=== PATIENT | female | born 1975 | race Two or more races ===

== ENCOUNTER 2017-03-10 21:49 | Emergency (ER) | payer OTHER ==
[2017-03-10 21:58] VITALS: BP 143/97; PULSE 110; TEMP 99.6; BMI 27.4
[2017-03-10] MEDS ORDERED: RANITIDINE HCL 150 MG TABLET (FP) PO ONE (22:48)
[2017-03-10 22:50] LABS: BASOPHIL 0.3 % (0-2.0); EOSINOPHIL 0.7 % (0-4.5); MCH 24.1 pg (25.7-33.7); MCHC 31.2 g/dl (32.0-36.0); MEAN CELL VOLUME 77.1 fl (80-96); MEAN PLT VOLUME 7.7 fl (7.5-11.1); NEUTROPHILS 77.6 % (42.8-82.8); PLATELET COUNT 372 K/MM3 (134-434); RDW 22.5 % (11.6-15.6); WHITE BLOOD COUNT 14.5 K/mm3 (4.0-10.0)
[2017-03-10] MEDS ORDERED: RANITIDINE HCL 150 MG TABLET (FP) ONE (22:55)
--- NOTE | 2017-03-10 22:58 | PDOC ---
*Physical Exam - Vital Signs Last Vital Signs Temp Pulse Resp BP Pulse Ox 99.6 F 110 H 20 143/97 96 03/10/17 21:57 03/10/17 21:57 03/10/17 21:57 03/10/17 21:57 03/10/17 21:57 - Physical Exam Comments: 03/10/17 22:58 The patient was examined by [DENISA Thurman] under my direct supervision. I personally evaluated the patient. I concur with the above findings and the plan of care. Patient is a 41-year-old female who presented with pleuritic chest and back discomfort associated with a dry nonproductive cough. EKG showed sinus tachycardia without evidence of acute ischemia or right sided heart strain. Patient's d-dimer was noted to be elevated and she underwent a CT of chest with IV contrast as per PE protocol. As per imaging donor technician radiologist, there is no evidence of PE within the main pulmonary arteries, however, there is an ill- defined peripherally based opacity to the left upper lobe consistent with a pulmonary infarct. I suspect that a subsegmental PE which is not appreciated on the CTA of chest is likely responsible. We will administer Lovenox subcutaneous at 1 mg/kg dose, as well as Zithromax-500 mg IV for possible infectious etiology. 03/11/17 02:16 Prior to admission, patient expressed desire to leave the hospital due to familial applications. Patient has been advised of the seriousness of her condition and the risk associated with leaving against medical advise which may include but are not limited to repeat pulmonary emboli, heart attack and even . Patient expressed understanding and has promised to return promptly to the ER further evaluation and treatment. ED Treatment Course - LABORATORY CBC & Chemistry Diagram: 03/10/17 22:30 03/10/17 22:30 - ADDITIONAL ORDERS Additional order review: 03/10/17 22:30 RBC 4.01 MCV 77.1 L MCHC 31.2 L RDW 22.5 H MPV 7.7 Neutrophils % 77.6 Lymphocytes % 15.6 Monocytes % 5.8 Eosinophils % 0.7 Basophils % 0.3 *DC/Admit/Observation/Transfer Diagnosis at time of Disposition: Pulmonary infarction - Discharge Dispostion Disposition: AGAINST MEDICAL ADVICE Condition at time of disposition: Guarded - Referrals Referrals: Virgilio Hector [Primary Care Provider] -
[2017-03-10 23:09] LABS: ALBUMIN 3.1 g/dl (3.4-5.0); ANION GAP 9 (8-16); BILIRUBIN,TOTAL 0.2 mg/dL (0.2-1.0); CO2 27 mmol/L (21-32); CREATININE 0.8 mg/dL (0.55-1.02); SGOT/AST 8 U/L (15-37); SGPT/ALT 15 U/L (12-78); TOT PROT 7.7 g/dl (6.4-8.2)
[2017-03-10 23:10] LABS: ALK PHOS 158 U/L (45-117)
[2017-03-10 23:14] LABS: GLUCOSE,RANDOM 346 mg/dL (74-106)
[2017-03-10 23:30] LABS: PLATELET COMMENT2 NO CLOTTING DETECTED; PLATELET COMMENT3 FEW LARGE PLTS; PLATELET ESTIMATE ADEQUATE (NORMAL)
[2017-03-10 23:33] LABS: ANISOCYTOSIS 2+; HYPOCHROMIA 1+; MICROCYTOSIS 1+; POIKILOCYTOSIS 1+; POLYCHROMASIA 1+
--- NOTE | 2017-03-11 00:17 | PDOC ---
History of Present Illness - General Chief Complaint: Pain Stated Complaint: CHEST PAIN Time Seen by Provider: 03/10/17 21:54 - History of Present Illness Initial Comments: 03/10/17 23:48 CHIEF COMPLAINT: SOB HISTORY OF PRESENT ILLNESS: 41 yo F with hx of IDDM presents to ED with chest pain and cough. Patient states she started feeling chest pain 3 days ago and began coughing 2 days ago. She reports the chest pain as being "on the left side, kind of toward the side and back" and that it hurts when she moves or breathes. She reports lifting a "heavy shopping cart" with her daughter up the stairs 3 days ago prior to the onset of her back/chest pain. She does report smoking history, approximately 8 cigarettes a day. No recent travel or sick contacts. PAST MEDICAL HISTORY: Denies past medical history FAMILY HISTORY: Denies SOCIAL HISTORY: Denies tobacco, alcohol, illicit drug use. SURGICAL HISTORY: Denies ALLERGIES: PCN REVIEW OF SYSTEMS General/Constitutional: Denies fever or chills. Denies weakness. HEENT: Denies change in vision. Denies ear pain or discharge. Denies sore throat. Cardiovascular: L sided chest pain, SOB. Respiratory: Cough x 2 days. Denies wheezing, or hemoptysis. Gastrointestinal: Denies nausea, vomiting, diarrhea or constipation. Denies rectal bleeding. Genitourinary: Denies dysuria, frequency, or change in urination. Musculoskeletal: Denies joint or muscle swelling or pain. Denies neck or back pain. Skin and breasts: Denies rash or easy bruising. PHYSICAL EXAM General Appearance: Well-appearing, appropriately dressed. No apparent distress. HEENT: EOMI, PERRLA, normal ENT inspection, normal voice, TMs normal, pharynx normal. No conjunctival pallor. No photophobia, scleral icterus. Neck: Supple. Trachea midline. No tenderness, rigidity, carotid bruit, stridor , lymphadenopathy, or thyromegaly. Respiratory/Chest: Pleurtic chest discomfort, shortness of breath. Lungs CTAB. No respiratory distress, accessory muscle use. No crackles, rales, rhonchi, stridor, wheezing, dullness. Cardiovascular: RRR. S1, S2. No JVD, murmur, bradycardia, tachycardia. Vascular Pulses: Dorsalis-Pedis (R): 2+, Dorsalis-Pedis (L): 2+ Gastrointestinal/Abdominal: Normal bowel sounds. Abdomen soft, non-distended. No tenderness or rebound tenderness. No organomegaly, pulsatile mass, guarding , hernia, hepatomegaly, splenomegaly. Musculoskeletal/Extremities: Marked tenderness to left lateral chest and back. Normal inspection. FROM of all extremities, normal capillary refill. Pelvis Stable. No CVA tenderness. No tenderness to extremities, pedal edema, swelling , erythema or deformity. Integumentary: Appropriate color, dry, warm. No cyanosis, erythema, jaundice or rash Neurologic: environmental services tech II-XII intact. Fully oriented, alert. Appropriate mood/affect. Motor strength 5/5. No appreciable EOM palsy, facial droop or sensory deficit. 03/11/17 01:10 03/11/17 01:31 Past History - Past Medical History Allergies/Adverse Reactions: Allergies Allergy/AdvReac Type Severity Reaction Status Date / Time Penicillins Allergy Verified 03/10/17 21:56 Home Medications: Ambulatory Orders Canagliflozin [Invokana] 100 mg PO ASDIR 03/10/17 Linagliptin [Tradjenta] 5 mg PO ASDIR 03/10/17 Sitagliptin Phosphate [Januvia] 50 mg PO DAILY@0700 03/10/17 Diabetes: Yes (type 2) - Psycho/Social/Smoking Cessation Hx Suicidal Ideation: No Smoking History: Current every day smoker Information on smoking cessation initiated: No *Physical Exam - Vital Signs Last Vital Signs Temp Pulse Resp BP Pulse Ox 99.6 F 110 H 20 143/97 96 03/10/17 21:57 03/10/17 21:57 03/10/17 21:57 03/10/17 21:57 03/10/17 21:57 ED Treatment Course - LABORATORY CBC & Chemistry Diagram: 03/10/17 22:30 03/10/17 22:30 - ADDITIONAL ORDERS Additional order review: Laboratory Results 03/10/17 03/10/17 03/10/17 22:43 22:30 22:30 D-Dimer 693 H Sodium Potassium Chloride Carbon Dioxide Anion Gap BUN Creatinine Creat Clearance w eGFR Random Glucose Lactic Acid 0.917 Calcium Total Bilirubin AST ALT Alkaline Phosphatase Total Protein Albumin Serum , Qual Negative 03/10/17 22:30 D-Dimer Sodium 133 L Potassium 3.7 Chloride 97 L Carbon Dioxide 27 Anion Gap 9 BUN 10 Creatinine 0.8 Creat Clearance w eGFR > 60 Random Glucose 346 H* Lactic Acid Calcium 9.0 Total Bilirubin 0.2 AST 8 L ALT 15 Alkaline Phosphatase 158 H Total Protein 7.7 Albumin 3.1 L Serum , Qual 03/10/17 22:30 RBC 4.01 MCV 77.1 L MCHC 31.2 L RDW 22.5 H MPV 7.7 Neutrophils % 77.6 Lymphocytes % 15.6 Monocytes % 5.8 Eosinophils % 0.7 Basophils % 0.3 - RADIOLOGY Radiology Studies Ordered: Category Date Time Status CHEST CTA [CT] Stat CT Scan 03/10/17 23:13 Ordered CHEST PA & LAT [RAD] Stat Radiology 03/10/17 22:06 Ordered - Medications Given in the ED: ED Medications Discontinued Medications Generic Name Dose Route Start Last Admin Trade Name Freq PRN Reason Stop Dose Admin Ranitidine HCl 150 mg 03/10/17 22:48 03/10/17 23:03 Zantac - PO 03/10/17 22:49 150 mg ONCE ONE Administration Medical Decision Making - Medical Decision Making 03/11/17 01:26 41 yo F with hx of IDDM presents to ED with chest pain and cough. VS remarkable for oral temp 99.6F and HR 110. Patient has marked tenderness to left chest and back. Concern for PE vs pneumonia. -CBC, CMP, D-dimer -CXR D-dimer 693 -CTA chest No filling defects are seen in the main, central or proximal segmental pulmonary arteries. There is however a wedge-shaped pleural-based area of heterogeneous incomplete consolidation noted in the left upper lobe anterolaterally (image 33) which is typical of a pulmonary infarct. There is no axillary, mediastinal or hilar adenopathy. The heart is within monitor size. There is no pericardial or pleural effusion. The trachea and central bronchi are patent. The thoracic aorta and proximal great vessels have a normal appearance. The visualized upper abdominal viscera appear unremarkable Impression: No pulmonary embolism identified. There is however a pleural-based area of incomplete consolidation seen in the left upper lobe, as described above that is typical of a pulmonary infarct. Read by: Juan Manuel Emmanuel MD. -Lovenox 70mg -Azithromycin 500 mg Will admit to hospitalist. Discussed case with attending hospitalist MD Oglesby who accepts patient to inpatient services. 03/11/17 02:06 Patient requests to sign out AMA. Discussed with patient risks of signing out AMA, including stroke and possible . Patient insists that she has to go home to arrange for childcare. Advised patient to stay and that social work can help arrange childcare in the morning. Patient refuses and continues to insist that she will sign her self out. *DC/Admit/Observation/Transfer Diagnosis at time of Disposition: Pulmonary infarction - Discharge Dispostion Disposition: AGAINST MEDICAL ADVICE Condition at time of disposition: Guarded Admit: No - Referrals Referrals: Virgilio Hector [Primary Care Provider] -
[2017-03-11] MEDS ORDERED: ENOXAPARIN NA (PORCINE) 60 MG/0.6 ML DISP.SYRIN SQ SCH (01:30)
[2017-03-11] MEDS ORDERED: AZITHROMYCIN 250 MG TABLET (FP) PO ONE (01:30)
[2017-03-11] MEDS ORDERED: ENOXAPARIN NA (PORCINE) 80 MG/0.8 ML DISP.SYRIN SQ ONE (01:46)
[2017-03-11] MEDS ORDERED: AZITHROMYCIN 250 MG TABLET (FP) ONE (01:46)
--- NOTE | 2017-03-12 10:41 | EKG ---
Test Reason : Blood Pressure : / mmHG Vent. Rate : 105 BPM Atrial Rate : 105 BPM P-R Int : 152 ms QRS Dur : 082 ms QT Int : 350 ms P-R-T Axes : 048 040 025 degrees QTc Int : 462 ms SINUS TACHYCARDIA OTHERWISE NORMAL ECG NO PREVIOUS ECGS AVAILABLE Confirmed by ISAAK SANDHU MD ([id number]) on 03/12/2017 10:41:30 AM Referred By: Confirmed By:ISAAK SANDHU MD
== END 2017-03-11 02:18 | disposition left against medical advice (07) ==
LOC: JER 21:49
PROC: 3E013GC Introduction of Other Therapeutic Substance into Subcutaneous Tissue, Percutaneous Approach (ICD-10-PCS; principal; 2017-03-10)
DX: I26.99 Other pulmonary embolism without acute cor pulmonale (principal); E11.9 Type 2 diabetes mellitus without complications; Z79.4 Long term (current) use of insulin; Z79.84 Long term (current) use of oral hypoglycemic drugs; F17.210 Nicotine dependence, cigarettes, uncomplicated
CPT/HCPCS: 36415; 71020-TC; 71275-TC; 80053; 83605; 84703; 85025; 85379; 87040; 93005; 93010; 96372; 99284-25

== ENCOUNTER 2017-03-13 14:41 | Emergency (ER) | payer OTHER ==
[2017-03-13] MEDS ORDERED: ALBUTEROL SO4 2.5/IPRATROPIUM 0.5 INH SOL 3 ML VIAL.NEB. NEB ONE (15:08)
[2017-03-13] MEDS ORDERED: DEXAMETHASONE SOD PHOSPHATE 10 MG/1 ML VIAL ONE (15:08)
--- NOTE | 2017-03-13 16:43 | PDOC ---
History of Present Illness - General Chief Complaint: Chest Pain Stated Complaint: Asthma Time Seen by Provider: 03/13/17 15:00 History Source: Patient Exam Limitations: No Limitations - History of Present Illness Initial Comments: 03/13/17 16:09 41 y/o female with c/o chest pain which she describes the tightness accompanied with shortness of breath with minimal exertion. Patient states was here a few days ago was diagnosed with a PE and was placed on Lovenox which she states has taken yesterday and today. Patient apparently left AMA but states is currently compliant with medications. Patient denies history of PE recent surgery, recent travel, or use of oral contraceptive pills. Patient does state smokes cigarettes daily Severity: reports: moderate Possible Cause: Yes: occasional episodes Associated Symptoms: reports: chest pain/soreness, cough, shortness of breath, wheezing Past History - Past Medical History Allergies/Adverse Reactions: Allergies Allergy/AdvReac Type Severity Reaction Status Date / Time Penicillins Allergy Verified 03/10/17 21:56 Home Medications: Ambulatory Orders Canagliflozin [Invokana] 100 mg PO TID 03/10/17 Sitagliptin Phosphate [Januvia] 100 mg PO DAILY@0700 03/10/17 Acetaminophen [Mapap] 500 mg PO Q6H PRN 03/13/17 Azithromycin [Zithromax -] 250 mg PO DAILY 03/13/17 Enoxaparin [Lovenox -] 80 mg SQ BID 03/13/17 Gabapentin 300 mg PO TID 03/13/17 Insulin Glargine,Hum.rec.anlog [Toujeo Solostar] 35 unit SQ DAILY 03/13/17 Pregabalin [Lyrica] 100 mg PO TID 03/13/17 Diabetes: Yes (type 2) Other medical history: pe - Psycho/Social/Smoking Cessation Hx Anxiety: No Suicidal Ideation: No Smoking History: Current every day smoker Have you smoked in the past 12 months: Yes Number of Cigarettes Smoked Daily: 10 Information on smoking cessation initiated: No Hx Alcohol Use: No Drug/Substance Use Hx: No Substance Use Type: None Patient Lives Alone: No Review of Systems - Review of Systems Able to Perform ROS?: Yes Constitutional: No: Symptoms Reported HEENTM: No: Symptoms Reported Respiratory: Yes: SOB with Exertion Cardiac (ROS): Yes: Chest Pain ABD/GI: No: Symptoms Reported : No: Symptoms Reported Musculoskeletal: No: Symptoms Reported Integumentary: No: Symptoms Reported Neurological: No: Symptoms reported Endocrine: No: Symptoms Reported Hematologic/Lymphatic: No: Symptoms Reported *Physical Exam - Vital Signs Last Vital Signs Temp Pulse Resp BP Pulse Ox 97.8 F 102 H 17 113/76 100 03/13/17 14:52 03/13/17 16:37 03/13/17 16:37 03/13/17 16:37 03/13/17 16:37 - Physical Exam General Appearance: Yes: Nourished, Appropriately Dressed. No: Apparent Distress HEENT: positive: EOMI, BRITTNI. negative: Pale Conjunctivae Neck: positive: Supple Respiratory/Chest: positive: Lungs Clear, Normal Breath Sounds. negative: Respiratory Distress, Accessory Muscle Use Cardiovascular: positive: Regular Rhythm, Tachycardia. negative: Murmur Gastrointestinal/Abdominal: positive: Soft. negative: Tenderness Musculoskeletal: negative: CVA Tenderness Extremity: positive: Normal Capillary Refill. negative: Pedal Edema Integumentary: positive: Normal Color, Warm, Moist Neurologic: positive: Normal Mood/Affect, Motor Strength 5 (ambulatory) ED Treatment Course - LABORATORY CBC & Chemistry Diagram: 03/13/17 16:00 03/13/17 18:54 - RADIOLOGY Radiology Studies Ordered: Category Date Time Status CHEST PA & LAT [RAD] Stat Radiology 03/13/17 15:20 Completed Medical Decision Making - Medical Decision Making 03/13/17 17:01 Patient with opacity in the left lobe noted on the interpreted as up subsegmental PE by the attending in the ED but read as negative from the radiologist. Patient currently on Lovenox which she started yesterday. Patient continues with complaints of shortness of breath on exertion along with generalized chest tightness. Patient ordered for echo to rule out strain, labs, chest x-ray, and cardiac rehabilitation specialist. 03/13/17 17:04 Chest x-ray shows focal area peripheral opacification with a left upper lobe with no significant change since 03/10 this most likely represents chronic process such as atelectasis, scarring, or infarct. Laboratory Tests 03/13/17 16:00 WBC 12.5 H Hgb 9.8 L Hct 31.7 L Plt Count 406 Neutrophils % 84.6 H 03/13/17 18:59 DVT study negative. Echo shows no right sided heart strain. Noted mild mitral valve regurgitation. Patient will be revitalized and if normal sinus rhythm with a good O2 sat. Patient be discharged home to continue with Lovenox and follow-up with her PCP. 03/13/17 19:04 pulse 96. O2 sat 100%. Patient will be discharged home to continue with her medication and follow-up with her PCP. *DC/Admit/Observation/Transfer Diagnosis at time of Disposition: Chest pain Qualifiers: Chest pain type: unspecified Qualified Code(s): R07.9 - Chest pain, unspecified - Discharge Dispostion Disposition: HOME Condition at time of disposition: Improved - Referrals Referrals: Virgilio Hector [Primary Care Provider] - - Patient Instructions Printed Discharge Instructions: DI for Atypical Chest Pain Additional Instructions: Please continue taking medication as prescribed and follow-up with your PCP to continue management.
[2017-03-13 16:48] LABS: BASOPHIL 0.5 % (0-2.0); EOSINOPHIL 0.6 % (0-4.5); MCH 23.9 pg (25.7-33.7); MCHC 30.8 g/dl (32.0-36.0); MEAN CELL VOLUME 77.7 fl (80-96); MEAN PLT VOLUME 8.3 fl (7.5-11.1); NEUTROPHILS 84.6 % (42.8-82.8); PLATELET COUNT 406 K/MM3 (134-434); RDW 22.5 % (11.6-15.6); WHITE BLOOD COUNT 12.5 K/mm3 (4.0-10.0)
--- NOTE | 2017-03-13 17:00 | EKG ---
Test Reason : Blood Pressure : / mmHG Vent. Rate : 104 BPM Atrial Rate : 104 BPM P-R Int : 152 ms QRS Dur : 082 ms QT Int : 382 ms P-R-T Axes : 049 030 016 degrees QTc Int : 502 ms SINUS TACHYCARDIA OTHERWISE NORMAL ECG WHEN COMPARED WITH ECG OF 10-MAR-2017 22:30, NO SIGNIFICANT CHANGE WAS FOUND Confirmed by ISAAK SANDHU MD ([id number]) on 03/13/2017 5:00:15 PM Referred By: Confirmed By:ISAAK SANDHU MD
[2017-03-13 17:57] LABS: ANISOCYTOSIS 3+
[2017-03-13 17:58] LABS: MICROCYTOSIS 1+
[2017-03-13 19:11] VITALS: BP 114/65; PULSE 90; TEMP 98.1
[2017-03-13 19:25] LABS: ALBUMIN 3.2 g/dl (3.4-5.0); ANION GAP 12 (8-16); BILIRUBIN,TOTAL 0.3 mg/dL (0.2-1.0); CALCIUM 9.2 mg/dL (8.5-10.1); CO2 26 mmol/L (21-32); CREATININE 0.8 mg/dL (0.55-1.02); SGOT/AST 12 U/L (15-37); SGPT/ALT 17 U/L (12-78)
[2017-03-13 19:26] LABS: ALK PHOS 154 U/L (45-117); TOT PROT 8.4 g/dl (6.4-8.2)
[2017-03-13 19:32] LABS: GLUCOSE,RANDOM 375 mg/dL (74-106)
== END 2017-03-13 19:12 | disposition home or self-care (01) ==
LOC: JER 14:41
DX: R07.89 Other chest pain (principal); E11.9 Type 2 diabetes mellitus without complications; Z79.4 Long term (current) use of insulin; Z79.84 Long term (current) use of oral hypoglycemic drugs; Z86.711 Personal history of pulmonary embolism; Z79.01 Long term (current) use of anticoagulants
CPT/HCPCS: 36415; 71020-TC; 80053; 85025; 93005; 93010; 93306-TC; 93970-TC; 99285-25

== ENCOUNTER 2018-03-16 10:08 | Inpatient (IN) | payer OTHER ==
[2018-03-16] MEDS ORDERED: SODIUM CHLORIDE 1,000 ML IV ONE ×4 (10:20→14:02)
[2018-03-16] MEDS ORDERED: ONDANSETRON 4 MG/2 ML VIAL IVPB ONE (10:27)
--- NOTE | 2018-03-16 10:30 | PDOC ---
History of Present Illness - History of Present Illness Initial Comments: Patient is a 42 F, with PMHx of IDDM, GERD who was BIBA and presents with dizziness, lightheadedness, nausea, and vomiting for 4 days. Patient states that 4 days ago she began feeling lightheaded and describes it as feeling off- balance. Three days ago she felt lightheaded and fell down stairs injuring the right side of her body, in particular her shoulder, ribs, and lower back. She was seen at [facility] and x-rays were negative for fracture as per patient. Patient also reports fever of last night at 102.4, cough (non-productive, non- bloody), and sore throat. She states she is unable to tolerate PO liquid/solid without feeling nauseous/vomiting. She states that her blood sugar is not well- controlled and is normally in the 300s. The last time she took her sugar was 367. Denies abdominal pain, runny nose, diarrhea, dysuria Social Hx: Current every day smoker 03/16/18 14:23 <Annmarie Trinidad - Last Filed: 03/16/18 18:24> - History of Present Illness Initial Comments: Addendum to above history - pt does endorse some R sided abdominal pain for the past few days that she attributes to the fall <Jacinto Slater - Last Filed: 03/18/18 07:26> - General Chief Complaint: Blood Sugar Problem Stated Complaint: BLOOD SUGAR PROBLEM Time Seen by Provider: 03/16/18 10:25 Past History <Annmarie Trinidad - Last Filed: 03/16/18 18:24> - Past Medical History COPD: No Diabetes: Yes (type 2) GI Disorders: Yes (gerd) Hypercholesterolemia: Yes Other medical history: sciatica,fibromyalgia - Suicide/Smoking/Psychosocial Hx Smoking History: Current every day smoker Have you smoked in the past 12 months: Yes Number of Cigarettes Smoked Daily: 10 Information on smoking cessation initiated: Yes 'Breaking Loose' booklet given: 03/16/18 Hx Alcohol Use: No Drug/Substance Use Hx: No Substance Use Type: None <Jacinto Slater - Last Filed: 03/18/18 07:26> - Past Medical History Allergies/Adverse Reactions: Allergies Allergy/AdvReac Type Severity Reaction Status Date / Time Penicillins Allergy Verified 03/16/18 10:20 Home Medications: Ambulatory Orders Atorvastatin Ca [Lipitor] 40 mg PO HS 03/16/18 Ferrous Sulfate [Iron] 325 mg PO DAILY 03/16/18 Gabapentin 300 mg PO HS 03/16/18 Hydroxyzine HCl 50 mg PO DAILY 03/16/18 Ibuprofen [Motrin -] 800 mg PO Q8H PRN 03/16/18 Insulin Glargine,Hum.rec.anlog [Basaglar Kwikpen U-100] 20 unit SQ BID 03/16/18 Omeprazole 20 mg PO DAILY 03/16/18 Review of Systems - Review of Systems Comments:: 03/16/18 14:21 CONSTITUTIONAL: Reported: fever No reported: , Chills, Diaphoresis, Generalized Weakness, Malaise, Loss of Appetite HEENT: reportedL sore throat No reported: Rhinorrhea, Nasal Congestion, Throat Swelling, Difficulty Swallowing, Mouth Swelling, Ear Pain, Eye Pain, Visual Changes CARDIOVASCULAR: No reported: Chest Pain, Syncope, Palpitations, Irregular Heart Rate, Lightheadedness, Peripheral Edema RESPIRATORY: reported: cough (non-productive) No reported: Shortness of Breath, SOB with Exertion, Orthopnea, Wheezing, Stridor, Hemoptysis GASTROINTESTINAL: Reported: right sided abdominal pain, nausea, vomiting. No reported: Abdominal Distension, Diarrhea, Constipation, Melena, Hematochezia GENITOURINARY: No reported: Dysuria, Frequency, Urgency, Hesitancy, Flank Pain, Genital Pain MUSCULOSKELETAL: reported: right shoulder, right anterior rib, back pain No reported: Neck Pain SKIN: No reported: Rash, Itching, Pallor HEMEATOLOGIC/IMMUNOLOGIC: No reported: Easy Bleeding, Easy Bruising, Lymphadenopathy, Frequent infections ENDOCRINE: No reported: Unexplained Weight Gain, Unexplained Weight Loss, Heat Intolerance , Cold Intolerance NEUROLOGIC: Reported: lightheadness No reported: Headache, Focal Weakness, Paresthesias, , Unsteady Gait, Seizure, Mental Status Changes, Incontinence PSYCHIATRIC: No reported: Anxiety, Depression <Annmarie Trinidad - Last Filed: 03/16/18 18:24> *Physical Exam - Vital Signs Last Vital Signs Temp Pulse Resp BP Pulse Ox 98.3 F 115 H 18 109/63 98 03/16/18 10:21 03/16/18 10:21 03/16/18 10:21 03/16/18 10:21 03/16/18 10:21 - Physical Exam Comments: 03/16/18 14:22 GENERAL: The patient is awake, alert, and fully oriented, Nontoxic - in no acute distress. HEAD: Normocephalic, atraumatic. EYES: extraocular movements intact, sclera anicteric, conjunctiva clear. ENT: Normal voice, Dry mucous membranes. NECK: Normal range of motion, supple LUNGS: Breath sounds equal, clear to auscultation bilaterally. No wheezes, no rhonchi, no rales. HEART: Tachycardic. Regular rate and rhythm, without murmur, rub or gallop. ABDOMEN: Soft, mild tenderness to palpation of RUQ and right chest, EXTREMITIES: Normal range of motion, no edema. No cyanosis. No erythema, or tenderness. NEUROLOGICAL: No facial assymetry, Normal speech, PSYCH: Normal mood, normal affect. SKIN: Warm, Dry, normal turgor 03/16/18 14:59 <Annmarie Trinidad - Last Filed: 03/16/18 18:24> - Vital Signs Last Vital Signs Temp Pulse Resp BP Pulse Ox 98.3 F 115 H 18 109/63 98 03/16/18 10:21 03/16/18 10:21 03/16/18 10:21 03/16/18 10:21 03/16/18 10:21 <Jacinto Slater - Last Filed: 03/18/18 07:26> Procedures - Consent Consent obtained: Written - Central Line Central Line Lumen: triple Central Line Position: internal jugular (R) Anesthesia: 1% Lidocaine Amount of anesthesia (ccs): 5 Complications: none Post Central Line Insertion: sutured, good blood return Progress: 03/16/18 15:31 placed by resident Regino Eric under my direct supervision. I was present during the entire procedure <Jacinto Slater - Last Filed: 03/18/18 07:26> Heart Score/ECG Review - ECG Intrepretation Comment:: 03/16/18 15:01 Taken at 11:41:17 Sinus tachycardia Nonspecific T wave abnormality Abnormal ECG Vent rate 113 bpm <Annmarie Trinidad - Last Filed: 03/16/18 18:24> ED Treatment Course - LABORATORY CBC & Chemistry Diagram: 03/16/18 16:30 03/16/18 15:20 - ADDITIONAL ORDERS Additional order review: Laboratory Results 03/16/18 03/16/18 03/16/18 11:20 11:20 11:20 VBG pH 7.24 L* POC VBG pCO2 38.3 POC VBG pO2 22.9 L Mixed VBG HCO3 15.8 L Sodium 133 L Potassium 3.4 L Chloride 104 Carbon Dioxide 16 L Anion Gap 13 BUN 23 H Creatinine 2.5 H Creat Clearance w eGFR 21.12 Random Glucose 330 H* Calcium 7.2 L Phosphorus 3.4 Magnesium 1.5 L Total Bilirubin 1.8 H D AST 98 H ALT 61 Alkaline Phosphatase 188 H Total Protein 7.0 Albumin 2.4 L Serum , Qual Negative 03/16/18 11:20 RBC 3.53 L MCV 78.0 L MCHC 31.3 L RDW 21.7 H MPV 7.7 Neutrophils % 96.2 H Lymphocytes % 1.8 L D Monocytes % 1.7 L Eosinophils % 0.1 D Basophils % 0.2 - RADIOLOGY Radiograph Interpretation: 03/16/18 12:45 Chest X-ray Impression: No acute pathology. Clearing of left midlung density. Reported by: Virgilio Seth 03/16/18 1213 03/16/18 14:07 - Gallbladder US Impression: Enlarged liver. 5.4 cm irregular hypoechoic lesion posterior aspect of the liver. Etiology should include both benign and malignant lesions. In the right clinical setting an abscess should be considered. 4.3 cm irregular hypoechoic lesion upper pole right kidney. Could represent a mildly complex cyst but other etiologies must be considered. Gallbladder polyp. Mural thickening of the gallbladder. This can be seen in cholecystitis Reported by: Alejandro Li MD 03/16/18 8586 - Medications Given in the ED: ED Medications Discontinued Medications Generic Name Dose Route Start Last Admin Trade Name Freq PRN Reason Stop Dose Admin Sodium Chloride 1,000 mls @ 1,000 mls/hr 03/16/18 10:27 03/16/18 10:49 Normal Saline - IV 03/16/18 11:26 1,000 mls/hr .Q1H ONE Administration Ondansetron HCl 4 mg 03/16/18 10:27 03/16/18 11:19 Zofran Injection IVPB 03/16/18 10:28 4 mg ONCE ONE Administration - Additional Consults Time Called: 18:10 (Called Dr. Almaguer (ID) for consult) Time Called: 18:24 (Called Dr. Mcmullen (Renal), awaiting call back) <Annmarie Trinidad - Last Filed: 03/16/18 18:24> - LABORATORY CBC & Chemistry Diagram: 03/18/18 05:15 03/18/18 05:15 <Jacinto Slater - Last Filed: 03/18/18 07:26> Medical Decision Making - Medical Decision Making Case discussed with surgery - Dr. Diaz, agrees with plan for head CT scan and antibiotics, she will be down to see the patient. 03/16/18 14:19 <Annmarie Trinidad - Last Filed: 03/16/18 18:24> - Medical Decision Making 03/16/18 11:04 42-year-old female history of insulin-dependent diabetes, gerd, hl, fibromyalgia presents with complaint of feeling lightheaded, nbnb nausea/ vomiting for the past 4 days with associated cough. pt denies any diarrhea, new abd pain, dysuria, cp, back pain. pt niotes her bgm has been i the 400s but has poorly controled sugar at baseline. on exam pt appears well, in no distress, mild tenderness in the R ribs/ruq without ecchymosis or other signs of trauma (was eval at [facility] - no fx sp fall 2 daysago) mildly dry mmm ddx: enteritis, DKA will ck labs, vbg, ketones will will reassess A portion of this note was documented by scribe services under my direction. I have reviewed the details of the note, within reason, and agree with the documentation with the following case summary and management plan written by me 03/16/18 13:02 Patient's labs were reviewed Noted for a white count, the patient also has an elevated T bilirubin as well as acute renal failure with elevated creatinine compared to baseline. She got 2 L of fluids, will give another liter. Will obtain blood cultures and lactic acid The patient had originally complained of a fall on her right side several days ago, she was attributing some tenderness on her right abdomen and chest to that however I will rule out a cholecystitis in light of her elevated bilirubins. Patient's blood pressure is also low will continue to fluid resuscitate if no response will consider central line and pressors 03/16/18 15:28 US noted for hepatic/renal collection -->traumatic vs. infectious? case dw dr. Diaz who was bedside evaluationg the patient, awaiting CT pts bp continues to be soft, after 4L of fluids tripple lumen placed in RIJ by Dr. Eric under my direct supervision without complications 03/16/18 15:43 line placemnt confirmed by cxr 03/16/18 15:54 will admit for further management 03/16/18 16:58 urine noted for possible UTI -->?pyelo/collection? 03/16/18 17:38 case louise Smith agree with admission accepted to ICU by dr. amaral pt reepeat blood anemic, likely dilutional, but in light of possible trauma and soft BP, surgery rec 2u of PRBC Ca, Mag low - repleted continue fluids pts bp holding up w/o pressors Case discussed in detail with admitting physician including history, physical exam and ancillary studies. Admitting physician has assumed care for the patient, will follow all pending diagnostics and will complete the evaluation and treatment. 03/16/18 18:48 case louise Smith and dr. caballero/jose antonio - agreed that the patient needs a CTA to r/o bleeding due to recent fall pt will go to CT before she goes to ICU 03/16/18 19:35 CRITICAL CARE DOCUMENTATION: I spent ~145 minutes of Critical Care time, excluding separately billable procedures, involving high complexity decision making to assess, manipulate and support vital system function(s) to treat single or multiple vital organ system failure and/or to prevent further life threatening deterioration of the patient' s condition. <Jacinto Slater - Last Filed: 03/18/18 07:26> *DC/Admit/Observation/Transfer - Attestations Scribe Attestion: 03/16/18 14:23 Documentation prepared by Annmarie Trinidad, acting as medical staff credentialing coordinator for Jacinto Slater MD. <Annmarie Trinidad - Last Filed: 03/16/18 18:24> - Discharge Dispostion Decision to Admit order: Yes <Jacinto Slater - Last Filed: 03/18/18 07:26> Diagnosis at time of Disposition: Liver abscess, Metabolic acidosis, Hyperglycemia, SOFIYA (acute kidney injury) UTI (urinary tract infection) Qualifiers: Urinary tract infection type: site unspecified Hematuria presence: with hematuria Qualified Code(s): N39.0 - Urinary tract infection, site not specified - Discharge Dispostion Condition at time of disposition: Critical
[2018-03-16] MEDS ORDERED: ONDANSETRON 4 MG/2 ML VIAL ONE (10:51)
[2018-03-16 11:32] LABS: BASO % 0.2 % (0-2.0); EOS % 0.1 % (0-4.5); HEMATOCRIT 27.5 % (32.4-45.2); HEMOGLOBIN 8.6 GM/dL (10.7-15.3); LYMPH % 1.8 % (8-40); MCH 24.4 pg (25.7-33.7); MCHC 31.3 g/dl (32.0-36.0); MEAN PLT VOLUME 7.7 fl (7.5-11.1); MONO % 1.7 % (3.8-10.2); NEUT % 96.2 % (42.8-82.8); PLATELET COUNT 282 K/MM3 (134-434); RBC 3.53 M/mm3 (3.60-5.2); RDW 21.7 % (11.6-15.6); WHITE BLOOD COUNT 13.6 K/mm3 (4.0-10.0)
[2018-03-16 11:47] LABS: VENOUS PC02 38.3 mmHg (38-52); VENOUS PO2 22.9 mmHg (28-48)
[2018-03-16 11:48] LABS: VENOUS PH 7.24 (7.32-7.42)
[2018-03-16 12:04] LABS: ALBUMIN 2.4 g/dl (3.4-5.0); ANION GAP 13 (8-16); BLOOD UREA NITROGEN 23 mg/dL (7-18); CALCIUM 7.2 mg/dL (8.5-10.1); CHLORIDE 104 mmol/L (98-107); CO2 16 mmol/L (21-32); CREATININE 2.5 mg/dL (0.55-1.02); PHOSPHOROUS 3.4 mg/dL (2.5-4.9); SGPT/ALT 61 U/L (12-78); SODIUM 133 mmol/L (136-145)
[2018-03-16 12:07] LABS: ALK PHOS 188 U/L (45-117); BILIRUBIN,TOTAL 1.8 mg/dL (0.2-1.0)
[2018-03-16 12:10] LABS: POTASSIUM 3.4 mmol/L (3.5-5.1)
[2018-03-16 12:11] LABS: MAGNESIUM 1.5 mg/dL (1.8-2.4); SGOT/AST 98 U/L (15-37)
[2018-03-16 12:12] LABS: GLUCOSE,RANDOM 330 mg/dL (74-106)
[2018-03-16 13:05] LABS: URINE APPEARANCE CLOUDY; URINE BILIRUBIN NEGATIVE (<2.0 mg/dL); URINE COLOR AMBER; URINE GLUCOSE (UA) 1+ (NEGATIVE); URINE KETONE NEGATIVE (NEGATIVE); URINE NITRITE NEGATIVE (NEGATIVE); URINE UROBILINOGEN 4.0 E.U/dl mg/dL (0.2-1.0)
[2018-03-16 13:06] LABS: HCG,QUALITATIVE URINE NEGATIVE; URINE LEUK ESTERASE 3+ (NEGATIVE); URINE PROTEIN 2+ (NEGATIVE)
[2018-03-16 13:11] LABS: EPI CELLS MANY /HPF (FEW); URINE BACTERIA MANY /hpf (NONE SEEN); URINE HYALINE CAST 10 /lpf; URINE MUCUS RARE
[2018-03-16 14:56] LABS: INR 1.37 (0.82-1.09); PROTHROMBIN TIME (PATIENT) 15.5 SEC (9.7-13.0)
--- NOTE | 2018-03-16 15:09 | CONSULT ---
Consult Consult Specialty:: General Surgery Referred by:: ED Reason for Consultation:: Right sided abdominal pain, hypotension, acidosis, possible cholesystitits, possible liver abscess, h/o recent fall down stairs possible blunt trauma - History of Present Illness Chief Complaint: Severe right sided abdominal pain especially RUQ, nausea, h/o vomititng, difficulty breathing due to pain, h/o right sided pain after fall down a flight of stairs approx. 2 days ago History of Present Illness: I was called to the ED to evaluate a patient who presented to ED c/o severe right sided abdominal pain which has worsened since a fall down a flight of stairs about 2 days ago due to "dizziness". Patient presented to another ED and states that they took xrays which were negative and she was sent home. Patient also c/o nausea and 1 episode vomiting, no other GI symptoms. Patient states difficulty breathing due to severe right sided pain. On arrival patietn is afebrile, tachycardic to 115 somewhat hypotensive. Labs significant for WBC 13 Hgb - History Source History Provided By: Patient Limitations to Obtaining History: Poor Historian - Past Medical History Cardio/Vascular: Yes: Hyperlipdemia Pulmonary: Yes: Asthma Gastrointestinal: Yes: GERD Musculoskeletal: Yes: Chronic low back pain Rheumatology: Yes: Fibromyalgia Endocrine: Yes: Diabetes Mellitus - Past Surgical History Additional Surgical History: None reported - Alcohol/Substance Use Hx Alcohol Use: No - Smoking History Smoking history: Current every day smoker Have you smoked in the past 12 months: Yes Aproximately how many cigarettes per day: 10 Home Medications - Allergies Allergies/Adverse Reactions: Allergies Allergy/AdvReac Type Severity Reaction Status Date / Time Penicillins Allergy Verified 03/16/18 10:20 - Home Medications Home Medications: Ambulatory Orders Atorvastatin Ca [Lipitor] 40 mg PO HS 03/16/18 Ferrous Sulfate [Iron] 325 mg PO DAILY 03/16/18 Gabapentin 300 mg PO HS 03/16/18 Hydroxyzine HCl 50 mg PO DAILY 03/16/18 Ibuprofen [Motrin -] 800 mg PO Q8H PRN 03/16/18 Insulin Glargine,Hum.rec.anlog [Basaglar Kwikpen U-100] 20 unit SQ BID 03/16/18 Omeprazole 20 mg PO DAILY 03/16/18 Family Disease History - Family Disease History Family History: Unable to Obtain (patient unable to offer info) Review of Systems - Review of Systems Constitutional: reports: Chills, Fever, Loss of Appetite Eyes: denies: Blurred Vision, Photophobia HENT: denies: Nasal Congestion, Throat Pain Neck: denies: Decreased ROM, Pain on Movement Cardiovascular: reports: Shortness of Breath. denies: Chest Pain Respiratory: reports: Cough, SOB on Exertion. denies: Wheezing Gastrointestinal: reports: Abdominal Pain (Severe located to Right upper qudrant ), Nausea, Vomiting Genitourinary: denies: Burning, Discharge, Flank Pain Musculoskeletal: reports: Back Pain. denies: Joint Swelling Integumentary: denies: Bruising, Erythema Neurological: reports: Dizziness, Syncope Physical Exam Vital Signs: Vital Signs Temperature 99.4 F 03/16/18 13:24 Pulse Rate 116 H 03/16/18 14:31 Respiratory Rate 24 03/16/18 14:31 Blood Pressure 84/51 03/16/18 14:31 O2 Sat by Pulse Oximetry (%) 95 03/16/18 14:31 Constitutional: Yes: Moderate Distress, Obese Eyes: Yes: Conjunctiva Clear, EOM Intact HENT: Yes: Atraumatic, Normocephalic Neck: Yes: Supple, Trachea Midline Cardiovascular: Yes: Tachycardia. No: Pulse Irregular Respiratory: Yes: Regular, CTA Bilaterally Gastrointestinal: Yes: Soft, Abdomen, Obese, Hypoactive Bowel Sounds, Tenderness (Severe right upper quadrant tenderness with guarding not able to assess for rebound due to tenderness) ...Rectal Exam: Yes: Deferred Renal/: No: CVA Tenderness - Right, Hematuria Musculoskeletal: No: Joint Swelling, Muscle Weakness Extremities: No: Cool, Cyanosis Edema: No Integumentary: No: Jaundice, Rash Neurological: Yes: Alert, Oriented Psychiatric: Yes: Alert, Oriented Labs: CBC, BMP 03/16/18 11:20 03/16/18 14:00 INR, PTT INR 1.37 (0.82-1.09) H 03/16/18 14:00 CMP Sodium 133 mmol/L (136-145) L 03/16/18 11:20 Potassium 3.4 mmol/L (3.5-5.1) L 03/16/18 11:20 Chloride 104 mmol/L (98-107) 03/16/18 11:20 Carbon Dioxide 16 mmol/L (21-32) L 03/16/18 11:20 Anion Gap 13 (8-16) 03/16/18 11:20 BUN 23 mg/dL (7-18) H 03/16/18 11:20 Creatinine 2.5 mg/dL (0.55-1.02) H 03/16/18 11:20 Creat Clearance w eGFR 21.12 (>60) 03/16/18 11:20 Random Glucose 330 mg/dL (74-106) H* 03/16/18 11:20 Lactic Acid 2.4 mmol/L (0.0-2.0) H* 03/16/18 14:00 Calcium 7.2 mg/dL (8.5-10.1) L 03/16/18 11:20 Phosphorus 3.4 mg/dL (2.5-4.9) 03/16/18 11:20 Magnesium 1.5 mg/dL (1.8-2.4) L 03/16/18 11:20 Total Bilirubin 1.8 mg/dL (0.2-1.0) H D 03/16/18 11:20 AST 98 U/L (15-37) H 03/16/18 11:20 ALT 61 U/L (12-78) 03/16/18 11:20 Alkaline Phosphatase 188 U/L (45-117) H 03/16/18 11:20 Total Protein 7.0 g/dl (6.4-8.2) 03/16/18 11:20 Albumin 2.4 g/dl (3.4-5.0) L 03/16/18 11:20 Serum , Qual Negative 03/16/18 11:20 Urine Test Results Urine Color Bety 03/16/18 12:50 Urine Appearance Cloudy 03/16/18 12:50 Urine pH 5.0 (5.0-8.0) 03/16/18 12:50 Ur Specific Blanket 1.016 (1.001-1.035) 03/16/18 12:50 Urine Protein 2+ (NEGATIVE) H 03/16/18 12:50 Urine Glucose (UA) 1+ (NEGATIVE) H 03/16/18 12:50 Urine Ketones Negative (NEGATIVE) 03/16/18 12:50 Urine Blood 1+ (NEGATIVE) H 03/16/18 12:50 Urine Nitrite Negative (NEGATIVE) 03/16/18 12:50 Urine Bilirubin Negative (<2.0 mg/dL) 03/16/18 12:50 Ur Leukocyte Esterase 3+ (NEGATIVE) H 03/16/18 12:50 Ur Epithelial Cells Many /HPF (FEW) 03/16/18 12:50 Urine Bacteria Many /hpf (NONE SEEN) 03/16/18 12:50 Urine Mucus Rare 03/16/18 12:50 Imaging - Results Chest X-ray: Report Reviewed (No rib fractures, no effusions, no evidence CHF) Cat Scan: Pending Ultrasound: Report Reviewed, Image Reviewed (Discussed with radiologist, two hypoechoic lesions found, one lesion in the liver concerning for possible abscess vs. malignancy, slightly thickened gallbladder wall with a 0.5 cm polpy , no gallstones seen, no pericholecystic fluid, no ductal dilatation) Problem List - Problems (1) Abdominal pain Assessment/Plan: Right sided abdominal pain with history of blunt trauma, presented tachycardia and hypotensive with elvated WBC, low HGb, elevated CR, elevated liver enzymes. STAT US revealed Righ liver and kidey lesions, hematoma vs. abscess. Patient slowly responsive to aggressive hydration, repeat labs improved except for Hgb down to 6.8 Non-IV contrast CT scan abd/pelvis reveals same posterior liver and kidney lesions more suspicious for a hematoma caused by blunt trauma than an abscess. Discussed with Radiologist. Will order a CTA and three phase liver scan to r/o active bleeding given persistent hypotension and another drop on Hgb. 2 units PRBC's ordered. Continue aggressive resuscitation. ICU consult. Code(s): R10.9 - UNSPECIFIED ABDOMINAL PAIN Qualifiers: Abdominal location: right upper quadrant Qualified Code(s): R10.11 - Right upper quadrant pain (2) Sepsis Assessment/Plan: Sepsis vs. liver trauma with hematoma due to blunt trauma. CTA with 3 phase liver scan pending. Aggressive resucitation. ICU consult. Code(s): A41.9 - SEPSIS, UNSPECIFIED ORGANISM Qualifiers: Sepsis type: sepsis due to unspecified organism Qualified Code(s): A41.9 - Sepsis, unspecified organism (3) Liver lesion Assessment/Plan: Hematoma due to trauma vs liver abscess from unknown source possible acute cholecystitis. Broad spectrum ABX, aggressive resuscitation, ICU consult. CTA and 3 phase liver scan pending. Code(s): K76.9 - LIVER DISEASE, UNSPECIFIED (4) Elevated liver function tests Code(s): R79.89 - OTHER SPECIFIED ABNORMAL FINDINGS OF BLOOD CHEMISTRY (5) Hypotension Assessment/Plan: Aggressive fluids and colloids to achieve normotension. Code(s): I95.9 - HYPOTENSION, UNSPECIFIED Qualifiers: Hypotension type: unspecified hypotension type Qualified Code(s): I95.9 - Hypotension, unspecified (6) Leukocytosis Assessment/Plan: Broad spectrum IV Abx for presummed sepsis due to liver abscess vs. liver hematoma. . Code(s): D72.829 - ELEVATED WHITE BLOOD CELL COUNT, UNSPECIFIED Qualifiers: Leukocytosis type: unspecified Qualified Code(s): D72.829 - Elevated white blood cell count, unspecified Assessment/Plan Patient with evidence SIRS/early sepsis and US evidence of a approx. 5 cm liver lesion suspicious for an abscess, possible due to the gallbladder vs. infected hematoma due to blunt trauma to the liver during recent fall down flight of cement stairs. Continue aggressive resuscitation, broad spectrum IV Abx, monitor vitals, labs. Discussed with Radiologist who agrees that an urgent CT scan may be helpful in elucidating the etiology of the liver lesion. Surgery will follow. Repeat CTA with three phase liver scan confirms evidence of a liver abscess rather than infected hematoma. IR drained abscess last night and cultures are pending.
[2018-03-16] MEDS ORDERED: MEROPENEM 1 GM in DEXTROSE 5%-WATER 100 ML IVPB ONE (15:45)
[2018-03-16 15:46] LABS: ALBUMIN 1.8 g/dl (3.4-5.0); ANION GAP 11 (8-16); BILIRUBIN,TOTAL 1.3 mg/dL (0.2-1.0); BLOOD UREA NITROGEN 22 mg/dL (7-18); CHLORIDE 112 mmol/L (98-107); CO2 15 mmol/L (21-32); CREATININE 1.8 mg/dL (0.55-1.02); POTASSIUM 3.7 mmol/L (3.5-5.1); SGOT/AST 84 U/L (15-37); SGPT/ALT 52 U/L (12-78); SODIUM 138 mmol/L (136-145); TOT PROT 5.2 g/dl (6.4-8.2)
[2018-03-16 15:49] LABS: ALK PHOS 133 U/L (45-117)
[2018-03-16 15:53] LABS: GLUCOSE,RANDOM 332 mg/dL (74-106)
[2018-03-16 15:54] LABS: CALCIUM 5.7 mg/dL (8.5-10.1)
[2018-03-16] MEDS ORDERED: CALCIUM GLUCONATE 10% - 1,000 MG/10 ML VIAL IVPUSH ONE (15:54)
[2018-03-16] MEDS ORDERED: LACTATED RINGERS SOLUTION 1,000 ML/1,000 ML INFUS.BAG IV SCH (16:00)
[2018-03-16 16:38] LABS: BASO % 0.2 % (0-2.0); EOS % 0.3 % (0-4.5); HEMATOCRIT 21.9 % (32.4-45.2); MCH 24.2 pg (25.7-33.7); MCHC 31.3 g/dl (32.0-36.0); MEAN CELL VOLUME 77.4 fl (80-96); MEAN PLT VOLUME 6.5 fl (7.5-11.1); MONO % 2.1 % (3.8-10.2); NEUT % 92.4 % (42.8-82.8); PLATELET COUNT 207 K/MM3 (134-434); RBC 2.83 M/mm3 (3.60-5.2); RDW 21.5 % (11.6-15.6); WHITE BLOOD COUNT 11.3 K/mm3 (4.0-10.0)
[2018-03-16 16:42] LABS: HEMOGLOBIN 6.8 GM/dL (10.7-15.3)
[2018-03-16] MEDS ORDERED: MAGNESIUM SULF 50% (8.12 MEQ/2 ML-1 GM VIAL) ONE (16:48)
[2018-03-16] MEDS ORDERED: INSULIN REGULAR HUMAN 100 UNITS/ML *VIAL IVPUSH ONE (16:59)
[2018-03-16] MEDS ORDERED: INSULIN REGULAR HUMAN 100 UNITS/ML *VIAL ONE (17:10)
[2018-03-16] MEDS ORDERED: SODIUM CHLORIDE 1,000 ML IV STA (17:28)
[2018-03-16] MEDS: INSULIN SLIDING SCALE (NOVOLOG) 1 VIAL SQ SCH ×2 (17:51→21:55)
[2018-03-16 18:10] LABS: ARTERIAL BLD GAS O2 SATURATION 99.1 % (90-98.9); ARTERIAL BLOOD GAS BASE EXCESS -11.4 meq/l (-2-2); ARTERIAL BLOOD GAS PCO2 25.1 mmHg (35-45); ARTERIAL BLOOD GAS pH 7.34 (7.35-7.45)
[2018-03-16 18:12] LABS: ALLENS TEST POSITIVE
--- NOTE | 2018-03-16 18:16 | HP ---
Admitting History and Physical - Admission History of Present Illness: This is a 42 year old female with fibromyalgia, HTN, IDDM (uncontrolled), who presented to the ED with fever, weakness, nausea, vomiting, lightheadedness and abdominal pain for 4 days. Pt was seen at [facility] after a sustained fall down the stairs 4 days ago. She was sent home after negative xrays. Today, she presented with vomiting, weakness and lightheadness, and fever of 102.4. She is unable to hold food down, took her insulin today. Of note, pt states she has been falling a lot for the past several months and has not been worked up, just takes NSAIDS for the pain. Per her , she has declined in her health since she was diagnosed with DM and fibromyalgia 2 years ago. She does experience dysuria and yeast infections with her DM. Currently, she has mild sob, dizzy, abdominal pain. History Source: Patient, Family Member Limitations to Obtaining History: No Limitations - Past Medical History Cardiovascular: Yes: HTN, Hyperlipdemia Pulmonary: Yes: Asthma Gastrointestinal: Yes: GERD Musculoskeletal: Yes: Chronic low back pain Rheumatology: Yes: Fibromyalgia Endocrine: Yes: Diabetes Mellitus - Smoking History Smoking history: Current every day smoker Have you smoked in the past 12 months: Yes Aproximately how many cigarettes per day: 10 - Alcohol/Substance Use Hx Alcohol Use: No - Social History Usual Living Arrangement: Yes: With Spouse ADL: Independent History of Recent Travel: No Home Medications - Allergies Allergies/Adverse Reactions: Allergies Allergy/AdvReac Type Severity Reaction Status Date / Time Penicillins Allergy Verified 03/16/18 10:20 - Home Medications Home Medications: Ambulatory Orders Atorvastatin Ca [Lipitor] 40 mg PO HS 03/16/18 Ferrous Sulfate [Iron] 325 mg PO DAILY 03/16/18 Gabapentin 300 mg PO HS 03/16/18 Hydroxyzine HCl 50 mg PO DAILY 03/16/18 Ibuprofen [Motrin -] 800 mg PO Q8H PRN 03/16/18 Insulin Glargine,Hum.rec.anlog [Basaglar Kwikpen U-100] 20 unit SQ BID 03/16/18 Omeprazole 20 mg PO DAILY 03/16/18 Review of Systems - Review of Systems Constitutional: reports: Lethargy, Loss of Appetite, Weakness Eyes: reports: No Symptoms HENT: reports: No Symptoms Neck: reports: No Symptoms Cardiovascular: reports: Shortness of Breath Respiratory: reports: SOB on Exertion Gastrointestinal: reports: Abdominal Pain, Nausea, Vomiting Genitourinary: reports: Burning Physical Examination Vital Signs: Vital Signs Temperature 98.0 F 03/16/18 17:32 Pulse Rate 109 H 03/16/18 18:03 Respiratory Rate 24 03/16/18 18:03 Blood Pressure 99/73 03/16/18 18:03 O2 Sat by Pulse Oximetry (%) 100 03/16/18 18:03 Eyes: Yes: WNL HENT: Yes: Thrush (tongue and hard palate), Other (RIJ cdi) Neck: Yes: WNL Cardiovascular: Yes: Tachycardia, S1, S2 Respiratory: Yes: Diminished, On Nasal O2, Tachypnea, Other (diffuse bilateral basilar crackles) Gastrointestinal: Yes: Hypoactive Bowel Sounds, Tenderness (diffuses abdominal tenderness to palpation), Tenderness, Epigastrium Renal/: Yes: Tapia Present, Vaginal Discharge (white discharge on external labia) Extremities: Yes: WNL Edema: No Peripheral Pulses WNL: Yes Neurological: Yes: Alert, Oriented, Cran Nerves II-XII Intact Psychiatric: Yes: Alert, Oriented Labs: CBC, BMP 03/16/18 16:30 03/16/18 15:20 Imaging - Results Chest X-ray: Report Reviewed Cat Scan: Report Reviewed, Image Reviewed Ultrasound: Report Reviewed EKG: Report Reviewed Problem List - Problems (1) Abdominal pain Code(s): R10.9 - UNSPECIFIED ABDOMINAL PAIN Qualifiers: Abdominal location: right upper quadrant Qualified Code(s): R10.11 - Right upper quadrant pain (2) Elevated liver function tests Code(s): R79.89 - OTHER SPECIFIED ABNORMAL FINDINGS OF BLOOD CHEMISTRY (3) Hypotension Code(s): I95.9 - HYPOTENSION, UNSPECIFIED Qualifiers: Hypotension type: unspecified hypotension type Qualified Code(s): I95.9 - Hypotension, unspecified (4) Leukocytosis Code(s): D72.829 - ELEVATED WHITE BLOOD CELL COUNT, UNSPECIFIED Qualifiers: Leukocytosis type: unspecified Qualified Code(s): D72.829 - Elevated white blood cell count, unspecified (5) Liver lesion Code(s): K76.9 - LIVER DISEASE, UNSPECIFIED (6) Sepsis Code(s): A41.9 - SEPSIS, UNSPECIFIED ORGANISM Qualifiers: Sepsis type: sepsis due to unspecified organism Qualified Code(s): A41.9 - Sepsis, unspecified organism Assessment/Plan Assessment: 42 year old female with IDDM admitted with fever, dizziness, n/v, x4 days Plan: 1. Severe sepsis d/t possible liver and kidney abscess, r/o bacteriemia/ endocarditis. + UTI - s/p 5L in ED - Continue IVF 125cc/hr - Check Lactic acid now - Levaquin/flagyl given in ED - Blood, urine cx pending - Start meropenem 1gm q12, can deescalate once discern liver lesions ?abscess v hematoma - Give x1 dose vanco for possible septic emboli - ECHO r/o vegetations - CTAP w contrast ordered r/o bleed vs abscess per surgery - Give 1200mg mucomyst x1 now, then 600mg q12 x2 doses starting tomorrow for renal protection - Surgery consult reviewed - ICU admission, Dr. Penaloza accepting 2. SOFIYA, hematuria, proteinuria - Likely pre renal due to volume depletion. Sepsis contributing cannot r/o ATN - Will send urine studies for Fena - If contrast is needed calculated BERTRAM is 26.1% - Kidney/bladder US - Nephrology consulted 3. Acute blood loss anemia - Unclear source of bleeding, ?hematoma in liver/kidney post trauma. Cannot r/o DIC d/t sepsis or hemolysis - 2units pbrc ordered, recheck cbc 1 hr post final transfusion - Send fibrinogin, fdp, retic count, ldh, pt/ptt/inr, haptaglobin 4. Metabolic acidosis with respiratory compensation - Due to renal failure and lactic acidosis. no evidence of DKA, AG 11, neg urine ketones 5. IDDM - BGM q2hr - ISS q4hr - Resume home insulin regimen when stable 6. Oral thrush - When able to take PO give nystatin s/s 7. Possible vaginal yeast infection - Give x1 dose diflucan 150mg when able to take PO 8. Metabolic dissary - Corrected ca 7.46, 1gm calcium gluconate give - check ionized ca - Hypomagnesemia, 2mg x1 given Dispo - Hank [phone] Visit type - Emergency Visit Emergency Visit: Yes ED Registration Date: 03/16/18 Care time: The patient presented to the Emergency Department on the above date and was hospitalized for further evaluation of their emergent condition. - New Patient This patient is new to me today: Yes Date on this admission: 03/17/18 - Critical Care Critical Care patient: Yes Total Critical Care Time (in minutes): 37 Critical Care Statement: The care of this patient involved high complexity decision making to prevent further life threatening deterioration of the patient 's condition and/or to evaluate & treat vital organ system(s) failure or risk of failure. Hospitalist Screening - Colonoscopy Questionnaire Colonoscopy Questionnaire: Colonoscopy Questionnaire - Patient: 50 - 75 years old and never had a screening colonoscopy: Unknown History of colon or rectal polyps, or CA: Unknown History of IBD, Crohn's disease or UC: Unknown History of abdominal radiation therapy as a child: Unknown - Relative: 1 with colon or rectal CA, or polyps at age 60 or younger: Unknown Colon or rectal CA diagnosed at age 45 or younger: Unknown Multiple relatives with colon or rectal CA: Unknown - Outcome: Screening Result: Negative Screen
[2018-03-16] MEDS ORDERED: SODIUM CHLORIDE 1,000 ML IV SCH (18:30)
[2018-03-16] MEDS ORDERED: VANCOMYCIN 1,000 MG in DEXTROSE 5%-WATER - 250 ML IVPB ONE (18:32)
[2018-03-16 18:45] LABS: BASO % 0.3 % (0-2.0); EOS % 0.6 % (0-4.5); HEMATOCRIT 24.6 % (32.4-45.2); HEMOGLOBIN 7.8 GM/dL (10.7-15.3); LYMPH % 5.7 % (8-40); MCH 25.3 pg (25.7-33.7); MCHC 31.7 g/dl (32.0-36.0); MEAN CELL VOLUME 79.7 fl (80-96); MONO % 1.6 % (3.8-10.2); NEUT % 91.8 % (42.8-82.8); PLATELET COUNT 193 K/MM3 (134-434); RBC 3.08 M/mm3 (3.60-5.2); RDW 20.8 % (11.6-15.6); WHITE BLOOD COUNT 10.5 K/mm3 (4.0-10.0)
[2018-03-16] MEDS ORDERED: ACETYLCYSTEINE 20% 200MG/ML 30 ML VIAL *FOR ORAL / INH USE ONLY PO ONE (18:53)
[2018-03-16 19:11] LABS: FIBRINOGEN > 500.0 mg/dL (238-498); INR 1.51 (0.82-1.09)
[2018-03-16 19:13] LABS: ACTIVATED PTT 31.3 SECONDS (26.9-34.4)
[2018-03-16 19:27] LABS: D-DIMER 20277 ng/ml (0-500)
[2018-03-16 20:24] VITALS: BMI 26.9
--- NOTE | 2018-03-16 20:40 | CONSULT ---
Consult Consult Specialty:: Pulmonary Critical Care Referred by:: dr. archer Reason for Consultation:: Abdominal Abscess - History of Present Illness Chief Complaint: Fever, dizziness, abd pain History of Present Illness: This is a 42 yo female with fibromyalgia, HTN, IDDM (uncontrolled), who presented to the [facility] ED c/o vomiting, weakness, lightheadness, and fever of 102.4. As per pt, she has had fever, weakness, nausea, vomiting, lightheadedness and abdominal pain x 4 days. She has be unable to hold food down , but had taken her insulin today. Of note, pt was seen at [facility] s/ p mechanical fall down the stairs 4 days ago, and sent home after neg xrays. Pt stated that she had been falling a lot for the past several months w/o work up. She has been taking NSAIDS for pain. As per her , her health has declined in since diagnosed w/ DM and fibromyalgia 2 yrs ago. In the ED, pt was noted to have weakness, dizziness, mild SOB and abdominal pain. VS: T 99.4, HR 116, RR 24, BP 84/51. Labs remarkable for WBC=13.6, lact= 2.4, creat=2.5, Bg=744, K=3.4, Mg=1.5, gluc 330, Tbili=1.8, alk tuam=940; Hgb 8.6; UA done shows many bacteria, wbc 53, 2+ protein, 1+ gluc, neg ketones. AG 13-->11. Pt received a total of 5L NS bolus for hypotension, started on flagyl, levaquin, meropenem, vancomycin; given insulin x1. Tapia placed. Rt IJ CVL placed. An abd and renal US done showed two hypoechoic lesions found, one lesion in the liver concerning for possible abscess vs. malignancy, slightly thickened gallbladder wall with a 0.5 cm polyp, no gallstones seen, no pericholecystic fluid, no ductal dilatation. Ultimately, NC abd/pelvis CT and CTA done which revealed same posterior liver and kidney lesions more suspicious for a hematoma caused by blunt trauma vs an abscess +/- cholecystitis. Hgb drop from 8.6--> 6.8. Started on the first of two units of PRBCs ordered and patient was transferred to ICU for further management. Upon admission to ICU, pt is normotensive, afebrile, HR 100s, started on 2nd unit of PRBC, repeat Hgb 7.8, reflective of first unit. Creat down to 1.8, lact down to 1.7. Total urine output documented as 1L clear yellow. Pt was sent to IR for liver drain placement. Returned from IR w/o complications w/ perc drain small amt of bloody and purulent drainage. As per IR nurse, moderate amount of purulent fluid drained; sent for cytology and culture. D/c'ed flagyl and levaquin, Meropenem changed from q12h to q8h. Started on plasmolyte @ 125cc/hr, repeat labs ordered. Kept NPO. - History Source History Provided By: Patient, Medical Record Limitations to Obtaining History: No Limitations - Past Medical History [employer]OLMA[employer] GRADE THREE: No: Alzheimer's, CVA, Dementia, Migraine, Multiple Sclerosis, Peripheral Neuropathy, Parkinson's, Seizure, Syncope, TIA, Vertigo, Other Cardio/Vascular: Yes: HTN, Hyperlipdemia Pulmonary: Yes: Asthma Gastrointestinal: Yes: GERD ...LMP: 03/22/18 ...: No Musculoskeletal: Yes: Chronic low back pain Rheumatology: Yes: Fibromyalgia Endocrine: Yes: Diabetes Mellitus - Past Surgical History Past Surgical History: Yes: Additional Surgical History: None reported - Alcohol/Substance Use Hx Alcohol Use: No - Smoking History Smoking history: Current every day smoker Have you smoked in the past 12 months: Yes Aproximately how many cigarettes per day: 10 - Social History ADL: Independent History of Recent Travel: No Home Medications - Allergies Allergies/Adverse Reactions: Allergies Allergy/AdvReac Type Severity Reaction Status Date / Time Penicillins Allergy Verified 03/16/18 10:20 - Home Medications Home Medications: Ambulatory Orders Atorvastatin Ca [Lipitor] 40 mg PO HS 03/16/18 Ferrous Sulfate [Iron] 325 mg PO DAILY 03/16/18 Gabapentin 300 mg PO HS 03/16/18 Hydroxyzine HCl 50 mg PO DAILY 03/16/18 Ibuprofen [Motrin -] 800 mg PO Q8H PRN 03/16/18 Insulin Glargine,Hum.rec.anlog [Basaglar Kwikpen U-100] 20 unit SQ BID 03/16/18 Omeprazole 20 mg PO DAILY 03/16/18 Family Disease History - Family Disease History Family History: Unable to Obtain Review of Systems - Review of Systems Constitutional: reports: Fever, Lethargy, Weakness Eyes: reports: No Symptoms HENT: reports: Nasal Congestion Neck: reports: No Symptoms Cardiovascular: reports: No Symptoms Respiratory: reports: Cough Gastrointestinal: reports: Abdominal Pain, Nausea, Vomiting. denies: Melena, Rectal Bleeding, Vomiting Blood Genitourinary: reports: Dysuria Breasts: reports: No Symptoms Reported Musculoskeletal: reports: Muscle Pain (chronic) Integumentary: reports: No Symptoms Neurological: reports: Dizziness, Weakness Physical Exam Vital Signs: Vital Signs Temperature 99.7 F H 03/16/18 19:30 Pulse Rate 110 H 03/16/18 19:30 Respiratory Rate 25 H 03/16/18 19:30 Blood Pressure 109/73 03/16/18 19:30 O2 Sat by Pulse Oximetry (%) 100 03/16/18 19:30 Constitutional: Yes: Well Nourished, No Distress, Calm Eyes: Yes: WNL, Conjunctiva Clear, EOM Intact HENT: Yes: WNL, Atraumatic, Normocephalic Neck: Yes: WNL, Supple, Trachea Midline Cardiovascular: Yes: WNL, Tachycardia. No: Murmur Respiratory: Yes: WNL, Regular, CTA Bilaterally. No: Rales, Rhonchi, SOB, SOB on Exertion Gastrointestinal: Yes: WNL, Normal Bowel Sounds, Soft, Tenderness ...Rectal Exam: Yes: Deferred Renal/: Yes: WNL, Tapia Present Breast(s): Yes: WNL Musculoskeletal: Yes: WNL, Muscle Pain Extremities: Yes: WNL Edema: No Peripheral Pulses WNL: Yes Integumentary: Yes: WNL Labs: CBC, BMP 03/16/18 18:30 03/16/18 15:20 Imaging - Results Chest X-ray: Image Reviewed (clear) Cat Scan: Pending (NC abd/pelvis CT and CTA done which revealed same posterior liver and kidney lesions more suspicious for a hematoma caused by blunt trauma vs an abscess +/- cholecystitis.) Ultrasound: Report Reviewed (abd and renal US done showed two hypoechoic lesions found, one lesion in the liver concerning for possible abscess vs. malignancy, slightly thickened gallbladder wall with a 0.5 cm polyp, no gallstones seen, no pericholecystic fluid, no ductal dilatation. possible cholecystitis), Image Reviewed Problem List - Problems (1) SOFIYA (acute kidney injury) Code(s): N17.9 - ACUTE KIDNEY FAILURE, UNSPECIFIED (2) Abdominal pain Code(s): R10.9 - UNSPECIFIED ABDOMINAL PAIN Qualifiers: Abdominal location: right upper quadrant Qualified Code(s): R10.11 - Right upper quadrant pain (3) Elevated liver function tests Code(s): R79.89 - OTHER SPECIFIED ABNORMAL FINDINGS OF BLOOD CHEMISTRY (4) Hyperglycemia Code(s): R73.9 - HYPERGLYCEMIA, UNSPECIFIED (5) Hypotension Code(s): I95.9 - HYPOTENSION, UNSPECIFIED Qualifiers: Hypotension type: unspecified hypotension type Qualified Code(s): I95.9 - Hypotension, unspecified (6) Leukocytosis Code(s): D72.829 - ELEVATED WHITE BLOOD CELL COUNT, UNSPECIFIED Qualifiers: Leukocytosis type: unspecified Qualified Code(s): D72.829 - Elevated white blood cell count, unspecified (7) Liver abscess Code(s): K75.0 - ABSCESS OF LIVER (8) Liver lesion Code(s): K76.9 - LIVER DISEASE, UNSPECIFIED (9) Metabolic acidosis Code(s): E87.2 - ACIDOSIS (10) Sepsis Code(s): A41.9 - SEPSIS, UNSPECIFIED ORGANISM Qualifiers: Sepsis type: sepsis due to unspecified organism Qualified Code(s): A41.9 - Sepsis, unspecified organism (11) UTI (urinary tract infection) Code(s): N39.0 - URINARY TRACT INFECTION, SITE NOT SPECIFIED Qualifiers: Urinary tract infection type: site unspecified Hematuria presence: with hematuria Qualified Code(s): N39.0 - Urinary tract infection, site not specified; R31.9 - Hematuria, unspecified; R31.9 - Hematuria, unspecified Assessment/Plan Assessment: This is a 42 yo female w/ pmhx of fibromyalgia, HTN, IDDM initally presented to ED with hypotension, fever, and dizziness, now admitted to ICU w/ severe sepsis in the setting of likely liver abscess/ infected hematoma req IR perc drain. Plan: # Severe sepsis 2/2 ?infected liver hematoma s/p trauma +/- cholecystitis +/- kidney abscess and UTI w/ c/f bacteremia - plasmolyte @ 125cc/hr - Check Lactic acid now - d/c Levaquin/flagyl (x1 given in ED) - Cont meropenem 1gm q8h - Cont vanco - f/u Blood, urine cx - s/p perc drain - f/u cytology and culture from IR fluid drainage - f/u CT - Surgery consult following; appreciate recs # SOFIYA most likely pre-renal 2/2 Hypovolemia in the setting poor PO intake vs. ATN in the setting of sepsis and hypotension - trend creat - strict I & O - f/u urine lytes - f/u Kidney/bladder US - consider Nephrology consult if unimproved #Metabolic disarray in the setting of n/v and severe sepsis, metabolic acidosis , hypokalemia, hypocalcemia, hypomagnesia most likely d/t SOFIYA and sepsis. Least likely DKA given AG 11, neg ketones in urine - f/u iCa and Lytes; s/p 1gm calcium gluconate and 2g Mag - f/u lactate # Likely acute blood loss anemia in the setting of traumatic hematoma in liver/ kidney s/p fall +/- hemo dilutional s/p 5 L IVF vs. least likely DIC or hemolysis given labs and presentation; fibrinogen >500, LDH 260, retic<0.3, inr 1.5 - s/p 2 units pbrc - f/u cbc post transfusion - f/u hemolysis labs: fdp, haptoglobin # Hypergylcemia w/ pmhx IDDM (poorly controlled) - f/u glucose q4h - ISS q4hr - Resume home insulin regimen when stable Dispo - Hank [phone] Apple Farr, KEN-MADELAINE Pulm CC CC time 35mins
[2018-03-16 20:47] LABS: URINE APPEARANCE CLOUDY; URINE BILIRUBIN NEGATIVE (<2.0 mg/dL); URINE COLOR YELLOW; URINE GLUCOSE (UA) 1+ (NEGATIVE); URINE KETONE NEGATIVE (NEGATIVE); URINE LEUK ESTERASE 3+ (NEGATIVE); URINE NITRITE NEGATIVE (NEGATIVE); URINE PROTEIN 1+ (NEGATIVE)
[2018-03-16 20:52] LABS: EPI CELLS RARE /HPF (FEW); URINE BACTERIA RARE /hpf (NONE SEEN); URINE MUCUS RARE
[2018-03-16 20:59] LABS: URINE CREATININE 212.4 mg/dL (20-320)
[2018-03-16] MEDS: MUPIROCIN 2% TOPICAL OINTMENT FOR DECOLONIZATION NS SCH (21:54)
[2018-03-16] MEDS: CHLORHEXIDINE GLUCONATE 4% CLEANSER FOR DECOLONIZATION TP SCH (21:55)
[2018-03-16] MEDS: ELECTROLYTE-148 SOLN 1,000 ML IV SCH (22:34)
[2018-03-16] MEDS ORDERED: HYDROmorphone HCL CARPU-JECT 1 MG/1 ML DISP.SYRIN IVPUSH ONE (22:36)
[2018-03-16] MEDS ORDERED: morphine SULFATE 4 MG/ML VIAL IVPUSH ONE (22:44)
[2018-03-16 23:32] LABS: HEMATOCRIT 27.9 % (32.4-45.2); MCH 25.7 pg (25.7-33.7); MCHC 32.4 g/dl (32.0-36.0); MEAN CELL VOLUME 79.3 fl (80-96); PLATELET COUNT 181 K/MM3 (134-434); RBC 3.51 M/mm3 (3.60-5.2); RDW 19.9 % (11.6-15.6); WHITE BLOOD COUNT 11.3 K/mm3 (4.0-10.0)
[2018-03-16 23:35] LABS: VENOUS PC02 32.7 mmHg (38-52); VENOUS PH 7.32 (7.32-7.42); VENOUS PO2 42.5 mmHg (28-48)
[2018-03-17] MEDS ORDERED: MEROPENEM 1 GM in DEXTROSE 5%-WATER 100 ML IVPB SCH
[2018-03-17 00:03] LABS: ALBUMIN 1.9 g/dl (3.4-5.0); ANION GAP 10 (8-16); BILIRUBIN,TOTAL 2.6 mg/dL (0.2-1.0); CHLORIDE 111 mmol/L (98-107); CO2 18 mmol/L (21-32); CREATININE 1.3 mg/dL (0.55-1.02); GLUCOSE,RANDOM 280 mg/dL (74-106); MAGNESIUM 2.2 mg/dL (1.8-2.4); PHOSPHOROUS 3.1 mg/dL (2.5-4.9); POTASSIUM 3.6 mmol/L (3.5-5.1); SGPT/ALT 54 U/L (12-78); SODIUM 139 mmol/L (136-145); TOT PROT 5.6 g/dl (6.4-8.2)
[2018-03-17 00:07] LABS: ALK PHOS 144 U/L (45-117); BLOOD UREA NITROGEN 20 mg/dL (7-18); SGOT/AST 69 U/L (15-37)
[2018-03-17 00:10] LABS: CALCIUM 6.7 mg/dL (8.5-10.1)
[2018-03-17] MEDS: NYSTATIN 500,000 UNITS/5 ML SUSPENSION PO SCH ×4 (00:29→17:10)
[2018-03-17] MEDS ORDERED: PT OWN MED DRAWER 7, Y5N ONE ×2 (00:36→17:08)
[2018-03-17] MEDS: INSULIN SLIDING SCALE (NOVOLOG) 1 VIAL SQ SCH ×6 (01:17→21:47)
[2018-03-17] MEDS ORDERED: MEROPENEM 1 GM in DEXTROSE 5%-WATER 100 ML IVPB ONE (04:00)
[2018-03-17] MEDS ORDERED: morphine CARPU-JECT 2 MG/1 ML DISP.SYRIN IVPUSH ONE (05:31)
[2018-03-17] MEDS ORDERED: ACETYLCYSTEINE 20% 200MG/ML 30 ML VIAL *FOR ORAL / INH USE ONLY PO SCH (06:00)
[2018-03-17 06:15] LABS: HEMOGLOBIN 9.3 GM/dL (10.7-15.3); MCH 26.1 pg (25.7-33.7); MCHC 33.2 g/dl (32.0-36.0); MEAN CELL VOLUME 78.8 fl (80-96); MEAN PLT VOLUME 7.2 fl (7.5-11.1); PLATELET COUNT 185 K/MM3 (134-434); RBC 3.55 M/mm3 (3.60-5.2); RDW 19.8 % (11.6-15.6)
[2018-03-17 06:41] LABS: CHLORIDE 111 mmol/L (98-107); POTASSIUM 3.5 mmol/L (3.5-5.1); SODIUM 140 mmol/L (136-145)
[2018-03-17 06:58] LABS: ALBUMIN 1.9 g/dl (3.4-5.0); ALK PHOS 150 U/L (45-117); ANION GAP 10 (8-16); BILIRUBIN,TOTAL 3.2 mg/dL (0.2-1.0); BLOOD UREA NITROGEN 19 mg/dL (7-18); CO2 19 mmol/L (21-32); CREATININE 1.1 mg/dL (0.55-1.02); GLUCOSE,RANDOM 248 mg/dL (74-106); MAGNESIUM 2.4 mg/dL (1.8-2.4); PHOSPHOROUS 2.7 mg/dL (2.5-4.9); SGOT/AST 53 U/L (15-37); SGPT/ALT 51 U/L (12-78); TOT PROT 5.7 g/dl (6.4-8.2)
[2018-03-17 07:04] LABS: CALCIUM 6.9 mg/dL (8.5-10.1)
--- NOTE | 2018-03-17 07:36 | PN ---
Progress Note, Physician Chief Complaint: ID Chart reviewed and patient seen examined appears to be stable at this time NAD Meropenem and metronidazole given initially Liver abscess noted on drainage NO travel history Says HIV negative ( 5 kids) - Current Medication List Current Medications: Active Medications Chlorhexidine Gluconate (Hibiclens For Decolonization -) 1 applic TP HS [facility] Last Admin: 03/16/18 21:55 Dose: 1 applic Meropenem 1 gm/ Dextrose 100 mls @ 200 mls/hr IVPB Q8H-IV KERWIN Stop: 03/17/18 08:29 Last Admin: 03/17/18 00:29 Dose: 200 mls/hr Parenteral Electrolytes (Plasma-Lyte 148 -) 1,000 mls @ 125 mls/hr IV ASDIR [facility] Last Admin: 03/16/18 22:34 Dose: 125 mls/hr Insulin Aspart (Novolog Vial Sliding Scale -) 1 vial SQ Q4H [facility] PRN Reason: Protocol Last Admin: 03/17/18 05:14 Dose: 6 units Mupirocin (Bactroban Ointment (For Decolonization) -) 1 applic NS BID [facility] Stop: 03/21/18 21:59 Last Admin: 03/16/18 21:54 Dose: 1 applic Nystatin (Nystatin Oral Suspension -) 500,000 units PO Q6HPO [facility] Last Admin: 03/17/18 05:14 Dose: 500,000 units - Objective Vital Signs: Vital Signs Temperature 98.6 F 03/17/18 06:00 Pulse Rate 104 H 03/17/18 06:00 Respiratory Rate 25 H 03/17/18 06:00 Blood Pressure 107/70 03/17/18 06:00 O2 Sat by Pulse Oximetry (%) 100 03/16/18 21:03 HENT: Yes: Other (Facial swelling) Cardiovascular: Yes: S1, S2 Respiratory: Yes: WNL, Regular, CTA Bilaterally Gastrointestinal: Yes: Soft, Other (Drain). No: Tenderness Edema: Yes Labs: CBC, BMP 03/17/18 05:55 03/17/18 05:55 INR, PTT INR 1.51 (0.82-1.09) H 03/16/18 18:30 Fibrinogen > 500.0 mg/dL (238-498) H 03/16/18 18:30 Problem List - Problems (1) Diabetes Code(s): E11.9 - TYPE 2 DIABETES MELLITUS WITHOUT COMPLICATIONS (2) Liver abscess Code(s): K75.0 - ABSCESS OF LIVER (3) Sepsis Code(s): A41.9 - SEPSIS, UNSPECIFIED ORGANISM Qualifiers: Sepsis type: sepsis due to unspecified organism Qualified Code(s): A41.9 - Sepsis, unspecified organism (4) UTI (urinary tract infection) Code(s): N39.0 - URINARY TRACT INFECTION, SITE NOT SPECIFIED Qualifiers: Urinary tract infection type: site unspecified Hematuria presence: with hematuria Qualified Code(s): N39.0 - Urinary tract infection, site not specified; R31.9 - Hematuria, unspecified; R31.9 - Hematuria, unspecified Assessment/Plan Microbiology Laboratory Tests 03/16/18 03/16/18 03/16/18 11:20 12:50 14:00 WBC Hgb Hct Plt Count Lymphocytes % INR ABG pCO2 at Pt Temp Oxygen Flow Rate Creat Clearance w eGFR Lactic Acid 2.4 H* Total Bilirubin Alkaline Phosphatase Albumin Ur Leukocyte Esterase 3+ H Acetone, Qual Negative L 03/16/18 03/16/18 03/16/18 16:30 18:00 18:30 WBC 11.3 H Hgb 6.8 L* D Hct 21.9 L D Plt Count 207 D Lymphocytes % 5.0 L D INR 1.51 H ABG pCO2 at Pt Temp 25.1 L Oxygen Flow Rate 4 Creat Clearance w eGFR Lactic Acid Total Bilirubin Alkaline Phosphatase Albumin Ur Leukocyte Esterase Acetone, Qual 03/16/18 03/17/18 23:20 05:55 WBC Hgb Hct Plt Count Lymphocytes % INR ABG pCO2 at Pt Temp Oxygen Flow Rate Creat Clearance w eGFR 44.92 Lactic Acid Total Bilirubin 3.2 H D Alkaline Phosphatase 150 H Albumin 1.9 L Ur Leukocyte Esterase Acetone, Qual Assessment Sepsis syndrome liver abscess Liver abscess post IR drainage now ? gallbladder source IDDM Anemia Urinary trct infection PCN rash by history Plan Blood urine liver abscess cultures With current facial swelling (?) going to avoid beta lactams Clindamycin and Aztreonam CRP HIV test Rosina STEINER
--- NOTE | 2018-03-17 08:53 | CONS ---
DATE OF CONSULTATION: DATE OF DICTATION: 03/17/2018 This is a 42-year-old insulin-dependent diabetic who I am asked to see in intensive care unit for evaluation of sepsis and liver abscess. She initially presented to the emergency room with chief complaints of fever to 102.4 with vomiting, generalized weakness, and lightheadedness. Her symptoms had been ongoing for several days and she was unable to keep food down. She had apparently been seen in the [facility], where she noted that she had fell down a flight of stairs several days ago. She was sent home after x-rays revealed any evidence of trauma. She has been taking nonsteroidals for generalized pain. According to her , she has been in declining health for some time. She is a mother of 5 children and states she has been HIV tested negative. In the emergency room, she was noted to be hypotensive, tachycardic, and tachypneic. The white count was elevated, as was her lactic acid to 2.4. Her creatinine was 2.5. Alkaline phosphatase was 188 and the urinalysis showed many WBCs. She was given normal saline for hypotension and given a combination of antibiotics that included vancomycin, meropenem, Levaquin, and metronidazole. When I was called last night, I elected to keep her on meropenem temporarily. Overnight, Interventional Radiology had been called after an ultrasound showed 2 hypoechoic lesions found in the liver, consistent with possible abscess. A thickened gallbladder wall without gallstones or pericholecystic fluid or ductal dilatation was noted. The CT scan showed the same posterior liver and questioned kidney lesion, suspicious for possible hematoma versus abscess. Her hemoglobin has declined to 6.8 and she has a history of anemia. She has been transfused packed cells. Currently, she feels much better; alert, oriented, and in no acute distress. She has no history of recent travel and states that she has been HIV tested negative in the past. OTHER PAST MEDICAL HISTORY: Hypertension, hyperlipidemia, fibromyalgia. MEDICATIONS: Atorvastatin; iron; gabapentin; insulin; omeprazole. ALLERGIES: PENICILLIN with a rash. FAMILY HISTORY: Noncontributory. REVIEW OF SYSTEMS: All systems reviewed and noncontributory. PHYSICAL EXAMINATION: General: She was an alert female in no acute distress. Vital Signs: The temperature was 98.6, pulse 104, blood pressure 107/70, respirations 25. HEENT: Facial swelling with lip swelling. Neck: Supple without adenopathy. Lungs: Clear to P and A. Heart: S1, S2, regular rhythm without audible murmur or gallop. Abdomen: Soft with no localized tenderness and a drainage catheter noted in the right upper quadrant. Extremities: No clubbing, cyanosis, or edema. The white count 12,000, hemoglobin 9.3, platelets 185. INR 1.51. ABG 7.34, 25, 149 on 4 L nasal cannula. BUN 19, creatinine 1.1. Bilirubin 3.2, AST 5.3, alkaline phosphatase 150, albumin 1.9. test negative. Urinalysis with 139 WBCs, 3 RBCs, 3+ leukocyte esterase. Blood and urine cultures pending. ASSESSMENT: 1. Sepsis syndrome in this 42-year-old insulin-dependent diabetic; source liver abscess. 2. Insulin-dependent diabetes mellitus. 3. Liver abscess, most likely gallbladder etiology. 4. Urinary tract infection. 5. Vaginal candidiasis. 6. Facial swelling, (?) allergic reaction. She is currently on meropenem. PLAN: Cultures of blood and urine pending. Hopefully a culture of the liver aspirate was sent for routine culture, including aerobes and anaerobes. Given her facial swelling, I am inclined to avoid beta lactams at this time. I will empirically treat her with clindamycin and aztreonam. Obtain a CRP and HIV test. ADDENDUM: Report of a gram-negative ilan in the blood; source could be urinary tract and/or related to liver abscess. Await further identification. BELA MCKEON M.D. [facility]/[id number]
[2018-03-17] MEDS: CLINDAMYCIN 600MG PREMIX IVPB 600 MG/50 ML BAG IVPB SCH ×3 (09:05→21:47)
[2018-03-17] MEDS: ELECTROLYTE-148 SOLN 1,000 ML IV SCH ×2 (09:08→21:49)
--- NOTE | 2018-03-17 09:35 | CON.NEP ---
Consult Consult Specialty:: Nephrology Reason for Consultation:: yossi - History of Present Illness Chief Complaint: abdominal pain History of Present Illness: This is a 42 year old female with fibromyalgia, HTN, DM(uncontrolled), who presented to the ED with fever, weakness, nausea, vomiting, lightheadedness and abdominal pain for 4 days. She was found to have a liver abscess which has been drained and she feels better now. Denies any history of kidney disease. No problems urinating and no dysuria. Has had several falls. I was called because her creatinine was elevated and I discussed her case with the hospitalist last night. - History Source History Provided By: Patient, Medical Record Limitations to Obtaining History: No Limitations - Past Medical History EVENTS ASSISTANT: No: Alzheimer's, CVA, Dementia, Migraine, Multiple Sclerosis, Peripheral Neuropathy, Parkinson's, Seizure, Syncope, TIA, Vertigo, Other Cardio/Vascular: Yes: HTN, Hyperlipdemia Pulmonary: Yes: Asthma Gastrointestinal: Yes: GERD ...LMP: 03/22/18 ...: No Musculoskeletal: Yes: Chronic low back pain Rheumatology: Yes: Fibromyalgia Endocrine: Yes: Diabetes Mellitus - Past Surgical History Past Surgical History: Yes: Additional Surgical History: None reported - Alcohol/Substance Use Hx Alcohol Use: No - Smoking History Smoking history: Current every day smoker Have you smoked in the past 12 months: Yes Aproximately how many cigarettes per day: 10 - Social History ADL: Independent History of Recent Travel: No Home Medications - Allergies Allergies/Adverse Reactions: Allergies Allergy/AdvReac Type Severity Reaction Status Date / Time Penicillins Allergy Verified 03/16/18 10:20 - Home Medications Home Medications: Ambulatory Orders Atorvastatin Ca [Lipitor] 40 mg PO HS 03/16/18 Ferrous Sulfate [Iron] 325 mg PO DAILY 03/16/18 Gabapentin 300 mg PO HS 03/16/18 Hydroxyzine HCl 50 mg PO DAILY 03/16/18 Ibuprofen [Motrin -] 800 mg PO Q8H PRN 03/16/18 Insulin Glargine,Hum.rec.anlog [Basaglar Kwikpen U-100] 20 unit SQ BID 03/16/18 Omeprazole 20 mg PO DAILY 03/16/18 Review of Systems - Review of Systems Constitutional: reports: Fever, Weakness Eyes: reports: No Symptoms HENT: reports: No Symptoms Neck: reports: No Symptoms Cardiovascular: reports: No Symptoms Respiratory: reports: No Symptoms Gastrointestinal: reports: Abdominal Pain, Nausea Genitourinary: reports: No Symptoms Breasts: reports: No Symptoms Reported Musculoskeletal: reports: No Symptoms Integumentary: reports: No Symptoms Neurological: reports: No Symptoms Endocrine: reports: No Symptoms Hematology/Lymphatic: reports: No Symptoms Psychiatric: reports: No Symptoms Nephrology Consult - Height Height: 5 ft 4 in - Weight Weight: 157 lb 3.2 oz - BMI Body Mass Index (BMI): 26.9 - Lab Results CBC,BMP: CBC, BMP 03/17/18 05:55 03/17/18 05:55 Anion Gap: Anion Gap Anion Gap 10 (8-16) 03/17/18 05:55 - Imaging Chest X-ray: Report Reviewed Cat Scan: Image Reviewed Ultrasound: Report Reviewed - Physical Examination Vital Signs: Vital Signs Temperature 98.6 F 03/17/18 06:00 Pulse Rate 103 H 03/17/18 08:00 Respiratory Rate 24 03/17/18 08:00 Blood Pressure 99/59 03/17/18 08:00 O2 Sat by Pulse Oximetry (%) 100 03/16/18 21:03 Constitutional: Yes: Well Nourished, No Distress Eyes: Yes: Conjunctiva Clear HENT: Yes: Atraumatic, Normocephalic Neck: Yes: Supple, Trachea Midline Cardiovascular: Yes: Regular Rate and Rhythm Respiratory: Yes: Regular, CTA Bilaterally Gastrointestinal: Yes: Normal Bowel Sounds, Other (drainage tube in place) Renal/: Yes: WNL Musculoskeletal: Yes: WNL Extremities: Yes: WNL Edema: No Integumentary: Yes: WNL Neurological: Yes: Alert, Oriented Psychiatric: Yes: Alert, Oriented Assessment/Plan IMPRESSION acute kidney injury improved with IVF liver abscess s/p drainage h/o uncontrolled DM hypocalcemia worsened by ivf PLAN agree with antibiotics per ID recommendation will need to monitor renal function since she was given contrast and may not be evident immediately reevaluate renal function and protein excretion after acute event MV
--- NOTE | 2018-03-17 10:06 | PN ---
Progress Note, Physician History of Present Illness: 42 year old female with fibromyalgia, HTN, IDDM (uncontrolled), who presented to the ED with fever, weakness, nausea, vomiting, lightheadedness and abdominal pain for 4 days. Pt was seen at [facility] after a sustained fall down the stairs 4 days ago. She was sent home after negative xrays. Today, she presented with vomiting, weakness and lightheadness, and fever of 102.4. She is unable to hold food down, took her insulin today. Of note, pt states she has been falling a lot for the past several months and has not been worked up, just takes NSAIDS for the pain. Per her , she has declined in her health since she was diagnosed with DM and fibromyalgia 2 years ago. She does experience dysuria and yeast infections with her DM. - Current Medication List Current Medications: Active Medications Chlorhexidine Gluconate (Hibiclens For Decolonization -) 1 applic TP HS [facility] Last Admin: 03/16/18 21:55 Dose: 1 applic Parenteral Electrolytes (Plasma-Lyte 148 -) 1,000 mls @ 125 mls/hr IV ASDIR [facility] Last Admin: 03/17/18 09:08 Dose: 125 mls/hr Clindamycin Phosphate (Cleocin 600 Mg Premix Ivpb -) 600 mg in 50 mls @ 100 mls /hr IVPB Q6H-IV [facility] PRN Reason: Protocol Last Admin: 03/17/18 09:05 Dose: 100 mls/hr Aztreonam 2 gm/ Dextrose 100 mls @ 100 mls/hr IVPB Q8H-IV [facility] PRN Reason: Protocol Insulin Aspart (Novolog Vial Sliding Scale -) 1 vial SQ Q4H [facility] PRN Reason: Protocol Last Admin: 03/17/18 05:14 Dose: 6 units Mupirocin (Bactroban Ointment (For Decolonization) -) 1 applic NS BID [facility] Stop: 03/21/18 21:59 Last Admin: 03/16/18 21:54 Dose: 1 applic Nystatin (Nystatin Oral Suspension -) 500,000 units PO Q6HPO [facility] Last Admin: 03/17/18 05:14 Dose: 500,000 units - Objective Vital Signs: Vital Signs Temperature 98.6 F 03/17/18 06:00 Pulse Rate 103 H 03/17/18 08:00 Respiratory Rate 24 03/17/18 08:00 Blood Pressure 99/59 03/17/18 08:00 O2 Sat by Pulse Oximetry (%) 100 03/16/18 21:03 Labs: CBC, BMP 03/17/18 05:55 03/17/18 05:55 INR, PTT INR 1.51 (0.82-1.09) H 03/16/18 18:30 Fibrinogen > 500.0 mg/dL (238-498) H 03/16/18 18:30 Problem List - Problems (1) Sepsis Assessment/Plan: - s/p 5L in ED - Continue IVF 125cc/hr - Check Lactic acid now - Levaquin/flagyl given in ED--Abx per ID - Blood, urine cx pending - liver lesions ?abscess v hematoma - ECHO r/o vegetations - CTAP w contrast ordered r/o bleed vs abscess per surgery - Give 1200mg mucomyst x1 now, then 600mg q12 x2 doses starting tomorrow for renal protection - Surgery consult reviewed - ICU admission, Dr. Penaloza accepting Code(s): A41.9 - SEPSIS, UNSPECIFIED ORGANISM Qualifiers: Sepsis type: sepsis due to unspecified organism Qualified Code(s): A41.9 - Sepsis, unspecified organism (2) Liver abscess Assessment/Plan: as above -drain in place Code(s): K75.0 - ABSCESS OF LIVER (3) SOFIYA (acute kidney injury) Assessment/Plan: - Likely pre renal due to volume depletion. Sepsis contributing cannot r/o ATN - Will send urine studies for Fena - If contrast is needed calculated BERTRAM is 26.1% - Kidney/bladder US - Nephrology consulted Code(s): N17.9 - ACUTE KIDNEY FAILURE, UNSPECIFIED (4) Abdominal pain Code(s): R10.9 - UNSPECIFIED ABDOMINAL PAIN Qualifiers: Abdominal location: right upper quadrant Qualified Code(s): R10.11 - Right upper quadrant pain (5) Anemia Assessment/Plan: - Unclear source of bleeding, ?hematoma in liver/kidney post trauma. Cannot r/o DIC d/t sepsis or hemolysis - 2units pbrc ordered, recheck cbc 1 hr post final transfusion - Send fibrinogin, fdp, retic count, ldh, pt/ptt/inr, haptaglobin -gi consult Code(s): D64.9 - ANEMIA, UNSPECIFIED (6) Electrolyte abnormality Assessment/Plan: - Corrected ca 7.46, 1gm calcium gluconate given - check ionized ca - Hypomagnesemia, 2mg x1 given Code(s): E87.8 - OTH DISORDERS OF ELECTROLYTE AND FLUID BALANCE, NEC (7) Diabetes Assessment/Plan: - BGM q2hr - ISS q4hr - Resume home insulin regimen when stable Code(s): E11.9 - TYPE 2 DIABETES MELLITUS WITHOUT COMPLICATIONS
[2018-03-17] MEDS: MUPIROCIN 2% TOPICAL OINTMENT FOR DECOLONIZATION NS SCH ×2 (10:13→21:48)
[2018-03-17] MEDS: AZTREONAM 2 GM in DEXTROSE 5%-WATER 100 ML IVPB SCH ×2 (10:19→17:10)
--- NOTE | 2018-03-17 10:37 | PN ---
Progress Note (short form) - Note Progress Note: PULMONARY/CCM Pt seen and examined in the ICU. s/p percutaneous drainage of liver abscess. States she feels better today. No fevers or chills. No nausea or vomiting. Asking for water. Last Vital Signs Temp Pulse Resp BP Pulse Ox 98.6 F 103 H 24 99/59 100 03/17/18 06:00 03/17/18 08:00 03/17/18 08:00 03/17/18 08:00 03/16/18 21:03 Intake & Output 03/14/18 03/15/18 03/16/18 03/17/18 23:59 23:59 23:59 23:59 Intake Total 5900 1875 Output Total 1600 1380 Balance 4300 495 Weight 71.305 kg 71.305 kg Gen: NAD at rest Heart: tachycardic, regular Lung: decreased breath sounds at the bases Abd: soft, tender to palpation, +drain with purulent bloody drainage Ext: no edema CBC, BMP 03/17/18 05:55 03/17/18 05:55 Hepatic Panel Total Bilirubin 3.2 mg/dL (0.2-1.0) H D 03/17/18 05:55 AST 53 U/L (15-37) H 03/17/18 05:55 ALT 51 U/L (12-78) 03/17/18 05:55 Alkaline Phosphatase 150 U/L (45-117) H 03/17/18 05:55 Albumin 1.9 g/dl (3.4-5.0) L 03/17/18 05:55 Active Medications Chlorhexidine Gluconate (Hibiclens For Decolonization -) 1 applic TP HS [facility] Last Admin: 03/16/18 21:55 Dose: 1 applic Parenteral Electrolytes (Plasma-Lyte 148 -) 1,000 mls @ 125 mls/hr IV ASDIR [facility] Last Admin: 03/17/18 09:08 Dose: 125 mls/hr Clindamycin Phosphate (Cleocin 600 Mg Premix Ivpb -) 600 mg in 50 mls @ 100 mls /hr IVPB Q6H-IV [facility] PRN Reason: Protocol Last Admin: 03/17/18 09:05 Dose: 100 mls/hr Aztreonam 2 gm/ Dextrose 100 mls @ 100 mls/hr IVPB Q8H-IV [facility] PRN Reason: Protocol Last Admin: 03/17/18 10:19 Dose: 100 mls/hr Insulin Aspart (Novolog Vial Sliding Scale -) 1 vial SQ Q4H [facility] PRN Reason: Protocol Last Admin: 03/17/18 10:33 Dose: 4 units Mupirocin (Bactroban Ointment (For Decolonization) -) 1 applic NS BID [facility] Stop: 03/21/18 21:59 Last Admin: 03/17/18 10:13 Dose: 1 applic Nystatin (Nystatin Oral Suspension -) 500,000 units PO Q6HPO [facility] Last Admin: 03/17/18 05:14 Dose: 500,000 units A/P Liver Abscess s/p percutaneous drainage Severe Sepsis Acute Kidney Injury Lactic Acidosis Elevated LFTs HTN DM - continue antibiotics per ID - f/u cultures - IVF - monitor urine output, creatinine - monitor lytes - monitor H/H - trend LFTs - can likely start PO when LFTs trending down - pain control - incentive spirometry - DVT prophylaxis - continue ICU monitoring critical care time spent in reviewing chart, evaluating patient and formulating plan 35 min _
[2018-03-17] MEDS: ACETAMINOPHEN 1000 MG/100 ML VIAL (NON FORMULARY) IVPB PRN ×2 (11:00→18:26)
--- NOTE | 2018-03-17 13:12 | PN ---
Progress Note, Physician Chief Complaint: Presented c/o evere right sided abdominal pain, fever, diziness, recently fall from height. History of Present Illness: I was called to the ED to evaluate a patient who presented to ED c/o severe right sided abdominal pain which has worsened since a fall down a flight of stairs about 2 days ago due to "dizziness". Patient presented to another ED and states that they took xrays which were negative and she was sent home. On arrival patient to [facility] ED was afebrile but tachycardic with persistent hypotension that responded ultimately to fluid resuscitation. Labs significant for WBC 13 Hgb and drop in Hct. Adb US suggested hypoechoic lesions in the liver and kidney but given the history of recent fall from height and drop in Hct, after discussion with the radiologist a CTA with 3 phase liver scan was obtained which confirmed suspicion of an abscess of liver vs kidney origin. The abscess was drained by IR last night with out complication. - Current Medication List Current Medications: Active Medications Acetaminophen (Ofirmev Injection -) 1,000 mg IVPB Q6H PRN PRN Reason: PAIN Last Admin: 03/17/18 11:00 Dose: 1,000 mg Chlorhexidine Gluconate (Hibiclens For Decolonization -) 1 applic TP HS [facility] Last Admin: 03/16/18 21:55 Dose: 1 applic Parenteral Electrolytes (Plasma-Lyte 148 -) 1,000 mls @ 125 mls/hr IV ASDIR [facility] Last Admin: 03/17/18 09:08 Dose: 125 mls/hr Clindamycin Phosphate (Cleocin 600 Mg Premix Ivpb -) 600 mg in 50 mls @ 100 mls /hr IVPB Q6H-IV [facility] PRN Reason: Protocol Last Admin: 03/17/18 09:05 Dose: 100 mls/hr Aztreonam 2 gm/ Dextrose 100 mls @ 100 mls/hr IVPB Q8H-IV [facility] PRN Reason: Protocol Last Admin: 03/17/18 10:19 Dose: 100 mls/hr Insulin Aspart (Novolog Vial Sliding Scale -) 1 vial SQ Q4H [facility] PRN Reason: Protocol Last Admin: 03/17/18 10:33 Dose: 4 units Mupirocin (Bactroban Ointment (For Decolonization) -) 1 applic NS BID [facility] Stop: 03/21/18 21:59 Last Admin: 03/17/18 10:13 Dose: 1 applic Nystatin (Nystatin Oral Suspension -) 500,000 units PO Q6HPO COUNTS INCLUDE 234 BEDS AT THE [facility] Last Admin: 03/17/18 12:00 Dose: 500,000 units - Objective Vital Signs: Vital Signs Temperature 98.4 F 03/17/18 10:00 Pulse Rate 96 H 03/17/18 12:00 Respiratory Rate 20 03/17/18 12:00 Blood Pressure 101/71 03/17/18 12:00 O2 Sat by Pulse Oximetry (%) 98 03/17/18 10:00 Constitutional: Yes: Well Nourished, No Distress, Obese Eyes: Yes: Conjunctiva Clear, EOM Intact HENT: Yes: Normocephalic, Other (slight facial swelling). No: Hoarseness Neck: Yes: Supple, Trachea Midline Cardiovascular: Yes: Regular Rate and Rhythm. No: Tachycardia Respiratory: Yes: Regular, CTA Bilaterally. No: Wheezes Gastrointestinal: Yes: Abdomen, Obese, Hypoactive Bowel Sounds. No: Palpable Mass, Tenderness ...Rectal Exam: Yes: Deferred Genitourinary: Yes: Tapia Present. No: Hematuria Musculoskeletal: Yes: Back Pain. No: Joint Swelling, Muscle Weakness Extremities: No: Cyanosis, Erythema Edema: Yes (mild) Integumentary: No: Bruising, Jaundice Wound/Incision: Yes: Other (Abdominal pigtail drain in place draining pus.) Psychiatric: Yes: Alert, Oriented Labs: CBC, BMP 03/17/18 05:55 03/17/18 05:55 INR, PTT INR 1.51 (0.82-1.09) H 03/16/18 18:30 Fibrinogen > 500.0 mg/dL (238-498) H 03/16/18 18:30 Problem List - Problems (1) Abdominal pain Code(s): R10.9 - UNSPECIFIED ABDOMINAL PAIN Qualifiers: Abdominal location: right upper quadrant Qualified Code(s): R10.11 - Right upper quadrant pain (2) Sepsis Code(s): A41.9 - SEPSIS, UNSPECIFIED ORGANISM Qualifiers: Sepsis type: sepsis due to unspecified organism Qualified Code(s): A41.9 - Sepsis, unspecified organism (3) Liver lesion Code(s): K76.9 - LIVER DISEASE, UNSPECIFIED (4) Elevated liver function tests Code(s): R79.89 - OTHER SPECIFIED ABNORMAL FINDINGS OF BLOOD CHEMISTRY (5) Hypotension Code(s): I95.9 - HYPOTENSION, UNSPECIFIED Qualifiers: Hypotension type: unspecified hypotension type Qualified Code(s): I95.9 - Hypotension, unspecified (6) Leukocytosis Code(s): D72.829 - ELEVATED WHITE BLOOD CELL COUNT, UNSPECIFIED Qualifiers: Leukocytosis type: unspecified Qualified Code(s): D72.829 - Elevated white blood cell count, unspecified Assessment/Plan Patient presented with evidence of sepsis and lesr and kidney lesions found to have a documented liver vs. kidney collections suspicious for an abscess on CTA with 3 phase liver scan. Abscess was drained by IR last night and found to contain purulent fluid c/w pus. Patient has stabilized with good urine output and all labs improving including Cr. Abdominal exam no completely benign. Abdominal pigtail drain in place draining purulent fluid. The fluid was sent panel of cultures were sent including cytology which are pending. Gram stain reveal GNR's. Appreciate ID consult and involvement in managing antibiotic coverage as patient was initially placed on several different categories. Ok to advance diet to clears and out of bed to chair. COntinue incentive spirometer.
--- NOTE | 2018-03-17 13:57 | CON.GI ---
Consult Consult Specialty:: GI Reason for Consultation:: anemia - History of Present Illness History of Present Illness: Chart reviewed, events noted. A 42F admitted for symptomatic hepatic abscess. S/ p aspiration and drainage by IR. No evidence of hematoma, or bleeding reported. On Abx. Appears to be improving. Noted to have microcytic, hypocheromic anemia, Hgb 8.6 g/dl on admission and ~ 6.8 g/dl after 5L IVF. Transfused 2 unit of PRBC with appropriate correction to ~ 9 g/dl. No stigmata of recent, or ongoing GI blood loss per patient and the records. Hgb 9 g/dl 1 year ago as well. No weight loss, diarrhea, melena, hematochezia, dysphagia, odynophagia, jaundice, hematemesis, coffee-ground emesis. Reports no GI work up of microcytic, hypochromic anemia. Last BM > 12 hrs ago. 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: No: Alzheimer's, CVA, Dementia, Migraine, Multiple Sclerosis, Peripheral Neuropathy, Parkinson's, Seizure, Syncope, TIA, Vertigo, Other Cardio/Vascular: Yes: Hyperlipdemia Pulmonary: Yes: Asthma Gastrointestinal: Yes: GERD ...LMP: 03/22/18 ...: No Musculoskeletal: Yes: Chronic low back pain Rheumatology: Yes: Fibromyalgia Endocrine: Yes: Diabetes Mellitus - Past Surgical History Past Surgical History: Yes: Additional Surgical History: None reported - Alcohol/Substance Use Hx Alcohol Use: No - Smoking History Smoking history: Current every day smoker Have you smoked in the past 12 months: Yes Aproximately how many cigarettes per day: 10 - Social History ADL: Independent History of Recent Travel: No Home Medications - Allergies Allergies/Adverse Reactions: Allergies Allergy/AdvReac Type Severity Reaction Status Date / Time Penicillins Allergy Verified 03/16/18 10:20 - Home Medications Home Medications: Ambulatory Orders Atorvastatin Ca [Lipitor] 40 mg PO HS 03/16/18 Ferrous Sulfate [Iron] 325 mg PO DAILY 03/16/18 Gabapentin 300 mg PO HS 03/16/18 Hydroxyzine HCl 50 mg PO DAILY 03/16/18 Ibuprofen [Motrin -] 800 mg PO Q8H PRN 03/16/18 Insulin Glargine,Hum.rec.anlog [Basaglar Kwikpen U-100] 20 unit SQ BID 03/16/18 Omeprazole 20 mg PO DAILY 03/16/18 Family Disease History - Family Disease History Family History: Unremarkable Review of Systems Findings/Remarks: as per HPI, H&P Physical Exam-GI Vital Signs: Vital Signs Temperature 98.4 F 03/17/18 10:00 Pulse Rate 96 H 03/17/18 12:00 Respiratory Rate 20 03/17/18 12:00 Blood Pressure 101/71 03/17/18 12:00 O2 Sat by Pulse Oximetry (%) 98 03/17/18 10:00 Constitutional: Yes: No Distress, Calm Eyes: Yes: Conjunctiva Clear HENT: Yes: Atraumatic Neck: Yes: Supple Cardiovascular: Yes: Tachycardia Respiratory: Yes: Regular Gastrointestinal Inspection: No: Ascites, Distention ...Auscultate: Yes: Normoactive Bowel Sounds ...Palpate: Yes: Soft, Other (pig-tail catheter with purulent appearing material ). No: Firm/Rigid, Guarding, Mass, Tenderness ...Rectal Exam: Yes: Other (stool sent for analysis) Neurological: Yes: Alert, Oriented Labs: CBC, BMP 03/17/18 05:55 03/17/18 05:55 INR, PTT INR 1.51 (0.82-1.09) H 03/16/18 18:30 Fibrinogen > 500.0 mg/dL (238-498) H 03/16/18 18:30 Laboratory Last Values WBC 12.0 K/mm3 (4.0-10.0) H 03/17/18 05:55 RBC 3.55 M/mm3 (3.60-5.2) L 03/17/18 05:55 Hgb 9.3 GM/dL (10.7-15.3) L 03/17/18 05:55 Hct 28.0 % (32.4-45.2) L 03/17/18 05:55 MCV 78.8 fl (80-96) L 03/17/18 05:55 MCH 26.1 pg (25.7-33.7) 03/17/18 05:55 MCHC 33.2 g/dl (32.0-36.0) 03/17/18 05:55 RDW 19.8 % (11.6-15.6) H 03/17/18 05:55 Plt Count 185 K/MM3 (134-434) 03/17/18 05:55 MPV 7.2 fl (7.5-11.1) L 03/17/18 05:55 Neutrophils % 91.8 % (42.8-82.8) H 03/16/18 18:30 Lymphocytes % 5.7 % (8-40) L 03/16/18 18:30 Monocytes % 1.6 % (3.8-10.2) L 03/16/18 18:30 Eosinophils % 0.6 % (0-4.5) D 03/16/18 18:30 Basophils % 0.3 % (0-2.0) 03/16/18 18:30 Retic Count 0.39 % (0.5-1.5) L 03/16/18 17:20 PT with INR 17.10 SEC (9.7-13.0) H 03/16/18 18:30 INR 1.51 (0.82-1.09) H 03/16/18 18:30 PTT (Actin FS) 31.3 SECONDS (26.9-34.4) 03/16/18 18:30 Fibrinogen > 500.0 mg/dL (238-498) H 03/16/18 18:30 D-Dimer 77268 ng/ml (0-500) H 03/16/18 18:30 Anticoagulation Therapy No Result Required. 03/16/18 18:00 Puncture Site Left radial 03/16/18 18:00 ABG pH 7.34 (7.35-7.45) L 03/16/18 18:00 ABG pCO2 at Pt Temp 25.1 mmHg (35-45) L 03/16/18 18:00 ABG pO2 at Pt Temp 149.0 mmHg (80-100) H 03/16/18 18:00 ABG HCO3 13.0 meq/L (22-26) L* 03/16/18 18:00 ABG O2 Sat (Measured) 99.1 % (90-98.9) H 03/16/18 18:00 ABG O2 Content 10.4 % vol (15-22) L 03/16/18 18:00 ABG Base Excess -11.4 meq/l (-2-2) L* 03/16/18 18:00 Sree Test Positive 03/16/18 18:00 VBG pH 7.32 (7.32-7.42) 03/16/18 23:20 POC VBG pCO2 32.7 mmHg (38-52) L 03/16/18 23:20 POC VBG pO2 42.5 mmHg (28-48) D 03/16/18 23:20 Mixed VBG HCO3 16.5 meq/L (19-25) L 03/16/18 23:20 Carboxyhemoglobin 2.0 gm% (0.5-2.0) 03/16/18 18:00 Methemoglobin 1.7 % (0.4-1.5) H 03/16/18 18:00 O2 Delivery Device Nasal 03/16/18 18:00 Oxygen Flow Rate 4 03/16/18 18:00 Vent Mode No Result Required. 03/16/18 18:00 Vent Rate No Result Required. 03/16/18 18:00 Mechanical Rate No Result Required. 03/16/18 18:00 Pressure Support Vent No Result Required. 03/16/18 18:00 Sodium 140 mmol/L (136-145) 03/17/18 05:55 Potassium 3.5 mmol/L (3.5-5.1) 03/17/18 05:55 Chloride 111 mmol/L (98-107) H 03/17/18 05:55 Carbon Dioxide 19 mmol/L (21-32) L 03/17/18 05:55 Anion Gap 10 (8-16) 03/17/18 05:55 BUN 19 mg/dL (7-18) H 03/17/18 05:55 Creatinine 1.1 mg/dL (0.55-1.02) H 03/17/18 05:55 Creat Clearance w eGFR 54.47 (>60) 03/17/18 05:55 Random Glucose 248 mg/dL (74-106) H 03/17/18 05:55 Hemoglobin A1c % 11.0 % (4.8-6.0) H 03/17/18 05:55 Lactic Acid 0.6 mmol/L (0.0-2.0) 03/17/18 05:39 Calcium 6.9 mg/dL (8.5-10.1) L* 03/17/18 05:55 Phosphorus 2.7 mg/dL (2.5-4.9) 03/17/18 05:55 Magnesium 2.4 mg/dL (1.8-2.4) 03/17/18 05:55 Total Bilirubin 3.2 mg/dL (0.2-1.0) H D 03/17/18 05:55 AST 53 U/L (15-37) H 03/17/18 05:55 ALT 51 U/L (12-78) 03/17/18 05:55 Alkaline Phosphatase 150 U/L (45-117) H 03/17/18 05:55 LD Total 207 U/L (84-246) 03/16/18 17:20 Creatine Kinase 23 IU/L (26-192) L 03/16/18 15:20 Troponin I < 0.02 ng/ml (0.00-0.05) 03/16/18 15:20 C-Reactive Protein Cancelled 03/17/18 06:00 Total Protein 5.7 g/dl (6.4-8.2) L 03/17/18 05:55 Albumin 1.9 g/dl (3.4-5.0) L 03/17/18 05:55 Serum , Qual Negative 03/16/18 11:20 Urine Color Yellow 03/16/18 19:30 Urine Appearance Cloudy 03/16/18 19:30 Urine pH 6.0 (5.0-8.0) 03/16/18 19:30 Ur Specific Grethel 1.020 (1.001-1.035) 03/16/18 19:30 Urine Protein 1+ (NEGATIVE) H 03/16/18 19:30 Urine Glucose (UA) 1+ (NEGATIVE) H 03/16/18 19:30 Urine Ketones Negative (NEGATIVE) 03/16/18 19:30 Urine Blood 1+ (NEGATIVE) H 03/16/18 19:30 Urine Nitrite Negative (NEGATIVE) 03/16/18 19:30 Urine Bilirubin Negative (<2.0 mg/dL) 03/16/18 19: Urine Urobilinogen 2.0 mg/dL (0.2-1.0) H 03/16/18 19:30 Ur Leukocyte Esterase 3+ (NEGATIVE) H 03/16/18 19:30 Urine WBC (Auto) 139 /hpf (3-5) 03/16/18 19:30 Urine RBC (Auto) 3 /hpf (0-3) 03/16/18 19:30 Ur Epithelial Cells Rare /HPF (FEW) 03/16/18 19:30 Urine Bacteria Rare /hpf (NONE SEEN) 03/16/18 19:30 Hyaline Casts 10 /lpf 03/16/18 12:50 Urine Mucus Rare 03/16/18 19:30 Ur Random Sodium 59 MMOL/L 03/16/18 19:30 Urine Creatinine 212.4 mg/dL (20-320) 03/16/18 19:30 Urine HCG, Qual Negative 03/16/18 12:50 Fluid Creatinine 1.69 mg/dL 03/17/18 11:54 Acetone, Qual Negative (NEGATIVE) L 03/16/18 11:20 HIV 1&2 Antibody Screen Negative 03/17/18 08:20 HIV P24 Antigen Negative 03/17/18 08:20 Blood Type B POSITIVE 03/16/18 15:20 Antibody Screen Negative 03/16/18 15:20 Crossmatch See Detail 03/16/18 15:20 Imaging - Results Cat Scan: Report Reviewed Other: Report Reviewed (IR report) Problem List - Problems (1) Cholestasis Code(s): K83.1 - OBSTRUCTION OF BILE DUCT (2) Hepatic abscess Code(s): K75.0 - ABSCESS OF LIVER (3) Microcytic hypochromic anemia Code(s): D50.9 - IRON DEFICIENCY ANEMIA, UNSPECIFIED (4) Elevated liver function tests Code(s): R79.89 - OTHER SPECIFIED ABNORMAL FINDINGS OF BLOOD CHEMISTRY Assessment/Plan Chronic, multufactorial microcytic, hypochromic anemia. No stigmata of recent, or ongoing, significant GI bleeding. Cholestasis with hepatitis liver enzymes pattern is very likely abcess-related and will improve overtime. No evidence of hepatic hematoma. Will need GI anemia work up once acute issues have resolved. Avoid NSAIDs. Agree with PPI for now. Will obtain iron profile, hemocult, daily liver enzymes. Diabetic diet, or as per Sx/ICU teams. Discussed with the patient. Will follow.
[2018-03-17] MEDS ORDERED: FLUCONAZOLE 50 MG TABLET PO ONE (15:47)
[2018-03-17] MEDS: CHLORHEXIDINE GLUCONATE 4% CLEANSER FOR DECOLONIZATION TP SCH (21:49)
[2018-03-18] MEDS: NYSTATIN 500,000 UNITS/5 ML SUSPENSION PO SCH ×5 (00:15→17:25)
[2018-03-18] MEDS ORDERED: PT OWN MED DRAWER 7, Y5N ONE ×2 (00:23→17:20)
[2018-03-18] MEDS: INSULIN SLIDING SCALE (NOVOLOG) 1 VIAL SQ SCH ×6 (00:44→21:42)
[2018-03-18] MEDS: AZTREONAM 2 GM in DEXTROSE 5%-WATER 100 ML IVPB SCH ×3 (01:16→17:24)
[2018-03-18] MEDS: CLINDAMYCIN 600MG PREMIX IVPB 600 MG/50 ML BAG IVPB SCH ×4 (02:09→21:01)
[2018-03-18] MEDS: ACETAMINOPHEN 1000 MG/100 ML VIAL (NON FORMULARY) IVPB PRN ×2 (05:40→15:21)
[2018-03-18 06:43] LABS: ALBUMIN 1.9 g/dl (3.4-5.0); ANION GAP 8 (8-16); BLOOD UREA NITROGEN 24 mg/dL (7-18); CALCIUM 7.4 mg/dL (8.5-10.1); CHLORIDE 108 mmol/L (98-107); CO2 22 mmol/L (21-32); GLUCOSE,RANDOM 271 mg/dL (74-106); MAGNESIUM 2.4 mg/dL (1.8-2.4); PHOSPHOROUS 4.2 mg/dL (2.5-4.9); POTASSIUM 3.3 mmol/L (3.5-5.1); SGOT/AST 26 U/L (15-37); SGPT/ALT 37 U/L (12-78); SODIUM 138 mmol/L (136-145)
[2018-03-18 06:44] LABS: BASO % 0.3 % (0-2.0); HEMATOCRIT 28.2 % (32.4-45.2); HEMOGLOBIN 9.4 GM/dL (10.7-15.3); LYMPH % 17.2 % (8-40); MCH 26.2 pg (25.7-33.7); MCHC 33.3 g/dl (32.0-36.0); MEAN CELL VOLUME 78.5 fl (80-96); MEAN PLT VOLUME 7.7 fl (7.5-11.1); MONO % 3.3 % (3.8-10.2); NEUT % 78.2 % (42.8-82.8); PLATELET COUNT 186 K/MM3 (134-434); RBC 3.59 M/mm3 (3.60-5.2); WHITE BLOOD COUNT 10.2 K/mm3 (4.0-10.0)
[2018-03-18 06:45] LABS: ALK PHOS 179 U/L (45-117); BILIRUBIN,DIRECT 2.4 mg/dL (0.0-0.2); BILIRUBIN,TOTAL 2.8 mg/dL (0.2-1.0); TOT PROT 5.8 g/dl (6.4-8.2)
--- NOTE | 2018-03-18 06:45 | PN ---
Progress Note (short form) - Note Progress Note: S: -- Mild headache this AM. Face still swollen. -- SOB w/ exertion, worsening congestion. Decreased fluid rate -- Tbili decreasing O: Vital Signs Period Temp Pulse Resp BP Sys/Biggs Pulse Ox Last 24 Hr 98.4 F-98.9 F 90-105 17-25 99-130/50-85 95-98 Tele - No events on monitor GEN: Awake, alert, oriented, not in distress HEENT: PERRLA, EOMi, puffy face CV: S1, S2, RRR LUNG: CTABL ABD: Mild distension, +bowel sounds, R abd draining serosanguinous MSK: Nonpitting edema in UE. No LE edema, no erythema NEURO: CN 2-12 grossly intact A/P: 42yo F with PMHx of Uncontrolled IDDM presented w/ abd pain, fever, vomiting. Found to have large hepatic abscess. # Severe Sepsis w/ LA -- LFGNR UTI likely seeded into blood. Bacteremia possibly seeded into liver? Sepsis is improving. On Aztreonam, Clindamycin. # Hepatic/Renal Abscess -- Large liver abscess extends beyond capsule and invading R kidney. S/p IR perc drainage on 03/16. Growing G+ bacilli, which is unusual. ?Hematogenous spread of bacteria from abd source. Less likely amoebic or fungal. F/u cytology and culture. # Direct Hyperbili -- Likely cholestatic from abscess. After drainage, it is coming down. Also thickened GB wall on imaging but no signs of clinical cholecystitis. # Pre-renal SOFIYA -- Was likely from sepsis. Improved w/ IVF # Microcytic Anemia -- Possible from VIMAL vs ACD. Received 2u prbc. No GIB. Fe panel # Uncontrolled IDDM -- A1C of 11.0. Leading to proteinuria which could be leading to facial/UE swelling. Need better control at home. ISS and BGM q4h # FEN/PPx -- Plasmolyte 75cc/hr. Diabetic/low Na. Corrected K+. SCDs. # Dispo -- Transfer to m/s Mirna Dickens MD PGY1 ICU Resident
[2018-03-18] MEDS ORDERED: ELECTROLYTE-148 SOLN 1,000 ML IV SCH ×2 (06:50→17:57)
[2018-03-18] MEDS ORDERED: POTASSIUM CHLORIDE ORAL LIQUID 20 MEQ/15 ML PO ONE ×2 (06:51→08:15)
--- NOTE | 2018-03-18 08:15 | PN ---
Physical Exam: SUBJECTIVE: Patient seen and examined in the ICU. Pt feeling better, asking when she can go home. Pt reports eating at a [employer] diner resulting in illness with nausea. Later at home, pt felt weak and fell down the stairs. Pt presented to hospital for RUQ pain. Rib fractures ruled out s/p fall; however, large liver abscess discovered. 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 Pt endorses uncontrolled diabetes; pt checks her blood glucose regularly and uses her insulin, but her blood glucose is "always high." Only abdominal surgery was c-sections several yrs ago. Pt reports and daughter with flu-like symptoms last week. Pt denies travel, camping. No pets. Pt denies drug and etoh use. Pt endorses 6 cigarette/day smoking habit. OBJECTIVE: Vital Signs Period Temp Pulse Resp BP Sys/Biggs Pulse Ox Last 24 Hr 98.4 F-98.9 F 90-105 17-25 101-130/50-85 95-98 GENERAL: The patient is awake, alert, and fully oriented, in no acute distress. LUNGS: Breath sounds equal, clear to auscultation bilaterally, no wheezes, no crackles, no accessory muscle use. HEART: Regular rate and rhythm, S1, S2 without murmur, rub or gallop. ABDOMEN: Soft, nontender, nondistended, no guarding, no rebound. BARBARA drain with 10ml serosanguinous fluid. EXTREMITIES: Warm, well-perfused, no edema. PSYCH: Normal mood, normal affect. Laboratory Results - last 24 hr 03/17/18 03/17/18 03/17/18 05:55 05:55 06:00 WBC RBC Hgb Hct MCV MCH MCHC RDW Plt Count MPV Neutrophils % Lymphocytes % Monocytes % Eosinophils % Basophils % Sodium 140 Potassium 3.5 Chloride 111 H Carbon Dioxide 19 L Anion Gap 10 BUN 19 H Creatinine 1.1 H Creat Clearance w eGFR 54.47 Random Glucose 248 H Hemoglobin A1c % 11.0 H Calcium 6.9 L* Phosphorus 2.7 Magnesium 2.4 Total Bilirubin 3.2 H D Direct Bilirubin AST 53 H ALT 51 Alkaline Phosphatase 150 H C-Reactive Protein 33.9 H Cancelled Total Protein 5.7 L Albumin 1.9 L Fluid Creatinine HIV 1&2 Antibody Screen HIV P24 Antigen 0503/17/18 03/18/18 08:20 11:54 05:15 WBC 10.2 H RBC 3.59 L Hgb 9.4 L Hct 28.2 L MCV 78.5 L MCH 26.2 MCHC 33.3 RDW 20.0 H Plt Count 186 MPV 7.7 Neutrophils % 78.2 Lymphocytes % 17.2 D Monocytes % 3.3 L D Eosinophils % 1.0 Basophils % 0.3 Sodium Potassium Chloride Carbon Dioxide Anion Gap BUN Creatinine Creat Clearance w eGFR Random Glucose Hemoglobin A1c % Calcium Phosphorus Magnesium Total Bilirubin Direct Bilirubin AST ALT Alkaline Phosphatase C-Reactive Protein Total Protein Albumin Fluid Creatinine 1.69 HIV 1&2 Antibody Screen Negative HIV P24 Antigen Negative 03/18/18 05:15 WBC RBC Hgb Hct MCV MCH MCHC RDW Plt Count MPV Neutrophils % Lymphocytes % Monocytes % Eosinophils % Basophils % Sodium 138 Potassium 3.3 L Chloride 108 H Carbon Dioxide 22 Anion Gap 8 BUN 24 H Creatinine 1.0 Creat Clearance w eGFR Random Glucose 271 H Hemoglobin A1c % Calcium 7.4 L Phosphorus 4.2 Magnesium 2.4 Total Bilirubin 2.8 H Direct Bilirubin 2.4 H AST 26 ALT 37 Alkaline Phosphatase 179 H C-Reactive Protein Total Protein 5.8 L Albumin 1.9 L Fluid Creatinine HIV 1&2 Antibody Screen HIV P24 Antigen Active Medications Generic Name Dose Route Start Last Admin Trade Name Freq PRN Reason Stop Dose Admin Acetaminophen 1,000 mg 03/17/18 10:44 03/18/18 05:40 Ofirmev Injection - IVPB 1,000 mg Q6H PRN Administration PAIN Chlorhexidine Gluconate 1 applic 03/16/18 22:00 03/17/18 21:49 Hibiclens For Decolonization - TP 1 applic HS KERWIN Administration Clindamycin Phosphate 600 mg in 50 mls @ 100 mls/hr 03/17/18 09:00 03/18/18 02:09 Cleocin 600 Mg Premix Ivpb - IVPB 100 mls/hr Q6H-IV KERWIN Administration Protocol Aztreonam 2 gm/ Dextrose 100 mls @ 100 mls/hr 03/17/18 10:00 03/18/18 01:16 IVPB 100 mls/hr Q8H-IV KERWIN Administration Protocol Parenteral Electrolytes 1,000 mls @ 75 mls/hr 03/18/18 06:50 Plasma-Lyte 148 - IV ASDIR KERWIN Insulin Aspart 1 vial 03/18/18 07:00 03/18/18 07:48 Novolog Vial Sliding Scale - SQ Not Given ACHS [facility] Protocol Mupirocin 1 applic 03/16/18 22:00 03/17/18 21:48 Bactroban Ointment (For Decolonization) - NS 03/21/18 21:59 1 applic BID KERWIN Administration Nystatin 500,000 units 03/17/18 00:00 03/18/18 05:07 Nystatin Oral Suspension - PO Not Given Q6HPO [facility] Potassium Chloride 40 meq 03/18/18 06:51 Potassium Chloride Oral Liquid PO 03/18/18 06:52 ONCE ONE ASSESSMENT/PLAN: 42F with PMH of IDDM presented with abdominal pain/fever/vomiting, found to have large liver abscess. # sepsis 2/2 bacteremia/UTI/bacterial liver abscess - abscess possibly originating in kidney extending to liver 2/2 primary source UTI - CT Ab reviewed with Dr. Dominguez -> renal abscess contiguous with the liver - s/p IR drainage of liver abscess - BARBARA drain with minimal serosanguinous fluid - remains afebrile - f/u final reads for abscess/urine/blood cultures -> preliminary findings are blood and urine (+) for LFGNB and abscess (+) for Gram+ - Day 1 IV Aztreonam and Clindamycin - continue # DM - hgba1c 11.0 - BGMs - Novolog SSI Visit type - Emergency Visit Emergency Visit: Yes ED Registration Date: 03/16/18 Care time: The patient presented to the Emergency Department on the above date and was hospitalized for further evaluation of their emergent condition. - New Patient This patient is new to me today: Yes Date on this admission: 03/18/18 - Critical Care Critical Care patient: Yes Total Critical Care Time (in minutes): 40 Critical Care Statement: The care of this patient involved high complexity decision making to prevent further life threatening deterioration of the patient 's condition and/or to evaluate & treat vital organ system(s) failure or risk of failure.
--- NOTE | 2018-03-18 08:46 | PN ---
Teaching Attending Note Name of Resident: Rossi Bonds ATTENDING PHYSICIAN STATEMENT I saw and evaluated the patient. I reviewed the resident's note and discussed the case with the resident. I agree with the resident's findings and plan as documented. SUBJECTIVE: Clindamycin and Aztreonam day 1 Afebrile stable OBJECTIVE: ASSESSMENT AND PLAN: Selected Entries 03/18/18 06:00 Temperature 98.7 F Pulse Rate 92 H Respiratory 19 Rate Blood Pressure 130/82 Microbiology 03/16/18 20:15 Abdomen Gram Stain - Final 03/16/18 20:15 Abdomen Anaerobic Culture - Final 03/16/18 13:05 Urine - Urine Clean Catch Urine Culture - Preliminary Lactose Fermenting Neg Bacilli 03/16/18 13:01 Blood - Peripheral Venous Blood Culture - Preliminary Pending Organism 03/16/18 13:01 Blood - Peripheral Venous Blood Culture - Preliminary Pending Organism Laboratory Tests 03/17/18 03/18/18 03/18/18 08:20 05:15 05:15 WBC 10.2 H Hgb 9.4 L Hct 28.2 L Plt Count 186 Direct Bilirubin 2.4 H Alkaline Phosphatase 179 H HIV 1&2 Antibody Screen Negative HIV P24 Antigen Negative Assessment Bacterial liver abscess source not yet clear to me but I considered secondary spread to liver from primary source urirary tract infection. That said the gram stain of th liver abscess gram positive bacilli ?? ? Clostridium Plan As she is doing well at this time I will keep her on same meds pending final cultures Rosina STEINER Problem List - Problems (1) Diabetes Code(s): E11.9 - TYPE 2 DIABETES MELLITUS WITHOUT COMPLICATIONS (2) Liver abscess Code(s): K75.0 - ABSCESS OF LIVER (3) Sepsis Code(s): A41.9 - SEPSIS, UNSPECIFIED ORGANISM Qualifiers: Sepsis type: sepsis due to unspecified organism Qualified Code(s): A41.9 - Sepsis, unspecified organism (4) UTI (urinary tract infection) Code(s): N39.0 - URINARY TRACT INFECTION, SITE NOT SPECIFIED Qualifiers: Urinary tract infection type: site unspecified Hematuria presence: with hematuria Qualified Code(s): N39.0 - Urinary tract infection, site not specified; R31.9 - Hematuria, unspecified; R31.9 - Hematuria, unspecified
[2018-03-18] MEDS: MUPIROCIN 2% TOPICAL OINTMENT FOR DECOLONIZATION NS SCH (09:50)
--- NOTE | 2018-03-18 11:18 | PN ---
Progress Note, Physician Chief Complaint: RUQ pain History of Present Illness: 42yo female PMH fibromyalgia, HTN, IDDM (uncontrolled), who presented to the [facility] ED c/o vomiting, weakness, lightheadness, and fever 102.4. As per patient she has had fever, weakness, nausea, vomiting, lightheadedness and abdominal pain x 4 days. s/p IR drainage of an abscess of liver. He has been recovering well in ICU, reports improved abdominal pain. Has been tolerating her clears. No specific complaints overnight. - Current Medication List Current Medications: Active Medications Acetaminophen (Ofirmev Injection -) 1,000 mg IVPB Q6H PRN PRN Reason: PAIN Last Admin: 03/18/18 05:40 Dose: 1,000 mg Chlorhexidine Gluconate (Hibiclens For Decolonization -) 1 applic TP HS KERWIN Last Admin: 03/17/18 21:49 Dose: 1 applic Clindamycin Phosphate (Cleocin 600 Mg Premix Ivpb -) 600 mg in 50 mls @ 100 mls /hr IVPB Q6H-IV KERWIN PRN Reason: Protocol Last Admin: 03/18/18 08:37 Dose: 100 mls/hr Aztreonam 2 gm/ Dextrose 100 mls @ 100 mls/hr IVPB Q8H-IV KERWIN PRN Reason: Protocol Last Admin: 03/18/18 09:50 Dose: 100 mls/hr Parenteral Electrolytes (Plasma-Lyte 148 -) 1,000 mls @ 75 mls/hr IV ASDIR KERWIN Last Admin: 03/18/18 07:00 Dose: 75 mls/hr Insulin Aspart (Novolog Vial Sliding Scale -) 1 vial SQ ACHS KERWIN PRN Reason: Protocol Last Admin: 03/18/18 07:48 Dose: Not Given Mupirocin (Bactroban Ointment (For Decolonization) -) 1 applic NS BID KERWIN Stop: 03/21/18 21:59 Last Admin: 03/18/18 09:50 Dose: 1 applic Nystatin (Nystatin Oral Suspension -) 500,000 units PO Q6HPO [facility] Last Admin: 03/18/18 05:07 Dose: Not Given - Objective Vital Signs: Vital Signs Temperature 98.2 F 03/18/18 10:00 Pulse Rate 91 H 03/18/18 10:00 Respiratory Rate 21 03/18/18 10:00 Blood Pressure 117/79 03/18/18 10:00 O2 Sat by Pulse Oximetry (%) 98 03/18/18 09:00 Vital Signs Period Temp Pulse Resp BP Sys/Biggs Pulse Ox Last 24 Hr 98.2 F-98.9 F 85-103 17-25 101-133/71-85 98-98 Intake & Output 03/17/18 03/18/18 03/18/18 23:59 07:59 15:59 Intake Total 1690 2280 150 Output Total 30 1310 Balance 1660 970 150 Weight 160 lb 8 oz Intake: IV 1250 1500 Plasma-Lyte 148 - 1,000 1250 1500 ml @ 125 mls/hr IV ASDIR KERWIN Rx#:[id number] IVPB 200 300 150 Oral 240 480 Output: Drainage 30 10 Right Abdomen 30 10 Urine 1300 Tapia 1300 Other: Voiding Method Indwelling Catheter Indwelling Catheter Indwelling Catheter Bowel Movement No Weight Measurement Method Built in [facility] Constitutional: Yes: No Distress, Calm, Obese Eyes: Yes: Conjunctiva Clear, EOM Intact HENT: Yes: Atraumatic, Normocephalic Neck: Yes: Supple, Trachea Midline Cardiovascular: Yes: Regular Rate and Rhythm, S1, S2 Respiratory: Yes: Regular, CTA Bilaterally Gastrointestinal: Yes: Normal Bowel Sounds, Soft, Abdomen, Obese. No: Ascites, Distention, Tenderness ...Rectal Exam: Yes: Deferred Genitourinary: No: CVA Tenderness - Left, CVA Tenderness - Right Musculoskeletal: No: Muscle Pain, Muscle Weakness Extremities: No: Cool, Cyanosis Edema: No Peripheral Pulses WNL: Yes Peripheral Pulses: Left Doralis Pedis: 2+, Right Dorsalis Pedis: 2+ Integumentary: No: Jaundice Wound/Incision: Yes: Clean/Dry, Dressing Dry and Intact, Other (RUQ/ right flank IR catheter, purulent drainage) Neurological: Yes: Alert, Oriented Psychiatric: Yes: Alert, Oriented Labs: CBC, BMP 03/18/18 05:15 03/18/18 05:15 INR, PTT INR 1.51 (0.82-1.09) H 03/16/18 18:30 Fibrinogen > 500.0 mg/dL (238-498) H 03/16/18 18:30 Microbiology 03/16/18 20:15 Abscess Gram Stain - Final 03/16/18 20:15 Abscess Body Fluid Culture - Preliminary Lactose Fermenting Neg Bacilli 03/16/18 23:20 Urine - Urine Tapia Urine Culture - Final NO GROWTH OBTAINED 03/16/18 13:05 Urine - Urine Clean Catch Urine Culture - Final Escherichia Coli 03/16/18 13:01 Blood - Peripheral Venous Blood Culture - Preliminary Lactose Fermenting Neg Bacilli 03/16/18 13:01 Blood - Peripheral Venous Blood Culture - Preliminary Lactose Fermenting Neg Bacilli 03/16/18 20:15 Abscess AFB Smear Concentration - Preliminary 03/16/18 20:15 Abscess Mycobacterial Culture - Preliminary 03/16/18 20:25 Abscess NOEL Preparation - Preliminary 03/16/18 20:15 Abdomen Gram Stain - Final 03/16/18 20:15 Abdomen Body Fluid Culture - Final 03/16/18 20:15 Abdomen Anaerobic Culture - Final - ....Imaging Chest X-ray: Report Reviewed, Image Reviewed (normal CXR) Ultrasound: Report Reviewed, Image Reviewed (Right renal US - complex mass superior pole right kidney/ ext of hepatic abscess?) Problem List - Problems (1) SOFIYA (acute kidney injury) Assessment/Plan: 42 yo female MMP PPD#2 s/p IR drainage of hepatic abscess. Drainage is minimal, 110ml yesterday and 10ml today. lactic acidosis improving. Tolerating diet will advance. Renal ultrasound showed complex mass superior pole right kidney. Cultures returned E. coli in urine, lactose fermenting G-bacilli in abscess and blood and she is being followed by ID. Over all improving clinically follow drainage. She may be transferred to the floor Repeat labs for AM Out of bed and ambulate encourage incentive spirometer Antibiotics per ID - per culture GI and DVT prophylaxsis will follow This patient is in guarded condition but improving. Time spent reviewing chart, examining patient, talking with providers and/or family and documentation is 45 minutes Code(s): N17.9 - ACUTE KIDNEY FAILURE, UNSPECIFIED (2) Cholestasis Code(s): K83.1 - OBSTRUCTION OF BILE DUCT (3) Diabetes Code(s): E11.9 - TYPE 2 DIABETES MELLITUS WITHOUT COMPLICATIONS Qualifiers: Diabetes mellitus type: type 2 Diabetes mellitus residential insulin use: unspecified buttermaker continuous churn insulin use status Chronic kidney disease stage: unspecified stage (4) Electrolyte abnormality Code(s): E87.8 - OTH DISORDERS OF ELECTROLYTE AND FLUID BALANCE, NEC (5) Elevated liver function tests Code(s): R79.89 - OTHER SPECIFIED ABNORMAL FINDINGS OF BLOOD CHEMISTRY (6) Hepatic abscess Code(s): K75.0 - ABSCESS OF LIVER
--- NOTE | 2018-03-18 13:12 | PN ---
Progress Note, Physician Chief Complaint: patient seen and examined in ICU tired wants to sleep ate a bit of clear liquid diet no fever wbc trending down s/p percutaneous cath placement - Current Medication List Current Medications: Active Medications Acetaminophen (Ofirmev Injection -) 1,000 mg IVPB Q6H PRN PRN Reason: PAIN Last Admin: 03/18/18 05:40 Dose: 1,000 mg Chlorhexidine Gluconate (Hibiclens For Decolonization -) 1 applic TP HS [facility] Last Admin: 03/17/18 21:49 Dose: 1 applic Clindamycin Phosphate (Cleocin 600 Mg Premix Ivpb -) 600 mg in 50 mls @ 100 mls /hr IVPB Q6H-IV [facility] PRN Reason: Protocol Last Admin: 03/18/18 08:37 Dose: 100 mls/hr Aztreonam 2 gm/ Dextrose 100 mls @ 100 mls/hr IVPB Q8H-IV [facility] PRN Reason: Protocol Last Admin: 03/18/18 09:50 Dose: 100 mls/hr Parenteral Electrolytes (Plasma-Lyte 148 -) 1,000 mls @ 75 mls/hr IV ASDIR [facility] Last Admin: 03/18/18 07:00 Dose: 75 mls/hr Insulin Aspart (Novolog Vial Sliding Scale -) 1 vial SQ ACHS [facility] PRN Reason: Protocol Last Admin: 03/18/18 11:57 Dose: 10 units Mupirocin (Bactroban Ointment (For Decolonization) -) 1 applic NS BID [facility] Stop: 03/21/18 21:59 Last Admin: 03/18/18 09:50 Dose: 1 applic Nystatin (Nystatin Oral Suspension -) 500,000 units PO Q6HPO [facility] Last Admin: 03/18/18 11:57 Dose: 500,000 units - Objective Vital Signs: Vital Signs Temperature 98.9 F 03/18/18 12:00 Pulse Rate 97 H 03/18/18 12:00 Respiratory Rate 03/18/18 12:00 Blood Pressure 129/84 03/18/18 12:00 O2 Sat by Pulse Oximetry (%) 98 03/18/18 09:00 Constitutional: Yes: Calm Cardiovascular: Yes: Regular Rate and Rhythm, S1, S2 Respiratory: Yes: CTA Bilaterally Gastrointestinal: Yes: Normal Bowel Sounds, Soft, Other (liver drain) Genitourinary: Yes: Willie Present Labs: CBC, BMP 03/18/18 05:15 03/18/18 05:15 INR, PTT INR 1.51 (0.82-1.09) H 03/16/18 18:30 Fibrinogen > 500.0 mg/dL (238-498) H 03/16/18 18:30 Assessment/Plan liver abscess s/p percutaneous liver cath placement ID on board iv abx- clinda and aztreonam awaiting cultures Microbiology 03/16/18 20:15 Abscess Gram Stain - Final 03/16/18 20:15 Abscess Body Fluid Culture - Preliminary Lactose Fermenting Neg Bacilli 03/16/18 20:15 Abscess AFB Smear Concentration - Preliminary 03/16/18 20:15 Abscess Mycobacterial Culture - Preliminary SOFIYA improved with hydration hypokalemia repleted anemia: check iron panel dvt ppx- scd oob to chair trial of voiding transfer to floor when bed available advance diet
--- NOTE | 2018-03-18 14:55 | PN ---
Teaching Attending Note Name of Resident: Mirna Dickens ATTENDING PHYSICIAN STATEMENT I saw and evaluated the patient. I reviewed the resident's note and discussed the case with the resident. I agree with the resident's findings and plan as documented. SUBJECTIVE: Patient seen and examined in the ICU. Less abdominal discomfort. No CP or SOB. Intake & Output 03/15/18 03/16/18 03/17/18 03/18/18 23:59 23:59 23:59 23:59 Intake Total 5900 3815 2430 Output Total 1600 3010 1310 Balance 4300 805 1120 Weight 157 lb 3.2 oz 157 lb 3.2 oz 157 lb Last Vital Signs Temp Pulse Resp BP Pulse Ox 99 F 100 H 23 130/84 98 03/18/18 14:00 03/18/18 14:00 03/18/18 14:00 03/18/18 14:00 03/18/18 09:00 Active Medications Acetaminophen (Ofirmev Injection -) 1,000 mg IVPB Q6H PRN PRN Reason: PAIN Last Admin: 03/18/18 05:40 Dose: 1,000 mg Chlorhexidine Gluconate (Hibiclens For Decolonization -) 1 applic TP HS [facility] Last Admin: 03/17/18 21:49 Dose: 1 applic Clindamycin Phosphate (Cleocin 600 Mg Premix Ivpb -) 600 mg in 50 mls @ 100 mls /hr IVPB Q6H-IV [facility] PRN Reason: Protocol Last Admin: 03/18/18 08:37 Dose: 100 mls/hr Aztreonam 2 gm/ Dextrose 100 mls @ 100 mls/hr IVPB Q8H-IV [facility] PRN Reason: Protocol Last Admin: 03/18/18 09:50 Dose: 100 mls/hr Parenteral Electrolytes (Plasma-Lyte 148 -) 1,000 mls @ 75 mls/hr IV ASDIR [facility] Last Admin: 03/18/18 07:00 Dose: 75 mls/hr Insulin Aspart (Novolog Vial Sliding Scale -) 1 vial SQ ACHS [facility] PRN Reason: Protocol Last Admin: 03/18/18 11:57 Dose: 10 units Mupirocin (Bactroban Ointment (For Decolonization) -) 1 applic NS BID [facility] Stop: 03/21/18 21:59 Last Admin: 03/18/18 09:50 Dose: 1 applic Nystatin (Nystatin Oral Suspension -) 500,000 units PO Q6HPO [facility] Last Admin: 03/18/18 11:57 Dose: 500,000 units Gen: NAD at rest Heart: tachycardic, regular Lung: decreased breath sounds at the bases Abd: soft, tender to palpation, +drain with purulent drainage Ext: no edema Laboratory Results - last 24 hr 03/18/18 03/18/18 05:15 05:15 WBC 10.2 H RBC 3.59 L Hgb 9.4 L Hct 28.2 L MCV 78.5 L MCH 26.2 MCHC 33.3 RDW 20.0 H Plt Count 186 MPV 7.7 Neutrophils % 78.2 Lymphocytes % 17.2 D Monocytes % 3.3 L D Eosinophils % 1.0 Basophils % 0.3 Sodium 138 Potassium 3.3 L Chloride 108 H Carbon Dioxide 22 Anion Gap 8 BUN 24 H Creatinine 1.0 Random Glucose 271 H Calcium 7.4 L Phosphorus 4.2 Magnesium 2.4 Total Bilirubin 2.8 H Direct Bilirubin 2.4 H AST 26 ALT 37 Alkaline Phosphatase 179 H Total Protein 5.8 L Albumin 1.9 L A/P Liver Abscess s/p percutaneous drainage Severe Sepsis Acute Kidney Injury Lactic Acidosis Elevated LFTs HTN DM - ABX per ID - Decrease IVF - Monitor drain output - monitor urine output, creatinine - monitor H/H - trend LFTs - PO as tolerated - Pain control - Incentive spirometry - DVT prophylaxis - Floor Dr Tipton Critical care time spent in reviewing chart, evaluating patient and formulating plan 36 min
--- NOTE | 2018-03-18 16:45 | PN ---
Progress Note, Physician History of Present Illness: Pt seen and examined at bedside. She is awake and alert. She says that she feels much better. - Current Medication List Current Medications: Active Medications Chlorhexidine Gluconate (Hibiclens For Decolonization -) 1 applic TP HS [facility] Last Admin: 03/17/18 21:49 Dose: 1 applic Clindamycin Phosphate (Cleocin 600 Mg Premix Ivpb -) 600 mg in 50 mls @ 100 mls /hr IVPB Q6H-IV [facility] PRN Reason: Protocol Last Admin: 03/18/18 15:19 Dose: 100 mls/hr Aztreonam 2 gm/ Dextrose 100 mls @ 100 mls/hr IVPB Q8H-IV [facility] PRN Reason: Protocol Last Admin: 03/18/18 09:50 Dose: 100 mls/hr Parenteral Electrolytes (Plasma-Lyte 148 -) 1,000 mls @ 75 mls/hr IV ASDIR [facility] Last Admin: 03/18/18 07:00 Dose: 75 mls/hr Insulin Aspart (Novolog Vial Sliding Scale -) 1 vial SQ ACHS [facility] PRN Reason: Protocol Last Admin: 03/18/18 11:57 Dose: 10 units Mupirocin (Bactroban Ointment (For Decolonization) -) 1 applic NS BID [facility] Stop: 03/21/18 21:59 Last Admin: 03/18/18 09:50 Dose: 1 applic Nystatin (Nystatin Oral Suspension -) 500,000 units PO Q6HPO [facility] Last Admin: 03/18/18 11:57 Dose: 500,000 units - Objective Vital Signs: Vital Signs Temperature 99 F 03/18/18 14:00 Pulse Rate 100 H 03/18/18 14:00 Respiratory Rate 23 03/18/18 14:00 Blood Pressure 130/84 03/18/18 14:00 O2 Sat by Pulse Oximetry (%) 98 03/18/18 09:00 Constitutional: Yes: Calm Eyes: Yes: Conjunctiva Clear HENT: Yes: Atraumatic Neck: Yes: Supple Cardiovascular: Yes: S1, S2 Respiratory: Yes: CTA Bilaterally Gastrointestinal: Yes: Soft Musculoskeletal: Yes: WNL Edema: Yes Edema: RUE: Trace Neurological: Yes: Oriented Psychiatric: Yes: Oriented Labs: CBC, BMP 03/18/18 05:15 03/18/18 05:15 INR, PTT INR 1.51 (0.82-1.09) H 03/16/18 18:30 Fibrinogen > 500.0 mg/dL (238-498) H 03/16/18 18:30 Problem List - Problems (1) SOFIYA (acute kidney injury) Code(s): N17.9 - ACUTE KIDNEY FAILURE, UNSPECIFIED Assessment/Plan Current Medications Generic Name Dose Route Start Last Admin Trade Name Freq PRN Reason Stop Dose Admin Chlorhexidine Gluconate 1 applic 03/16/18 22:00 03/17/18 21:49 Hibiclens For Decolonization - TP 1 applic HS [facility] Administration Clindamycin Phosphate 600 mg in 50 mls @ 100 mls/hr 03/17/18 09:00 03/18/18 15:19 Cleocin 600 Mg Premix Ivpb - IVPB 100 mls/hr Q6H-IV [facility] Administration Protocol Aztreonam 2 gm/ Dextrose 100 mls @ 100 mls/hr 03/17/18 10:00 03/18/18 09:50 IVPB 100 mls/hr Q8H-IV [facility] Administration Protocol Parenteral Electrolytes 1,000 mls @ 75 mls/hr 03/18/18 06:50 03/18/18 07:00 Plasma-Lyte 148 - IV 75 mls/hr ASDIR [facility] Administration Insulin Aspart 1 vial 03/18/18 07:00 03/18/18 11:57 Novolog Vial Sliding Scale - SQ 10 units ACHS [facility] Administration Protocol Mupirocin 1 applic 03/16/18 22:00 03/18/18 09:50 Bactroban Ointment (For Decolonization) - NS 03/21/18 21:59 1 applic BID [facility] Administration Nystatin 500,000 units 03/17/18 00:00 03/18/18 11:57 Nystatin Oral Suspension - PO 500,000 units Q6HPO [facility] Administration Impression 1. SOFIYA 2. liver abscess 3. sepsis 4. transaminitis 5. DM 6. HTN 7. hypokalemia Plan - renal function is improving - replace potassium - abx per ID - discussed with ICU team - will follow Dr Shaw
[2018-03-18] MEDS ORDERED: ACETAMINOPHEN 500 MG TABLET (FP) PO ONE (22:50)
--- NOTE | 2018-03-19 00:32 | EKG ---
Test Reason : Blood Pressure : / mmHG Vent. Rate : 113 BPM Atrial Rate : 113 BPM P-R Int : 138 ms QRS Dur : 082 ms QT Int : 356 ms P-R-T Axes : 060 036 016 degrees QTc Int : 488 ms SINUS TACHYCARDIA NONSPECIFIC T WAVE ABNORMALITY ABNORMAL ECG WHEN COMPARED WITH ECG OF 13-MAR-2017 14:56, NO SIGNIFICANT CHANGE WAS FOUND Confirmed by ISAAK SANDHU MD ([id number]) on 03/19/2018 12:32:03 AM Referred By: Confirmed By:ISAAK SANDHU MD
[2018-03-19] MEDS: NYSTATIN 500,000 UNITS/5 ML SUSPENSION PO SCH ×6 (00:53→23:11)
[2018-03-19] MEDS: AZTREONAM 2 GM in DEXTROSE 5%-WATER 100 ML IVPB SCH ×3 (02:26→17:21)
[2018-03-19] MEDS: CLINDAMYCIN 600MG PREMIX IVPB 600 MG/50 ML BAG IVPB SCH ×4 (03:41→21:18)
[2018-03-19] MEDS ORDERED: ACETAMINOPHEN 500 MG TABLET (FP) PO ONE (05:59)
[2018-03-19] MEDS: INSULIN SLIDING SCALE (NOVOLOG) 1 VIAL SQ SCH ×4 (06:14→22:13)
[2018-03-19 07:52] LABS: HEMATOCRIT 31.3 % (32.4-45.2); HEMOGLOBIN 10.4 GM/dL (10.7-15.3); MCH 25.8 pg (25.7-33.7); MCHC 33.3 g/dl (32.0-36.0); MEAN CELL VOLUME 77.4 fl (80-96); MEAN PLT VOLUME 7.1 fl (7.5-11.1); PLATELET COUNT 204 K/MM3 (134-434); RBC 4.05 M/mm3 (3.60-5.2); RDW 20.6 % (11.6-15.6); WHITE BLOOD COUNT 10.9 K/mm3 (4.0-10.0)
[2018-03-19 08:01] LABS: ADD RBC MORPHOLOGY YES
[2018-03-19 08:15] LABS: CHLORIDE 102 mmol/L (98-107); SODIUM 135 mmol/L (136-145)
[2018-03-19 08:20] LABS: ALBUMIN 1.9 g/dl (3.4-5.0); ALK PHOS 236 U/L (45-117); ANION GAP 8 (8-16); BILIRUBIN,TOTAL 1.8 mg/dL (0.2-1.0); BLOOD UREA NITROGEN 21 mg/dL (7-18); CALCIUM 7.4 mg/dL (8.5-10.1); CO2 25 mmol/L (21-32); CREATININE 0.8 mg/dL (0.55-1.02); GLUCOSE,RANDOM 227 mg/dL (74-106); MAGNESIUM 1.6 mg/dL (1.8-2.4); SGOT/AST 33 U/L (15-37); SGPT/ALT 37 U/L (12-78); TOT PROT 6.1 g/dl (6.4-8.2)
[2018-03-19 08:23] LABS: POTASSIUM 2.9 mmol/L (3.5-5.1)
[2018-03-19] MEDS ORDERED: POTASSIUM CHLORIDE TABS 20 MEQ TABLET.ER (FP) PO ONE (09:15)
[2018-03-19] MEDS ORDERED: MAGNESIUM 1GM/D5W - 1 GM/100 ML IVPB IVPB ONE (10:00)
[2018-03-19] MEDS: POTASSIUM CHLORIDE 10 MEQ in SODIUM CHLORIDE 100 ML IVPB SCH ×2 (10:30→12:58)
--- NOTE | 2018-03-19 11:14 | PN ---
Progress Note (short form) - Note Progress Note: PULMONARY/CCM Denies abdominal pain, nausea or vomiting. No fevers or chills. No nausea or vomiting. Tolerating PO. Last Vital Signs Temp Pulse Resp BP Pulse Ox 98.1 F 83 20 144/72 98 03/19/18 06:00 03/19/18 06:00 03/19/18 06:00 03/19/18 06:00 03/18/18 21:00 Gen: NAD at rest Heart: tachycardic, regular Lung: decreased breath sounds at the bases Abd: soft, tender to palpation, +drain with purulent brown drainage Ext: no edema CBC, BMP 03/19/18 07:00 03/19/18 07:00 Active Medications Aztreonam 2 gm/ Dextrose 100 mls @ 100 mls/hr IVPB Q8H-IV [facility] PRN Reason: Protocol Last Admin: 03/19/18 02:26 Dose: 100 mls/hr Clindamycin Phosphate (Cleocin 600 Mg Premix Ivpb -) 600 mg in 50 mls @ 100 mls /hr IVPB Q6H-IV [facility] PRN Reason: Protocol Last Admin: 03/19/18 09:38 Dose: 100 mls/hr Parenteral Electrolytes (Plasma-Lyte 148 -) 1,000 mls @ 75 mls/hr IV ASDIR [facility] Last Admin: 03/18/18 21:41 Dose: 75 mls/hr Potassium Chloride 10 meq/ (Sodium Chloride) 105 mls @ 105 mls/hr IVPB Q1H [facility] Stop: 03/19/18 11:29 Last Admin: 03/19/18 10:30 Dose: 105 mls/hr Insulin Aspart (Novolog Vial Sliding Scale -) 1 vial SQ ACHS [facility] PRN Reason: Protocol Last Admin: 03/19/18 06:14 Dose: 6 units Nystatin (Nystatin Oral Suspension -) 500,000 units PO Q6HPO [facility] Last Admin: 03/19/18 06:26 Dose: Not Given A/P Liver Abscess s/p percutaneous drainage Severe Sepsis Acute Kidney Injury Lactic Acidosis Elevated LFTs HTN DM - continue antibiotics per ID - monitor urine output, creatinine - replete lytes - monitor H/H - PO as tolerated - pain control - incentive spirometry - DVT prophylaxis
[2018-03-19 11:49] LABS: ANISOCYTOSIS 1+; TARGET CELLS 1+
--- NOTE | 2018-03-19 12:35 | PN ---
Progress Note, Physician Chief Complaint: Presented c/o evere right sided abdominal pain, fever, diziness, recently fall from height. History of Present Illness: I was called to the ED to evaluate a patient who presented to ED c/o severe right sided abdominal pain which has worsened since a fall down a flight of stairs about 2 days ago due to "dizziness". Patient presented to another ED and states that they took xrays which were negative and she was sent home. On arrival patient to [facility] ED was afebrile but tachycardic with persistent hypotension that responded ultimately to fluid resuscitation. Labs significant for WBC 13 Hgb and drop in Hct. Adb US suggested hypoechoic lesions in the liver and kidney but given the history of recent fall from height and drop in Hct, after discussion with the radiologist a CTA with 3 phase liver scan was obtained which confirmed suspicion of an abscess of liver vs kidney origin. The abscess was drained by IR last night with out complication. - Current Medication List Current Medications: Active Medications Aztreonam 2 gm/ Dextrose 100 mls @ 100 mls/hr IVPB Q8H-IV [facility] PRN Reason: Protocol Last Admin: 03/19/18 12:09 Dose: 100 mls/hr Clindamycin Phosphate (Cleocin 600 Mg Premix Ivpb -) 600 mg in 50 mls @ 100 mls /hr IVPB Q6H-IV [facility] PRN Reason: Protocol Last Admin: 03/19/18 09:38 Dose: 100 mls/hr Parenteral Electrolytes (Plasma-Lyte 148 -) 1,000 mls @ 75 mls/hr IV ASDIR [facility] Last Admin: 03/18/18 21:41 Dose: 75 mls/hr Insulin Aspart (Novolog Vial Sliding Scale -) 1 vial SQ ACHS [facility] PRN Reason: Protocol Last Admin: 03/19/18 12:09 Dose: 6 units Nystatin (Nystatin Oral Suspension -) 500,000 units PO Q6HPO [facility] Last Admin: 03/19/18 06:26 Dose: Not Given - Objective Vital Signs: Vital Signs Temperature 98.1 F 03/19/18 06:00 Pulse Rate 83 03/19/18 06:00 Respiratory Rate 20 03/19/18 06:00 Blood Pressure 144/72 03/19/18 06:00 O2 Sat by Pulse Oximetry (%) 98 03/18/18 21:00 Constitutional: Yes: Well Nourished, No Distress, Obese Eyes: Yes: Conjunctiva Clear, EOM Intact HENT: Yes: Atraumatic, Normocephalic Neck: Yes: Supple, Trachea Midline Cardiovascular: Yes: Regular Rate and Rhythm. No: Tachycardia Respiratory: Yes: Regular, CTA Bilaterally Gastrointestinal: Yes: Normal Bowel Sounds, Soft, Abdomen, Obese, Other (IR drain in place). No: Tenderness Genitourinary: No: Bladder Distention, Hematuria Musculoskeletal: No: Joint Swelling, Muscle Weakness Extremities: No: Cyanosis, Erythema Edema: Yes (trace) Labs: CBC, BMP 03/19/18 07:00 03/19/18 07:00 INR, PTT INR 1.51 (0.82-1.09) H 03/16/18 18:30 Fibrinogen > 500.0 mg/dL (238-498) H 03/16/18 18:30 Problem List - Problems (1) Abdominal pain Assessment/Plan: Right sided abdominal pain with history of blunt trauma, presented tachycardia and hypotensive with elvated WBC, low HGb, elevated CR, elevated liver enzymes. STAT US revealed Righ liver and kidey lesions, hematoma vs. abscess. Patient slowly responsive to aggressive hydration, repeat labs improved except for Hgb down to 6.8 Non-IV contrast CT scan abd/pelvis reveals same posterior liver and kidney lesions more suspicious for a hematoma caused by blunt trauma than an abscess. CTA with 3 phase liver scan revealed an abscess originating in either the liver from possible gallbaldder origin vs the right pole of the kidney which could be a nephronia vs neoplasm. Patient transferred from ICU yesterday. Tolerating a regular diet with WBC decreasing on IV ABx as per ID. Abdominal exam remians benign, drain in place draining purulent fluid. Electrolyte abnormalities - low K and Mg, managed by medical team. Code(s): R10.9 - UNSPECIFIED ABDOMINAL PAIN Qualifiers: Abdominal location: right upper quadrant Qualified Code(s): R10.11 - Right upper quadrant pain (2) Sepsis Assessment/Plan: Resolved sepsis secondary to a liver vs. kidney abscess. Code(s): A41.9 - SEPSIS, UNSPECIFIED ORGANISM Qualifiers: Sepsis type: sepsis due to unspecified organism Qualified Code(s): A41.9 - Sepsis, unspecified organism (3) Liver lesion Assessment/Plan: Liver abscess from unknown source possible gallbladder source. May be kidney abscess (Nephronia) Continue IV Abx as per ID. Code(s): K76.9 - LIVER DISEASE, UNSPECIFIED (4) Elevated liver function tests Assessment/Plan: LFT's dcreasing. tBili still slightly elevated at 1.8, no evidence for acute cholecystitis. Code(s): R79.89 - OTHER SPECIFIED ABNORMAL FINDINGS OF BLOOD CHEMISTRY (5) Hypotension Assessment/Plan: Hypotension resolved. Code(s): I95.9 - HYPOTENSION, UNSPECIFIED Qualifiers: Hypotension type: unspecified hypotension type Qualified Code(s): I95.9 - Hypotension, unspecified (6) Leukocytosis Assessment/Plan: WBC decreasing, continue broad spectrum IV Abx as per ID. Code(s): D72.829 - ELEVATED WHITE BLOOD CELL COUNT, UNSPECIFIED Qualifiers: Leukocytosis type: unspecified Qualified Code(s): D72.829 - Elevated white blood cell count, unspecified
--- NOTE | 2018-03-19 13:06 | PN ---
Physical Exam: SUBJECTIVE: Patient seen and examined. Pt denies abdominal pain, nausea, vomiting, chest pain, sob, fever, chills. Pt tolerating po. OBJECTIVE: Vital Signs Period Temp Pulse Resp BP Sys/Biggs Pulse Ox Last 24 Hr 97.9 F-99 F 75-100 18-23 121-144/72-84 98 GENERAL: The patient is awake, alert, and fully oriented, in no acute distress. LUNGS: Breath sounds equal, clear to auscultation bilaterally, no wheezes, no crackles, no accessory muscle use. HEART: Regular rate and rhythm, S1, S2 without murmur, rub or gallop. ABDOMEN: Soft, nontender, nondistended, no guarding, no rebound. BARBARA drain with purulent brown fluid. EXTREMITIES: Warm, well-perfused, no edema. PSYCH: Normal mood, normal affect. Laboratory Results - last 24 hr 03/16/18 03/16/18 03/19/18 18:30 18:30 07:00 WBC 10.9 H RBC 4.05 Hgb 10.4 L D Hct 31.3 L MCV 77.4 L MCH 25.8 MCHC 33.3 RDW 20.6 H Plt Count 204 MPV 7.1 L Anisocytosis 1+ Microcytosis 1+ Target Cells 1+ Haptoglobin 361 H Sodium Potassium Chloride Carbon Dioxide Anion Gap BUN Creatinine Creat Clearance w eGFR Random Glucose Calcium Ionized Calcium 4.4 L Phosphorus Magnesium Ferritin Total Bilirubin AST ALT Alkaline Phosphatase Total Protein Albumin 03/19/18 03/19/18 07:00 07:00 WBC RBC Hgb Hct MCV MCH MCHC RDW Plt Count MPV Anisocytosis Microcytosis Target Cells Haptoglobin Sodium 135 L Potassium 2.9 L* Chloride 102 Carbon Dioxide 25 Anion Gap 8 BUN 21 H Creatinine 0.8 Creat Clearance w eGFR > 60 Random Glucose 227 H Calcium 7.4 L Ionized Calcium Phosphorus 4.0 Magnesium 1.6 L Ferritin 318.083 H Cancelled Total Bilirubin 1.8 H D AST 33 ALT 37 Alkaline Phosphatase 236 H Total Protein 6.1 L Albumin 1.9 L Active Medications Generic Name Dose Route Start Last Admin Trade Name Freq PRN Reason Stop Dose Admin Aztreonam 2 gm/ Dextrose 100 mls @ 100 mls/hr 03/19/18 02:00 03/19/18 12:09 IVPB 100 mls/hr Q8H-IV [facility] Administration Protocol Clindamycin Phosphate 600 mg in 50 mls @ 100 mls/hr 03/18/18 21:00 03/19/18 09:38 Cleocin 600 Mg Premix Ivpb - IVPB 100 mls/hr Q6H-IV [facility] Administration Protocol Parenteral Electrolytes 1,000 mls @ 75 mls/hr 03/18/18 17:57 03/18/18 21:41 Plasma-Lyte 148 - IV 75 mls/hr ASDIR [facility] Administration Insulin Aspart 1 vial 03/18/18 22:00 03/19/18 12:09 Novolog Vial Sliding Scale - SQ 6 units ACHS [facility] Administration Protocol Nystatin 500,000 units 03/19/18 00:00 03/19/18 06:26 Nystatin Oral Suspension - PO Not Given Q6HPO [facility] ASSESSMENT/PLAN: 42F with PMH of IDDM presented with abdominal pain/fever/vomiting, found to have large liver abscess. # sepsis 2/2 E. coli bacteremia/bacterial liver abscess and UTI - abscess possibly originating in kidney extending to liver 2/2 primary source nephronia? - s/p IR drainage of liver abscess - remains afebrile - mild leukocytosis persists - T. bili improving - abscess culture and blood culture (+) for E. coli - urine culture (-) - HIV (-) - IVFs - continue IV Aztreonam and Clindamycin (Day 2) # DM - BGMs, Novolog SSI, diabetic/low sodium diet, managed by primary team # electrolyte abnormalities - repleted by primary team Plan discussed with Dr. Lou. Visit type - Emergency Visit Emergency Visit: Yes ED Registration Date: 03/16/18 Care time: The patient presented to the Emergency Department on the above date and was hospitalized for further evaluation of their emergent condition. - New Patient This patient is new to me today: No - Critical Care Critical Care patient: No
--- NOTE | 2018-03-19 15:03 | PN ---
Progress Note, Physician History of Present Illness: Pt seen and examined at bedside. She is awake and alert. She is asking to go home. She says she is tolerating diet. She denies fevers or chills. - Current Medication List Current Medications: Active Medications Aztreonam 2 gm/ Dextrose 100 mls @ 100 mls/hr IVPB Q8H-IV [facility] PRN Reason: Protocol Last Admin: 03/19/18 12:09 Dose: 100 mls/hr Clindamycin Phosphate (Cleocin 600 Mg Premix Ivpb -) 600 mg in 50 mls @ 100 mls /hr IVPB Q6H-IV [facility] PRN Reason: Protocol Last Admin: 03/19/18 09:38 Dose: 100 mls/hr Parenteral Electrolytes (Plasma-Lyte 148 -) 1,000 mls @ 75 mls/hr IV ASDIR [facility] Last Admin: 03/18/18 21:41 Dose: 75 mls/hr Insulin Aspart (Novolog Vial Sliding Scale -) 1 vial SQ ACHS [facility] PRN Reason: Protocol Last Admin: 03/19/18 12:09 Dose: 6 units Nystatin (Nystatin Oral Suspension -) 500,000 units PO Q6HPO [facility] Last Admin: 03/19/18 12:58 Dose: Not Given - Objective Vital Signs: Vital Signs Temperature 98.1 F 03/19/18 10:00 Pulse Rate 80 03/19/18 10:00 Respiratory Rate 18 03/19/18 10:00 Blood Pressure 121/72 03/19/18 10:00 O2 Sat by Pulse Oximetry (%) 98 03/18/18 21:00 Constitutional: Yes: Calm Eyes: Yes: Conjunctiva Clear HENT: Yes: Atraumatic Cardiovascular: Yes: S1, S2 Respiratory: Yes: CTA Bilaterally Gastrointestinal: Yes: Soft, Other (drain in place) Genitourinary: Yes: WNL Musculoskeletal: Yes: WNL Edema: No Neurological: Yes: Oriented Psychiatric: Yes: Oriented Labs: CBC, BMP 03/19/18 07:00 03/19/18 07:00 INR, PTT INR 1.51 (0.82-1.09) H 03/16/18 18:30 Fibrinogen > 500.0 mg/dL (238-498) H 03/16/18 18:30 Problem List - Problems (1) SOFIYA (acute kidney injury) Code(s): N17.9 - ACUTE KIDNEY FAILURE, UNSPECIFIED Assessment/Plan Current Medications Generic Name Dose Route Start Last Admin Trade Name Katt PRN Reason Stop Dose Admin Aztreonam 2 gm/ Dextrose 100 mls @ 100 mls/hr 03/19/18 02:00 03/19/18 12:09 IVPB 100 mls/hr Q8H-IV [facility] Administration Protocol Clindamycin Phosphate 600 mg in 50 mls @ 100 mls/hr 03/18/18 21:00 03/19/18 09:38 Cleocin 600 Mg Premix Ivpb - IVPB 100 mls/hr Q6H-IV [facility] Administration Protocol Parenteral Electrolytes 1,000 mls @ 75 mls/hr 03/18/18 17:57 03/18/18 21:41 Plasma-Lyte 148 - IV 75 mls/hr ASDIR [facility] Administration Insulin Aspart 1 vial 03/18/18 22:00 03/19/18 12:09 Novolog Vial Sliding Scale - SQ 6 units ACHS [facility] Administration Protocol Nystatin 500,000 units 03/19/18 00:00 03/19/18 12:58 Nystatin Oral Suspension - PO Not Given Q6HPO [facility] Impression 1. SOFIYA 2. liver abscess 3. sepsis 4. transaminitis 5. DM 6. HTN 7. hypokalemia Plan - renal function stable - pt tolerating diet, can hold fluids for now - replace potassium and mag - monitor lytes - abx per ID - will follow Dr Shaw
--- NOTE | 2018-03-19 15:49 | PN ---
Progress Note, Physician Chief Complaint: AWAKE COMFORTABLE NOTES AND EVENTS REVIEWED - Current Medication List Current Medications: Active Medications Aztreonam 2 gm/ Dextrose 100 mls @ 100 mls/hr IVPB Q8H-IV [facility] PRN Reason: Protocol Last Admin: 03/19/18 12:09 Dose: 100 mls/hr Clindamycin Phosphate (Cleocin 600 Mg Premix Ivpb -) 600 mg in 50 mls @ 100 mls /hr IVPB Q6H-IV [facility] PRN Reason: Protocol Last Admin: 03/19/18 14:58 Dose: 100 mls/hr Insulin Aspart (Novolog Vial Sliding Scale -) 1 vial SQ ACHS [facility] PRN Reason: Protocol Last Admin: 03/19/18 12:09 Dose: 6 units Nystatin (Nystatin Oral Suspension -) 500,000 units PO Q6HPO [facility] Last Admin: 03/19/18 12:58 Dose: Not Given - Objective Vital Signs: Vital Signs Temperature 98.1 F 03/19/18 10:00 Pulse Rate 80 03/19/18 10:00 Respiratory Rate 18 03/19/18 10:00 Blood Pressure 121/72 03/19/18 10:00 O2 Sat by Pulse Oximetry (%) 98 03/18/18 21:00 Constitutional: Yes: No Distress Eyes: Yes: WNL HENT: Yes: WNL Neck: Yes: WNL Cardiovascular: Yes: WNL Respiratory: Yes: WNL Gastrointestinal: Yes: WNL Genitourinary: Yes: WNL Musculoskeletal: Yes: WNL Extremities: Yes: WNL Peripheral Pulses WNL: Yes Integumentary: Yes: WNL Wound/Incision: Yes: Clean/Dry Neurological: Yes: WNL ...Motor Strength: WNL Psychiatric: Yes: WNL Labs: CBC, BMP 03/19/18 07:00 03/19/18 07:00 INR, PTT INR 1.51 (0.82-1.09) H 03/16/18 18:30 Fibrinogen > 500.0 mg/dL (238-498) H 03/16/18 18:30 Problem List - Problems (1) Abdominal pain Code(s): R10.9 - UNSPECIFIED ABDOMINAL PAIN Qualifiers: Abdominal location: right upper quadrant Qualified Code(s): R10.11 - Right upper quadrant pain (2) Anemia Code(s): D64.9 - ANEMIA, UNSPECIFIED (3) Diabetes Code(s): E11.9 - TYPE 2 DIABETES MELLITUS WITHOUT COMPLICATIONS Qualifiers: Diabetes mellitus type: type 2 Diabetes mellitus 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
--- NOTE | 2018-03-19 17:07 | PATH ---
Cytology Non-Gynecological Report Patient Name: AMPARO GAMA [facility]. Rec. #: [id number] /Age/Gender: 1975 (Age: 42) / F Account: [id number] Location: [address] [place] [address] Taken: 03/16/2018 Received: 03/18/2018 Reported: 03/19/2018 Physicians: Ricky Oliver M.D. Specimen(s) Received LIVER FLUID Clinical History Hepatic abscess Final Diagnosis LIVER FLUID, FINE NEEDLE ASPIRATIONS: NUMEROUS NEUTROPHILS, CONSISTENT WITH ABSCESS. Electronically Signed Coco Diamond M.D. Gross Description Approximately 30cc of chalky fluid received fixed in 50% alcohol. Two cytofunnels and one cellblock prepared.
[2018-03-19] MEDS ORDERED: PT OWN MED DRAWER 7, Y5N ONE (17:16)
[2018-03-19] MEDS ORDERED: oxyCODONE HCL 5 MG TABLET PO ONE (18:26)
[2018-03-19 19:00] LABS: ANION GAP 7 (8-16); BLOOD UREA NITROGEN 19 mg/dL (7-18); CALCIUM 7.7 mg/dL (8.5-10.1); CHLORIDE 101 mmol/L (98-107); CO2 28 mmol/L (21-32); CREATININE 0.8 mg/dL (0.55-1.02); GLUCOSE,RANDOM 282 mg/dL (74-106); MAGNESIUM 1.8 mg/dL (1.8-2.4); POTASSIUM 3.9 mmol/L (3.5-5.1); SODIUM 136 mmol/L (136-145)
[2018-03-20] MEDS: AZTREONAM 2 GM in DEXTROSE 5%-WATER 100 ML IVPB SCH (02:23)
[2018-03-20] MEDS ORDERED: PT OWN MED DRAWER 7, Y5N ONE ×2 (02:23→09:25)
[2018-03-20] MEDS: CLINDAMYCIN 600MG PREMIX IVPB 600 MG/50 ML BAG IVPB SCH ×2 (03:53→10:30)
[2018-03-20] MEDS: NYSTATIN 500,000 UNITS/5 ML SUSPENSION PO SCH ×3 (06:45→17:01)
[2018-03-20] MEDS: INSULIN SLIDING SCALE (NOVOLOG) 1 VIAL SQ SCH ×4 (07:18→22:05)
[2018-03-20 07:52] LABS: HEMATOCRIT 36.5 % (32.4-45.2); HEMOGLOBIN 11.9 GM/dL (10.7-15.3); MCH 25.4 pg (25.7-33.7); MCHC 32.6 g/dl (32.0-36.0); MEAN PLT VOLUME 8.4 fl (7.5-11.1); PLATELET COUNT 285 K/MM3 (134-434); RBC 4.68 M/mm3 (3.60-5.2); RDW 20.9 % (11.6-15.6); WHITE BLOOD COUNT 13.8 K/mm3 (4.0-10.0)
[2018-03-20 08:10] LABS: CHLORIDE 96 mmol/L (98-107); POTASSIUM 3.7 mmol/L (3.5-5.1); SODIUM 135 mmol/L (136-145)
[2018-03-20 08:11] LABS: SERUM IRON SATURATION 37 % (15-55); TOTAL IRON BINDING CAPACITY 182 ug/dL (250-450); UIBC 115 ug/dL (131-425)
[2018-03-20 08:20] LABS: ALBUMIN 2.3 g/dl (3.4-5.0); ALK PHOS 268 U/L (45-117); ANION GAP 9 (8-16); BILIRUBIN,TOTAL 1.7 mg/dL (0.2-1.0); BLOOD UREA NITROGEN 16 mg/dL (7-18); CALCIUM 8.5 mg/dL (8.5-10.1); CO2 30 mmol/L (21-32); CREATININE 0.9 mg/dL (0.55-1.02); GLUCOSE,RANDOM 232 mg/dL (74-106); MAGNESIUM 1.5 mg/dL (1.8-2.4); SGOT/AST 24 U/L (15-37); SGPT/ALT 33 U/L (12-78); TOT PROT 7.6 g/dl (6.4-8.2)
--- NOTE | 2018-03-20 09:00 | PN ---
Progress Note, Physician Chief Complaint: ID Clindamycin Aztreonam Doing well in fact says she wants to go home ! - Current Medication List Current Medications: Active Medications Aztreonam 2 gm/ Dextrose 100 mls @ 100 mls/hr IVPB Q8H-IV [facility]; Protocol Last Admin: 03/20/18 02:23 Dose: 100 mls/hr Clindamycin Phosphate (Cleocin 600 Mg Premix Ivpb -) 600 mg in 50 mls @ 100 mls /hr IVPB Q6H-IV [facility]; Protocol Last Admin: 03/20/18 03:53 Dose: 100 mls/hr Insulin Aspart (Novolog Vial Sliding Scale -) 1 vial SQ ACHS [facility]; Protocol Last Admin: 03/20/18 07:18 Dose: 6 units Nystatin (Nystatin Oral Suspension -) 500,000 units PO Q6HPO [facility] Last Admin: 03/20/18 06:45 Dose: Not Given - Objective Vital Signs: Vital Signs Temperature 98 F 03/20/18 06:00 Pulse Rate 86 03/20/18 06:00 Respiratory Rate 20 03/20/18 06:00 Blood Pressure 106/67 03/20/18 06:00 O2 Sat by Pulse Oximetry (%) 98 03/19/18 09:00 Constitutional: Yes: No Distress HENT: Yes: WNL, Atraumatic Neck: Yes: WNL, Supple Cardiovascular: Yes: Regular Rate and Rhythm, S1, S2. No: Murmur Respiratory: Yes: WNL, Regular, CTA Bilaterally Gastrointestinal: Yes: WNL, Normal Bowel Sounds, Soft, Other (Drain). 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 Chronic kidney disease stage: unspecified stage (2) Liver abscess Code(s): K75.0 - ABSCESS OF LIVER (3) Sepsis Code(s): A41.9 - SEPSIS, UNSPECIFIED ORGANISM Qualifiers: Sepsis type: sepsis due to unspecified organism Qualified Code(s): A41.9 - Sepsis, unspecified organism (4) UTI (urinary tract infection) Code(s): N39.0 - URINARY TRACT INFECTION, SITE NOT SPECIFIED Qualifiers: Urinary tract infection type: site unspecified Hematuria presence: with hematuria Qualified Code(s): N39.0 - Urinary tract infection, site not specified; R31.9 - Hematuria, unspecified; R31.9 - Hematuria, unspecified Assessment/Plan Microbiology 03/16/18 20:15 Abscess Gram Stain - Final 03/16/18 20:15 Abscess Anaerobic Culture - Final Escherichia Coli NO ANAEROBES WERE ISOLATED 03/16/18 13:05 Urine - Urine Clean Catch Urine Culture - Final Escherichia Coli 03/16/18 13:01 Blood - Peripheral Venous Blood Culture - Final Lactose Fermenting Neg Bacilli 03/16/18 13:01 Blood - Peripheral Venous Blood Culture - Final Escherichia Coli Laboratory Tests 03/17/18 03/17/18 03/20/18 05:55 08:20 07:10 WBC Hgb Plt Count BUN 16 Creatinine 0.9 Total Bilirubin 1.7 H Alkaline Phosphatase 268 H C-Reactive Protein 33.9 H HIV 1&2 Antibody Screen Negative 03/20/18 07:10 WBC 13.8 H Hgb 11.9 D Plt Count 285 D BUN Creatinine Total Bilirubin Alkaline Phosphatase C-Reactive Protein HIV 1&2 Antibody Screen Assessment E Coli sepsis urinary tract source with continguous extension into liver Same E Coli everywhere resistant to quinolones Plan Start Ceftriaxone for now Stop Clindamycin
[2018-03-20] MEDS ORDERED: DEXTROSE 5%-WATER 100 ML IVPB ONE (09:25)
[2018-03-20] MEDS: CEFTRIAXONE 2 GM in DEXTROSE 5%-WATER 100 ML IVPB SCH (09:31)
[2018-03-20] MEDS ORDERED: MAGNESIUM 1GM/D5W 100ML - 100 ML IVPB IVPB ONE (09:51)
--- NOTE | 2018-03-20 09:56 | PN ---
Progress Note, Physician History of Present Illness: No acute events. Hemoglobin and vital signs are stable. No stigmata of significant gastrointestinal blood loss. Normal ALT, AST. Cholestasis. Asymptomatic. - Current Medication List Current Medications: Active Medications Ceftriaxone Sodium 2 gm/ (Dextrose) 100 mls @ 200 mls/hr IVPB DAILY [facility]; Protocol Last Admin: 03/20/18 09:31 Dose: 200 mls/hr Insulin Aspart (Novolog Vial Sliding Scale -) 1 vial SQ ACHS [facility]; Protocol Last Admin: 03/20/18 07:18 Dose: 6 units Magnesium Sulfate (Magnesium Sulfate) 1 gm IVPB ONCE ONE Stop: 03/20/18 09:52 Nystatin (Nystatin Oral Suspension -) 500,000 units PO Q6HPO [facility] Last Admin: 03/20/18 06:45 Dose: Not Given - Objective Vital Signs: Vital Signs Temperature 97.8 F 03/20/18 08:00 Pulse Rate 100 H 03/20/18 08:00 Respiratory Rate 20 03/20/18 08:00 Blood Pressure 101/67 03/20/18 08:00 O2 Sat by Pulse Oximetry (%) 98 03/19/18 21:00 Constitutional: Yes: No Distress, Calm Gastrointestinal: Yes: Soft. No: Melena, Tenderness, Tenderness, Rebound, Vomiting Neurological: Yes: Alert, Oriented Labs: CBC, BMP 03/20/18 07:10 03/20/18 07:10 INR, PTT INR 1.51 (0.82-1.09) H 03/16/18 18:30 Fibrinogen > 500.0 mg/dL (238-498) H 03/16/18 18:30 Laboratory Last Values WBC 13.8 K/mm3 (4.0-10.0) H 03/20/18 07:10 RBC 4.68 M/mm3 (3.60-5.2) 03/20/18 07:10 Hgb 11.9 GM/dL (10.7-15.3) D 03/20/18 07:10 Hct 36.5 % (32.4-45.2) D 03/20/18 07:10 MCV 78.0 fl (80-96) L 03/20/18 07:10 MCH 25.4 pg (25.7-33.7) L 03/20/18 07:10 MCHC 32.6 g/dl (32.0-36.0) 03/20/18 07:10 RDW 20.9 % (11.6-15.6) H 03/20/18 07:10 Plt Count 285 K/MM3 (134-434) D 03/20/18 07:10 MPV 8.4 fl (7.5-11.1) D 03/20/18 07:10 Neutrophils % 78.2 % (42.8-82.8) 03/18/18 05:15 Lymphocytes % 17.2 % (8-40) D 03/18/18 05:15 Monocytes % 3.3 % (3.8-10.2) L D 03/18/18 05:15 Eosinophils % 1.0 % (0-4.5) 03/18/18 05:15 Basophils % 0.3 % (0-2.0) 03/18/18 05:15 Anisocytosis 1+ 03/19/18 07:00 Microcytosis 1+ 03/19/18 07:00 Target Cells 1+ 03/19/18 07:00 Retic Count 0.39 % (0.5-1.5) L 03/16/18 17:20 Haptoglobin 361 mg/dL (34-200) H 03/16/18 18:30 PT with INR 17.10 SEC (9.7-13.0) H 03/16/18 18:30 INR 1.51 (0.82-1.09) H 03/16/18 18:30 PTT (Actin FS) 31.3 SECONDS (26.9-34.4) 03/16/18 18:30 Fibrinogen > 500.0 mg/dL (238-498) H 03/16/18 18:30 Fibrin Degrad Products 20 ug/mL (<5) H 03/16/18 18:30 D-Dimer 97126 ng/ml (0-500) H 03/16/18 18:30 Anticoagulation Therapy No Result Required. 03/16/18 18:00 Puncture Site Left radial 03/16/18 18:00 ABG pH 7.34 (7.35-7.45) L 03/16/18 18:00 ABG pCO2 at Pt Temp 25.1 mmHg (35-45) L 03/16/18 18:00 ABG pO2 at Pt Temp 149.0 mmHg (80-100) H 03/16/18 18:00 ABG HCO3 13.0 meq/L (22-26) L* 03/16/18 18:00 ABG O2 Sat (Measured) 99.1 % (90-98.9) H 03/16/18 18:00 ABG O2 Content 10.4 % vol (15-22) L 03/16/18 18:00 ABG Base Excess -11.4 meq/l (-2-2) L* 03/16/18 18:00 Sree Test Positive 03/16/18 18:00 VBG pH 7.32 (7.32-7.42) 03/16/18 23:20 POC VBG pCO2 32.7 mmHg (38-52) L 03/16/18 23:20 POC VBG pO2 42.5 mmHg (28-48) D 03/16/18 23:20 Mixed VBG HCO3 16.5 meq/L (19-25) L 03/16/18 23:20 Carboxyhemoglobin 2.0 gm% (0.5-2.0) 03/16/18 18:00 Methemoglobin 1.7 % (0.4-1.5) H 03/16/18 18:00 O2 Delivery Device Nasal 03/16/18 18:00 Oxygen Flow Rate 4 03/16/18 18:00 Vent Mode No Result Required. 03/16/18 18:00 Vent Rate No Result Required. 03/16/18 18:00 Mechanical Rate No Result Required. 03/16/18 18:00 Pressure Support Vent No Result Required. 03/16/18 18:00 Sodium 135 mmol/L (136-145) L 03/20/18 07:10 Potassium 3.7 mmol/L (3.5-5.1) 03/20/18 07:10 Chloride 96 mmol/L (98-107) L 03/20/18 07:10 Carbon Dioxide 30 mmol/L (21-32) 03/20/18 07:10 Anion Gap 9 (8-16) 03/20/18 07:10 BUN 16 mg/dL (7-18) 03/20/18 07:10 Creatinine 0.9 mg/dL (0.55-1.02) 03/20/18 07:10 Creat Clearance w eGFR > 60 (>60) 03/20/18 07:10 POC Glucometer 271 UNITS (80-120) 03/20/18 07:17 Random Glucose 232 mg/dL (74-106) H 03/20/18 07:10 Hemoglobin A1c % 11.0 % (4.8-6.0) H 03/17/18 05:55 Lactic Acid 0.6 mmol/L (0.0-2.0) 03/17/18 05:39 Calcium 8.5 mg/dL (8.5-10.1) 03/20/18 07:10 Ionized Calcium 4.4 mg/dL (4.5-5.6) L 03/16/18 18:30 Phosphorus 4.0 mg/dL (2.5-4.9) 03/19/18 07:00 Magnesium 1.5 mg/dL (1.8-2.4) L 03/20/18 07:10 Iron 67 ug/dL (27-159) 03/19/18 07:00 TIBC 182 ug/dL (250-450) L 03/19/18 07:00 Iron Saturation 37 % (15-55) 03/19/18 07:00 Ferritin 318.083 ng/ml (6.9-282.5) H 03/19/18 07:00 Total Bilirubin 1.7 mg/dL (0.2-1.0) H 03/20/18 07:10 Direct Bilirubin 2.4 mg/dL (0.0-0.2) H 03/18/18 05:15 AST 24 U/L (15-37) 03/20/18 07:10 ALT 33 U/L (12-78) 03/20/18 07:10 Alkaline Phosphatase 268 U/L (45-117) H 03/20/18 07:10 LD Total 207 U/L (84-246) 03/16/18 17:20 Creatine Kinase 23 IU/L (26-192) L 03/16/18 15:20 Troponin I < 0.02 ng/ml (0.00-0.05) 03/16/18 15:20 C-Reactive Protein Cancelled 03/17/18 06:00 B-Natriuretic Peptide 1707.49 pg/ml (5-125) H 03/19/18 17:40 Total Protein 7.6 g/dl (6.4-8.2) 03/20/18 07:10 Albumin 2.3 g/dl (3.4-5.0) L 03/20/18 07:10 Serum , Qual Negative 03/16/18 11:20 Urine Color Yellow 03/16/18 19:30 Urine Appearance Cloudy 03/16/18 19:30 Urine pH 6.0 (5.0-8.0) 03/16/18 19:30 Ur Specific [place] 1.020 (1.001-1.035) 03/16/18 19:30 Urine Protein 1+ (NEGATIVE) H 03/16/18 19:30 Urine Glucose (UA) 1+ (NEGATIVE) H 03/16/18 19:30 Urine Ketones Negative (NEGATIVE) 03/16/18 19: Urine Blood 1+ (NEGATIVE) H 03/16/18 19:30 Urine Nitrite Negative (NEGATIVE) 03/16/18 19:30 Urine Bilirubin Negative (<2.0 mg/dL) 03/16/18 19: Urine Urobilinogen 2.0 mg/dL (0.2-1.0) H 03/16/18 19:30 Ur Leukocyte Esterase 3+ (NEGATIVE) H 03/16/18 19:30 Urine WBC (Auto) 139 /hpf (3-5) 03/16/18 19:30 Urine RBC (Auto) 3 /hpf (0-3) 03/16/18 19:30 Ur Epithelial Cells Rare /HPF (FEW) 03/16/18 19:30 Urine Bacteria Rare /hpf (NONE SEEN) 03/16/18 19:30 Hyaline Casts 10 /lpf 03/16/18 12:50 Urine Mucus Rare 03/16/18 19:30 Ur Random Sodium 59 MMOL/L 03/16/18 19:30 Urine Creatinine 212.4 mg/dL (20-320) 03/16/18 19:30 Urine HCG, Qual Negative 03/16/18 12:50 Fluid Creatinine 1.69 mg/dL 03/17/18 11:54 Acetone, Qual Negative (NEGATIVE) L 03/16/18 11:20 HIV 1&2 Antibody Screen Negative 03/17/18 08:20 HIV P24 Antigen Negative 03/17/18 08:20 Blood Type B POSITIVE 03/16/18 15:20 Antibody Screen Negative 03/16/18 15:20 Crossmatch See Detail 03/16/18 15:20 Problem List - Problems (1) Cholestasis Code(s): K83.1 - OBSTRUCTION OF BILE DUCT (2) Hepatic abscess Code(s): K75.0 - ABSCESS OF LIVER (3) Microcytic hypochromic anemia Code(s): D50.9 - IRON DEFICIENCY ANEMIA, UNSPECIFIED (4) Elevated liver function tests Code(s): R79.89 - OTHER SPECIFIED ABNORMAL FINDINGS OF BLOOD CHEMISTRY Assessment/Plan Continue current management. Monitor liver chemistry, alk phos, total bili. Discussed with the patient.
--- NOTE | 2018-03-20 10:04 | PN ---
Progress Note, Physician Chief Complaint: AWAKE ALERT DENEIS PAIN ON 02 NC 2L NO FEVERS NO CHEST PAIN DEVELOPS SOB? - Current Medication List Current Medications: Active Medications Ceftriaxone Sodium 2 gm/ (Dextrose) 100 mls @ 200 mls/hr IVPB DAILY [facility]; Protocol Last Admin: 03/20/18 09:31 Dose: 200 mls/hr Insulin Aspart (Novolog Vial Sliding Scale -) 1 vial SQ ACHS [facility]; Protocol Last Admin: 03/20/18 07:18 Dose: 6 units Magnesium Sulfate (Magnesium Sulfate) 1 gm IVPB ONCE ONE Stop: 03/20/18 09:52 Nystatin (Nystatin Oral Suspension -) 500,000 units PO Q6HPO [facility] Last Admin: 03/20/18 06:45 Dose: Not Given - Objective Vital Signs: Vital Signs Temperature 97.8 F 03/20/18 08:00 Pulse Rate 100 H 03/20/18 08:00 Respiratory Rate 20 03/20/18 08:00 Blood Pressure 101/67 03/20/18 08:00 O2 Sat by Pulse Oximetry (%) 98 03/19/18 21:00 Constitutional: Yes: Mild Distress Eyes: Yes: WNL HENT: Yes: WNL Neck: Yes: WNL Cardiovascular: Yes: WNL Respiratory: Yes: WNL, On Nasal O2 Gastrointestinal: Yes: WNL Genitourinary: Yes: WNL Musculoskeletal: Yes: WNL Extremities: Yes: WNL Edema: No Peripheral Pulses WNL: Yes Integumentary: Yes: WNL Wound/Incision: Yes: Dressing Dry and Intact Neurological: Yes: WNL ...Motor Strength: WNL Psychiatric: Yes: WNL Labs: CBC, BMP 03/20/18 07:10 03/20/18 07:10 INR, PTT INR 1.51 (0.82-1.09) H 03/16/18 18:30 Fibrinogen > 500.0 mg/dL (238-498) H 03/16/18 18:30 Problem List - Problems (1) Abdominal pain Code(s): R10.9 - UNSPECIFIED ABDOMINAL PAIN Qualifiers: Abdominal location: right upper quadrant Qualified Code(s): R10.11 - Right upper quadrant pain (2) Anemia Code(s): D64.9 - ANEMIA, UNSPECIFIED (3) Diabetes Code(s): E11.9 - TYPE 2 DIABETES MELLITUS WITHOUT COMPLICATIONS Qualifiers: Diabetes mellitus type: type 2 Diabetes mellitus [facility]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 D-DIMER POSITIVE HOWEVER THIS IS A SENSITIVE TEST CAN BE FROM INFECTION, DOUBT THIS IS A PULONARY EMBOLISM CTA ABD SHOWED NO EMBOLI WILL ORDER DOPPLER OF LEGS VENOUS R/O DVT REPLETING MAGNESIUM 1GM IV X 1 CXRSHOWED ICREASE CHANGES WILL RECOMMEND INCENTIVE SPIROETRY NEBS, PUL F/U. ECHO 2-D NO ACUTE CHANGES
--- NOTE | 2018-03-20 15:25 | PN ---
Progress Note, Physician History of Present Illness: Pt seen and examined at bedside. She feels better and is eager to go home. She is tolerating diet. - Current Medication List Current Medications: Active Medications Ceftriaxone Sodium 2 gm/ (Dextrose) 100 mls @ 200 mls/hr IVPB DAILY [facility]; Protocol Last Admin: 03/20/18 09:31 Dose: 200 mls/hr Insulin Aspart (Novolog Vial Sliding Scale -) 1 vial SQ ACHS [facility]; Protocol Last Admin: 03/20/18 12:08 Dose: 4 units Nystatin (Nystatin Oral Suspension -) 500,000 units PO Q6HPO [facility] Last Admin: 03/20/18 12:47 Dose: Not Given - Objective Vital Signs: Vital Signs Temperature 98.3 F 03/20/18 14:13 Pulse Rate 91 H 03/20/18 14:13 Respiratory Rate 22 03/20/18 14:13 Blood Pressure 110/71 03/20/18 14:13 O2 Sat by Pulse Oximetry (%) 98 03/19/18 21:00 Constitutional: Yes: Calm Eyes: Yes: Conjunctiva Clear HENT: Yes: Atraumatic Neck: Yes: Supple Cardiovascular: Yes: S1, S2 Respiratory: Yes: CTA Bilaterally Gastrointestinal: Yes: Soft, Other (abscess drain in place) Genitourinary: Yes: WNL Musculoskeletal: Yes: WNL Edema: No Neurological: Yes: Oriented Psychiatric: Yes: Oriented Labs: CBC, BMP 03/20/18 07:10 03/20/18 07:10 INR, PTT INR 1.51 (0.82-1.09) H 03/16/18 18:30 Fibrinogen > 500.0 mg/dL (238-498) H 03/16/18 18:30 Problem List - Problems (1) SOFIYA (acute kidney injury) Code(s): N17.9 - ACUTE KIDNEY FAILURE, UNSPECIFIED Assessment/Plan Current Medications Generic Name Dose Route Start Last Admin Trade Name Freq PRN Reason Stop Dose Admin Ceftriaxone Sodium 2 gm/ 100 mls @ 200 mls/hr 03/20/18 10:00 03/20/18 09:31 Dextrose IVPB 200 mls/hr DAILY [facility] Administration Protocol Insulin Aspart 1 vial 03/18/18 22:00 03/20/18 12:08 Novolog Vial Sliding Scale - SQ 4 units ACHS [facility] Administration Protocol Nystatin 500,000 units 03/19/18 00:00 03/20/18 12:47 Nystatin Oral Suspension - PO Not Given Q6HPO [facility] Impression 1. SOFIYA 2. liver abscess 3. sepsis 4. transaminitis 5. DM 6. HTN 7. hypokalemia Plan - encourage PO intake - replace mag - repeat labs in am - renal function stabilizing - abx per ID - will follow Dr Shaw
--- NOTE | 2018-03-20 15:43 | PN ---
Progress Note, Physician Chief Complaint: Presented c/o evere right sided abdominal pain, fever, diziness, recently fall from height. History of Present Illness: I was called to the ED to evaluate a patient who presented to ED c/o severe right sided abdominal pain which has worsened since a fall down a flight of stairs about 2 days ago due to "dizziness". Patient presented to another ED and states that they took xrays which were negative and she was sent home. On arrival patient to [facility] ED was afebrile but tachycardic with persistent hypotension that responded ultimately to fluid resuscitation. Labs significant for WBC 13 Hgb and drop in Hct. Adb US suggested hypoechoic lesions in the liver and kidney but given the history of recent fall from height and drop in Hct, after discussion with the radiologist a CTA with 3 phase liver scan was obtained which confirmed suspicion of an abscess of liver vs kidney origin. The abscess was drained by IR with out complication. - Current Medication List Current Medications: Active Medications Ceftriaxone Sodium 2 gm/ (Dextrose) 100 mls @ 200 mls/hr IVPB DAILY [facility]; Protocol Last Admin: 03/20/18 09:31 Dose: 200 mls/hr Insulin Aspart (Novolog Vial Sliding Scale -) 1 vial SQ ACHS [facility]; Protocol Last Admin: 03/20/18 12:08 Dose: 4 units Nystatin (Nystatin Oral Suspension -) 500,000 units PO Q6HPO [facility] Last Admin: 03/20/18 12:47 Dose: Not Given - Objective Vital Signs: Vital Signs Temperature 98.3 F 03/20/18 14:13 Pulse Rate 91 H 03/20/18 14:13 Respiratory Rate 22 03/20/18 14:13 Blood Pressure 110/71 03/20/18 14:13 O2 Sat by Pulse Oximetry (%) 98 03/19/18 21:00 Constitutional: Yes: Well Nourished, No Distress, Calm, Obese Eyes: Yes: Conjunctiva Clear, EOM Intact HENT: Yes: Atraumatic, Normocephalic Neck: Yes: Supple, Trachea Midline Cardiovascular: Yes: Regular Rate and Rhythm. No: Tachycardia Respiratory: Yes: Regular, CTA Bilaterally Gastrointestinal: Yes: Normal Bowel Sounds, Soft, Abdomen, Obese, Other (IR drain in place). No: Palpable Mass, Tenderness, Vomiting Genitourinary: No: CVA Tenderness - Right, Hematuria Extremities: No: Cool, Cyanosis Edema: Yes (trace Bilat.) Neurological: Yes: Alert, Oriented Psychiatric: Yes: Alert, Oriented Labs: CBC, BMP 03/20/18 07:10 03/20/18 07:10 INR, PTT INR 1.51 (0.82-1.09) H 03/16/18 18:30 Fibrinogen > 500.0 mg/dL (238-498) H 03/16/18 18:30 Problem List - Problems (1) Abdominal pain Assessment/Plan: Right sided abdominal pain with history of blunt trauma, presented tachycardia and hypotensive with elevated WBC, low HGb, elevated CR, elevated liver enzymes. STAT US revealed Righ liver and kidey lesions, hematoma vs. abscess. Patient slowly responsive to aggressive hydration, repeat labs improved except for Hgb down to 6.8 Non-IV contrast CT scan abd/pelvis reveals same posterior liver and kidney lesions more suspicious for a hematoma caused by blunt trauma than an abscess. CTA with 3 phase liver scan revealed an abscess originating in either the liver from possible gallbaldder origin vs the right pole of the kidney which could be a nephronia vs neoplasm. Patient denies abdominal pain, tolerating a regular diet. WBC still elevated but no fevers/chills now on PO ABx as per ID. Abdominal exam remains benign, drain in place draining purulent fluid that appears more clear in nature. OK to discharge home with drain in place. Follow up with IR for drain removal. Follow up with Dr. Ji for repeat radiological studies and Urology referral. . Code(s): R10.9 - UNSPECIFIED ABDOMINAL PAIN Qualifiers: Abdominal location: right upper quadrant Qualified Code(s): R10.11 - Right upper quadrant pain (2) Sepsis Code(s): A41.9 - SEPSIS, UNSPECIFIED ORGANISM Qualifiers: Sepsis type: sepsis due to unspecified organism Qualified Code(s): A41.9 - Sepsis, unspecified organism (3) Liver lesion Code(s): K76.9 - LIVER DISEASE, UNSPECIFIED (4) Elevated liver function tests Code(s): R79.89 - OTHER SPECIFIED ABNORMAL FINDINGS OF BLOOD CHEMISTRY (5) Hypotension Code(s): I95.9 - HYPOTENSION, UNSPECIFIED Qualifiers: Hypotension type: unspecified hypotension type Qualified Code(s): I95.9 - Hypotension, unspecified (6) Leukocytosis Code(s): D72.829 - ELEVATED WHITE BLOOD CELL COUNT, UNSPECIFIED Qualifiers: Leukocytosis type: unspecified Qualified Code(s): D72.829 - Elevated white blood cell count, unspecified
[2018-03-21] MEDS: NYSTATIN 500,000 UNITS/5 ML SUSPENSION PO SCH ×3 (05:03→11:42)
[2018-03-21] MEDS: INSULIN SLIDING SCALE (NOVOLOG) 1 VIAL SQ SCH ×2 (06:45→12:22)
[2018-03-21 07:39] VITALS: TEMP 98.3
[2018-03-21 07:42] LABS: HEMATOCRIT 31.4 % (32.4-45.2); HEMOGLOBIN 10.4 GM/dL (10.7-15.3); MEAN CELL VOLUME 78.6 fl (80-96); MEAN PLT VOLUME 7.4 fl (7.5-11.1); PLATELET COUNT 236 K/MM3 (134-434); WHITE BLOOD COUNT 10.4 K/mm3 (4.0-10.0)
[2018-03-21 08:22] LABS: CHLORIDE 100 mmol/L (98-107); POTASSIUM 4.5 mmol/L (3.5-5.1); SODIUM 138 mmol/L (136-145)
[2018-03-21 08:42] LABS: ANION GAP 10 (8-16); BLOOD UREA NITROGEN 11 mg/dL (7-18); CALCIUM 8.5 mg/dL (8.5-10.1); CO2 28 mmol/L (21-32); CREATININE 0.6 mg/dL (0.55-1.02); GLUCOSE,RANDOM 263 mg/dL (74-106)
[2018-03-21] MEDS ORDERED: DEXTROSE 5%-WATER 100 ML IVPB ONE (10:00)
[2018-03-21] MEDS: CEFTRIAXONE 2 GM in DEXTROSE 5%-WATER 100 ML IVPB SCH (10:04)
[2018-03-21 10:40] VITALS: BP 108/66; PULSE 95
--- NOTE | 2018-03-21 11:38 | PN ---
Progress Note (short form) - Note Progress Note: PULMONARY/CCM Denies abdominal pain, nausea or vomiting. No fevers or chills. No nausea or vomiting. Tolerating PO. Cleared for discharge by surgery. Last Vital Signs Temp Pulse Resp BP Pulse Ox 98.3 F 95 H 18 108/66 96 03/21/18 06:00 03/21/18 10:00 03/21/18 10:00 03/21/18 10:00 03/20/18 21:00 Gen: NAD at rest Heart: tachycardic, regular Lung: decreased breath sounds at the bases Abd: soft, tender to palpation, +drain with brown drainage Ext: no edema CBC, BMP 03/21/18 06:55 03/21/18 06:55 Active Medications Ceftriaxone Sodium 2 gm/ (Dextrose) 100 mls @ 200 mls/hr IVPB DAILY KERWIN; Protocol Last Admin: 03/21/18 10:04 Dose: Not Given Insulin Aspart (Novolog Vial Sliding Scale -) 1 vial SQ ACHS KERWIN; Protocol Last Admin: 03/21/18 06:45 Dose: 6 units Nystatin (Nystatin Oral Suspension -) 500,000 units PO Q6HPO [facility]WIN Last Admin: 03/21/18 06:43 Dose: Not Given A/P Liver Abscess s/p percutaneous drainage Severe Sepsis Acute Kidney Injury Lactic Acidosis Elevated LFTs HTN DM - continue antibiotics - monitor urine output, creatinine - PO as tolerated - pain control - incentive spirometry - DVT prophylaxis - d/c planning
--- NOTE | 2018-03-21 11:40 | DS ---
Physical Examination Vital Signs: Vital Signs Temperature 98.3 F 03/21/18 06:00 Pulse Rate 95 H 03/21/18 10:00 Respiratory Rate 18 03/21/18 10:00 Blood Pressure 108/66 03/21/18 10:00 O2 Sat by Pulse Oximetry (%) 96 03/20/18 21:00 Constitutional: Yes: No Distress Eyes: Yes: WNL HENT: Yes: WNL Neck: Yes: WNL Cardiovascular: Yes: WNL Respiratory: Yes: WNL Gastrointestinal: Yes: Other Renal/: Yes: WNL Musculoskeletal: Yes: WNL Extremities: Yes: WNL Edema: No Peripheral Pulses WNL: Yes Integumentary: Yes: WNL Wound/Incision: Yes: Clean/Dry Neurological: Yes: WNL ...Motor Strength: WNL Psychiatric: Yes: WNL Labs: CBC, BMP 03/21/18 06:55 03/21/18 06:55 Discharge Summary Reason For Visit: LESION OF LIVER HYPOTENSION Current Active Problems SOFIYA (acute kidney injury) (Acute) Abdominal pain (Acute) Anemia (Acute) Cholestasis (Acute) D-dimer, elevated (Acute) Diabetes (Acute) Electrolyte abnormality (Acute) Elevated liver function tests (Acute) Hepatic abscess (Acute) Hyperglycemia (Acute) Hypotension (Acute) Leukocytosis (Acute) Liver abscess (Acute) Liver lesion (Acute) Metabolic acidosis (Acute) Microcytic hypochromic anemia (Acute) Sepsis (Acute) UTI (urinary tract infection) (Acute) Procedures: Principal: ABD/LIVER ABSCESS DRAIN Condition: Critical - Instructions Referrals: Yanick Amezcua MD [Primary Care Provider] - - Home Medications Comprehensive Discharge Medication List: Ambulatory Orders Atorvastatin Ca [Lipitor] 40 mg PO HS 03/16/18 Ferrous Sulfate [Iron] 325 mg PO DAILY 03/16/18 Gabapentin 300 mg PO HS 03/16/18 Hydroxyzine HCl 50 mg PO DAILY 03/16/18 Ibuprofen [Motrin -] 800 mg PO Q8H PRN 03/16/18 Insulin Glargine,Hum.rec.anlog [Basaglar Kwikpen U-100] 20 unit SQ BID 03/16/18 Omeprazole 20 mg PO DAILY 03/16/18
[2018-03-21] MEDS ORDERED: PICC LINE 8 ML FLUSH PROTOCOL IVPUSH PRN (11:49)
--- NOTE | 2018-03-21 11:51 | PN ---
Progress Note (short form) - Note Progress Note: ID Discussed with Dr Ji Patient has sepsis with extensive abscess involving the liver kidney and psoas muscle Currently on Ceftriaxone based on cultures Selected Entries 03/21/18 03/21/18 06:00 10:00 Temperature 98.3 F Pulse Rate 95 H Respiratory 18 Rate Blood Pressure 108/66 Abd Drain RUQ Microbiology 03/16/18 20:15 Abscess Gram Stain - Final 03/16/18 20:15 Abscess Anaerobic Culture - Final Escherichia Coli NO ANAEROBES WERE ISOLATED 03/16/18 13:05 Urine - Urine Clean Catch Urine Culture - Final Escherichia Coli 03/16/18 13:01 Blood - Peripheral Venous Blood Culture - Final Lactose Fermenting Neg Bacilli 03/16/18 13:01 Blood - Peripheral Venous Blood Culture - Final Escherichia Coli Laboratory Tests 03/17/18 03/21/18 03/21/18 05:55 06:55 06:55 WBC 10.4 H Hgb 10.4 L D Hct 31.4 L Plt Count 236 BUN 11 Creatinine 0.6 C-Reactive Protein 33.9 H Assessment Complex abscess involving the kidney psoas and liver Plan PICC Ceftriaxone 2 grs daily for [address] scan and CRP ESR weekly then I could see her in follow up 3-4 weeks Rosina STEINER Problem List - Problems (1) Diabetes Code(s): E11.9 - TYPE 2 DIABETES MELLITUS WITHOUT COMPLICATIONS Qualifiers: Diabetes mellitus type: type 2 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 insulin use: unspecified nursing home insulin use status Chronic kidney disease stage: unspecified stage (2) Liver abscess Code(s): K75.0 - ABSCESS OF LIVER (3) Sepsis Code(s): A41.9 - SEPSIS, UNSPECIFIED ORGANISM Qualifiers: Sepsis type: sepsis due to unspecified organism Qualified Code(s): A41.9 - Sepsis, unspecified organism (4) UTI (urinary tract infection) Code(s): N39.0 - URINARY TRACT INFECTION, SITE NOT SPECIFIED Qualifiers: Urinary tract infection type: site unspecified Hematuria presence: with hematuria Qualified Code(s): N39.0 - Urinary tract infection, site not specified; R31.9 - Hematuria, unspecified; R31.9 - Hematuria, unspecified
--- NOTE | 2018-03-21 12:00 | DS ---
Physical Examination Vital Signs: Vital Signs Temperature 98.3 F 03/21/18 06:00 Pulse Rate 95 H 03/21/18 10:00 Respiratory Rate 18 03/21/18 10:00 Blood Pressure 108/66 03/21/18 10:00 O2 Sat by Pulse Oximetry (%) 96 03/20/18 21:00 Findings/Remarks: AWAKE ALERT FEELING BETTER Constitutional: Yes: No Distress Eyes: Yes: WNL HENT: Yes: WNL Neck: Yes: WNL Cardiovascular: Yes: WNL Respiratory: Yes: WNL Gastrointestinal: Yes: Other Renal/: Yes: WNL Musculoskeletal: Yes: WNL Extremities: Yes: WNL Edema: No Peripheral Pulses WNL: Yes Integumentary: Yes: WNL Wound/Incision: Yes: Draining (DRAINS ABD) Neurological: Yes: WNL ...Motor Strength: WNL Psychiatric: Yes: WNL Labs: CBC, BMP 03/21/18 06:55 03/21/18 06:55 Discharge Summary Reason For Visit: LESION OF LIVER HYPOTENSION Current Active Problems SOFIYA (acute kidney injury) (Acute) Abdominal pain (Acute) Anemia (Acute) Cholestasis (Acute) D-dimer, elevated (Acute) Diabetes (Acute) Electrolyte abnormality (Acute) Elevated liver function tests (Acute) Hepatic abscess (Acute) Hyperglycemia (Acute) Hypotension (Acute) Leukocytosis (Acute) Liver abscess (Acute) Liver lesion (Acute) Metabolic acidosis (Acute) Microcytic hypochromic anemia (Acute) Sepsis (Acute) UTI (urinary tract infection) (Acute) Procedures: Principal: CT ABD/SONO Hospital Course: ADMITTED FOR ABD/RETRO PERITONEAL ABSCESS TREATED WITH IV ABX, BP SUPPORT, PAIN CONTROL BGM CHECKS Condition: Critical - Instructions Diet, Activity, Other Instructions: DIABETIC DIET CHECK YOUR BGM EVERY 6 HOURS WILL NEED 4 WEEKS IV IV CEFTRIAXONE 2GM DAILY WILL NEED SERIAL LABS WEEKLY WITH ESR/CRP CBC LEVERLS WILLNEED CT SCAN AND MRI OF ABD TO F/U RETROPERITONEAL MASSES AND PSOAS ABSCESS UROLOGY CONSULT FOR POSSIBLE NEOPLASM OF KIDNEY?? PATIENT UNDERSTANDS FOLLOW UP Referrals: Yanick Amezcua MD [Primary Care Provider] - Disposition: VNS/HOME HEALTH CARE - Home Medications Comprehensive Discharge Medication List: Ambulatory Orders Ferrous Sulfate [Iron] 325 mg PO DAILY 03/16/18 Gabapentin 300 mg PO HS 03/16/18 Hydroxyzine HCl 50 mg PO DAILY 03/16/18 Ibuprofen [Motrin -] 800 mg PO Q8H PRN 03/16/18 Insulin Glargine,Hum.rec.anlog [Basaglar Kwikpen U-100] 20 unit SQ BID 03/16/18 Omeprazole 20 mg PO DAILY 03/16/18 Ceftriaxone [Rocephin -] 2 gm IVPB DAILY 28 Days #28 vial 03/21/18 Nystatin Oral Suspension - [Nystatin Oral Susp 710510 Units/5 ML -] 500,000 units PO Q6HPO 30 Days cup 03/21/18 Picc Line Flush [Picc Line Flush -] 8 ml IVPUSH PRN PRN ml 03/21/18
[2018-03-21] MEDS ORDERED: INSULIN (NOVOLOG) ASPART 100 UNITS/ML 10ML VIAL ONE (12:21)
--- NOTE | 2018-03-21 13:22 | PN ---
Progress Note, Physician History of Present Illness: Pt seen and examined at bedside. She is awake and alert. She is eager to go home. - Current Medication List Current Medications: Active Medications IV Flush (Picc Line Flush) 8 ml IVPUSH PRN PRN PRN Reason: Protocol Ceftriaxone Sodium 2 gm/ (Dextrose) 100 mls @ 200 mls/hr IVPB DAILY KERWIN; Protocol Last Admin: 03/21/18 10:04 Dose: Not Given Insulin Aspart (Novolog Vial Sliding Scale -) 1 vial SQ ACHS KERWIN; Protocol Last Admin: 03/21/18 12:22 Dose: 8 units Nystatin (Nystatin Oral Suspension -) 500,000 units PO Q6HPO KERWIN Last Admin: 03/21/18 11:42 Dose: Not Given - Objective Vital Signs: Vital Signs Temperature 98.3 F 03/21/18 06:00 Pulse Rate 95 H 03/21/18 10:00 Respiratory Rate 18 03/21/18 10:00 Blood Pressure 108/66 03/21/18 10:00 O2 Sat by Pulse Oximetry (%) 96 03/20/18 21:00 Constitutional: Yes: Calm Eyes: Yes: Conjunctiva Clear HENT: Yes: Atraumatic Neck: Yes: Supple Cardiovascular: Yes: S1, S2 Respiratory: Yes: CTA Bilaterally Gastrointestinal: Yes: Normal Bowel Sounds, Soft Genitourinary: Yes: WNL Musculoskeletal: Yes: WNL Edema: No Neurological: Yes: Oriented Psychiatric: Yes: Oriented Labs: CBC, BMP 03/21/18 06:55 03/21/18 06:55 INR, PTT INR 1.51 (0.82-1.09) H 03/16/18 18:30 Fibrinogen > 500.0 mg/dL (238-498) H 03/16/18 18:30 Problem List - Problems (1) SOFIYA (acute kidney injury) Code(s): N17.9 - ACUTE KIDNEY FAILURE, UNSPECIFIED Assessment/Plan Current Medications Generic Name Dose Route Start Last Admin Trade Name Freq PRN Reason Stop Dose Admin IV Flush 8 ml 03/21/18 11:49 Picc Line Flush IVPUSH PRN PRN Protocol Ceftriaxone Sodium 2 gm/ 100 mls @ 200 mls/hr 03/20/18 10:00 03/21/18 10:04 Dextrose IVPB Not Given DAILY KERWIN Protocol Insulin Aspart 1 vial 03/18/18 22:00 03/21/18 12:22 Novolog Vial Sliding Scale - SQ 8 units ACHS KERWIN Administration Protocol Nystatin 500,000 units 03/19/18 00:00 03/21/18 11:42 Nystatin Oral Suspension - PO Not Given Q6HPO KERWIN Impression 1. SOFIYA 2. liver abscess 3. sepsis 4. transaminitis 5. DM 6. HTN 7. hypokalemia Plan - renal function is stable - will need repeat imaging and urology evaluation for right kidney abscess/ lesion. This was discussed with pt and primary. Will need to make sure there is no underlying malignancy - monitor labs - abx per ID - will follow Dr Shaw
== END 2018-03-21 15:52 | disposition home health service (06) | DRG 720 ==
LOC: JER 10:08 → JERBED 17:37 → JICU 19:18 → J5S 03-18 18:51
PROVIDERS: ADMIT Internal Medicine; ATTEND Family Medicine
PROC: 30233N1 Transfusion of Nonautologous Red Blood Cells into Peripheral Vein, Percutaneous Approach (ICD-10-PCS; 2018-03-16)
PROC: 0F9130Z Drainage of Right Lobe Liver with Drainage Device, Percutaneous Approach (ICD-10-PCS; 2018-03-16)
PROC: 05HP33Z Insertion of Infusion Device into Right External Jugular Vein, Percutaneous Approach (ICD-10-PCS; 2018-03-16)
PROC: 02HV33Z Insertion of Infusion Device into Superior Vena Cava, Percutaneous Approach (ICD-10-PCS; principal; 2018-03-21)
PROC: B518ZZA Fluoroscopy of Superior Vena Cava, Guidance (ICD-10-PCS; 2018-03-21)
DX: A41.51 Sepsis due to Escherichia coli [E. coli] (principal); K75.0 Abscess of liver; N17.9 Acute kidney failure, unspecified; E87.4 Mixed disorder of acid-base balance; K83.1 Obstruction of bile duct; I95.9 Hypotension, unspecified; D62 Acute posthemorrhagic anemia; E11.65 Type 2 diabetes mellitus with hyperglycemia; E83.42 Hypomagnesemia; E83.51 Hypocalcemia; B37.0 Candidal stomatitis; R65.20 Severe sepsis without septic shock; N39.0 Urinary tract infection, site not specified; I10 Essential (primary) hypertension; Z79.4 Long term (current) use of insulin; J45.909 Unspecified asthma, uncomplicated; K21.9 Gastro-esophageal reflux disease without esophagitis; F17.210 Nicotine dependence, cigarettes, uncomplicated; E78.5 Hyperlipidemia, unspecified; M79.7 Fibromyalgia; M54.30 Sciatica, unspecified side; R00.0 Tachycardia, unspecified; E66.9 Obesity, unspecified; Z68.25 Body mass index [BMI] 25.0-25.9, adult; R79.89 Other specified abnormal findings of blood chemistry; E86.9 Volume depletion, unspecified; B37.3 Candidiasis of vulva and vagina; K82.4 Cholesterolosis of gallbladder; E87.6 Hypokalemia; D50.9 Iron deficiency anemia, unspecified; R74.0 Nonspecific elevation of levels of transaminase and lactic acid dehydrogenase [LDH]; M60.08 Infective myositis, other site; E87.2 Acidosis
CPT/HCPCS: 36415; 36430; 36569; 36600; 70450-TC; 71045-TC-FY; 74174-TC; 74176-TC; 75984-TC-FY; 76705-TC; 76775-TC; 76856-TC; 77001-TC-FY; 80048; 80053; 80076; 81003; 81015; 82009; 82330; 82375; 82550; 82570; 82728; 82803; 82962; 83010; 83036; 83050; 83540; 83550; 83605; 83615; 83735; 83880; 84100; 84300; 84484; 84703; 85025; 85027; 85044; 85362; 85379; 85384; 85610; 85730; 86140; 86753; 86850; 86900; 86901; 86922; 87040; 87070; 87075; 87086; 87102; 87116; 87186; 87205; 87206; 87210; 87389; 88108; 88305-TC; 93005; 93010; 93306-TC; 93970-TC; 97116-GP; 97161-GP; 99285-25; C1751; J0131; J7030; P9038; P9058

== ENCOUNTER 2018-10-21 18:00 | Inpatient (IN) | payer OTHER ==
[2018-10-21] MEDS ORDERED: SODIUM CHLORIDE 1,864 ML IV ONE (18:20)
[2018-10-21] MEDS ORDERED: VANCOMYCIN 1,000 MG in DEXTROSE 5%-WATER - 250 ML IVPB ONE (18:21)
[2018-10-21] MEDS ORDERED: AZTREONAM 2 GM in DEXTROSE 5%-WATER 100 ML IVPB ONE (18:21)
--- NOTE | 2018-10-21 18:27 | PDOC ---
History of Present Illness - General History Source: Patient Exam Limitations: No Limitations - History of Present Illness Initial Comments: 10/21/18 18:46 The patient is a 42 year old female T2DM, GERD, HLD, asthma, fibromyalgia, sciatica, CVA w right sided residual weakness, and anemia who presents to the emergency department for evaluation of abdominal pain. The patient reports a 1 week history of left sided and lower abdominal pain. She describes the pain as sharp and radiating to her lower abdomen. Patient reports associated episodes of intermittent dizziness, lightheadedness, increased bowel frequency, and nausea with emesis. She states she 3 episodes of non bloody emesis over the last 2 days (1 yesterday and 2 day) with associated decrease in PO tolerance. She states she had increased bowel frequency since last week which ended on . Patient reports having a fever that began today, which she did not take anything for and mild shortness of breath secondary to abdominal pain. Patient states her pain is similar to an abcess she had in the past. Of note, patient had a endoscopy done by Dr. Valles on 08/06/2018 which showed GERD, hiatal hernia, with multiple mucosal splits, spontaneous bleeding in abdomen, and a normal duodenum. The patient denies chest pain, headache, chills, constipation, and any urinary symptoms. Allergies: Penicillins Social History: No reported alcohol, cigarette, or drug use. Surgical History: , endoscopy <Moses Chapin - Last Filed: 10/21/18 18:46> <Mario Ward - Last Filed: 10/21/18 23:45> - General Chief Complaint: Pain Stated Complaint: WEAKNESS Time Seen by Provider: 10/21/18 18:11 Past History <Moses Chapin - Last Filed: 10/21/18 18:46> - Past Medical History COPD: No Diabetes: Yes (type 2) GI Disorders: Yes (gerd) Hypercholesterolemia: Yes - Suicide/Smoking/Psychosocial Hx Smoking History: Current every day smoker Have you smoked in the past 12 months: Yes Number of Cigarettes Smoked Daily: 4 Information on smoking cessation initiated: No 'Breaking Loose' booklet given: 03/16/18 Hx Alcohol Use: No Drug/Substance Use Hx: No Substance Use Type: None <Mario Ward - Last Filed: 10/21/18 23:45> - Past Medical History Allergies/Adverse Reactions: Allergies Allergy/AdvReac Type Severity Reaction Status Date / Time Penicillins Allergy Verified 10/21/18 18:04 seafood Allergy Uncoded 10/21/18 18:04 Home Medications: Ambulatory Orders Atorvastatin Ca [Lipitor] 40 mg PO HS 10/21/18 Ferrous Sulfate 325 mg PO DAILY 10/21/18 Gabapentin [Gralise] 1 each PO DAILY 10/21/18 Hydroxyzine HCl 50 mg PO DAILY 10/21/18 Insulin Glargine,Hum.rec.anlog [Basaglar Kwikpen U-100] 100 unit SQ DAILY Linagliptin [Tradjenta] 5 mg PO DAILY 10/21/18 Liraglutide [Victoza -] 0.6 mg SQ DAILY@0700 10/21/18 Ondansetron HCl [Zofran] 4 mg PO DAILY 10/21/18 Pantoprazole Sodium 40 mg PO DAILY 10/21/18 Sennosides [Senna] 8.6 mg PO DAILY 10/21/18 Review of Systems - Review of Systems Able to Perform ROS?: Yes Comments:: GENERAL/CONSTITUTIONAL: +Fevers. No chills. No weakness. HEAD, EYES, EARS, NOSE AND THROAT: No change in vision. No ear pain or discharge. No sore throat. CARDIOVASCULAR: (+)shortness of breath. No chest pain. RESPIRATORY: No cough, wheezing, or hemoptysis. GASTROINTESTINAL: (+)Nausea. (+)vomiting. (+)decrease PO tolerance. No diarrhea or constipation. GENITOURINARY: No dysuria, frequency, or change in urination. MUSCULOSKELETAL: (+)abdominal pain. No neck or back pain. SKIN: No rash NEUROLOGIC: (+)Lightheadedness. No headache, vertigo, loss of consciousness, or change in strength/sensation. ENDOCRINE: No increased thirst. No abnormal weight change. HEMATOLOGIC/LYMPHATIC: No anemia, easy bleeding, or history of blood clots. ALLERGIC/IMMUNOLOGIC: No hives or skin allergy. <Moses Chapin - Last Filed: 10/21/18 18:46> *Physical Exam - Vital Signs Last Vital Signs Temp Pulse Resp BP Pulse Ox 98.5 F 110 H 20 98/71 100 10/21/18 18:04 10/21/18 18:04 10/21/18 18:04 10/21/18 18:04 10/21/18 18:04 - Physical Exam Comments: GENERAL:(+)Mildly distressed. Awake, alert, and fully oriented. HEAD: No signs of trauma EYES: PERRLA, EOMI, sclera anicteric, conjunctiva clear NECK: Normal ROM, supple. LUNGS: (+)Mildly tachypneic. HEART: Regular rate and rhythm, normal S1 and S2, no murmurs, rubs or gallops ABDOMEN: (+)diffuse abdominal tenderness to palpation. EXTREMITIES: Normal range of motion, no edema. No clubbing or cyanosis. No cords, erythema, or tenderness NEUROLOGICAL: Cranial nerves II through XII grossly intact. Normal speech, normal gait SKIN: Warm, Dry, normal turgor, no rashes or lesions noted. <Moses Chapin - Last Filed: 10/21/18 18:46> - Vital Signs Last Vital Signs Temp Pulse Resp BP Pulse Ox 98.5 F 110 H 20 98/71 100 10/21/18 18:04 10/21/18 18:04 10/21/18 18:04 10/21/18 18:04 10/21/18 18:04 <Mario Ward - Last Filed: 10/21/18 23:45> Moderate Sedation - Procedure Monitoring Vital Signs: Procedure Monitoring Vital Signs Temperature 98.5 F 10/21/18 18:04 Pulse Rate 110 H 10/21/18 18:04 Respiratory Rate 20 10/21/18 18:04 Blood Pressure 98/71 10/21/18 18:04 O2 Sat by Pulse Oximetry (%) 100 10/21/18 18:04 <Moses Chapin - Last Filed: 10/21/18 18:46> - Procedure Monitoring Vital Signs: Procedure Monitoring Vital Signs Temperature 98.5 F 10/21/18 18:04 Pulse Rate 110 H 10/21/18 18:04 Respiratory Rate 20 10/21/18 18:04 Blood Pressure 98/71 10/21/18 18:04 O2 Sat by Pulse Oximetry (%) 100 10/21/18 18:04 <Mario Ward - Last Filed: 10/21/18 23:45> Heart Score/ECG Review #1 ECG reviewed & interpreted by me at: 21:25 10/21/18 22:56 NSR 84, no std/bren, normal axisnormal intervals, QTC 465 msec <Mario Ward - Last Filed: 10/21/18 23:45> ED Treatment Course - LABORATORY CBC & Chemistry Diagram: 10/21/18 18:45 10/21/18 18:45 - RADIOLOGY Radiology Studies Ordered: Category Date Time Status ABDOMEN & PELVIS CT WITH CONTR [CT] Stat CT Scan 10/21/18 18:22 Ordered CHEST X-RAY PORTABLE* [RAD] Stat Radiology 10/21/18 18:20 Ordered <Mario Ward - Last Filed: 10/21/18 23:45> Medical Decision Making - Medical Decision Making 10/21/18 18:51 A portion of this note was documented by scribe services under my direction. I have reviewed the details of the note, within reason, and agree with the documentation with the following case summary and management plan written by me. Patient treated in the ED. Nursing notes are reviewed and incorporated into the medical decision-making. Vital signs reviewed. Peripheral IV access obtained by the nurse, laboratory studies are drawn and sent, reviewed and interpreted by myself. 42 year old female with Past medical history of diabetes, hyperlipidemia, asthma , prior history of abdominal retroperitoneal abscess treated with IV antibiotics on previous admission in February 2018 presents with diffuse abdominal pain and fevers. Patient reports one week of left-sided abdominal pain with nausea and vomiting. Had also loose stools are now resolved. Presents with fevers up to 101 today. Patient believes that she's having another abscess of her liver. I'm concerned about sepsis including intra-abdominal abscess. Sepsis protocol initiated and we'll write empiric antibiotics including vancomycin and aztreonam. IV fluids ordered. We'll need a CAT scan the abdomen pelvis and likely admit the patient to the hospital. 10/21/18 23:02 CBC, BMP 10/21/18 18:45 10/21/18 18:45 CMP Sodium 131 mmol/L (136-145) L 10/21/18 18:45 Potassium 3.9 mmol/L (3.5-5.1) 10/21/18 18:45 Chloride 99 mmol/L (98-107) 10/21/18 18:45 Carbon Dioxide 19 mmol/L (21-32) L 12/24/18 18:45 Anion Gap 13 MMOL/L (8-16) 10/21/18 18:45 BUN 13 mg/dL (7-18) 10/21/18 18:45 Creatinine 1.1 mg/dL (0.55-1.3) 10/21/18 18:45 Creat Clearance w eGFR 54.47 (>60) 10/21/18 18:45 Random Glucose 319 mg/dL (74-106) H* 10/21/18 18:45 Lactic Acid 1.4 mmol/L (0.4-2.0) 10/21/18 20:42 Calcium 9.7 mg/dL (8.5-10.1) 10/21/18 18:45 Total Bilirubin 0.4 mg/dL (0.2-1) 10/21/18 18:45 AST 12 U/L (15-37) L 10/21/18 18:45 ALT 15 U/L (13-61) 10/21/18 18:45 Alkaline Phosphatase 150 U/L (45-117) H 10/21/18 18:45 Troponin I < 0.02 ng/ml (0.00-0.05) 10/21/18 18:45 Total Protein 8.7 g/dl (6.4-8.2) H 10/21/18 18:45 Albumin 4.2 g/dl (3.4-5.0) 10/21/18 18:45 Serum , Qual Negative 10/21/18 18:45 Urine Test Results Urine Color Yellow 10/21/18 20:42 Urine Appearance Cloudy 10/21/18 20:42 Urine pH 7.0 (5.0-8.0) 10/21/18 20:42 Ur Specific [place] 1.018 (1.010-1.035) 10/21/18 20:42 Urine Protein 1+ (NEGATIVE) H 10/21/18 20:42 Urine Glucose (UA) 3+ (NEGATIVE) H D 10/21/18 20:42 Urine Ketones Trace (NEGATIVE) H 10/21/18 20:42 Urine Blood Negative (NEGATIVE) 10/21/18 20:42 Urine Nitrite Negative (NEGATIVE) 10/21/18 20:42 Urine Bilirubin Negative (<2.0 mg/dL) 10/21/18 20:42 Ur Leukocyte Esterase 1+ (NEGATIVE) H D 10/21/18 20:42 Ur Epithelial Cells Many /HPF (FEW) 10/21/18 20:42 Urine Mucus Rare 10/21/18 20:42 Pt was given IV Vancomycin, but had itching with it. Vancomycin immediately stopped and pt was given IV benadryl. Will kelsey pt as having allergies to vancomycin. 10/21/18 23:44 CT abdomen and pelvis shows transverse colitis. Given WBC 20 and colitis, decision was made to admit. Case discussed with [facility], and pt accepted to med/surg admission. Case discussed in detail with admitting physician including history, physical exam and ancillary studies. Admitting physician has assumed care for the patient, will follow all pending diagnostics and will complete the evaluation and treatment. <Mario Ward - Last Filed: 10/21/18 23:45> *DC/Admit/Observation/Transfer - Attestations Scribe Attestion: Documentation prepared by Moses Chapin, acting as associate medical director for Mario Ward MD. <Moses Chapin - Last Filed: 10/21/18 18:46> - Discharge Dispostion Decision to Admit order: Yes <Mario Ward - Last Filed: 10/21/18 23:45> Diagnosis at time of Disposition: Colitis - Discharge Dispostion Condition at time of disposition: Stable
[2018-10-21] MEDS ORDERED: ONDANSETRON 4 MG/2 ML VIAL IVPB ONE (18:44)
[2018-10-21] MEDS ORDERED: morphine CARPU-JECT 4 MG/1 ML DISP.SYRIN IVPUSH ONE (18:44)
[2018-10-21] MEDS ORDERED: ACETAMINOPHEN 1000 MG/100 ML VIAL (NON FORMULARY) IVPB ONE (18:44)
[2018-10-21] MEDS ORDERED: FAMOTIDINE 20 MG/50 ML IVPB 20 MG/50 ML MG IVPB ONE ×2 (18:44→18:54)
[2018-10-21] MEDS ORDERED: ONDANSETRON 4 MG/2 ML VIAL ONE (18:54)
[2018-10-21] MEDS ORDERED: morphine SULFATE 4 MG/ML VIAL ONE (18:54)
[2018-10-21 19:09] LABS: BASO % 0.7 % (0-2.0); EOS % 0.3 % (0-4.5); HEMATOCRIT 38.3 % (32.4-45.2); HEMOGLOBIN 12.9 GM/dL (10.7-15.3); LYMPH % 17.4 % (8-40); MCH 28.5 pg (25.7-33.7); MCHC 33.5 g/dl (32.0-36.0); NEUT % 78.6 % (42.8-82.8); PLATELET COUNT 421 K/MM3 (134-434); RBC 4.51 M/mm3 (3.60-5.2); RDW 23.5 % (11.6-15.6); WHITE BLOOD COUNT 20.2 K/mm3 (4.0-10.0)
[2018-10-21 19:19] LABS: VENOUS PC02 27.9 mmHg (38-52); VENOUS PH 7.48 (7.32-7.42); VENOUS PO2 94.2 mmHg (28-48)
[2018-10-21 19:23] LABS: INR 1.07 (0.83-1.09); PROTHROMBIN TIME (PATIENT) 12.6 SEC (9.7-13.0)
[2018-10-21 19:26] LABS: ACTIVATED PTT 31.6 SECONDS (25.2-36.5)
[2018-10-21] MEDS ORDERED: ACETAMINOPHEN INJECTION 100 ML IVPB ONE (20:06)
[2018-10-21] MEDS ORDERED: VANCOMYCIN 1 GRAM (PRE-DOCKED) 1,000 MG/250 ML BAG IVPB ONE (20:06)
[2018-10-21 20:16] LABS: BLOOD UREA NITROGEN 13 mg/dL (7-18); CREATININE 1.1 mg/dL (0.55-1.3); SODIUM 131 mmol/L (136-145)
[2018-10-21 20:17] LABS: ALBUMIN 4.2 g/dl (3.4-5.0); ANION GAP 13 MMOL/L (8-16); BILIRUBIN,TOTAL 0.4 mg/dL (0.2-1); CALCIUM 9.7 mg/dL (8.5-10.1); CHLORIDE 99 mmol/L (98-107); CO2 19 mmol/L (21-32); POTASSIUM 3.9 mmol/L (3.5-5.1); SGOT/AST 12 U/L (15-37); SGPT/ALT 15 U/L (13-61); TOT PROT 8.7 g/dl (6.4-8.2)
[2018-10-21 20:18] LABS: ALK PHOS 150 U/L (45-117)
[2018-10-21 20:19] LABS: GLUCOSE,RANDOM 319 mg/dL (74-106)
[2018-10-21 20:42] LABS: ANISOCYTOSIS 3+; PLATELET ESTIMATE INCREASED
[2018-10-21 20:54] LABS: URINE APPEARANCE CLOUDY; URINE BILIRUBIN NEGATIVE (<2.0 mg/dL); URINE COLOR YELLOW; URINE GLUCOSE (UA) 3+ (NEGATIVE); URINE KETONE TRACE (NEGATIVE); URINE LEUK ESTERASE 1+ (NEGATIVE); URINE NITRITE NEGATIVE (NEGATIVE); URINE PROTEIN 1+ (NEGATIVE); URINE UROBILINOGEN NEGATIVE mg/dL (0.2-1.0)
[2018-10-21 21:03] LABS: EPI CELLS MANY /HPF (FEW); URINE HYALINE CAST 13 /lpf; URINE MUCUS RARE
[2018-10-22] MEDS ORDERED: MORPHINE SULFATE 2 MG/ML VIAL IVPUSH PRN (00:02)
--- NOTE | 2018-10-22 00:29 | HP ---
CHIEF COMPLAINT: PCP:GI- Dr. Valles HISTORY OF PRESENT ILLNESS: 42 year old female with history of type II diabetes mellitus, hyperlipidemia, hypertension, asthma, anemia, GERD, CVA with right sided weakness in 2011 and liver abscess in 02/2018 with abscess culture result grew E. Coli, had a percutaneous drain and treated with IV antibiotics by PICC line. She presents today with complaints of abdominal pain to her lower abdomen pointing to her left and right lower abdomen region and mild shortness of breath ongoing for one week. She was febrile and reported nausea and vomiting and reported having diarrhea yesterday. Upon evaluation in the emergency room she was found to have a colitis, no acute diverticulits by CT scan of abdomen. She was noted to be tahypnic and with soft blood pressures in the ER.Labs notable for WBC 20.2, normal lactic acid level. ER course was notable for: (1)Colitis/Leukocytosis/Febrile Illness- She received IV Vancomycin and developed a rash on her face. She is allergic to penicillin. She received one dosage of IV azetrozeam in the ER. (2) (3) Recent Travel: Denies PAST MEDICAL HISTORY: Type II Diabetes Mellitus Hyperlipidemia CVA with right sided weakness Anemia GERD Asthma PAST SURGICAL HISTORY: liver abscess 02/2018 with percutaneous drain Social History: Smoking: Alcohol: Drugs: Family History: Allergies Penicillins Allergy (Verified 10/21/18 18:04) seafood Allergy (Uncoded 10/21/18 18:04) HOME MEDICATIONS: Home Medications Medication Instructions Recorded Atorvastatin Ca [Lipitor] 40 mg PO HS 10/21/18 Ferrous Sulfate 325 mg PO DAILY 10/21/18 Gabapentin [Gralise] 1 each PO DAILY 10/21/18 Hydroxyzine HCl 50 mg PO DAILY 10/21/18 Insulin Glargine,Hum.rec.anlog 100 unit SQ DAILY 10/21/18 [Basaglar Kwikpen U-100] Linagliptin [Tradjenta] 5 mg PO DAILY 10/21/18 Liraglutide [Victoza -] 0.6 mg SQ DAILY@0700 10/21/18 Ondansetron HCl [Zofran] 4 mg PO DAILY 10/21/18 Pantoprazole Sodium 40 mg PO DAILY 10/21/18 Sennosides [Senna] 8.6 mg PO DAILY 10/21/18 REVIEW OF SYSTEMS CONSTITUTIONAL: fever HEENT: Denies rhinorrhea, nasal congestion, throat pain, throat swelling, difficulty swallowing, mouth swelling, ear pain, eye pain, visual changes CARDIOVASCULAR:mild chest pain RESPIRATORY: mild shortness of breath, GI- + abdominal pain, nausea, vomiting, diarrhea GENITOURINARY: Denies dysuria, frequency, urgency, hesitancy, hematuria, flank pain, genital pain MUSCULOSKELETAL: Absent: myalgia, arthralgia, joint swelling, back pain, neck pain SKIN: Absent: rash, itching, pallor HEMATOLOGIC/IMMUNOLOGIC: Absent: easy bleeding, easy bruising, lymphadenopathy, frequent infections ENDOCRINE:Absent: unexplained weight gain, unexplained weight loss, heat intolerance, cold intolerance NEUROLOGIC: Absent: headache, focal weakness or paresthesias, dizziness, unsteady gait, seizure, mental status changes, bladder or bowel incontinence, right sided weakness PSYCHIATRIC: Denies anxiety, depression, suicidal or homicidal ideation, hallucinations. PHYSICAL EXAMINATION Vital Signs - 24 hr 10/21/18 18:04 Temperature 98.5 F Pulse Rate 110 H Respiratory 20 Rate Blood Pressure 98/71 O2 Sat by Pulse 100 Oximetry (%) GENERAL: Awake, alert, and fully oriented, Patient in pain to abdomen. HEAD: Normal EYES: Pupils equal, round and reactive to light EARS, NOSE, THROAT: Ears normal, nares patent NECK: Normal range of motion, supple supple LUNGS: Breath sounds equal, clear to auscultation bilaterally. No wheezes, and no crackles. No accessory muscle use. HEART: Regular rate and rhythm, normal S1 and S2 no tachycardia ABDOMEN: tender on mild palpation, slightly distended distended, no guarding MUSCULOSKELETAL: Normal range of motion at all joints. No bony deformities or tenderness. UPPER EXTREMITIES: minimal swelling noted LOWER EXTREMITIES: No peripheral edema warm to touch no pitting edema NEUROLOGICAL: Normal speech. Normal gait. PSYCHIATRIC: cooperative SKIN: warm, dry, normal turgor, rashes to face present Laboratory Results - last 24 hr 10/21/18 10/21/18 10/21/18 18:45 18:45 18:45 WBC 20.2 H RBC 4.51 Hgb 12.9 Hct 38.3 MCV 85.0 MCH 28.5 MCHC 33.5 RDW 23.5 H Plt Count 421 D MPV 8.0 Absolute Neuts (auto) 15.9 H Total Counted 100 Neutrophils % 78.6 Neutrophils % (Manual) 79.0 Lymphocytes % 17.4 Lymphocytes % (Manual) 20.0 Monocytes % 3.0 L Monocytes % (Manual) 1 L Eosinophils % 0.3 Basophils % 0.7 Nucleated RBC % 0 Platelet Estimate Increased Platelet Comment No clumping noted Anisocytosis 3+ Microcytosis 1+ PT with INR 12.60 INR 1.07 PTT (Actin FS) 31.6 VBG pH POC VBG pCO2 POC VBG pO2 Mixed VBG HCO3 Sodium Potassium Chloride Carbon Dioxide Anion Gap BUN Creatinine Creat Clearance w eGFR Random Glucose Lactic Acid Calcium Total Bilirubin AST ALT Alkaline Phosphatase Troponin I Total Protein Albumin Lipase Serum , Qual Negative Urine Color Urine Appearance Urine pH Ur Specific [place] Urine Protein Urine Glucose (UA) Urine Ketones Urine Blood Urine Nitrite Urine Bilirubin Urine Urobilinogen Ur Leukocyte Esterase Urine WBC (Auto) Urine RBC (Auto) Ur Epithelial Cells Hyaline Casts Urine Mucus 10/21/18 10/21/18 10/21/18 18:45 18:45 18:45 WBC RBC Hgb Hct MCV MCH MCHC RDW Plt Count MPV Absolute Neuts (auto) Total Counted Neutrophils % Neutrophils % (Manual) Lymphocytes % Lymphocytes % (Manual) Monocytes % Monocytes % (Manual) Eosinophils % Basophils % Nucleated RBC % Platelet Estimate Platelet Comment Anisocytosis Microcytosis PT with INR INR PTT (Actin FS) VBG pH 7.48 H D POC VBG pCO2 27.9 L POC VBG pO2 94.2 H D Mixed VBG HCO3 20.6 Sodium 131 L Potassium 3.9 Chloride 99 Carbon Dioxide 19 L Anion Gap 13 BUN 13 Creatinine 1.1 Creat Clearance w eGFR 54.47 Random Glucose 319 H* Lactic Acid 1.9 Calcium 9.7 Total Bilirubin 0.4 AST 12 L ALT 15 Alkaline Phosphatase 150 H Troponin I Total Protein 8.7 H Albumin 4.2 Lipase Cancelled Serum , Qual Urine Color Urine Appearance Urine pH Ur Specific [place] Urine Protein Urine Glucose (UA) Urine Ketones Urine Blood Urine Nitrite Urine Bilirubin Urine Urobilinogen Ur Leukocyte Esterase Urine WBC (Auto) Urine RBC (Auto) Ur Epithelial Cells Hyaline Casts Urine Mucus 10/21/18 10/21/18 10/21/18 18:45 20:42 20:42 WBC RBC Hgb Hct MCV MCH MCHC RDW Plt Count MPV Absolute Neuts (auto) Total Counted Neutrophils % Neutrophils % (Manual) Lymphocytes % Lymphocytes % (Manual) Monocytes % Monocytes % (Manual) Eosinophils % Basophils % Nucleated RBC % Platelet Estimate Platelet Comment Anisocytosis Microcytosis PT with INR INR PTT (Actin FS) VBG pH POC VBG pCO2 POC VBG pO2 Mixed VBG HCO3 Sodium Potassium Chloride Carbon Dioxide Anion Gap BUN Creatinine Creat Clearance w eGFR Random Glucose Lactic Acid 1.4 Calcium Total Bilirubin AST ALT Alkaline Phosphatase Troponin I < 0.02 Total Protein Albumin Lipase Serum , Qual Urine Color Yellow Urine Appearance Cloudy Urine pH 7.0 Ur Specific [place] 1.018 Urine Protein 1+ H Urine Glucose (UA) 3+ H D Urine Ketones Trace H Urine Blood Negative Urine Nitrite Negative Urine Bilirubin Negative Urine Urobilinogen Negative Ur Leukocyte Esterase 1+ H D Urine WBC (Auto) 1 Urine RBC (Auto) 6 Ur Epithelial Cells Many Hyaline Casts 13 Urine Mucus Rare ASSESSMENT/PLAN: 42 year old female with history of type II diabetes mellitus, hyperlipidemia, hypertension, asthma, anemia, GERD, CVA with right sided weakness in 2011 and liver abscess in 02/2018 with abscess culture result grew E. Coli, had a percutaneous drain and treated with IV antibiotics by PICC line. She presents today with complaints of abdominal pain associated with nausea, vomiting , diarrhea and fever. She was have to found to have leukocytosis and by CT scan of abdomen showed colitis. Colitis/Leukocytosis/Febrile Illness She received IV Vancomycin and developed a rash on her face. She is allergic to penicillin. She received one dosage of IV azetrozeam in the ER. Continue with IV azetrozeam, Creatinine is normal. ID consulted for further management and recommendations. Keep NPO.Will start IVF at 100 cc/hr in setting of soft blood pressures. GI - Dr. Valles consulted to further evaluate . Consider a contrast enhanced MRCP. Ordered a RUQ US. Asthma No acute exacerbation. Type II Diabetes Hold diabetes medications as patient is NPO.Accucheks before meals and at bedtime. Hypertension Low normal blood pressures. Continue to monitor. Hyperlipidemia Continue with statin therapy,LFT's normal. CVA w/right sided weakness Continue with statin therapy. Hyponatremia Fluids initiated for soft blood pressures. Continue to monitor. Diarrhea Resolved. Check C. Deficele specimen. Visit type - Emergency Visit Emergency Visit: Yes Care time: The patient presented to the Emergency Department on the above date and was hospitalized for further evaluation of their emergent condition. - New Patient This patient is new to me today: Yes Date on this admission: 10/22/18 - Critical Care Critical Care patient: No
[2018-10-22] MEDS ORDERED: morphine CARPU-JECT 4 MG/1 ML DISP.SYRIN IVPUSH ONE (02:00)
[2018-10-22] MEDS: SODIUM CHLORIDE 1,000 ML IV SCH ×2 (02:01→04:00)
[2018-10-22] MEDS ORDERED: MORPHINE SULFATE 2 MG/ML VIAL ONE (02:07)
[2018-10-22 04:18] VITALS: BMI 23.8
[2018-10-22] MEDS ORDERED: FLU VACCINE QUAD 60 MCG/0.5 ML (MDV 18-19) IM ONE (04:18)
[2018-10-22 07:50] LABS: HEMATOCRIT 36.7 % (32.4-45.2); HEMOGLOBIN 11.1 GM/dL (10.7-15.3); MCH 26.5 pg (25.7-33.7); MCHC 30.2 g/dl (32.0-36.0); MEAN CELL VOLUME 87.7 fl (80-96); MEAN PLT VOLUME 7.7 fl (7.5-11.1); PLATELET COUNT 259 K/MM3 (134-434); RBC 4.19 M/mm3 (3.60-5.2); RDW 22.8 % (11.6-15.6); WHITE BLOOD COUNT 14.8 K/mm3 (4.0-10.0)
[2018-10-22 08:12] LABS: ALBUMIN 3.1 g/dl (3.4-5.0); ALK PHOS 116 U/L (45-117); ANION GAP 10 MMOL/L (8-16); BILIRUBIN,TOTAL 0.4 mg/dL (0.2-1); BLOOD UREA NITROGEN 10 mg/dL (7-18); CALCIUM 8.3 mg/dL (8.5-10.1); CHLORIDE 103 mmol/L (98-107); CO2 23 mmol/L (21-32); CREATININE 0.8 mg/dL (0.55-1.3); GLUCOSE,RANDOM 273 mg/dL (74-106); POTASSIUM 4.4 mmol/L (3.5-5.1); SGOT/AST 9 U/L (15-37); SGPT/ALT 11 U/L (13-61); SODIUM 135 mmol/L (136-145); TOT PROT 6.8 g/dl (6.4-8.2)
[2018-10-22] MEDS ORDERED: AZTREONAM 0.5 GM in DEXTROSE 5%-WATER - 50 ML IVPB SCH ×2 (08:30→20:30)
[2018-10-22 08:52] LABS: LIPASE 178 U/L (73-393)
[2018-10-22] MEDS ORDERED: METOCLOPRAMIDE HCL INJECTION 10 MG/2 ML VIAL IVPB SCH (09:00)
--- NOTE | 2018-10-22 09:07 | CON.GI ---
Consult Consult Specialty:: GI Referred by:: Dr Ji - History of Present Illness History of Present Illness: 42 y/o F with PMH of CVA,DM(Hgb A1c 11), liver abscess s/p percutaneous drainage 2017,s/p colonoscopy 07/2018 (colonic avm s/p cauterization) was doing well until yesterday when she developed lower abdominal pain, nausea,vomiting and diarrhea. In the ER she was noted to have leukocytosis and noted have concentric thickening of the colon with retained stool, There was retained fluid in the stomach. This was done without oral contrast. Her blood sugar was in the 300 Patient signed out AMA. PATIENT NOT SEEN AMA - Past Medical History Cardio/Vascular: Yes: Hyperlipdemia Pulmonary: Yes: Asthma Gastrointestinal: Yes: GERD ...LMP: 03/22/18 Musculoskeletal: Yes: Chronic low back pain Rheumatology: Yes: Fibromyalgia Endocrine: Yes: Diabetes Mellitus - Past Surgical History Past Surgical History: Yes: - Alcohol/Substance Use Hx Alcohol Use: No - Smoking History Smoking history: Current every day smoker Have you smoked in the past 12 months: Yes Aproximately how many cigarettes per day: 4 - Social History ADL: Independent History of Recent Travel: No Home Medications - Allergies Allergies/Adverse Reactions: Allergies Allergy/AdvReac Type Severity Reaction Status Date / Time Penicillins Allergy Verified 10/22/18 10:53 vancomycin Allergy Verified 10/22/18 10:53 seafood Allergy Uncoded 10/22/18 10:53 - Home Medications Home Medications: Ambulatory Orders Atorvastatin Ca [Lipitor] 40 mg PO HS 10/21/18 Ferrous Sulfate 325 mg PO DAILY 10/21/18 Gabapentin [Gralise] 1 each PO DAILY 10/21/18 Hydroxyzine HCl 50 mg PO DAILY 10/21/18 Insulin Glargine,Hum.rec.anlog [Basaglar Kwikpen U-100] 100 unit SQ DAILY Linagliptin [Tradjenta] 5 mg PO DAILY 10/21/18 Liraglutide [Victoza -] 0.6 mg SQ DAILY@0700 10/21/18 Ondansetron HCl [Zofran] 4 mg PO DAILY 10/21/18 Pantoprazole Sodium 40 mg PO DAILY 10/21/18 Sennosides [Senna] 8.6 mg PO DAILY 10/21/18 Physical Exam-GI Vital Signs: Vital Signs Temperature 98 F 10/22/18 06:00 Pulse Rate 88 10/22/18 06:00 Respiratory Rate 20 10/22/18 06:00 Blood Pressure 120/70 10/22/18 06:00 O2 Sat by Pulse Oximetry (%) 97 10/22/18 04:09 Labs: CBC, BMP 10/22/18 06:00 10/22/18 06:00 INR, PTT INR 1.07 (0.83-1.09) 10/21/18 18:45 Current Medications Atorvastatin Calcium (Lipitor -) 40 mg PO HS KERWIN Ferrous Sulfate (Feosol -) 325 mg PO DAILY KERWIN Hydroxyzine HCl (Atarax -) 50 mg PO DAILY KERWIN Sodium Chloride (Normal Saline -) 1,000 mls @ 100 mls/hr IV ASDIR KERWIN Last Admin: 10/22/18 04:00 Dose: 100 mls/hr Aztreonam 0.5 gm/ Dextrose 50 mls @ 100 mls/hr IVPB Q12H KERWIN; Protocol Morphine Sulfate (Morphine Sulfate) 2 mg IVPUSH Q4H PRN PRN Reason: PAIN LEVEL 7 - 10 Non-Formulary Medication (Gabapentin [Gralise]) 1 each PO DAILY KERWIN Pantoprazole Sodium (Protonix -) 40 mg PO DAILY [facility] Current M Home Medications Medication Instructions Recorded Atorvastatin Ca [Lipitor] 40 mg PO HS 10/21/18 Ferrous Sulfate 325 mg PO DAILY 10/21/18 Gabapentin [Gralise] 1 each PO DAILY 10/21/18 Hydroxyzine HCl 50 mg PO DAILY 10/21/18 Insulin Glargine,Hum.rec.anlog 100 unit SQ DAILY 10/21/18 [Basaglar Kwikpen U-100] Linagliptin [Tradjenta] 5 mg PO DAILY 10/21/18 Liraglutide [Victoza -] 0.6 mg SQ DAILY@0700 10/21/18 Ondansetron HCl [Zofran] 4 mg PO DAILY 10/21/18 Pantoprazole Sodium 40 mg PO DAILY 10/21/18 Sennosides [Senna] 8.6 mg PO DAILY 10/21/18 edications Atorvastatin Calcium (Lipitor -) 40 mg PO HS KERWIN Ferrous Sulfate (Feosol -) 325 mg PO DAILY KERWIN Hydroxyzine HCl (Atarax -) 50 mg PO DAILY KERWIN Sodium Chloride (Normal Saline -) 1,000 mls @ 100 mls/hr IV ASDIR KERWIN Last Admin: 10/22/18 04:00 Dose: 100 mls/hr Aztreonam 0.5 gm/ Dextrose 50 mls @ 100 mls/hr IVPB Q12H KERWIN; Protocol Morphine Sulfate (Morphine Sulfate) 2 mg IVPUSH Q4H PRN PRN Reason: PAIN LEVEL 7 - 10 Non-Formulary Medication (Gabapentin [Gralise]) 1 each PO DAILY KERWIN Pantoprazole Sodium (Protonix -) 40 mg PO DAILY KERWIN
[2018-10-22] MEDS ORDERED: SODIUM CHLORIDE 1,000 ML IV SCH (09:12)
[2018-10-22 09:25] VITALS: BP 129/74; PULSE 90; TEMP 98.4
[2018-10-22] MEDS ORDERED: GABAPENTIN PO SCH (10:00)
[2018-10-22] MEDS ORDERED: hydrOXYzine HCL 25 MG TABLET (FP) PO SCH (10:00)
[2018-10-22] MEDS ORDERED: PANTOPRAZOLE 40 MG TABLET (FP) PO SCH (10:00)
[2018-10-22] MEDS ORDERED: ONDANSETRON 4 MG/2 ML VIAL IVPUSH SCH (10:00)
[2018-10-22] MEDS ORDERED: FERROUS SO4 325 MG TABLET (FP) PO SCH (10:00)
--- NOTE | 2018-10-22 16:56 | EKG ---
Test Reason : Blood Pressure : / mmHG Vent. Rate : 084 BPM Atrial Rate : 084 BPM P-R Int : 158 ms QRS Dur : 080 ms QT Int : 394 ms P-R-T Axes : 026 044 035 degrees QTc Int : 465 ms NORMAL SINUS RHYTHM NORMAL ECG WHEN COMPARED WITH ECG OF 16-MAR-2018 11:41, NO SIGNIFICANT CHANGE WAS FOUND Confirmed by MD Rojas Daniel ([id number]) on 10/22/2018 4:56:07 PM Referred By: Confirmed By:Jay Jay Rojas MD
[2018-10-22] MEDS ORDERED: ONDANSETRON 4 MG/2 ML VIAL IVPUSH PRN (22:00)
[2018-10-22] MEDS ORDERED: ATORVASTATIN CA 40 MG TABLET (FP) PO SCH (22:00)
== END 2018-10-22 09:15 | disposition left against medical advice (07) | DRG 246 ==
LOC: JER 18:00 → JERBED 23:45 → J6S 10-22 03:51
PROVIDERS: ADMIT Internal Medicine; ATTEND Family Medicine
DX: K55.9 Vascular disorder of intestine, unspecified (principal); E11.9 Type 2 diabetes mellitus without complications; E78.5 Hyperlipidemia, unspecified; J45.909 Unspecified asthma, uncomplicated; M79.7 Fibromyalgia; M54.30 Sciatica, unspecified side; I69.351 Hemiplegia and hemiparesis following cerebral infarction affecting right dominant side; K21.9 Gastro-esophageal reflux disease without esophagitis; D72.829 Elevated white blood cell count, unspecified; E87.1 Hypo-osmolality and hyponatremia; R19.7 Diarrhea, unspecified; M54.5 Low back pain; F17.210 Nicotine dependence, cigarettes, uncomplicated; Z88.0 Allergy status to penicillin
CPT/HCPCS: 36415; 71045-TC-FY; 74177-TC; 80053; 81003; 81015; 82803; 82962; 83605; 83690; 84484; 84703; 85025; 85027; 85610; 85730; 87040; 87086; 93005; 93010; 99285-25; J0131; J7030

== ENCOUNTER 2018-10-22 10:51 | Inpatient (IN) | payer OTHER ==
[2018-10-22 10:57] VITALS: BMI 23.6
--- NOTE | 2018-10-22 11:43 | PDOC ---
History of Present Illness - General Chief Complaint: Pain Stated Complaint: Pain Time Seen by Provider: 10/22/18 11:00 History Source: Patient Exam Limitations: No Limitations - History of Present Illness Initial Comments: 10/22/18 12:44 Best Contact: None PCP:None Pmhx: NIDDM, asthma/no history of intubation a recent admission, hypertension, hyperlipidemia, anemia, GERD, asthma, CVA/2012 with right-sided weakness, 2018: liver abscess/Escherichia coli, treated with a PICC line/percutaneous drain and IV antibiotics Pshx:Denies Allergies:PCN/rash/ Vancomycin/rash FH:0 Social Hx: Cigarettes/ 0 Alcohol/ social Drugs/0 LMP: 10/09/2018 42-year-old female presents to the emergency department complaining of lower abdominal pain times one week with subjective fever, nausea/vomiting and diarrhea/nonbilious/nonbloody. Patient states she was admitted to the hospital yesterday and sign herself out 6 hours ago. Patient states when she went home, the pain was described as 9/10 dull nonradiating constant discomfort without headache, dizziness, lightheadedness, facial pains, neck pain/stiffness, back pains, chest pain, shortness of breath, flank pains, urinary symptoms, Shawn numbness or tingling sensation. There are no alleviating or exacerbating factors. Past History - Past Medical History Allergies/Adverse Reactions: Allergies Allergy/AdvReac Type Severity Reaction Status Date / Time Penicillins Allergy Verified 10/22/18 10:53 vancomycin Allergy Verified 10/22/18 10:53 seafood Allergy Uncoded 10/22/18 10:53 Home Medications: Ambulatory Orders Atorvastatin Ca [Lipitor] 40 mg PO HS 10/21/18 Ferrous Sulfate 325 mg PO DAILY 10/21/18 Gabapentin [Gralise] 1 each PO DAILY 10/21/18 Hydroxyzine HCl 50 mg PO DAILY 10/21/18 Insulin Glargine,Hum.rec.anlog [Basaglar Kwikpen U-100] 100 unit SQ DAILY Linagliptin [Tradjenta] 5 mg PO DAILY 10/21/18 Liraglutide [Victoza -] 0.6 mg SQ DAILY@0700 10/21/18 Ondansetron HCl [Zofran] 4 mg PO DAILY 10/21/18 Pantoprazole Sodium 40 mg PO DAILY 10/21/18 Sennosides [Senna] 8.6 mg PO DAILY 10/21/18 CVA: No COPD: No CHF: No Diabetes: Yes (type 2) GI Disorders: Yes (gerd) Hypercholesterolemia: Yes - Immunization History Immunization Up to Date: Yes - Suicide/Smoking/Psychosocial Hx Smoking History: Current every day smoker Have you smoked in the past 12 months: Yes Number of Cigarettes Smoked Daily: 10 Information on smoking cessation initiated: No 'Breaking Loose' booklet given: 03/16/18 Hx Alcohol Use: No Drug/Substance Use Hx: No Substance Use Type: None Review of Systems - Review of Systems Able to Perform ROS?: Yes Comments:: 10/22/18 12:56 CONSTITUTIONAL: Absent: fever, chills, diaphoresis, generalized weakness, malaise, loss of appetite HEENT: Absent: rhinorrhea, nasal congestion, throat pain, throat swelling, difficulty swallowing, mouth swelling, ear pain, eye pain, visual Changes CARDIOVASCULAR: Absent: chest pain, loss of consciousness, palpitations, irregular heart rate, peripheral edema RESPIRATORY: Absent: cough, shortness of breath, dyspnea with exertion, orthopnea, wheezing, stridor, hemoptysis GASTROINTESTINAL: Lowe abd pain, n/v Absent: abdominal distension diarrhea, constipation, melena, hematochezia GENITOURINARY: Absent: dysuria, frequency, urgency, hesitancy, hematuria, flank pain, genital pain MUSCULOSKELETAL: Absent: myalgia, arthralgia, joint swelling SKIN: Absent: rash, itching, pallor HEMATOLOGIC/IMMUNOLOGIC: Absent: easy bleeding, easy bruising, lymphadenopathy, frequent infections ENDOCRINE: Absent: unexplained weight gain, unexplained weight loss, heat intolerance, cold intolerance NEUROLOGIC: Absent: headache, focal weakness or paresthesias, dizziness, unsteady gait, seizure, mental status changes, bladder or bowel incontinence PSYCHIATRIC: Absent: anxiety, depression, suicidal or homicidal ideation, hallucinations. Is the patient limited [place] Islander proficient: No *Physical Exam - Vital Signs Last Vital Signs Temp Pulse Resp BP Pulse Ox 98.3 F 98 H 16 107/66 100 10/22/18 10:54 10/22/18 10:54 10/22/18 10:54 10/22/18 10:54 10/22/18 10:54 - Physical Exam Comments: 10/22/18 12:57 GENERAL: Well developed, well nourished. Awake and alert. No acute distress. HEENT: Normocephalic, atraumatic. PERRLA, EOMI. No conjunctival pallor. Sclera are non- icteric. Moist mucous membranes. Oropharynx is clear. NECK: Supple. Full ROM. No JVD. Carotid pulses 2+ and symmetric, without bruits. No thyromegaly. No lymphadenopathy. CARDIOVASCULAR: Regular rate and rhythm. No murmurs, rubs, or gallops. Distal pulses are 2+ and symmetric. PULMONARY: No evidence of respiratory distress. Lungs clear to auscultation bilaterally. No wheezing, rales or rhonchi. ABDOMINAL: Lower L>R abd pain on deep palp Soft.. Non-distended. No rebound or guarding. No organomegaly. Normoactive bowel sounds. MUSCULOSKELETAL Normal range of motion at all joints. No bony deformities or tenderness. No CVA tenderness. EXTREMITIES: No cyanosis. No clubbing. No edema. No calf tenderness. SKIN: Warm and dry. Normal capillary refill. No rashes. No jaundice. NEUROLOGICAL: Alert, awake, appropriate. Cranial nerves 2-12 intact. No deficits to light touch and temperature in face, upper extremities and lower extremities. No motor deficits in the in face, upper extremities and lower extremities. Normoreflexic in the upper and lower extremities. Normal speech. Toes are down- going bilaterally. Gait is normal without ataxia. PSYCHIATRIC: Cooperative. Good eye contact. Appropriate mood and affect. Moderate Sedation - Procedure Monitoring Vital Signs: Procedure Monitoring Vital Signs Temperature 98.3 F 10/22/18 10:54 Pulse Rate 98 H 10/22/18 10:54 Respiratory Rate 16 10/22/18 10:54 Blood Pressure 107/66 10/22/18 10:54 O2 Sat by Pulse Oximetry (%) 100 10/22/18 10:54 ED Treatment Course - LABORATORY CBC & Chemistry Diagram: 10/22/18 12:25 10/22/18 12:25 *DC/Admit/Observation/Transfer Diagnosis at time of Disposition: Colitis - Discharge Dispostion Condition at time of disposition: Stable Decision to Admit order: Yes - Referrals - Patient Instructions - Post Discharge Activity Progress Note - Medications Home Medications: Ambulatory Orders Atorvastatin Ca [Lipitor] 40 mg PO HS 10/21/18 Ferrous Sulfate 325 mg PO DAILY 10/21/18 Gabapentin [Gralise] 1 each PO DAILY 10/21/18 Hydroxyzine HCl 50 mg PO DAILY 10/21/18 Insulin Glargine,Hum.rec.anlog [Basaglar Kwikpen U-100] 100 unit SQ DAILY Linagliptin [Tradjenta] 5 mg PO DAILY 10/21/18 Liraglutide [Victoza -] 0.6 mg SQ DAILY@0700 10/21/18 Ondansetron HCl [Zofran] 4 mg PO DAILY 10/21/18 Pantoprazole Sodium 40 mg PO DAILY 10/21/18 Sennosides [Senna] 8.6 mg PO DAILY 10/21/18 Progress Note - Progress Note Progress Note: 1143hrs: Called Dr. Melvin Ulloa [phone] 1217hrs: Spoke to Dr. Ji/ will readmit
[2018-10-22] MEDS ORDERED: ONDANSETRON *ODT* 4 MG TABLET SL ONE (12:13)
[2018-10-22] MEDS ORDERED: ONDANSETRON *ODT* 4 MG TABLET ONE (12:16)
[2018-10-22] MEDS ORDERED: morphine CARPU-JECT 4 MG/1 ML DISP.SYRIN IVPUSH ONE (12:18)
[2018-10-22] MEDS ORDERED: morphine SULFATE 4 MG/ML VIAL ONE (12:20)
[2018-10-22 12:44] LABS: BASO % 0.2 % (0-2.0); EOS % 0.5 % (0-4.5); HEMATOCRIT 39.3 % (32.4-45.2); LYMPH % 19.3 % (8-40); MCH 28.3 pg (25.7-33.7); MCHC 33.2 g/dl (32.0-36.0); MEAN CELL VOLUME 85.1 fl (80-96); MEAN PLT VOLUME 7.8 fl (7.5-11.1); MONO % 3.4 % (3.8-10.2); NEUT % 76.6 % (42.8-82.8); PLATELET COUNT 361 K/MM3 (134-434); RBC 4.61 M/mm3 (3.60-5.2); WHITE BLOOD COUNT 15.6 K/mm3 (4.0-10.0)
--- NOTE | 2018-10-22 14:24 | HP ---
Admitting History and Physical - Primary Care Physician PCP: Alvin Ji - Admission Chief Complaint: PATIENT WITH ACUTE COLITIS History of Present Illness: PATIENT ADMITTED YESTERDAY WITH ACUTE COLITIS THEN SIGNED AMA FOR FAMILY ISSUE AT HOME AND RETURNED 6 HOURS LATER. PATIENT HAD A CT SCAN THAT SHOWED COLITIS ACUTE TYPE. PATIENT HAD ABDOMINAL PAIN FOR 2-3 DAYS BEFORE COMING TO ED. History Source: Patient, Medical Record - Past Medical History Cardiovascular: Yes: Hyperlipdemia Pulmonary: Yes: Asthma Gastrointestinal: Yes: GERD ...LMP: 03/22/18 Musculoskeletal: Yes: Chronic low back pain Rheumatology: Yes: Fibromyalgia Endocrine: Yes: Diabetes Mellitus - Past Surgical History Past Surgical History: Yes: - Smoking History Smoking history: Current every day smoker Have you smoked in the past 12 months: Yes Aproximately how many cigarettes per day: 10 - Alcohol/Substance Use Hx Alcohol Use: No - Social History ADL: Independent History of Recent Travel: No Home Medications - Allergies Allergies/Adverse Reactions: Allergies Allergy/AdvReac Type Severity Reaction Status Date / Time Penicillins Allergy Verified 10/22/18 10:53 vancomycin Allergy Verified 10/22/18 10:53 seafood Allergy Uncoded 10/22/18 10:53 - Home Medications Home Medications: Ambulatory Orders Atorvastatin Ca [Lipitor] 40 mg PO HS 10/21/18 Ferrous Sulfate 325 mg PO DAILY 10/21/18 Gabapentin [Gralise] 1 each PO DAILY 10/21/18 Hydroxyzine HCl 50 mg PO DAILY 10/21/18 Insulin Glargine,Hum.rec.anlog [Basaglar Kwikpen U-100] 100 unit SQ DAILY Linagliptin [Tradjenta] 5 mg PO DAILY 10/21/18 Liraglutide [Victoza -] 0.6 mg SQ DAILY@0700 10/21/18 Ondansetron HCl [Zofran] 4 mg PO DAILY 10/21/18 Pantoprazole Sodium 40 mg PO DAILY 10/21/18 Sennosides [Senna] 8.6 mg PO DAILY 10/21/18 Review of Systems - Review of Systems Constitutional: reports: Loss of Appetite, Weakness Eyes: reports: No Symptoms HENT: reports: No Symptoms Neck: reports: No Symptoms Cardiovascular: reports: No Symptoms Respiratory: reports: No Symptoms Gastrointestinal: reports: Abdominal Pain, Dysphagia, Indigestion, Nausea Musculoskeletal: reports: No Symptoms Integumentary: reports: No Symptoms Neurological: reports: No Symptoms Endocrine: reports: No Symptoms Hematology/Lymphatic: reports: No Symptoms Psychiatric: reports: No Symptoms Physical Examination Vital Signs: Vital Signs Temperature 98.3 F 10/22/18 10:54 Pulse Rate 98 H 10/22/18 10:54 Respiratory Rate 16 10/22/18 10:54 Blood Pressure 107/66 10/22/18 10:54 O2 Sat by Pulse Oximetry (%) 100 10/22/18 10:54 Constitutional: Yes: Mild Distress Eyes: Yes: WNL HENT: Yes: WNL Neck: Yes: WNL Cardiovascular: Yes: WNL Respiratory: Yes: WNL Gastrointestinal: Yes: Tenderness Musculoskeletal: Yes: Muscle Weakness Edema: No Peripheral Pulses WNL: Yes Integumentary: Yes: Tattoos Wound/Incision: Yes: Clean/Dry Neurological: Yes: WNL ...Motor Strength: WNL Psychiatric: Yes: WNL Labs: CBC, BMP 10/22/18 12:25 10/22/18 12:25 Imaging - Results Cat Scan: Report Reviewed Problem List - Problems (1) Colitis Code(s): K52.9 - NONINFECTIVE GASTROENTERITIS AND COLITIS, UNSPECIFIED (2) Abdominal pain Code(s): R10.9 - UNSPECIFIED ABDOMINAL PAIN Qualifiers: Abdominal location: right upper quadrant Qualified Code(s): R10.11 - Right upper quadrant pain (3) Diabetes Code(s): E11.9 - TYPE 2 DIABETES MELLITUS WITHOUT COMPLICATIONS Qualifiers: Diabetes mellitus type: type 2 Diabetes mellitus penitentiary insulin use: unspecified penitentiary insulin use status Chronic kidney disease stage: unspecified stage Assessment/Plan IV ABX NPO MONITOR BGM GI/SX EVAL IN AM CHECKING LABS WITH ESR/CMP LEVEL DVT PROPHYLAXIS
[2018-10-22] MEDS ORDERED: ONDANSETRON 4 MG/2 ML VIAL IVPUSH PRN (14:56)
[2018-10-22] MEDS ORDERED: morphine CARPU-JECT 4 MG/1 ML DISP.SYRIN IVPUSH PRN (14:56)
[2018-10-22 15:49] LABS: ALBUMIN 3.8 g/dl (3.4-5.0); ALK PHOS 127 U/L (45-117); ANION GAP 2 MMOL/L (8-16); BILIRUBIN,TOTAL 0.3 mg/dL (0.2-1); BLOOD UREA NITROGEN 10 mg/dL (7-18); CALCIUM 9.1 mg/dL (8.5-10.1); CHLORIDE 107 mmol/L (98-107); CO2 24 mmol/L (21-32); CREATININE 0.8 mg/dL (0.55-1.3); GLUCOSE,RANDOM 255 mg/dL (74-106); POTASSIUM 4.1 mmol/L (3.5-5.1); SGOT/AST 8 U/L (15-37); SGPT/ALT 12 U/L (13-61); SODIUM 133 mmol/L (136-145); TOT PROT 7.8 g/dl (6.4-8.2)
[2018-10-22] MEDS: PANTOPRAZOLE SODIUM 40 MG VIAL IVPUSH SCH (16:41)
[2018-10-22] MEDS: SODIUM CHLORIDE 1,000 ML IV SCH (16:41)
[2018-10-22] MEDS ORDERED: INSULIN (NOVOLOG) ASPART 100 UNITS/ML 10ML VIAL ONE (18:37)
[2018-10-22] MEDS: INSULIN SLIDING SCALE (NOVOLOG) 1 VIAL SQ SCH (18:39)
[2018-10-22] MEDS: morphine SULFATE 4 MG/ML VIAL IVPUSH PRN (18:42)
[2018-10-22] MEDS ORDERED: LORazepam 2 MG/ML SDV VIAL IVPUSH PRN ×2 (20:17→20:30)
[2018-10-22] MEDS ORDERED: LORazepam 2 MG/ML SDV VIAL ONE (20:19)
--- NOTE | 2018-10-22 20:25 | RAPID ---
Physical Examination Vital Signs: Vital Signs Temperature 98.2 F 10/22/18 17:42 Pulse Rate 92 H 10/22/18 17:42 Respiratory Rate 18 10/22/18 17:42 Blood Pressure 111/72 10/22/18 17:42 O2 Sat by Pulse Oximetry (%) 99 10/22/18 15:13 Labs: CBC, BMP 10/22/18 12:25 10/22/18 14:35 Rapid Response - Rapid Response Assessment: Rapid response called at 20:13. anodic operator team responded immediately. Upon arrival, Patient appeared very distressed, complaining of itchiness over body, Facial flushing and swelling. Erythematous rash noted on cheeks. Nurse informed that patient just started Levaquin and Flagyl. We were informed that patient have a reaction to vancomycin yesterday. Patient denied overt SOB or pharyngeal swelling. Reported severe diffuse pruritus. Moderate Distress 140/80, HR 104, Temp 98.4, 99% on RA Repeat Vitals: 141/98, HR 104, Temp 98.4, 94% on RA RRR S1 S2 w/o murmur Lungs CTAB Skin erythematous, maculopapular rash over face b/l, Excoriations on b/l LE A/P #Acute hypersensitivity reaction -Possibly due to ABx -Levaquin and Flagyl held given uncertainty of which caused reaction -Solumederol 125mg, Benadryl IV 50mg, Ativan 0.5mg, Famotidine IV 20mg -On reevaluation, Patient was not in any acute distress, puritius resolved, no pharyngeal swelling -Benadryl 25mg PO BID, Prednisone 60mg PO BID -Continue to monitor
[2018-10-22] MEDS ORDERED: diphenhydrAMINE HCL 50 MG CAPSULE PO ONE (20:30)
[2018-10-22] MEDS ORDERED: methylPREDNISolone NA SUCC 125 MG/2 ML VIAL IVPUSH ONE (20:30)
[2018-10-22] MEDS: HEPARIN NA (PORCINE) 5,000 UNITS/ML 1ML VIAL SQ SCH (22:05)
[2018-10-23] MEDS: INSULIN SLIDING SCALE (NOVOLOG) 1 VIAL SQ SCH ×4 (01:15→18:38)
[2018-10-23] MEDS ORDERED: FAMOTIDINE 20 MG/50 ML IVPB 20 MG/50 ML MG IVPB ONE (02:08)
[2018-10-23] MEDS: morphine SULFATE 4 MG/ML VIAL IVPUSH PRN ×3 (06:47→19:17)
[2018-10-23 07:29] LABS: HEMATOCRIT 34.4 % (32.4-45.2); HEMOGLOBIN 11.2 GM/dL (10.7-15.3); MCH 28.5 pg (25.7-33.7); MCHC 32.7 g/dl (32.0-36.0); MEAN CELL VOLUME 87.2 fl (80-96); MEAN PLT VOLUME 8.3 fl (7.5-11.1); PLATELET COUNT 342 K/MM3 (134-434); RBC 3.94 M/mm3 (3.60-5.2); RDW 22.7 % (11.6-15.6); WHITE BLOOD COUNT 16.9 K/mm3 (4.0-10.0)
[2018-10-23 08:36] LABS: ALBUMIN 3.7 g/dl (3.4-5.0); ALK PHOS 125 U/L (45-117); ANION GAP 11 MMOL/L (8-16); BILIRUBIN,TOTAL 0.2 mg/dL (0.2-1); BLOOD UREA NITROGEN 16 mg/dL (7-18); CALCIUM 9.3 mg/dL (8.5-10.1); CHLORIDE 107 mmol/L (98-107); CO2 18 mmol/L (21-32); CREATININE 0.8 mg/dL (0.55-1.3); GLUCOSE,RANDOM 217 mg/dL (74-106); POTASSIUM 4.6 mmol/L (3.5-5.1); SGOT/AST 10 U/L (15-37); SGPT/ALT 14 U/L (13-61); SODIUM 136 mmol/L (136-145); TOT PROT 7.8 g/dl (6.4-8.2)
--- NOTE | 2018-10-23 10:25 | PN ---
Progress Note, Physician Chief Complaint: NOTES REVIEWED ALLERGIC REACTION TO POSSIBLE LEVAQUIN/FLAGYL PATIENT IN BED DENIES COUHG/SOB/FEVER - Current Medication List Current Medications: Active Medications Diphenhydramine HCl (Benadryl -) 25 mg PO BID [facility] Heparin Sodium (Porcine) (Heparin -) 5,000 unit SQ BID [facility] Last Admin: 10/22/18 22:05 Dose: 5,000 unit Metronidazole (Flagyl 500mg Premixed Ivpb -) 500 mg in 100 mls @ 100 mls/hr IVPB Q8H-IV [facility] Last Admin: 10/23/18 01:30 Dose: Not Given Levofloxacin (Levaquin 500 Mg Premixed Ivpb -) 500 mg in 100 mls @ 100 mls/hr IVPB DAILY [facility]; Protocol Last Admin: 10/22/18 15:21 Dose: 100 mls/hr Sodium Chloride (Normal Saline -) 1,000 mls @ 100 mls/hr IV ASDIR [facility] Last Admin: 10/22/18 16:41 Dose: 100 mls/hr Insulin Aspart (Novolog Vial Sliding Scale -) 1 vial SQ Q6H [facility]; Protocol Last Admin: 10/23/18 06:24 Dose: 2 units Lorazepam (Ativan Injection -) 1 mg IVPUSH HS PRN PRN Reason: ANXIETY Morphine Sulfate (Morphine Sulfate) 4 mg IVPUSH Q6H PRN PRN Reason: PAIN LEVEL 7 - 10 Last Admin: 10/23/18 06:47 Dose: 4 mg Ondansetron HCl (Zofran Injection) 4 mg IVPUSH Q6H PRN PRN Reason: NAUSEA Pantoprazole Sodium (Protonix Iv) 40 mg IVPUSH DAILY [facility] Last Admin: 10/22/18 16:41 Dose: 40 mg Prednisone (Deltasone -) 60 mg PO BID [facility] - Objective Vital Signs: Vital Signs Temperature 98.2 F 10/23/18 06:00 Pulse Rate 92 H 10/23/18 06:00 Respiratory Rate 20 10/23/18 06:00 Blood Pressure 104/69 10/23/18 06:00 O2 Sat by Pulse Oximetry (%) 100 10/22/18 21:00 Constitutional: Yes: No Distress Eyes: Yes: WNL HENT: Yes: Other (LIPS ARE SWOLLEN) Neck: Yes: WNL Cardiovascular: Yes: WNL Respiratory: Yes: WNL Gastrointestinal: Yes: Tenderness Genitourinary: Yes: WNL Musculoskeletal: Yes: WNL Extremities: Yes: WNL Edema: No Peripheral Pulses WNL: Yes Integumentary: Yes: Erythema Wound/Incision: Yes: Other Neurological: Yes: WNL ...Motor Strength: WNL Psychiatric: Yes: WNL Labs: CBC, BMP 10/23/18 07:00 10/23/18 07:00 Problem List - Problems (1) Colitis Code(s): K52.9 - NONINFECTIVE GASTROENTERITIS AND COLITIS, UNSPECIFIED (2) Abdominal pain Code(s): R10.9 - UNSPECIFIED ABDOMINAL PAIN Qualifiers: Abdominal location: right upper quadrant Qualified Code(s): R10.11 - Right upper quadrant pain (3) Diabetes Code(s): E11.9 - TYPE 2 DIABETES MELLITUS WITHOUT COMPLICATIONS Qualifiers: Diabetes mellitus type: type 2 Diabetes mellitus terminal superintendent insulin use: unspecified chcf insulin use status Chronic kidney disease stage: unspecified stage Assessment/Plan IV ABX CHANGED TO ERTAPENEM IV SOLUMEDROL AND BENADRYL NPO MONITOR BGM GI/SX EVAL IN AM CHECKING LABS WITH ESR/CMP LEVEL DVT PROPHYLAXIS
--- NOTE | 2018-10-23 10:35 | PN ---
Progress Note (short form) - Note Progress Note: ID consult dictated imp/reccd 42 yo female with history of diabetes, liver abscess (Ecoli) february 2018, s/p 4 weeks of ceftriaxone as outpot- followed by Dr Clinton did well, one week ago developed abdominal pain, also nonbloody diarrhea which has stopped on Sunday, vomiting 2 days ago no diarrhea or dysuria, ?fever at home no sick contacts, not travel no BM for last several days came to ED 10/21 with these complaints elevated wbc to 20 k , ct scan with possible colitis developed facial rash in ED to vancomycin, it was stopped got azactam she left ama to spend [place] with her kids abdominal pain worsened and she came back placed on levaquin/flagyl yesterday afternoon last night got sob, with worsening facial rash got steroids, antihistamines with improvement still itchy currently off antibiotics recent colonoscopy july- unremarkable d/w dr clinton and dr mares for repeat ct scan abd/pelvis now if evidence of colitis we will try ertapenem 1 gram daily (dr clinton to order after ct scan results) if unremarkable- we will watch her off antiibotics will avoid vancomycin/levaquin/flagyl at this time also penicillin allergy noted (but no problem with ceftriaxone in the past) Problem List - Problems (1) Abdominal pain Code(s): R10.9 - UNSPECIFIED ABDOMINAL PAIN Qualifiers: Abdominal location: right upper quadrant Qualified Code(s): R10.11 - Right upper quadrant pain (2) Allergy to multiple antibiotics Code(s): Z88.1 - ALLERGY STATUS TO OTHER ANTIBIOTIC AGENTS STATUS
[2018-10-23] MEDS: predniSONE 20 MG TABLET (UD) PO SCH ×2 (10:41→21:13)
[2018-10-23] MEDS: PANTOPRAZOLE SODIUM 40 MG VIAL IVPUSH SCH (10:41)
[2018-10-23] MEDS: diphenhydrAMINE HCL 25 MG CAPSULE (FP) PO SCH ×2 (10:41→21:12)
[2018-10-23] MEDS: HEPARIN NA (PORCINE) 5,000 UNITS/ML 1ML VIAL SQ SCH ×2 (10:41→21:13)
[2018-10-23] MEDS ORDERED: NICOTINE 21 MG/24 HOURS TOPICAL PATCH TD ONE (14:00)
--- NOTE | 2018-10-23 17:52 | CONS ---
DATE OF CONSULTATION: DATE OF DICTATION: 10/23/2018 INFECTIOUS DISEASE CONSULTATION HISTORY OF PRESENT ILLNESS: This is a 42-year-old woman with a history of diabetes. She has a history as well of a liver, kidney, and psoas abscess in February of 2018, at which time she was treated. Cultures all grew pansensitive E. coli. Then she was treated with a PICC line, a percutaneous drainage, and IV ceftriaxone for 4 weeks. She was followed very closely by Dr. Ji at that time. About 1 week ago, she started having some abdominal pain. She also had diarrhea, nonbloody, 4 to 5 to 6 a day which stopped on Sunday. She has not had a bowel movement since. She had 3 episodes of vomiting as well a week ago, which has resolved. She has no dysuria. She has no fever. She presented to the emergency room with these complaints and was given vancomycin and Azactam. She developed facial rash to the vancomycin, and then she left AMA because she wanted to be home with her family for [place]. She then returned several hours later with the same complaints. She had also had a CAT scan on her first admission to the ER that was notable for possible colitis. She was started on Levaquin and Flagyl yesterday afternoon. Last night she developed an episode of shortness of breath with itchiness all over her body and facial flushing. She was noted only to have a rash on her face. Her antibiotics were stopped. She was given IV steroids and Benadryl, Ativan, and famotidine. She was started on oral prednisone. I am asked to see her today for further evaluation. Patient is awake and alert. She has had no fevers documented. She has had no sick contacts. She has not traveled. She is currently off antibiotics. She had a recent colonoscopy in July that was unremarkable. ALLERGIES: She is allergic now to PENICILLIN which is a rash, but tolerated cephalosporins, the vancomycin, and it is unclear if Levaquin or Flagyl also created an allergy. MEDICATIONS AT HOME: Include senna, pantoprazole, Zofran, Victoza, Tradjenta, insulin, hydroxyzine, gabapentin, ferrous sulfate, atorvastatin. SOCIAL HISTORY: She is unemployed. She lives at home. She is a current smoker. There is no history of any substance use. REVIEW OF SYSTEMS: As per HPI. She has not had a bowel movement for several days. PHYSICAL EXAMINATION: VITAL SIGNS: Temperature is 97.8, pulse 105, blood pressure 117/78, respiratory rate 20, she is saturating 100%. HEENT: Normocephalic. Eyes are anicteric. NECK: Supple. LUNGS: Clear to auscultation. HEART: Regular rate and rhythm. ABDOMEN: Soft. She has bowel sounds. She has some lower abdominal discomfort to palpation. EXTREMITIES: Without edema. LABORATORY: White count is 16.9 this morning, hemoglobin 11.2, platelets are 342. BUN and creatinine are 16 and 0.8. Her sedimentation rate is 90 and CRP is 3.1, urinalysis has 1 white cell. Urine culture is negative. Blood cultures are negative at 24 hours. Case is discussed at length with Dr. Ji and Dr. Valles, with the plan being to repeat CAT scan now. If there is evidence of colitis, we will try her on ertapenem a gram daily. If it is unremarkable, we will watch her off antibiotics. We will avoid vancomycin, Levaquin, and Flagyl at this time, also PENICILLIN given her prior allergy, though she had no trouble with Azactam or ceftriaxone at the time. Further recommendations to follow. Nino [id number]
[2018-10-23] MEDS ORDERED: INSULIN (NOVOLOG) ASPART 100 UNITS/ML 10ML VIAL SQ ONE (18:36)
[2018-10-23] MEDS: SODIUM CHLORIDE 1,000 ML IV SCH (18:40)
[2018-10-24] MEDS: INSULIN SLIDING SCALE (NOVOLOG) 1 VIAL SQ SCH ×6 (01:30→23:48)
[2018-10-24] MEDS: morphine SULFATE 4 MG/ML VIAL IVPUSH PRN ×3 (01:31→21:21)
[2018-10-24] MEDS ORDERED: INSULIN (NOVOLOG) ASPART 100 UNITS/ML 10ML VIAL ONE ×2 (06:25→13:41)
[2018-10-24 07:58] LABS: HEMATOCRIT 33.5 % (32.4-45.2); HEMOGLOBIN 10.7 GM/dL (10.7-15.3); MCHC 32.1 g/dl (32.0-36.0); MEAN CELL VOLUME 87.4 fl (80-96); MEAN PLT VOLUME 8.8 fl (7.5-11.1); PLATELET COUNT 260 K/MM3 (134-434); RBC 3.84 M/mm3 (3.60-5.2); WHITE BLOOD COUNT 15.8 K/mm3 (4.0-10.0)
[2018-10-24 08:03] LABS: ALBUMIN 3.3 g/dl (3.4-5.0); ALK PHOS 112 U/L (45-117); ANION GAP 11 MMOL/L (8-16); BILIRUBIN,TOTAL 0.4 mg/dL (0.2-1); BLOOD UREA NITROGEN 16 mg/dL (7-18); CALCIUM 8.4 mg/dL (8.5-10.1); CHLORIDE 106 mmol/L (98-107); CO2 17 mmol/L (21-32); CREATININE 0.8 mg/dL (0.55-1.3); GLUCOSE,RANDOM 277 mg/dL (74-106); POTASSIUM 4.6 mmol/L (3.5-5.1); SGOT/AST 13 U/L (15-37); SGPT/ALT 12 U/L (13-61); SODIUM 134 mmol/L (136-145); TOT PROT 7.2 g/dl (6.4-8.2)
--- NOTE | 2018-10-24 09:37 | CON.GI ---
Consult Consult Specialty:: gi Referred by:: Dr Ji - History of Present Illness History of Present Illness: 42 y/o F with PMH of CVA,DM(Hgb A1c 11), liver abscess s/p percutaneous drainage 2017,s/p colonoscopy 07/2018 (colonic avm s/p cauterization) was doing well until yesterday when she developed lower abdominal pain, nausea,vomiting and diarrhea. In the ER she was noted to have leukocytosis and noted have concentric thickening of the colon with retained stool, There was retained fluid in the stomach. This was done without oral contrast. Her blood sugar was in the 300 Patient signed out AMA. Patient was readmitted and seen yesterday. She continuous to have abdominal pain and nausea today no vomiting. She had allergic reaction to antibiotics. The exact medication is unclear. She received Solumedrol IV and Prednisone PO - Past Medical History Cardio/Vascular: Yes: Hyperlipdemia Pulmonary: Yes: Asthma Gastrointestinal: Yes: GERD ...LMP: 03/22/18 Musculoskeletal: Yes: Chronic low back pain Rheumatology: Yes: Fibromyalgia Endocrine: Yes: Diabetes Mellitus - Past Surgical History Past Surgical History: Yes: - Alcohol/Substance Use Hx Alcohol Use: No - Smoking History Smoking history: Current every day smoker Have you smoked in the past 12 months: Yes Aproximately how many cigarettes per day: 10 - Social History ADL: Independent History of Recent Travel: No Home Medications - Allergies Allergies/Adverse Reactions: Allergies Allergy/AdvReac Type Severity Reaction Status Date / Time Penicillins Allergy Verified 10/22/18 10:53 vancomycin Allergy Verified 10/22/18 10:53 seafood Allergy Uncoded 10/22/18 10:53 - Home Medications Home Medications: Ambulatory Orders Atorvastatin Ca [Lipitor] 40 mg PO HS 10/21/18 Ferrous Sulfate 325 mg PO DAILY 10/21/18 Gabapentin [Gralise] 1 each PO DAILY 10/21/18 Hydroxyzine HCl 50 mg PO DAILY 10/21/18 Insulin Glargine,Hum.rec.anlog [Basaglar Kwikpen U-100] 100 unit SQ DAILY Linagliptin [Tradjenta] 5 mg PO DAILY 10/21/18 Liraglutide [Victoza -] 0.6 mg SQ DAILY@0700 10/21/18 Ondansetron HCl [Zofran] 4 mg PO DAILY 10/21/18 Pantoprazole Sodium 40 mg PO DAILY 10/21/18 Sennosides [Senna] 8.6 mg PO DAILY 10/21/18 Review of Systems - Review of Systems Constitutional: denies: No Symptoms, Chills, Diaphoresis, Fever, Lethargy, Loss of Appetite, Malaise, Night Sweats, Unintentional Wgt. Loss, Weakness, Other Eyes: denies: No Symptoms, Blind Spots, Blurred Vision, Double Vision, Eye Pain , Floaters, Photophobia, Recent Change in Vision, Other Neck: denies: No Symptoms, Decreased ROM, Lumps, Pain on Movement, Stiffness, Swollen Glands, Tenderness, Other Cardiovascular: denies: No Symptoms, Chest Pain, Edema, Palpitations, Shortness of Breath, Other Respiratory: denies: No Symptoms, Cough, Exercise Intolerance, Hemoptysis, Orthopnea, PND, Snoring, SOB, SOB on Exertion, Wheezing, Other Gastrointestinal: reports: Abdominal Pain, Nausea. denies: Vomiting Physical Exam-GI Vital Signs: Vital Signs Temperature 98.1 F 10/24/18 06:00 Pulse Rate 83 10/24/18 06:00 Respiratory Rate 20 10/24/18 06:00 Blood Pressure 118/76 10/24/18 06:00 O2 Sat by Pulse Oximetry (%) 100 10/23/18 21:00 Constitutional: Yes: No Distress Eyes: Yes: Conjunctiva Clear HENT: Yes: Atraumatic Neck: Yes: Supple Cardiovascular: Yes: Regular Rate and Rhythm Respiratory: Yes: CTA Bilaterally Gastrointestinal Inspection: No: Distention ...Palpate: Yes: Soft, Tenderness (--diffuse). No: Firm/Rigid, Guarding, Hepatomegaly, Splenomegaly ...Percussion: Yes: Tympanitic Labs: CBC, BMP 10/24/18 06:30 10/24/18 06:30 Home Medications Medication Instructions Recorded Atorvastatin Ca [Lipitor] 40 mg PO HS 10/21/18 Ferrous Sulfate 325 mg PO DAILY 10/21/18 Gabapentin [Gralise] 1 each PO DAILY 10/21/18 Hydroxyzine HCl 50 mg PO DAILY 10/21/18 Insulin Glargine,Hum.rec.anlog 100 unit SQ DAILY 10/21/18 [Basaglar Kwikpen U-100] Linagliptin [Tradjenta] 5 mg PO DAILY 10/21/18 Liraglutide [Victoza -] 0.6 mg SQ DAILY@0700 10/21/18 Ondansetron HCl [Zofran] 4 mg PO DAILY 10/21/18 Pantoprazole Sodium 40 mg PO DAILY 10/21/18 Sennosides [Senna] 8.6 mg PO DAILY 10/21/18 Current Medications Diphenhydramine HCl (Benadryl -) 25 mg PO BID [facility] Last Admin: 10/23/18 21:12 Dose: 25 mg Heparin Sodium (Porcine) (Heparin -) 5,000 unit SQ BID [facility] Last Admin: 10/23/18 21:13 Dose: 5,000 unit Sodium Chloride (Normal Saline -) 1,000 mls @ 100 mls/hr IV ASDIR [facility] Last Admin: 10/23/18 18:40 Dose: Not Given Insulin Aspart (Novolog Vial Sliding Scale -) 1 vial SQ Q6H [facility]; Protocol Last Admin: 10/24/18 06:26 Dose: 4 units Lorazepam (Ativan Injection -) 1 mg IVPUSH HS PRN PRN Reason: ANXIETY Morphine Sulfate (Morphine Sulfate) 4 mg IVPUSH Q6H PRN PRN Reason: PAIN LEVEL 7 - 10 Last Admin: 10/24/18 08:52 Dose: 4 mg Ondansetron HCl (Zofran Injection) 4 mg IVPUSH Q6H PRN PRN Reason: NAUSEA Pantoprazole Sodium (Protonix Iv) 40 mg IVPUSH DAILY [facility] Last Admin: 10/23/18 10:41 Dose: 40 mg Prednisone (Deltasone -) 60 mg PO BID [facility] Last Admin: 10/23/18 21:13 Dose: 60 mg Imaging - Results Cat Scan: Report Reviewed Problem List - Problems (1) Ischemic colitis Assessment/Plan: repeat CT compared to previous --inflammation of the colon has resolved R> conitnue IV hydration serial abdominal examination Code(s): K55.9 - VASCULAR DISORDER OF INTESTINE, UNSPECIFIED
[2018-10-24] MEDS: HEPARIN NA (PORCINE) 5,000 UNITS/ML 1ML VIAL SQ SCH ×2 (10:57→21:20)
[2018-10-24] MEDS: PANTOPRAZOLE SODIUM 40 MG VIAL IVPUSH SCH (10:57)
[2018-10-24] MEDS: predniSONE 20 MG TABLET (UD) PO SCH ×2 (10:57→21:20)
[2018-10-24] MEDS: diphenhydrAMINE HCL 25 MG CAPSULE (FP) PO SCH (12:07)
[2018-10-24 13:49] LABS: COCAINE, UR NEGATIVE ng/ml (CUTOFF=300); METHADONE, UR NEGATIVE ng/ml (CUTOFF=300); PHENCYCLIDINE,URINE NEGATIVE ng/ml (CUTOFF=25); URINE BARBITURATES NEGATIVE ng/ml (CUTOFF=200); URINE BENZODIAZEPINES NEGATIVE ng/ml (CUTOFF=200)
[2018-10-24 13:50] LABS: URINE AMPHETAMINES NEGATIVE ng/ml (CUTOFF=500)
[2018-10-24 14:04] LABS: OPIATES, URI POSITIVE ng/ml (CUTOFF=300)
--- NOTE | 2018-10-24 14:17 | PN ---
Progress Note (short form) - Note Progress Note: feels well hungry wants to eat no BM c/o facial itching cta abd/pelvis- no colitis, no ischemia Vital Signs Period Temp Pulse Resp BP Sys/Biggs Pulse Ox Last 24 Hr 98.0 F-98.4 F 83-91 18-20 107-122/68-84 100-100 facial rash cor-rrr lungs clear abd soft,nt ext no edema CBC, BMP 10/24/18 06:30 10/24/18 06:30 cultures negative a/p abdominal pain resolved-clinically improved ct scan no ischemia or colitis leukocytosis may be partially steroids drug reaction will avoid vancomycin/levaquin/flagyl at this time also penicillin allergy noted (but no problem with ceftriaxone in the past) please call back if needed Problem List - Problems (1) Abdominal pain Code(s): R10.9 - UNSPECIFIED ABDOMINAL PAIN Qualifiers: Abdominal location: right upper quadrant Qualified Code(s): R10.11 - Right upper quadrant pain (2) Allergy to multiple antibiotics Code(s): Z88.1 - ALLERGY STATUS TO OTHER ANTIBIOTIC AGENTS STATUS
--- NOTE | 2018-10-24 16:56 | PN ---
Progress Note, Physician Chief Complaint: Abdominal pain Allergic reaction to ABT History of Present Illness: Previous notes reviewed and appreciated awake and alert NAD wbc elevated CT scan results reviewed on examination denies abdominal pain and states feeling better complains of constipation currently on clear liquid diet but is non-compliant, educated patient on importance following placed orders - Current Medication List Current Medications: Active Medications Diphenhydramine HCl (Benadryl Injection -) 25 mg IVPUSH BID [facility] Heparin Sodium (Porcine) (Heparin -) 5,000 unit SQ BID [facility] Last Admin: 10/24/18 10:57 Dose: 5,000 unit Sodium Chloride (Normal Saline -) 1,000 mls @ 100 mls/hr IV ASDIR [facility] Last Admin: 10/23/18 18:40 Dose: Not Given Insulin Aspart (Novolog Vial Sliding Scale -) 1 vial SQ Q6H [facility]; Protocol Last Admin: 10/24/18 13:43 Dose: 2 units Lorazepam (Ativan Injection -) 1 mg IVPUSH HS PRN PRN Reason: ANXIETY Morphine Sulfate (Morphine Sulfate) 4 mg IVPUSH Q6H PRN PRN Reason: PAIN LEVEL 7 - 10 Last Admin: 10/24/18 08:52 Dose: 4 mg Ondansetron HCl (Zofran Injection) 4 mg IVPUSH Q6H PRN PRN Reason: NAUSEA Pantoprazole Sodium (Protonix Iv) 40 mg IVPUSH DAILY [facility] Last Admin: 10/24/18 10:57 Dose: 40 mg Prednisone (Deltasone -) 60 mg PO BID [facility] Last Admin: 10/24/18 10:57 Dose: 60 mg - Objective Vital Signs: Vital Signs Temperature 98.2 F 10/24/18 14:41 Pulse Rate 73 10/24/18 14:41 Respiratory Rate 18 10/24/18 14:41 Blood Pressure 126/81 10/24/18 14:41 O2 Sat by Pulse Oximetry (%) 100 10/24/18 09:00 Constitutional: Yes: Well Nourished, No Distress, Calm Eyes: Yes: Conjunctiva Clear Neck: Yes: Supple Cardiovascular: Yes: Regular Rate and Rhythm Respiratory: Yes: Regular, CTA Bilaterally Gastrointestinal: Yes: Normal Bowel Sounds, Soft Musculoskeletal: Yes: WNL Extremities: Yes: WNL Edema: Yes Edema: LLE: Trace Integumentary: Yes: WNL, Tattoos Neurological: Yes: Alert, Oriented Psychiatric: Yes: Alert, Oriented Labs: CBC, BMP 10/24/18 06:30 10/24/18 06:30 Problem List - Problems (1) Ischemic colitis Code(s): K55.9 - VASCULAR DISORDER OF INTESTINE, UNSPECIFIED (2) Diabetes Code(s): E11.9 - TYPE 2 DIABETES MELLITUS WITHOUT COMPLICATIONS Qualifiers: Diabetes mellitus type: type 2 Diabetes mellitus mcfp insulin use: unspecified keno terminal 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
--- NOTE | 2018-10-24 19:01 | PN ---
Progress Note (short form) - Note Progress Note: Called by RN Rosalie Otto due to patient being hyperglycemic with BG levels > 400. 10units insulin given and sliding scale adjusted due to daily steroid therapy (pred 60mg). Additionally, pt started on levemir 10units at bedtime and victoza 0.6mg qam. continue with FS [id number] and uptitrate insulin therapy as needed. Once steroids course is completed. Her regimen should be readjusted. Visit type - Emergency Visit Emergency Visit: Yes ED Registration Date: 10/22/18 Care time: The patient presented to the Emergency Department on the above date and was hospitalized for further evaluation of their emergent condition. - New Patient This patient is new to me today: Yes Date on this admission: 10/24/18 - Critical Care Critical Care patient: No - Discharge Referral Referred to [facility] Med P.C.: No
[2018-10-24] MEDS: SODIUM CHLORIDE 1,000 ML IV SCH (21:16)
[2018-10-24] MEDS ORDERED: SENNOSIDES 8.6MG TABLET (FP) PO SCH (22:00)
[2018-10-24] MEDS ORDERED: INSULIN (LEVEMIR) 100 UNITS/ML UNITS SQ SCH (22:00)
[2018-10-24] MEDS ORDERED: DOCUSATE SODIUM 100 MG CAPSULE (FP) PO SCH (22:00)
[2018-10-25] MEDS ORDERED: hydrOXYzine HCL 25 MG TABLET (FP) PO ONE (00:14)
[2018-10-25] MEDS ORDERED: PT OWN MED DRAWER 7, Y5N ONE (06:14)
[2018-10-25] MEDS: INSULIN SLIDING SCALE (NOVOLOG) 1 VIAL SQ SCH ×2 (06:19→11:50)
[2018-10-25] MEDS ORDERED: LIRAGLUTIDE 0.6 MG/0.1 ML PEN.INJCTR SQ SCH (07:00)
[2018-10-25 07:14] VITALS: BP 118/73; PULSE 62; TEMP 97.9
[2018-10-25 08:30] LABS: HEMATOCRIT 32.1 % (32.4-45.2); HEMOGLOBIN 9.8 GM/dL (10.7-15.3); MCH 26.6 pg (25.7-33.7); MCHC 30.6 g/dl (32.0-36.0); MEAN CELL VOLUME 86.9 fl (80-96); MEAN PLT VOLUME 8.6 fl (7.5-11.1); PLATELET COUNT 273 K/MM3 (134-434); RBC 3.69 M/mm3 (3.60-5.2); RDW 22.7 % (11.6-15.6); WHITE BLOOD COUNT 11.7 K/mm3 (4.0-10.0)
[2018-10-25 09:02] LABS: ALBUMIN 3.2 g/dl (3.4-5.0); ALK PHOS 99 U/L (45-117); ANION GAP 9 MMOL/L (8-16); BILIRUBIN,TOTAL 0.4 mg/dL (0.2-1); BLOOD UREA NITROGEN 13 mg/dL (7-18); CALCIUM 8.5 mg/dL (8.5-10.1); CHLORIDE 108 mmol/L (98-107); CO2 20 mmol/L (21-32); CREATININE 0.7 mg/dL (0.55-1.3); GLUCOSE,RANDOM 239 mg/dL (74-106); POTASSIUM 4.4 mmol/L (3.5-5.1); SGOT/AST 13 U/L (15-37); SGPT/ALT 13 U/L (13-61); SODIUM 136 mmol/L (136-145); TOT PROT 6.6 g/dl (6.4-8.2)
[2018-10-25] MEDS: morphine SULFATE 4 MG/ML VIAL IVPUSH PRN (09:13)
[2018-10-25] MEDS: predniSONE 20 MG TABLET (UD) PO SCH (09:15)
[2018-10-25] MEDS: HEPARIN NA (PORCINE) 5,000 UNITS/ML 1ML VIAL SQ SCH (09:15)
[2018-10-25] MEDS: PANTOPRAZOLE SODIUM 40 MG VIAL IVPUSH SCH (09:15)
[2018-10-25] MEDS ORDERED: NICOTINE 21 MG/24 HOURS TOPICAL PATCH TD SCH (10:00)
--- NOTE | 2018-10-25 11:51 | DS ---
Physical Examination Vital Signs: Vital Signs Temperature 97.9 F 10/25/18 07:14 Pulse Rate 62 10/25/18 07:14 Respiratory Rate 20 10/25/18 07:14 Blood Pressure 118/73 10/25/18 07:14 O2 Sat by Pulse Oximetry (%) 100 10/24/18 21:00 Findings/Remarks: TOLERATING MEALS PAIN FREE Constitutional: Yes: No Distress Eyes: Yes: WNL HENT: Yes: WNL Neck: Yes: WNL Cardiovascular: Yes: WNL Respiratory: Yes: WNL Gastrointestinal: Yes: WNL Musculoskeletal: Yes: WNL Extremities: Yes: WNL Edema: No Peripheral Pulses WNL: Yes Integumentary: Yes: WNL Wound/Incision: Yes: Clean/Dry Neurological: Yes: WNL ...Motor Strength: WNL Labs: CBC, BMP 10/25/18 07:30 10/25/18 07:30 Discharge Summary Reason For Visit: COLITIS Current Active Problems Allergy to multiple antibiotics (Acute) Colitis (Acute) Ischemic colitis (Acute) Procedures: Principal: CT ABD Hospital Course: ADMITTED AFTER SIGNING AMA, GIVEN BED AND BOWEL REST, IVF, CTA POSSIBLE ISCHEMIA Condition: Improved - Instructions Diet, Activity, Other Instructions: SEE DR MAXWELL IN 1 WEEK LIQUID DIET UNTIL TOTALLY PAIN FREE THEN ADVANCE DIET SLOWLY Referrals: Alvin Ji MD [Primary Care Provider] - Disposition: HOME - Home Medications Comprehensive Discharge Medication List: Ambulatory Orders Atorvastatin Ca [Lipitor] 40 mg PO HS 10/21/18 Ferrous Sulfate 325 mg PO DAILY 10/21/18 Gabapentin [Gralise] 1 each PO DAILY 10/21/18 Hydroxyzine HCl 50 mg PO DAILY 10/21/18 Insulin Glargine,Hum.rec.anlog [Basaglar Kwikpen U-100] 100 unit SQ DAILY Linagliptin [Tradjenta] 5 mg PO DAILY 10/21/18 Liraglutide [Victoza -] 0.6 mg SQ DAILY@0700 10/21/18 Ondansetron HCl [Zofran] 4 mg PO DAILY 10/21/18 Pantoprazole Sodium 40 mg PO DAILY 10/21/18 Sennosides [Senna] 8.6 mg PO DAILY 10/21/18 Diphenhydramine HCl [Benadryl Capsule -] 25 mg PO BID PRN #30 capsule MDD 4 Docusate Sodium [Colace -] 300 mg PO HS #30 capsule 10/25/18 Insulin (Levemir) [Levemir Vial] 10 units SQ HS units 10/25/18 Liraglutide [Victoza -] 0.6 mg SQ DAILY@0700 [email or web address] 10/25/18 Nicotine Patch [Nicoderm Patch -] 21 mg TD DAILY #30 patch 10/25/18 Prednisone [Deltasone] 20 mg PO BID 3 Days tablet 10/25/18 Sennosides [Senna -] 2 tab PO HS #60 tablet 10/25/18
== END 2018-10-25 13:14 | disposition home or self-care (01) | DRG 246 ==
LOC: JER 10:51 → JERBED 12:16 → J8W 16:20
PROVIDERS: ADMIT Family Medicine; ATTEND Family Medicine
DX: K55.9 Vascular disorder of intestine, unspecified (principal); E78.5 Hyperlipidemia, unspecified; K21.9 Gastro-esophageal reflux disease without esophagitis; M54.5 Low back pain; J45.909 Unspecified asthma, uncomplicated; E11.9 Type 2 diabetes mellitus without complications; M79.7 Fibromyalgia; D72.829 Elevated white blood cell count, unspecified; F17.210 Nicotine dependence, cigarettes, uncomplicated; L27.0 Generalized skin eruption due to drugs and medicaments taken internally; E11.65 Type 2 diabetes mellitus with hyperglycemia; R10.11 Right upper quadrant pain; Z88.0 Allergy status to penicillin; Z88.1 Allergy status to other antibiotic agents; T36.8X5A Adverse effect of other systemic antibiotics, initial encounter; Y92.238 Other place in hospital as the place of occurrence of the external cause
CPT/HCPCS: 36415; 74174-TC; 80053; 80307; 82962; 85025; 85027; 85651; 86140; 99281-25; J1644; J7030; Q0162

== ENCOUNTER 2018-11-15 11:56 | Emergency (ER) | payer OTHER ==
[2018-11-15 12:08] VITALS: TEMP 98.2; BMI 23.8
[2018-11-15] MEDS ORDERED: SODIUM CHLORIDE 1,000 ML IV STA (12:22)
[2018-11-15] MEDS ORDERED: ONDANSETRON 4 MG/2 ML VIAL IVPUSH ONE (12:22)
[2018-11-15] MEDS ORDERED: morphine CARPU-JECT 4 MG/1 ML DISP.SYRIN IVPUSH ONE (12:23)
[2018-11-15] MEDS ORDERED: ONDANSETRON 4 MG/2 ML VIAL ONE (13:25)
[2018-11-15] MEDS ORDERED: morphine SULFATE 4 MG/ML VIAL ONE (13:25)
--- NOTE | 2018-11-15 13:44 | PDOC ---
History of Present Illness - General Chief Complaint: Pain Stated Complaint: ABD PAIN Time Seen by Provider: 11/15/18 12:11 History Source: Patient Exam Limitations: No Limitations Past History - Past Medical History Allergies/Adverse Reactions: Allergies Allergy/AdvReac Type Severity Reaction Status Date / Time Penicillins Allergy Verified 11/15/18 12:00 vancomycin Allergy Verified 11/15/18 12:00 seafood Allergy Uncoded 11/15/18 12:00 Home Medications: Ambulatory Orders Atorvastatin Ca [Lipitor] 40 mg PO HS 10/21/18 Ferrous Sulfate 325 mg PO DAILY 10/21/18 Hydroxyzine HCl 50 mg PO DAILY 10/21/18 Insulin Glargine,Hum.rec.anlog [Basaglar Kwikpen U-100] 100 unit SQ DAILY Linagliptin [Tradjenta] 5 mg PO DAILY 10/21/18 Ondansetron HCl [Zofran] 4 mg PO TID PRN 10/21/18 Pantoprazole Sodium 40 mg PO DAILY 10/21/18 Diphenhydramine HCl [Benadryl Capsule -] 25 mg PO BID PRN #30 capsule MDD 4 Insulin (Levemir) [Levemir Vial] 10 units SQ HS units 10/25/18 Liraglutide [Victoza -] 0.6 mg SQ DAILY@0700 pen.injctr 10/25/18 Prednisone [Deltasone] 20 mg PO BID 3 Days tablet 10/25/18 Sennosides [Senna -] 2 tab PO HS #60 tablet 10/25/18 Docusate Sodium [Colace -] 300 mg PO HS PRN 11/15/18 Gabapentin [Neurontin -] 300 mg PO Q8H 11/15/18 Nortriptyline HCl [Pamelor -] 50 mg PO HS 11/15/18 CVA: No COPD: No CHF: No Diabetes: Yes (type 2) GI Disorders: Yes (gerd) Hypercholesterolemia: Yes - Immunization History Immunization Up to Date: Yes - Suicide/Smoking/Psychosocial Hx Smoking History: Current every day smoker Have you smoked in the past 12 months: Yes Number of Cigarettes Smoked Daily: 10 Information on smoking cessation initiated: No 'Breaking Loose' booklet given: 10/22/18 Hx Alcohol Use: No Drug/Substance Use Hx: No Substance Use Type: None *Physical Exam - Vital Signs Last Vital Signs Temp Pulse Resp BP Pulse Ox 98.2 F 116 H 20 111/69 99 11/15/18 12:06 11/15/18 12:06 11/15/18 12:06 11/15/18 12:06 11/15/18 12:06 - Physical Exam General Appearance: No: Apparent Distress Respiratory/Chest: positive: Lungs Clear, Normal Breath Sounds. negative: Respiratory Distress Cardiovascular: positive: Regular Rhythm, Regular Rate, S1, S2. negative: Murmur Gastrointestinal/Abdominal: positive: Soft, Tenderness (Along lower abdomen (RLQ >LLQ)). negative: Protuberent, Distended, Guarding, Rebound, Mass Musculoskeletal: positive: Other (+swelling of R hand; pain along 3rd and 4th MCP joints, pain with movement of R wrist; no deformity). negative: CVA Tenderness Integumentary: positive: Normal Color Neurologic: positive: Alert, Normal Mood/Affect Moderate Sedation - Procedure Monitoring Vital Signs: Procedure Monitoring Vital Signs Temperature 98.2 F 11/15/18 12:06 Pulse Rate 116 H 11/15/18 12:06 Respiratory Rate 20 11/15/18 12:06 Blood Pressure 111/69 11/15/18 12:06 O2 Sat by Pulse Oximetry (%) 99 11/15/18 12:06 ED Treatment Course - LABORATORY CBC & Chemistry Diagram: 11/15/18 13:12 11/15/18 13:35 - RADIOLOGY Radiology Studies Ordered: Category Date Time Status ABDOMEN & PELVIS CT W/O CONTR [CT] Stat CT Scan 11/15/18 12:23 Ordered WRIST W/HAND-RIGHT* [RAD] Stat Radiology 11/15/18 13:31 Ordered - Medications Given in the ED: ED Medications Discontinued Medications Generic Name Dose Route Start Last Admin Trade Name Freq PRN Reason Stop Dose Admin Sodium Chloride 1,000 mls @ 1,000 mls/hr 11/15/18 12:22 11/15/18 13:34 Normal Saline - IV 11/15/18 13:21 1,000 mls/hr ASDIR STA Administration Morphine Sulfate 4 mg 11/15/18 12:23 11/15/18 13:34 Morphine Injection - IVPUSH 11/15/18 12:24 4 mg ONCE ONE Administration Ondansetron HCl 4 mg 11/15/18 12:22 11/15/18 13:34 Zofran Injection IVPUSH 11/15/18 12:23 4 mg ONCE ONE Administration Medical Decision Making - Medical Decision Making 43 y/o F hx of T2DM, sciatica, fibromyalgia, HLD, asthma, CVA 2012 (no deficits) , liver abscess s/p percutaneous drainage 2017, colonoscopy 07/2018 (colonic AVM s/p cauterizaton) recently admitted to hospital 10/22 - 10/25 for colitis ( not ischemic; not treated with abx) presents with lower abdominal pain from this AM along with fever, watery diarrhea x 2 days (states diarrhea resolved today) and 2 episodes of NBNB emesis. States symptoms feel similar to her prior colitis. Denies sob, cp, black/bloody stools, urinary complaints. Patient also with c/o R hand pain after accidentally getting hand slammed in door today. Lower abd pain: Consider colitis/diverticulitis, appendicitis Plan: Labs, IVF, Zofran, Morphine, CT A/P R hand pain: R hand/wrist x-ray to r/o fracture 11/15/18 13:45 Abnormal Lab Results 11/15/18 11/15/18 11/15/18 13:12 13:35 13:35 WBC 12.7 H RDW 23.7 H Absolute Neuts (auto) 10.5 H Neutrophils % 83.2 H Sodium 130 L Chloride 96 L BUN 6 L Random Glucose 359 H* AST 14 L Alkaline Phosphatase 152 H Urine Glucose (UA) 3+ H Labs notable for elevated glucose of 359, no anion gap Patient had received 1 L of NS with repeat FS being 279 Otherwise rest of labs unremarkable; UA negative CT A/P with no acute findings R hand/wrist xray negative for fracture as well Patient appears comfortable Stable for d/c 11/15/18 16:02 *DC/Admit/Observation/Transfer Diagnosis at time of Disposition: Lower abdominal pain Injury of right hand Qualifiers: Encounter type: initial encounter Qualified Code(s): S69.91XA - Unspecified injury of right wrist, hand and finger(s), initial encounter - Discharge Dispostion Disposition: HOME Condition at time of disposition: Stable Decision to Admit order: No - Referrals Referrals: Alvin Ji MD [Primary Care Provider] - 3 days - Patient Instructions Printed Discharge Instructions: DI for Abdominal Pain-Adult Additional Instructions: Thank you for choosing . It was a pleasure taking care of you. Your labwork was notable for elevated sugar. Please be sure to monitor your sugar daily and take your diabetic meds as prescribed Your CT scan was negative Be sure to stay hydrated - drink at least 2 L of water daily No fracture was noted on your right hand and wrist Follow-up with your PCP in 3 days. Return to the Emergency Department if your symptoms worsen or persist, you have fever, shortness of breath, chest pain, severe abdominal pain, vomiting or other concerning symptoms. - Post Discharge Activity
[2018-11-15 14:02] LABS: BASO % 0.2 % (0-2.0); EOS % 0.2 % (0-4.5); HEMATOCRIT 37.7 % (32.4-45.2); HEMOGLOBIN 12.3 GM/dL (10.7-15.3); LYMPH % 10.5 % (8-40); MCH 28.2 pg (25.7-33.7); MCHC 32.6 g/dl (32.0-36.0); MEAN CELL VOLUME 86.7 fl (80-96); MEAN PLT VOLUME 8.3 fl (7.5-11.1); MONO % 5.9 % (3.8-10.2); NEUT % 83.2 % (42.8-82.8); PLATELET COUNT 376 K/MM3 (134-434); RBC 4.35 M/mm3 (3.60-5.2); RDW 23.7 % (11.6-15.6); WHITE BLOOD COUNT 12.7 K/mm3 (4.0-10.0)
[2018-11-15 14:09] LABS: URINE APPEARANCE CLOUDY; URINE BILIRUBIN NEGATIVE (<2.0 mg/dL); URINE COLOR YELLOW; URINE GLUCOSE (UA) 3+ (NEGATIVE); URINE KETONE NEGATIVE (NEGATIVE); URINE LEUK ESTERASE NEGATIVE (NEGATIVE); URINE NITRITE NEGATIVE (NEGATIVE); URINE PROTEIN NEGATIVE (NEGATIVE); URINE UROBILINOGEN NEGATIVE mg/dL (0.2-1.0)
[2018-11-15 14:10] LABS: HCG,QUALITATIVE URINE Negative
[2018-11-15 14:46] LABS: ALBUMIN 4.1 g/dl (3.4-5.0); ALK PHOS 152 U/L (45-117); ANION GAP 10 MMOL/L (8-16); BILIRUBIN,TOTAL 0.3 mg/dL (0.2-1); BLOOD UREA NITROGEN 6 mg/dL (7-18); CALCIUM 9.6 mg/dL (8.5-10.1); CHLORIDE 96 mmol/L (98-107); CO2 24 mmol/L (21-32); CREATININE 0.9 mg/dL (0.55-1.3); LIPASE 169 U/L (73-393); POTASSIUM 4.7 mmol/L (3.5-5.1); SGOT/AST 14 U/L (15-37); SGPT/ALT 24 U/L (13-61); SODIUM 130 mmol/L (136-145); TOT PROT 7.9 g/dl (6.4-8.2)
[2018-11-15 14:48] LABS: GLUCOSE,RANDOM 359 mg/dL (74-106)
[2018-11-15 15:13] LABS: ANISOCYTOSIS 2+; MACROCYTOSIS 0; OVALOCYTE 1+; PLATELET ESTIMATE NORMAL
[2018-11-15 17:16] VITALS: BP 119/72
[2018-11-15 17:19] VITALS: PULSE 78
== END 2018-11-15 17:19 | disposition home or self-care (01) ==
LOC: JER 11:56
PROC: 3E033GC Introduction of Other Therapeutic Substance into Peripheral Vein, Percutaneous Approach (ICD-10-PCS; principal; 2018-11-15)
PROC: 3E033NZ Introduction of Analgesics, Hypnotics, Sedatives into Peripheral Vein, Percutaneous Approach (ICD-10-PCS; 2018-11-15)
DX: R10.30 Lower abdominal pain, unspecified (principal); S69.81XA Other specified injuries of right wrist, hand and finger(s), initial encounter; W23.0XXA Caught, crushed, jammed, or pinched between moving objects, initial encounter; Y93.89 Activity, other specified; Y92.89 Other specified places as the place of occurrence of the external cause; Y99.8 Other external cause status; E11.65 Type 2 diabetes mellitus with hyperglycemia; Z79.84 Long term (current) use of oral hypoglycemic drugs; E78.00 Pure hypercholesterolemia, unspecified; K21.9 Gastro-esophageal reflux disease without esophagitis
CPT/HCPCS: 36415; 73110-TC-RT-FY; 73130-TC-RT-FY; 74176-TC; 80053; 81003; 82962; 83690; 84703; 85025; 96374; 96375; 99283-25; J7030

== ENCOUNTER 2018-11-21 13:34 | Emergency (ER) | payer OTHER ==
[2018-11-21 13:48] VITALS: BP 113/75; PULSE 99; TEMP 97.3; BMI 23.5
--- NOTE | 2018-11-21 14:59 | PDOC ---
History of Present Illness - General Chief Complaint: Weakness Stated Complaint: DIABETIC Past History - Past Medical History Allergies/Adverse Reactions: Allergies Allergy/AdvReac Type Severity Reaction Status Date / Time Penicillins Allergy Verified 11/21/18 13:49 vancomycin Allergy Verified 11/21/18 13:49 seafood Allergy Uncoded 11/21/18 13:49 Home Medications: Ambulatory Orders Atorvastatin Ca [Lipitor] 40 mg PO HS 10/21/18 Ferrous Sulfate 325 mg PO DAILY 10/21/18 Hydroxyzine HCl 50 mg PO DAILY 10/21/18 Insulin Glargine,Hum.rec.anlog [Basaglar Kwikpen U-100] 100 unit SQ DAILY Linagliptin [Tradjenta] 5 mg PO DAILY 10/21/18 Ondansetron HCl [Zofran] 4 mg PO TID PRN 10/21/18 Pantoprazole Sodium 40 mg PO DAILY 10/21/18 Diphenhydramine HCl [Benadryl Capsule -] 25 mg PO BID PRN #30 capsule MDD 4 Insulin (Levemir) [Levemir Vial] 10 units SQ HS units 10/25/18 Liraglutide [Victoza -] 0.6 mg SQ DAILY@0700 pen.injctr 10/25/18 Prednisone [Deltasone] 20 mg PO BID 3 Days tablet 10/25/18 Sennosides [Senna -] 2 tab PO HS #60 tablet 10/25/18 Docusate Sodium [Colace -] 300 mg PO HS PRN 11/15/18 Gabapentin [Neurontin -] 300 mg PO Q8H 11/15/18 Nortriptyline HCl [Pamelor -] 50 mg PO HS 11/15/18 CVA: No COPD: No CHF: No Diabetes: Yes (type 2) GI Disorders: Yes (gerd) Hypercholesterolemia: Yes - Immunization History Immunization Up to Date: Yes - Suicide/Smoking/Psychosocial Hx Smoking History: Never smoked Have you smoked in the past 12 months: No Number of Cigarettes Smoked Daily: 10 Information on smoking cessation initiated: No 'Breaking Loose' booklet given: 10/22/18 Hx Alcohol Use: No Drug/Substance Use Hx: No Substance Use Type: None *Physical Exam - Vital Signs Last Vital Signs Temp Pulse Resp BP Pulse Ox 97.3 F L 99 H 16 113/75 100 11/21/18 13:43 11/21/18 13:43 11/21/18 13:43 11/21/18 13:43 11/21/18 13:43 Moderate Sedation - Procedure Monitoring Vital Signs: Procedure Monitoring Vital Signs Temperature 97.3 F L 11/21/18 13:43 Pulse Rate 99 H 11/21/18 13:43 Respiratory Rate 16 11/21/18 13:43 Blood Pressure 113/75 11/21/18 13:43 O2 Sat by Pulse Oximetry (%) 100 11/21/18 13:43 *DC/Admit/Observation/Transfer Diagnosis at time of Disposition: Weakness - Discharge Dispostion Disposition: LEFT BEFORE MED JOSÉ MIGUEL MICHAELS RM - Referrals Referrals: Alvin Ji MD [Primary Care Provider] - - Patient Instructions - Post Discharge Activity
== END 2018-11-21 15:03 | disposition left against medical advice (07) ==
LOC: JER 13:34
DX: R53.1 Weakness (principal)
CPT/HCPCS: 99281-25

== ENCOUNTER 2019-01-08 11:56 | Inpatient (IN) | payer OTHER ==
--- NOTE | 2019-01-08 13:06 | PDOC ---
*Physical Exam - Vital Signs Last Vital Signs Temp Pulse Resp BP Pulse Ox 98.0 F 107 H 18 126/82 98 01/08/19 11:59 01/08/19 11:59 01/08/19 11:59 01/08/19 11:59 01/08/19 11:59 ED Treatment Course - LABORATORY CBC & Chemistry Diagram: 01/09/19 06:30 01/09/19 06:30 Medical Decision Making - Medical Decision Making 01/08/19 13:05 H/o Liver abscess Presents with abd pain, nausea, vomiting Will do labs, blood cultures Will do CT CT negative for acute intracranial pathology Pt seen by Midlevel Provider under my direct supervision Pt interviewed and examined Ancillary studies reviewed I agree with plan as outlined by Midlevel Provider *DC/Admit/Observation/Transfer Diagnosis at time of Disposition: Colitis, Lower abdominal pain - Discharge Dispostion Disposition: AGAINST MEDICAL ADVICE Condition at time of disposition: Stable - Referrals - Patient Instructions - Post Discharge Activity
--- NOTE | 2019-01-08 13:16 | PDOC ---
History of Present Illness - General Chief Complaint: Abscess Boil Stated Complaint: LIVER ABCESS Time Seen by Provider: 01/08/19 12:58 History Source: Patient Exam Limitations: Clinical Condition - History of Present Illness Initial Comments: 01/08/19 13:13 Patient with h/o T2DM, HTN, HPL and liver abscess sent in by PCP Dr. Ji due to 1 week h/o abdominal pains , N,V and diarrhea. Patient also report subjective tactile fever and chills. Denies dizziness, CARR. Report taking motrin as home for pain with no improvement. Timing/Duration: 1 week Past History - Past Medical History Allergies/Adverse Reactions: Allergies Allergy/AdvReac Type Severity Reaction Status Date / Time metformin Allergy Verified 01/08/19 11:59 Penicillins Allergy Verified 01/08/19 11:59 vancomycin Allergy Verified 01/08/19 11:59 seafood Allergy Uncoded 01/08/19 11:59 Home Medications: Ambulatory Orders Atorvastatin Ca [Lipitor] 40 mg PO HS 10/21/18 Ferrous Sulfate 325 mg PO DAILY 10/21/18 Hydroxyzine HCl 50 mg PO DAILY 10/21/18 Insulin Glargine,Hum.rec.anlog [Basaglar Kwikpen U-100] 100 unit SQ DAILY Linagliptin [Tradjenta] 5 mg PO DAILY 10/21/18 Ondansetron HCl [Zofran] 4 mg PO TID PRN 10/21/18 Pantoprazole Sodium 40 mg PO DAILY 10/21/18 Liraglutide [Victoza -] 0.6 mg SQ DAILY@0700 pen.injctr 10/25/18 Sennosides [Senna -] 2 tab PO HS #60 tablet 10/25/18 Gabapentin [Neurontin -] 300 mg PO Q8H 11/15/18 Nortriptyline HCl [Pamelor -] 25 mg PO HS 11/15/18 Budesonide/Formeterol Fumarate [SYMBICORT 160/4.5mcg -] 2 inh PO BID 01/08/19 Folic Acid 1 mg PO DAILY 01/08/19 Melatonin 10 mg PO HS 01/08/19 hydrOXYzine HCL [Atarax -] 25 mg PO TID 01/08/19 CVA: No COPD: No CHF: No Diabetes: Yes (type 2) GI Disorders: Yes (gerd) Hypercholesterolemia: Yes - Immunization History Immunization Up to Date: Yes - Suicide/Smoking/Psychosocial Hx Smoking History: Current every day smoker Have you smoked in the past 12 months: No Number of Cigarettes Smoked Daily: 10 Information on smoking cessation initiated: No 'Breaking Loose' booklet given: 10/22/18 Hx Alcohol Use: No Drug/Substance Use Hx: No Substance Use Type: None Review of Systems - Review of Systems Able to Perform ROS?: Yes Is the patient limited Mongolian proficient: No Constitutional: Yes: See HPI, Fever (tactile), Malaise HEENTM: No: Symptoms Reported, See HPI, Eye Pain, Blurred Vision, Tearing, Recent change in vision, Double Vision, Cataracts, Ear Pain, Ocular Prothesis, Ear Discharge, Nose Pain, Nose Congestion, Tinnitus, Nose Bleeding, Hearing Loss , Throat Pain, Throat Swelling, Mouth Pain, Dental Problems, Difficulty Swallowing, Mouth Swelling, Other Respiratory: No: Symptoms reported, See HPI, Cough, Orthopnea, Shortness of Breath, SOB with Exertion, SOB at Rest, Stridor, Wheezing, Productive cough, Hemoptysis, Other Cardiac (ROS): No: Symptoms Reported, See HPI, Chest Pain, Edema, Irregular Heart Rate, Lightheadedness, Palpitations, Syncope, Chest Tightness, Other ABD/GI: Yes: Diarrhea, Nausea, Vomiting, Abdominal cramping (LLQ pain) : No: Dysuria, Discharge, Frequency, Urgency Musculoskeletal: No: Back Pain All Other Systems: Reviewed and Negative *Physical Exam - Vital Signs Last Vital Signs Temp Pulse Resp BP Pulse Ox 98.0 F 107 H 18 126/82 98 01/08/19 11:59 01/08/19 11:59 01/08/19 11:59 01/08/19 11:59 01/08/19 11:59 - Physical Exam Comments: 01/08/19 18:35 GENERAL: Well developed, well nourished. Awake and alert in mild acute distress. HEENT: Normocephalic, atraumatic. PERRLA, EOMI. No conjunctival pallor. Sclera are non-icteric. Moist mucous membranes. Oropharynx is clear. NECK: Supple. Full ROM. CARDIOVASCULAR: Regular rate and rhythm. No murmurs, rubs, or gallops. Distal pulses are 2+ and symmetric. PULMONARY: No evidence of respiratory distress. Lungs clear to auscultation bilaterally. No wheezing, rales or rhonchi. ABDOMINAL: moderate LLQ and periumbilical tenderness to deep palpation. Soft. Non-distended. No rebound or guarding. No organomegaly. Normoactive bowel sounds. MUSCULOSKELETAL Normal range of motion at all joints. SKIN: Warm and dry. no cyanosis. Normal capillary refill. No rashes. No jaundice. NEUROLOGICAL: Alert, awake, appropriate. Gait is normal without ataxia. PSYCHIATRIC: Cooperative. Good eye contact. Appropriate mood General Appearance: Yes: Nourished, Appropriately Dressed, Mild Distress Moderate Sedation - Procedure Monitoring Vital Signs: Procedure Monitoring Vital Signs Temperature 98.0 F 01/08/19 11:59 Pulse Rate 107 H 01/08/19 11:59 Respiratory Rate 18 01/08/19 11:59 Blood Pressure 126/82 01/08/19 11:59 O2 Sat by Pulse Oximetry (%) 98 01/08/19 11:59 ED Treatment Course - LABORATORY CBC & Chemistry Diagram: 01/08/19 13:26 01/08/19 13:26 Medical Decision Making - Medical Decision Making 01/08/19 15:52 Patient with h/o T2DM, HTN, HPL and liver abscess sent in by PCP Dr. Ji due to 1 week h/o abdominal pains , N,V and diarrhea. Patient also report subjective tactile fever and chills. Denies dizziness, CARR. Report taking motrin as home for pain with no improvement. Exam significant for moderate LLQ and periumbilical pain w/o guarding or rebound. CBC, CMP, lipase ordered. Abd/Pelvis CT with contrast ordered to r/o acute abd pathology. 01/08/19 17:53 CBC shows elevated WBCs . chemistry lab with no acute pathology. Abd CT shows left ovarian cyst and mild thickening of transverse justice suspicion for colitis. Spoke to Dr. Ji who request to admit patient for Abx and consult GI Dr. Roberson and ID Dr. Lou while admitted. microblog sent to medicine for admission 01/08/19 18:05 Hospitalist team called back and agrees to admit patient under Dr. Ji. Patient admitted to med surg and consult placed for ID and GI as per Dr. Ji' s request *DC/Admit/Observation/Transfer Diagnosis at time of Disposition: Colitis, Lower abdominal pain - Discharge Dispostion Condition at time of disposition: Stable Decision to Admit order: Yes Decision to Admit order Date/Time: 01/08/19 17:58 admit for Abx treatment as per Dr. Ji - Referrals - Patient Instructions - Post Discharge Activity
[2019-01-08 13:46] LABS: BASO % 1.3 % (0-2.0); EOS % 0.8 % (0-4.5); HEMATOCRIT 36.1 % (32.4-45.2); MCH 28.8 pg (25.7-33.7); MCHC 33.2 g/dl (32.0-36.0); MEAN CELL VOLUME 86.8 fl (80-96); MONO % 3.6 % (3.8-10.2); NEUT % 69.3 % (42.8-82.8); PLATELET COUNT 336 K/MM3 (134-434); RBC 4.15 M/mm3 (3.60-5.2); RDW 21.1 % (11.6-15.6); WHITE BLOOD COUNT 14.5 K/mm3 (4.0-10.0)
[2019-01-08] MEDS ORDERED: morphine CARPU-JECT 2 MG/1 ML DISP.SYRIN IVPUSH ONE ×2 (14:01→16:17)
[2019-01-08 14:12] LABS: ALBUMIN 3.8 g/dl (3.4-5.0); ALK PHOS 143 U/L (45-117); ANION GAP 7 MMOL/L (8-16); BILIRUBIN,TOTAL 0.3 mg/dL (0.2-1); BLOOD UREA NITROGEN 7 mg/dL (7-18); CALCIUM 9.2 mg/dL (8.5-10.1); CHLORIDE 102 mmol/L (98-107); CO2 24 mmol/L (21-32); CREATININE 0.6 mg/dL (0.55-1.3); GLUCOSE,RANDOM 191 mg/dL (74-106); LIPASE 147 U/L (73-393); SGOT/AST 10 U/L (15-37); SGPT/ALT 14 U/L (13-61); SODIUM 132 mmol/L (136-145); TOT PROT 7.9 g/dl (6.4-8.2)
[2019-01-08 14:18] LABS: ANISOCYTOSIS 1+; PLATELET ESTIMATE NORMAL; TARGET CELLS 1+
[2019-01-08] MEDS ORDERED: MORPHINE SULFATE 2 MG/ML VIAL ONE ×2 (14:21→16:15)
[2019-01-08 14:46] LABS: HCG,QUALITATIVE URINE Negative
[2019-01-08 14:53] LABS: URINE APPEARANCE SLCLOUDY; URINE BILIRUBIN NEGATIVE (<2.0 mg/dL); URINE COLOR LTYELLOW; URINE GLUCOSE (UA) 3+ (NEGATIVE); URINE KETONE NEGATIVE (NEGATIVE); URINE LEUK ESTERASE NEGATIVE (NEGATIVE); URINE NITRITE NEGATIVE (NEGATIVE); URINE PROTEIN NEGATIVE (NEGATIVE); URINE UROBILINOGEN NEGATIVE mg/dL (0.2-1.0)
--- NOTE | 2019-01-08 19:58 | HP ---
CHIEF COMPLAINT: nausea, vomiting, abdominal pain PCP: [facility] HISTORY OF PRESENT ILLNESS: 43yo woman sent in by PCP Dr. Ji due to 1 week h/o abdominal pains and N,V and diarrhea for one day. She reports 5 brown loose BMs yesterday, nonbloody. Patient has been worked up by Dr. Valles in the past including EGD and colonoscopy. Unknown diagnosis. Was noted to have signed out AMA before. ER course was notable for: (1) levaquin (2) metronidazole (3) Recent Travel: no PAST MEDICAL HISTORY: CVA,DM(Hgb A1c 11), liver abscess s/p percutaneous drainage 2017,s/p colonoscopy 07/2018 (colonic avm s/p cauterization) PAST SURGICAL HISTORY: C section Social History: Smoking:no Alcohol:no Drugs: no Family History: no Allergies metformin Allergy (Verified 01/08/19 11:59) Penicillins Allergy (Verified 01/08/19 11:59) vancomycin Allergy (Verified 01/08/19 11:59) seafood Allergy (Uncoded 01/08/19 11:59) HOME MEDICATIONS: Home Medications Medication Instructions Recorded Atorvastatin Ca [Lipitor] 40 mg PO HS 10/21/18 Ferrous Sulfate 325 mg PO DAILY 10/21/18 Hydroxyzine HCl 50 mg PO DAILY 10/21/18 Insulin Glargine,Hum.rec.anlog 100 unit SQ DAILY 10/21/18 [Basaglar Kwikpen U-100] Linagliptin [Tradjenta] 5 mg PO DAILY 10/21/18 Ondansetron HCl [Zofran] 4 mg PO TID PRN 10/21/18 Pantoprazole Sodium 40 mg PO DAILY 10/21/18 Liraglutide [Victoza -] 0.6 mg SQ DAILY@0700 pen.injctr 10/25/18 Sennosides [Senna -] 2 tab PO HS #60 tablet 10/25/18 Gabapentin [Neurontin -] 300 mg PO Q8H 11/15/18 Nortriptyline HCl [Pamelor -] 25 mg PO HS 11/15/18 Budesonide/Formeterol Fumarate 2 inh PO BID 01/08/19 [SYMBICORT 160/4.5mcg -] Folic Acid 1 mg PO DAILY 01/08/19 Melatonin 10 mg PO HS 01/08/19 hydrOXYzine HCL [Atarax -] 25 mg PO TID 01/08/19 REVIEW OF SYSTEMS CONSTITUTIONAL: Absent: fever, chills, diaphoresis, loss of appetite, weight change present- generalized weakness, malaise, HEENT: Absent: rhinorrhea, nasal congestion, throat pain, throat swelling, difficulty swallowing, mouth swelling, ear pain, eye pain, visual changes CARDIOVASCULAR: Absent: chest pain, syncope, palpitations, irregular heart rate, lightheadedness , peripheral edema RESPIRATORY: Absent: cough, shortness of breath, dyspnea with exertion, orthopnea, wheezing, stridor, hemoptysis GASTROINTESTINAL: Absent:abdominal distension, constipation, melena, hematochezia present- abdominal pain, nausea, vomiting, diarrhea, GENITOURINARY: Absent: dysuria, frequency, urgency, hesitancy, hematuria, flank pain, genital pain MUSCULOSKELETAL: Absent: myalgia, arthralgia, joint swelling, back pain, neck pain SKIN: Absent: rash, itching, pallor HEMATOLOGIC/IMMUNOLOGIC: Absent: easy bleeding, easy bruising, lymphadenopathy, frequent infections ENDOCRINE: Absent: unexplained weight gain, unexplained weight loss, heat intolerance, cold intolerance NEUROLOGIC: Absent: headache, focal weakness or paresthesias, dizziness, unsteady gait, seizure, mental status changes, bladder or bowel incontinence PSYCHIATRIC: Absent: anxiety, depression, suicidal or homicidal ideation, hallucinations. PHYSICAL EXAMINATION Vital Signs - 24 hr 01/08/19 01/08/19 01/08/19 11:59 16:04 19:43 Temperature 98.0 F 98.4 F 98 F Pulse Rate 107 H Pulse Rate [ 92 H 94 H Left Radial] Respiratory 18 18 17 Rate Blood Pressure 126/82 Blood Pressure 111/68 123/74 [Right Arm] O2 Sat by Pulse 98 98 100 Oximetry (%) GENERAL: Awake, alert, and fully oriented, in no acute distress, nontoxic appearing HEAD: Normal with no signs of trauma. EYES: Pupils equal, round and reactive to light, extraocular movements intact, sclera anicteric, conjunctiva clear. No lid lag. EARS, NOSE, THROAT: Ears normal, nares patent, oropharynx clear without exudates. dry mucous membranes. NECK: Normal range of motion, supple without lymphadenopathy, JVD, or masses. LUNGS: Breath sounds equal, clear to auscultation bilaterally. No wheezes, and no crackles. No accessory muscle use. HEART: Regular rate and rhythm, normal S1 and S2 without murmur, rub or gallop. ABDOMEN: soft, nondistended, diffuse tenderness, decreased BS MUSCULOSKELETAL: Normal range of motion at all joints. No bony deformities or tenderness. No CVA tenderness. UPPER EXTREMITIES: 2+ pulses, warm, well-perfused. No cyanosis. No clubbing. No peripheral edema. LOWER EXTREMITIES: 2+ pulses, warm, well-perfused. No calf tenderness. No peripheral edema. NEUROLOGICAL: Cranial nerves II-XII intact. Normal speech. Normal gait. PSYCHIATRIC: Cooperative. Good eye contact. Appropriate mood and affect. SKIN: Warm, dry, normal turgor, no rashes or lesions noted, normal capillary refill. Laboratory Results - last 24 hr 01/08/19 01/08/19 01/08/19 13:26 13:26 13:26 WBC 14.5 H RBC 4.15 Hgb 12.0 Hct 36.1 MCV 86.8 MCH 28.8 MCHC 33.2 RDW 21.1 H Plt Count 336 MPV 8.0 Absolute Neuts (auto) 10.0 H Neutrophils % 69.3 Lymphocytes % 25.0 D Monocytes % 3.6 L Eosinophils % 0.8 D Basophils % 1.3 D Nucleated RBC % 0 Hypochromia 0 Platelet Estimate Normal Polychromasia 0 Poikilocytosis 0 Anisocytosis 1+ Microcytosis 0 Target Cells 1+ Stomatocytes 1+ Sodium 132 L Potassium 4.0 Chloride 102 Carbon Dioxide 24 Anion Gap 7 L BUN 7 Creatinine 0.6 Creat Clearance w eGFR > 60 Random Glucose 191 H Calcium 9.2 Total Bilirubin 0.3 AST 10 L ALT 14 Alkaline Phosphatase 143 H Total Protein 7.9 Albumin 3.8 Lipase 147 Urine Color Urine Appearance Urine pH Ur Specific [place] Urine Protein Urine Glucose (UA) Urine Ketones Urine Blood Urine Nitrite Urine Bilirubin Urine Urobilinogen Ur Leukocyte Esterase Urine HCG, Qual Blood Type B POSITIVE Antibody Screen Negative 01/08/19 14:10 WBC RBC Hgb Hct MCV MCH MCHC RDW Plt Count MPV Absolute Neuts (auto) Neutrophils % Lymphocytes % Monocytes % Eosinophils % Basophils % Nucleated RBC % Hypochromia Platelet Estimate Polychromasia Poikilocytosis Anisocytosis Microcytosis Target Cells Stomatocytes Sodium Potassium Chloride Carbon Dioxide Anion Gap BUN Creatinine Creat Clearance w eGFR Random Glucose Calcium Total Bilirubin AST ALT Alkaline Phosphatase Total Protein Albumin Lipase Urine Color Ltyellow Urine Appearance Slcloudy Urine pH 6.0 Ur Specific [place] 1.033 Urine Protein Negative Urine Glucose (UA) 3+ H Urine Ketones Negative Urine Blood Negative Urine Nitrite Negative Urine Bilirubin Negative Urine Urobilinogen Negative Ur Leukocyte Esterase Negative Urine HCG, Qual Negative Blood Type Antibody Screen imaging studies reviewed ASSESSMENT/PLAN: #Recurrent colitis with leukocytosis, colonic thickening on abd/pelvis CT seen. No evidence of recurrent hepatic abscess on imaging -admit to med/surg -IV fluid hydration -zofran IV prn if nausea or vomiting -c/w metronidazole 500mg IV q8hrs -levaquin 750mg IV q24hrs -morphine IV prn if pain -NPO for now, advance diet as tolerated -send stool for cdiff pcr, culture, osm, fobt -GI, ID evaluation -ekg #diabetic neuropathy -gabapentin -nortryptaline #DM - uncontrolled -novolog sliding scale -a1c -w/ lipitor #dvt ppx -heparin sc - Visit type - Emergency Visit Emergency Visit: Yes ED Registration Date: 01/08/19 Care time: The patient presented to the Emergency Department on the above date and was hospitalized for further evaluation of their emergent condition. - New Patient This patient is new to me today: Yes Date on this admission: 01/09/19 - Critical Care Critical Care patient: No
[2019-01-08] MEDS ORDERED: ACETAMINOPHEN 325 MG TABLET (FP) PO PRN (20:02)
[2019-01-08] MEDS ORDERED: ONDANSETRON 4 MG/2 ML VIAL IVPB PRN (20:09)
[2019-01-08] MEDS ORDERED: GABAPENTIN 300 MG CAPSULE (FP) PO SCH (20:15)
[2019-01-08] MEDS: SODIUM CHLORIDE 1,000 ML IV SCH (21:02)
[2019-01-08] MEDS ORDERED: PT OWN MED DRAWER 7, Y5N ONE (22:05)
[2019-01-08] MEDS: MELATONIN 5 MG TABLETS PO SCH (22:24)
[2019-01-08] MEDS: ATORVASTATIN CA 40 MG TABLET (FP) PO SCH (22:24)
[2019-01-08] MEDS: HEPARIN NA (PORCINE) 5,000 UNITS/ML 1ML VIAL SQ SCH (22:25)
[2019-01-08] MEDS: INSULIN SLIDING SCALE (NOVOLOG) 1 VIAL SQ SCH (22:32)
[2019-01-08] MEDS: MORPHINE SULFATE 2 MG/ML VIAL IVPUSH PRN (23:00)
[2019-01-08] MEDS: NORTRIPTYLINE HCL 25 MG CAPSULE PO SCH (23:01)
[2019-01-08] MEDS: BUDESONIDE/FORMETEROL FUMARATE 160/4.5 mcg INHALER IH SCH (23:01)
[2019-01-08 23:47] VITALS: BMI 23.1
[2019-01-09] MEDS: MORPHINE SULFATE 2 MG/ML VIAL IVPUSH PRN ×4 (03:18→22:33)
[2019-01-09] MEDS: GABAPENTIN 300 MG CAPSULE (FP) PO SCH ×3 (05:25→21:27)
[2019-01-09] MEDS: INSULIN SLIDING SCALE (NOVOLOG) 1 VIAL SQ SCH ×4 (06:02→21:31)
[2019-01-09 07:24] LABS: BASO % 0.3 % (0-2.0); EOS % 1.2 % (0-4.5); HEMATOCRIT 33.4 % (32.4-45.2); HEMOGLOBIN 10.8 GM/dL (10.7-15.3); LYMPH % 28.3 % (8-40); MCH 27.9 pg (25.7-33.7); MCHC 32.2 g/dl (32.0-36.0); MEAN CELL VOLUME 86.5 fl (80-96); MEAN PLT VOLUME 7.9 fl (7.5-11.1); MONO % 5.5 % (3.8-10.2); NEUT % 64.7 % (42.8-82.8); PLATELET COUNT 305 K/MM3 (134-434); RBC 3.86 M/mm3 (3.60-5.2); RDW 20.7 % (11.6-15.6); WHITE BLOOD COUNT 8.8 K/mm3 (4.0-10.0)
[2019-01-09 07:55] LABS: ALBUMIN 3.1 g/dl (3.4-5.0); ALK PHOS 110 U/L (45-117); ANION GAP 6 MMOL/L (8-16); BILIRUBIN,TOTAL 0.3 mg/dL (0.2-1); BLOOD UREA NITROGEN 7 mg/dL (7-18); CALCIUM 8.3 mg/dL (8.5-10.1); CHLORIDE 106 mmol/L (98-107); CO2 26 mmol/L (21-32); CREATININE 0.6 mg/dL (0.55-1.3); GLUCOSE,RANDOM 77 mg/dL (74-106); POTASSIUM 3.7 mmol/L (3.5-5.1); SGOT/AST 9 U/L (15-37); SGPT/ALT 11 U/L (13-61); SODIUM 138 mmol/L (136-145); TOT PROT 6.4 g/dl (6.4-8.2)
[2019-01-09] MEDS: BUDESONIDE/FORMETEROL FUMARATE 160/4.5 mcg INHALER IH SCH ×2 (09:05→21:27)
[2019-01-09] MEDS: HEPARIN NA (PORCINE) 5,000 UNITS/ML 1ML VIAL SQ SCH ×2 (09:06→21:27)
[2019-01-09] MEDS ORDERED: FERROUS SO4 325 MG TABLET (FP) PO SCH (10:00)
[2019-01-09] MEDS ORDERED: FOLIC ACID 1 MG TABLET (FP) PO SCH (10:00)
[2019-01-09] MEDS ORDERED: PANTOPRAZOLE 40 MG TABLET (FP) PO SCH (10:00)
--- NOTE | 2019-01-09 10:24 | CON.GI ---
Consult Consult Specialty:: GI Referred by:: TOD Clarke Reason for Consultation:: colitis, abdominal pain - History of Present Illness Chief Complaint: LLQ pain x 1 week History of Present Illness: Patient is a 43 y/o female with past medical history of CVA, DM, liver abscess s /p percutaneous drainage 2017. Patient is complaining of stabbing LLQ pain that radiates to left lower back accompanied with nausea, vomiting, and non- bloody diarrhea. She states that she experienced intermittent fevers and night awakening with diarrhea, denies recent travel or antibiotic use. She says she has a 30lb weight loss over 3 weeks. Last colonoscopy done 07/2018 showing rectoanal polyp and endoscopy 07/2018 showing mild chronic gastritis. Denies dysphagia, heartburn, rectal bleeding or melena. - History Source History Provided By: Patient Limitations to Obtaining History: No Limitations - Past Medical History Cardio/Vascular: Yes: Hyperlipdemia Pulmonary: Yes: Asthma Gastrointestinal: Yes: GERD ...LMP: 12/22/18 ...: No Musculoskeletal: Yes: Chronic low back pain Rheumatology: Yes: Fibromyalgia Endocrine: Yes: Diabetes Mellitus - Past Surgical History Past Surgical History: Yes: - Alcohol/Substance Use Hx Alcohol Use: No - Smoking History Smoking history: Current every day smoker Have you smoked in the past 12 months: Yes Aproximately how many cigarettes per day: 6 - Social History Usual Living Arrangement: With Spouse ADL: Independent History of Recent Travel: No Home Medications - Allergies Allergies/Adverse Reactions: Allergies Allergy/AdvReac Type Severity Reaction Status Date / Time metformin Allergy Verified 01/08/19 11:59 Penicillins Allergy Verified 01/08/19 11:59 vancomycin Allergy Verified 01/08/19 11:59 seafood Allergy Uncoded 01/08/19 11:59 - Home Medications Home Medications: Ambulatory Orders Atorvastatin Ca [Lipitor] 40 mg PO HS 10/21/18 Ferrous Sulfate 325 mg PO DAILY 10/21/18 Hydroxyzine HCl 50 mg PO DAILY 10/21/18 Insulin Glargine,Hum.rec.anlog [Basaglar Kwikpen U-100] 100 unit SQ DAILY Linagliptin [Tradjenta] 5 mg PO DAILY 10/21/18 Ondansetron HCl [Zofran] 4 mg PO TID PRN 10/21/18 Pantoprazole Sodium 40 mg PO DAILY 10/21/18 Liraglutide [Victoza -] 0.6 mg SQ DAILY@0700 pen.injctr 10/25/18 Sennosides [Senna -] 2 tab PO HS #60 tablet 10/25/18 Gabapentin [Neurontin -] 300 mg PO Q8H 11/15/18 Nortriptyline HCl [Pamelor -] 25 mg PO HS 11/15/18 Budesonide/Formeterol Fumarate [SYMBICORT 160/4.5mcg -] 2 inh PO BID 01/08/19 Folic Acid 1 mg PO DAILY 01/08/19 Melatonin 10 mg PO HS 01/08/19 hydrOXYzine HCL [Atarax -] 25 mg PO TID 01/08/19 Family Disease History - Family Disease History Other Family History: aunt with history of vaginal cancer Review of Systems - Review of Systems Constitutional: reports: Unintentional Wgt. Loss Eyes: reports: Blurred Vision HENT: reports: No Symptoms Neck: reports: No Symptoms Cardiovascular: reports: No Symptoms Respiratory: reports: No Symptoms Gastrointestinal: reports: Abdominal Pain, Diarrhea, Nausea, Vomiting Genitourinary: reports: No Symptoms Breasts: reports: No Symptoms Reported Musculoskeletal: reports: No Symptoms Integumentary: reports: No Symptoms Neurological: reports: No Symptoms Endocrine: reports: No Symptoms Hematology/Lymphatic: reports: No Symptoms Psychiatric: reports: No Symptoms Physical Exam-GI Vital Signs: Vital Signs Temperature 98.0 F 01/09/19 05:51 Pulse Rate 91 H 01/09/19 05:51 Respiratory Rate 20 01/09/19 05:51 Blood Pressure 105/61 01/09/19 05:51 O2 Sat by Pulse Oximetry (%) 100 01/08/19 20:44 Constitutional: Yes: Well Nourished, No Distress, Calm Eyes: Yes: Conjunctiva Clear HENT: Yes: Atraumatic Cardiovascular: Yes: Regular Rate and Rhythm Respiratory: Yes: Regular, CTA Bilaterally Gastrointestinal Inspection: Yes: WNL. No: Ascites, Distention, Hernia, Scars, Other ...Auscultate: Yes: Normoactive Bowel Sounds. No: Hyperactive Bowel Sounds, Hypoactive Bowel Sounds, No Bowel Sounds, Other ...Palpate: Yes: Soft, Tenderness (LLQ). No: Firm/Rigid, Guarding, Hepatomegaly , Mass, Pulsatile Mass, Splenomegaly, Tenderness, Epigastium, Tenderness, Rebound, Other ...Percussion: Yes: Tympanitic. No: Dullness, Fluid Wave, Other Neurological: Yes: Alert, Oriented Labs: CBC, BMP 01/09/19 06:30 01/09/19 06:30 Active Medications Generic Name Dose Route Start Last Admin Trade Name Freq PRN Reason Stop Dose Admin Atorvastatin Calcium 40 mg 01/08/19 22:00 01/08/19 22:24 Lipitor - PO 40 mg HS KERWIN Administration Budesonide/Formoterol Fumarate 2 puff 01/08/19 22:00 01/09/19 09:05 Symbicort 160/4.5mcg - IH 2 puff BID KERWIN Administration Ferrous Sulfate 325 mg 01/09/19 10:00 01/09/19 09:05 Feosol - PO 325 mg DAILY KERWIN Administration Folic Acid 1 mg 01/09/19 10:00 01/09/19 09:05 Folic Acid - PO 1 mg DAILY KERWIN Administration Gabapentin 300 mg 01/09/19 06:00 01/09/19 05:25 Neurontin - PO 300 mg TID KERWIN Administration Heparin Sodium (Porcine) 5,000 unit 01/08/19 22:00 01/09/19 09:06 Heparin - SQ 5,000 unit BID KERWIN Administration Sodium Chloride 1,000 mls @ 75 mls/hr 01/08/19 20:15 01/08/19 21:02 Normal Saline - IV 75 mls/hr ASDIR KERWIN Administration Insulin Aspart 1 vial 01/08/19 22:00 01/09/19 06:02 Novolog Vial Sliding Scale - SQ Not Given ACHS [facility] Protocol Melatonin 10 mg 01/08/19 22:00 01/08/19 22:24 Melatonin PO 10 mg HS KERWIN Administration Morphine Sulfate 2 mg 01/08/19 22:51 01/09/19 08:47 Morphine Sulfate IVPUSH 2 mg Q4H PRN Administration PAIN LEVEL 6-10 Nortriptyline HCl 25 mg 01/08/19 22:00 01/08/19 23:01 Pamelor - PO Not Given HS KERWIN Ondansetron HCl 4 mg 01/08/19 20:09 01/08/19 21:02 Zofran Injection IVPB 4 mg Q6H PRN Administration NAUSEA Pantoprazole Sodium 40 mg 01/09/19 10:00 01/09/19 09:05 Protonix - PO 40 mg DAILY KERWIN Administration Imaging - Results Cat Scan: Report Reviewed Problem List - Problems (1) LLQ abdominal pain Assessment/Plan: -Abdominal CT scan shows no CT evidence of diverticulitis, 2cm involuting left ovarian follicle/cyst developed since CT study of 11/15/18, no CT evidence of residual/recurrent hepatic abscess, possible mild contrentic wall thickening along the length of the transverse colon versus representing artifactual thickening due to underdistention correlate clinically in regards to possible colitis. -RESOURCE ANALYST consult placed -AFP, CEA, CA 19-9, CA 125 ordered Code(s): R10.32 - LEFT LOWER QUADRANT PAIN (2) Overflow incontinence Assessment/Plan: -citroma 300ml PO x 1 dose -if constipation continues consider adding daily laxative Code(s): N39.490 - OVERFLOW INCONTINENCE
[2019-01-09] MEDS ORDERED: MAGNESIUM CITRATE 300 ML BOTTLE PO ONE (10:33)
--- NOTE | 2019-01-09 12:28 | PN ---
Progress Note, Physician Chief Complaint: LLQ pain History of Present Illness: Previous notes and events reviewed awake and alert NAD c/o LLQ pain radiating to L lower back c/o blurred vision, new onset--Headt CT scan ordered - Current Medication List Current Medications: Active Medications Atorvastatin Calcium (Lipitor -) 40 mg PO HS [facility] Last Admin: 01/08/19 22:24 Dose: 40 mg Budesonide/Formoterol Fumarate (Symbicort 160/4.5mcg -) 2 puff IH BID [facility] Last Admin: 01/09/19 09:05 Dose: 2 puff Ferrous Sulfate (Feosol -) 325 mg PO DAILY [facility] Last Admin: 01/09/19 09:05 Dose: 325 mg Folic Acid (Folic Acid -) 1 mg PO DAILY [facility] Last Admin: 01/09/19 09:05 Dose: 1 mg Gabapentin (Neurontin -) 300 mg PO TID [facility] Last Admin: 01/09/19 05:25 Dose: 300 mg Heparin Sodium (Porcine) (Heparin -) 5,000 unit SQ BID [facility] Last Admin: 01/09/19 09:06 Dose: 5,000 unit Sodium Chloride (Normal Saline -) 1,000 mls @ 75 mls/hr IV ASDIR [facility] Last Admin: 01/08/19 21:02 Dose: 75 mls/hr Insulin Aspart (Novolog Vial Sliding Scale -) 1 vial SQ ACHS [facility]; Protocol Last Admin: 01/09/19 11:22 Dose: Not Given Melatonin (Melatonin) 10 mg PO HS [facility] Last Admin: 01/08/19 22:24 Dose: 10 mg Morphine Sulfate (Morphine Sulfate) 2 mg IVPUSH Q4H PRN PRN Reason: PAIN LEVEL 6-10 Last Admin: 01/09/19 08:47 Dose: 2 mg Nortriptyline HCl (Pamelor -) 25 mg PO HS [facility] Last Admin: 01/08/19 23:01 Dose: Not Given Ondansetron HCl (Zofran Injection) 4 mg IVPB Q6H PRN PRN Reason: NAUSEA Last Admin: 01/08/19 21:02 Dose: 4 mg Pantoprazole Sodium (Protonix -) 40 mg PO DAILY [facility] Last Admin: 01/09/19 09:05 Dose: 40 mg - Objective Vital Signs: Vital Signs Temperature 98.0 F 01/09/19 05:51 Pulse Rate 91 H 01/09/19 05:51 Respiratory Rate 20 01/09/19 05:51 Blood Pressure 105/61 01/09/19 05:51 O2 Sat by Pulse Oximetry (%) 100 01/08/19 20:44 Constitutional: Yes: Well Nourished, No Distress, Calm Eyes: Yes: Conjunctiva Clear HENT: Yes: Atraumatic Cardiovascular: Yes: Regular Rate and Rhythm Respiratory: Yes: Regular, CTA Bilaterally Gastrointestinal: Yes: Normal Bowel Sounds, Soft, Tenderness (LLQ) Musculoskeletal: Yes: WNL Extremities: Yes: WNL Edema: No Neurological: Yes: Alert, Oriented Psychiatric: Yes: Alert, Oriented Labs: CBC, BMP 01/09/19 06:30 01/09/19 06:30 Microbiology 01/08/19 14:10 Urine - Urine Clean Catch Urine Culture - Preliminary - ....Imaging Cat Scan: Report Reviewed Problem List - Problems (1) LLQ abdominal pain Assessment/Plan: -CT scan shows no CT evidence of diverticulitis, 2cm involuting left ovarian follicle/cyst developd since last CT study 11/15/18, no CT evidence of residual/ recurrent hepatic abscess, possible mild concentric wall thickening along the transverse colon versus representing artifactual thickening due to overdistention -GI on board -AFP, CEA, CA 19-9, CA 125 ordered -ENDOSCOPY TECHNICAN consult placed -continue IV hydration -maintain NPO status Code(s): R10.32 - LEFT LOWER QUADRANT PAIN (2) Overflow incontinence Assessment/Plan: -citroma 300ml PO x 1 dose -stool pending OB, lytes, and pH, stool culture, c-diff, stool wbc pending -GI on board -add daily laxative if needed for constipation Code(s): N39.490 - OVERFLOW INCONTINENCE (3) Diabetes Assessment/Plan: -BGM ACHS -when resume PO intake, diabetic diet Code(s): E11.9 - TYPE 2 DIABETES MELLITUS WITHOUT COMPLICATIONS Qualifiers: Diabetes mellitus type: type 2 Diabetes mellitus clinical quality rn insulin use: unspecified care home insulin use status Chronic kidney disease stage: unspecified stage Assessment/Plan see problem list dvt ppx
--- NOTE | 2019-01-09 13:32 | PN ---
Progress Note (short form) - Note Progress Note: ID consult dictated imp/reccd 43 yo female admitted with abdominal pain history of chronic constipation 2 loose stools daily for last one to two weeks no BM in last 3 days +weight loss fever [address] scan no colitis +stools +left sided ovarian cyst not sexually active still gets her menses poorly controlled DM abdominal pain appear to correlate to the ovarian cyst await gyne eval urine gc/chlamydia duplex right leg-c/o ankle swelling and right leg pain (nontraumatic) no antibiotics for now
--- NOTE | 2019-01-09 15:34 | EKG ---
Test Reason : Blood Pressure : / mmHG Vent. Rate : 092 BPM Atrial Rate : 092 BPM P-R Int : 162 ms QRS Dur : 076 ms QT Int : 376 ms P-R-T Axes : 066 039 032 degrees QTc Int : 464 ms NORMAL SINUS RHYTHM LOW VOLTAGE QRS NONSPECIFIC T WAVE ABNORMALITY PROLONGED QT ABNORMAL ECG WHEN COMPARED WITH ECG OF 21-OCT-2018 21:23, NO SIGNIFICANT CHANGE WAS FOUND Confirmed by BIRDIE STEINER, BOGDAN ([id number]) on 01/09/2019 3:34:13 PM Referred By: Confirmed By:BOGDAN PACKER MD
[2019-01-09] MEDS ORDERED: PT OWN MED DRAWER 7, Y5N ONE ×2 (21:09→21:20)
[2019-01-09] MEDS: MELATONIN 5 MG TABLETS PO SCH (21:27)
[2019-01-09] MEDS: ATORVASTATIN CA 40 MG TABLET (FP) PO SCH (21:27)
[2019-01-09] MEDS: NORTRIPTYLINE HCL 25 MG CAPSULE PO SCH (21:27)
--- NOTE | 2019-01-09 22:09 | CON.OBG ---
Consult Reason for Consultation:: ovarian cyst - History of Present Illness Chief Complaint: abdominal pain History of Present Illness: 43 yo HD #2 admitted for LLQ pain, s/p CT with 2 cm cyst on left ovary for evaluation. Patient reports LLQ pain, sharp, stabbing, rated 10/10. Has been going on for "more than a month now". Denies associated nausea or vomiting. Reports had one episode of diarrhea several days ago, has not had BM in 5 days. States pain is similar in nature to when she was admitted for a liver abcess. She reports she presented to her PCP (Dr. Ji) and was evaluated, concern for hx/o of liver abcess and was sent to ED for evaluation and management. She currently reports no change in pain, is receiving morphine for pain. She has a history of regular menses @ 28 days and usually lasts 5 days. Last menses started 12/23 and was longer and a bit heavier than normal. She is currently day 18 of cycle. She also reports dysmenorrhea in addition to the LLQ. 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 OB Hx: Para 5, x 4, CD x 1 - Past Medical History Cardio/Vascular: Yes: Hyperlipdemia Pulmonary: Yes: Asthma Gastrointestinal: Yes: GERD ...LMP: 12/22/18 ...: No Musculoskeletal: Yes: Chronic low back pain Rheumatology: Yes: Fibromyalgia Endocrine: Yes: Diabetes Mellitus - Past Surgical History Past Surgical History: Yes: - Alcohol/Substance Use Hx Alcohol Use: No - Smoking History Smoking history: Current every day smoker Have you smoked in the past 12 months: Yes Aproximately how many cigarettes per day: 6 - Social History Usual Living Arrangement: With Spouse ADL: Independent History of Recent Travel: No Home Medications - Allergies Allergies/Adverse Reactions: Allergies Allergy/AdvReac Type Severity Reaction Status Date / Time metformin Allergy Verified 01/08/19 11:59 Penicillins Allergy Verified 01/08/19 11:59 vancomycin Allergy Verified 01/08/19 11:59 seafood Allergy Uncoded 01/08/19 11:59 - Home Medications Home Medications: Ambulatory Orders Atorvastatin Ca [Lipitor] 40 mg PO HS 10/21/18 Ferrous Sulfate 325 mg PO DAILY 10/21/18 Hydroxyzine HCl 50 mg PO DAILY 10/21/18 Insulin Glargine,Hum.rec.anlog [Basaglar Kwikpen U-100] 100 unit SQ DAILY Linagliptin [Tradjenta] 5 mg PO DAILY 10/21/18 Ondansetron HCl [Zofran] 4 mg PO TID PRN 10/21/18 Pantoprazole Sodium 40 mg PO DAILY 10/21/18 Liraglutide [Victoza -] 0.6 mg SQ DAILY@0700 pen.injctr 10/25/18 Sennosides [Senna -] 2 tab PO HS #60 tablet 10/25/18 Gabapentin [Neurontin -] 300 mg PO Q8H 11/15/18 Nortriptyline HCl [Pamelor -] 25 mg PO HS 11/15/18 Budesonide/Formeterol Fumarate [SYMBICORT 160/4.5mcg -] 2 inh PO BID 01/08/19 Folic Acid 1 mg PO DAILY 01/08/19 Melatonin 10 mg PO HS 01/08/19 hydrOXYzine HCL [Atarax -] 25 mg PO TID 01/08/19 Family Disease History - Family Disease History Other Family History: aunt with history of vaginal cancer Review of Systems - Review of Systems Eyes: reports: Blurred Vision Cardiovascular: reports: No Symptoms Respiratory: reports: No Symptoms Gastrointestinal: reports: Abdominal Pain Genitourinary: reports: No Symptoms Breasts: reports: No Symptoms Reported Endocrine: reports: No Symptoms Hematology/Lymphatic: reports: No Symptoms Psychiatric: reports: No Symptoms 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 Vital Signs: Vital Signs Temperature 97.9 F 01/09/19 13:46 Pulse Rate 88 01/09/19 13:46 Respiratory Rate 18 01/09/19 13:46 Blood Pressure 113/76 01/09/19 13:46 O2 Sat by Pulse Oximetry (%) 100 01/09/19 09:00 Constitutional: Yes: No Distress, Calm HENT: Yes: Normocephalic, Tonsillar Exudate, Other (poor dentition) Cardiovascular: Yes: Regular Rate and Rhythm Respiratory: Yes: WNL Gastrointestinal: Yes: Normal Bowel Sounds, Soft, Tenderness (mild tenderness to palpation LLQ>RLQ) ...Rectal Exam: Yes: Deferred Vaginal Exam: Yes: Other (uterus firm, anteverted, 6wk sized, mild discomfort R adnexa, no pain L adnexa, no CMT, no rebound or guarding) Musculoskeletal: Yes: WNL Extremities: Yes: WNL Edema: No ...Motor Strength: WNL Psychiatric: Yes: WNL Labs: CBC, BMP 01/09/19 06:30 01/09/19 06:30 Assessment/Plan [address] 2 cm L ovarian cyst, mild discomfort on palpation of R adnexa, normal L adnexa, no CMT. Nonacute exam, no need for acute surgical intervention at this time. Given hx/o regular menses (28 day cycle) and day 18 of cycle, likely resolving follicle or corpus luteal cyst. Reviewed findings with patient. Recommend pelvic ultrasound for further evaluation of pelvic structures / ovarian cyst. Encouraged outpatient follow up for routine gynecologic care. Will continue to follow
--- NOTE | 2019-01-10 00:27 | CONS ---
DATE OF CONSULTATION: DATE OF DICTATION: 01/09/2019 INFECTIOUS DISEASE CONSULTATION REQUESTING PHYSICIAN: Alvin Ji M.D. CONSULTING PHYSICIAN: Sravani Steinberg M.D. HISTORY OF PRESENT ILLNESS: This is a 43-year-old woman. She has a history of diabetes, sent to the ER with a 1-2 week history of abdominal pain, nausea, vomiting, and diarrhea. She also reports fevers at home. She says the last time she had a fever was 5 days ago, and it was 102. She also reports that normally she is constipated. She is cortney if she has a bowel movement every week, though over the last 1-2 weeks, she has been moving her bowels twice a day, no blood, they have been soft stools. She now reports to me that her last bowel movement was 3 days ago. She reports abdominal pain that is not improved with Motrin. She was admitted for further evaluation. I am asked to see her. She is allergic to METFORMIN, PENICILLIN, VANCOMYCIN, and SEAFOOD. MEDICATION: Her medications at home include atorvastatin, ferrous sulfate, hydroxyzine, insulin, Tradjenta, Protonix, Victoza, senna, Neurontin, Pamelor, Symbicort, folic acid, melatonin and Atarax. PAST MEDICAL HISTORY: Notable for history of diabetes. She has a history as well of liver, kidney and psoas abscess in February of 2018, at which time she was treated with ceftriaxone. Cultures all grew rangel sensitive E. coli. She had a PICC line placed. Had percutaneous drainage of the abscess and was treated with IV ceftriaxone for 4 weeks. ALLERGIES: She is allergic to PENICILLIN which gives her a rash, VANCOMYCIN which apparently gave her a facial rash. PAST SURGICAL HISTORY: Notable for . FAMILY HISTORY: Unremarkable. REVIEW OF SYSTEMS: Notable for weakness, malaise, abdominal pain, not severe vomiting which has stopped, and diarrhea which has stopped. She also notes she has some right ankle swelling. PHYSICAL EXAMINATION: VITAL SIGNS: She has had no fever. Temperature 97.9, pulse 88, blood pressure 113/76, respiratory rate 18. She is saturating 100% on room air. HEENT: Normocephalic. Eyes are anicteric. NECK: Supple. LUNGS: Clear to auscultation. HEART: Regular rate and rhythm. ABDOMEN: Currently is soft. She has no discomfort on deep palpation. EXTREMITIES: Without edema. She has left lower quadrant pain on exam. There is no evidence of any diverticulitis on the CAT scan. LABORATORY: Yesterday was 14.5, white count today is 8.8. Hemoglobin of 10.8, platelets are 305. Chemistries notable for hemoglobin A1c of 12.8. BUN and creatinine 7 and 0.6. Urinalysis had 3+ glucose otherwise negative, and her opiates were negative. She had blood cultures that were negative after 24 hours, a CAT scan that was notable for a left ovarian cyst. IMPRESSION: This is a 43-year-old woman with abdominal pain that appears to correlate to the ovarian cyst. Would await gynecological evaluation. Could send urine, GC and chlamydia, although she denies she is sexually active. I would duplex her right leg if she complains of nontraumatic ankle and right leg swelling and right leg pain. No antibiotics for now. Case was discussed at length with the hospitalist. SRAVANI STEINBERG M.D. [id number]
[2019-01-10] MEDS: SODIUM CHLORIDE 1,000 ML IV SCH (01:20)
[2019-01-10 05:23] VITALS: BP 109/64; PULSE 90; TEMP 98.2
[2019-01-10] MEDS: INSULIN SLIDING SCALE (NOVOLOG) 1 VIAL SQ SCH (06:44)
[2019-01-10] MEDS: GABAPENTIN 300 MG CAPSULE (FP) PO SCH (06:44)
== END 2019-01-10 07:31 | disposition left against medical advice (07) | DRG 532 ==
LOC: JER 11:56 → JERBED 17:58 → J6S 20:06
PROVIDERS: ADMIT Family Medicine; ATTEND Family Medicine
DX: N83.209 Unspecified ovarian cyst, unspecified side (principal); I10 Essential (primary) hypertension; E78.5 Hyperlipidemia, unspecified; K21.9 Gastro-esophageal reflux disease without esophagitis; F17.210 Nicotine dependence, cigarettes, uncomplicated; D72.829 Elevated white blood cell count, unspecified; K52.9 Noninfective gastroenteritis and colitis, unspecified; E11.40 Type 2 diabetes mellitus with diabetic neuropathy, unspecified; E11.65 Type 2 diabetes mellitus with hyperglycemia; M54.5 Low back pain; M79.7 Fibromyalgia; R63.4 Abnormal weight loss; R10.32 Left lower quadrant pain; N39.490 Overflow incontinence; K59.00 Constipation, unspecified; N83.202 Unspecified ovarian cyst, left side; Z86.73 Personal history of transient ischemic attack (TIA), and cerebral infarction without residual deficits; Z68.23 Body mass index [BMI] 23.0-23.9, adult; Z88.0 Allergy status to penicillin
CPT/HCPCS: 36415; 70450-TC; 74177-TC; 80053; 81003; 82962; 83036; 83690; 84703; 85025; 85651; 86140; 86850; 86900; 86901; 87040; 87086; 93005; 93010; 93971-TC; 99283-25; J1644; J7030

== ENCOUNTER 2019-03-04 11:05 | Emergency (ER) | payer OTHER ==
[2019-03-04 11:12] VITALS: BP 123/76; PULSE 100; TEMP 97.7; BMI 23.0
--- NOTE | 2019-03-04 11:55 | PDOC ---
History of Present Illness - General Chief Complaint: Pain Stated Complaint: RT LEG PAIN \ SWOLLEN Time Seen by Provider: 03/04/19 11:25 - History of Present Illness Initial Comments: 03/04/19 11:54 43-year-old female with a mechanical fall yesterday presents for evaluation of right knee pain. She did not hit her head. Past History - Past Medical History Allergies/Adverse Reactions: Allergies Allergy/AdvReac Type Severity Reaction Status Date / Time metformin Allergy Verified 03/04/19 11:49 Penicillins Allergy Verified 03/04/19 11:49 vancomycin Allergy Verified 03/04/19 11:49 seafood Allergy Uncoded 03/04/19 11:49 Home Medications: Ambulatory Orders Atorvastatin Ca [Lipitor] 40 mg PO HS 10/21/18 Ferrous Sulfate 325 mg PO DAILY 10/21/18 Hydroxyzine HCl 50 mg PO DAILY 10/21/18 Insulin Glargine,Hum.rec.anlog [Basaglar Kwikpen U-100] 100 unit SQ DAILY Linagliptin [Tradjenta] 5 mg PO DAILY 10/21/18 Ondansetron HCl [Zofran] 4 mg PO TID PRN 10/21/18 Pantoprazole Sodium 40 mg PO DAILY 10/21/18 Liraglutide [Victoza -] 0.6 mg SQ DAILY@0700 pen.injctr 10/25/18 Sennosides [Senna -] 2 tab PO HS #60 tablet 10/25/18 Gabapentin [Neurontin -] 300 mg PO Q8H 11/15/18 Nortriptyline HCl [Pamelor -] 25 mg PO HS 11/15/18 Budesonide/Formeterol Fumarate [SYMBICORT 160/4.5mcg -] 2 inh PO BID 01/08/19 Folic Acid 1 mg PO DAILY 01/08/19 Melatonin 10 mg PO HS 01/08/19 hydrOXYzine HCL [Atarax -] 25 mg PO TID 01/08/19 Anemia: Yes Asthma: Yes CVA: No COPD: No CHF: No Diabetes: Yes (type 2) GI Disorders: Yes (gerd) Hypercholesterolemia: Yes Liver Disease: Yes (Liver abscess w/ drainage 2018) - Immunization History Immunization Up to Date: Yes - Suicide/Smoking/Psychosocial Hx Smoking History: Current every day smoker Have you smoked in the past 12 months: Yes Number of Cigarettes Smoked Daily: 6 Information on smoking cessation initiated: No 'Breaking Loose' booklet given: 10/22/18 Hx Alcohol Use: No Drug/Substance Use Hx: No Substance Use Type: None Hx Substance Use Treatment: No Review of Systems - Review of Systems Musculoskeletal: Yes: Joint Pain *Physical Exam - Vital Signs Last Vital Signs Temp Pulse Resp BP Pulse Ox 97.7 F 100 H 18 123/76 100 03/04/19 11:09 03/04/19 11:09 03/04/19 11:09 03/04/19 11:09 03/04/19 11:09 - Physical Exam Comments: 03/04/19 11:54 Right knee skin color and temperature are normal range of motion is full. There is no swelling. Mild posterior medial joint line tenderness no other areas of tenderness or instability. No patellofemoral apprehension thighs and calves are soft and nontender normal range of motion of the hip and ankle neurovascularly intact. Medical Decision Making - Medical Decision Making 03/04/19 11:53 43-year-old female who weight-bear us after a fall yesterday complains of right knee pain knee exam is basically benign except for some posterior medial joint line tenderness she may weight-bear as tolerated with crutches and follow-up with orthopedic surgery. *DC/Admit/Observation/Transfer Diagnosis at time of Disposition: Strain of knee and leg, right - Discharge Dispostion Disposition: HOME Condition at time of disposition: Stable Decision to Admit order: No - Referrals Referrals: Alvin Ji MD [Primary Care Provider] - Aden Guardado DO [Staff Physician] - - Patient Instructions Additional Instructions: He may weight-bear as tolerated with the use of crutches. Please follow-up with orthopedic surgery for further evaluation and treatment of your knee pain. Continue with your current medications as directed - Post Discharge Activity
== END 2019-03-04 12:20 | disposition home or self-care (01) ==
LOC: JERFT 11:05
DX: S86.811A Strain of other muscle(s) and tendon(s) at lower leg level, right leg, initial encounter (principal); S83.8X1A Sprain of other specified parts of right knee, initial encounter; W19.XXXA Unspecified fall, initial encounter; Y93.89 Activity, other specified; Y92.89 Other specified places as the place of occurrence of the external cause; Y99.8 Other external cause status; E11.9 Type 2 diabetes mellitus without complications; Z79.4 Long term (current) use of insulin; E78.00 Pure hypercholesterolemia, unspecified; D64.9 Anemia, unspecified; K21.9 Gastro-esophageal reflux disease without esophagitis; J45.909 Unspecified asthma, uncomplicated
CPT/HCPCS: 99281-25

== ENCOUNTER 2019-11-20 08:45 | Emergency (ER) | payer OTHER ==
[2019-11-20 08:59] VITALS: BMI 23.1
--- NOTE | 2019-11-20 09:20 | PDOC ---
History of Present Illness - General Chief Complaint: Blood Sugar Problem Stated Complaint: BLOOD SUGAR PROBLEM - History of Present Illness Initial Comments: The pt is a 44F w/ a history of DM, HTN, anemia, and asthma who presents for evaluation of 1 week of URI symptoms. She reports having generalized weakness/ malaise and decreased appetite for 1 week. Pt reports diarrhea with one episode of vomiting yesterday. She also states that she has had low BG today (60s-70s). She has been compliant with her insulin regimen. She also reports generalized abdominal pain. Endorses subjective fevers Endorses flu vaccine this year, +child as sick contact Denies CARR, vision changes, dysuria, hematuria, or changes in strength/sensation. 11/20/19 09:53 Past History - Past Medical History Allergies/Adverse Reactions: Allergies Allergy/AdvReac Type Severity Reaction Status Date / Time metformin Allergy Verified 11/20/19 08:59 Penicillins Allergy Verified 11/20/19 08:59 vancomycin Allergy Verified 11/20/19 08:59 seafood Allergy Uncoded 11/20/19 08:59 Home Medications: Ambulatory Orders Atorvastatin Ca [Lipitor] 40 mg PO HS 10/21/18 Ferrous Sulfate 325 mg PO DAILY 10/21/18 Hydroxyzine HCl 50 mg PO DAILY 10/21/18 Insulin Glargine,Hum.rec.anlog [Basaglar Kwikpen U-100] 100 unit SQ DAILY Linagliptin [Tradjenta] 5 mg PO DAILY 10/21/18 Ondansetron HCl [Zofran] 4 mg PO TID PRN 10/21/18 Pantoprazole Sodium 40 mg PO DAILY 10/21/18 Liraglutide [Victoza -] 0.6 mg SQ DAILY@0700 pen.injctr 10/25/18 Sennosides [Senna -] 2 tab PO HS #60 tablet 10/25/18 Gabapentin [Neurontin -] 300 mg PO Q8H 11/15/18 Nortriptyline HCl [Pamelor -] 25 mg PO HS 11/15/18 Budesonide/Formeterol Fumarate [SYMBICORT 160/4.5mcg -] 2 inh PO BID 01/08/19 Folic Acid 1 mg PO DAILY 01/08/19 Melatonin 10 mg PO HS 01/08/19 hydrOXYzine HCL [Atarax -] 25 mg PO TID 01/08/19 Ondansetron [Zofran *Odt*] 4 mg SL TID #21 od.tablet 11/20/19 Anemia: Yes Asthma: Yes CVA: No COPD: No CHF: No Diabetes: Yes (type 2) GI Disorders: Yes (gerd) Hypercholesterolemia: Yes Liver Disease: Yes (Liver abscess w/ drainage 2018) - Immunization History Immunization Up to Date: Yes - Psycho Social/Smoking Cessation Hx Smoking History: Current every day smoker Have you smoked in the past 12 months: Yes Number of Cigarettes Smoked Daily: 5 Information on smoking cessation initiated: No 'Breaking Loose' booklet given: 10/22/18 Hx Alcohol Use: No Drug/Substance Use Hx: No Substance Use Type: None Hx Substance Use Treatment: No Review of Systems - Review of Systems Able to Perform ROS?: Yes Comments:: GENERAL/CONSTITUTIONAL: No chills. No weakness HEAD, EYES, EARS, NOSE AND THROAT: No change in vision. No change in hearing. No sore throat CARDIOVASCULAR: No chest pain or shortness of breath RESPIRATORY: Denies hemoptysis GASTROINTESTINAL: per HPI GENITOURINARY: No dysuria, frequency, or change in urination MUSCULOSKELETAL: No joint or muscle swelling or pain. No neck or back pain SKIN: No rash NEUROLOGIC: No headache, vertigo, loss of consciousness, or change in strength/ sensation ENDOCRINE: No increased thirst. No abnormal weight change HEMATOLOGIC/LYMPHATIC: No anemia, easy bleeding, or history of blood clots ALLERGIC/IMMUNOLOGIC: No hives or skin allergy 11/20/19 09:20 Is the patient limited Polish proficient: No *Physical Exam - Vital Signs Last Vital Signs Temp Pulse Resp BP Pulse Ox 97.9 F 115 H 16 109/84 99 11/20/19 08:55 11/20/19 08:55 11/20/19 08:55 11/20/19 08:55 11/20/19 08:55 - Physical Exam GENERAL: Awake, alert, and oriented to person/place/time, in no acute distress HEAD: No signs of trauma, normoc ephalic, atraumatic EYES: PERRLA, EOMI, sclera anicteric, conjunctiva clear ENT: Hearing grossly normal, nares patent, oropharynx clear without exudates. Moist mucosa LUNGS: No distress, speaks in full sentences, clear to auscultation bilaterally HEART: Regular rate and rhythm, normal S1 and S2, no murmurs appreciated, peripheral pulses normal and equal bilaterally ABDOMEN: Soft, generalized TTP slightly more notable in epigastrium, normoactive bowel sounds EXTREMITIES: Normal inspection, Normal range of motion, no edema. No clubbing or cyanosis NEUROLOGICAL: Cranial nerves II through XII grossly intact. Normal speech, normal gait, no focal sensorimotor deficits SKIN: Warm, Dry 11/20/19 09:20 ED Treatment Course - LABORATORY CBC & Chemistry Diagram: 11/20/19 09:45 11/20/19 09:45 - RADIOLOGY Radiograph Interpretation: CT/ABDOMEN & PELVIS CT WITH CONTR CT scan of the abdomen and pelvis following intravenous contrast. Visualized lung base appears unremarkable and the heart is within normal limits in size. Moderately distended breast, without gross wall thickening. Evaluation of the liver, spleen, pancreas, gallbladder, both adrenal glands and both kidneys appear unremarkable. There is no evidence of small bowel obstruction. Normal-appearing terminal ileum. Partially visualized normal-appearing appendix. No secondary signs of acute appendicitis. Normal amount of stool in the colon without wall thickening. Normal size uterus. Moderately distended urinary bladder without wall thickening. Previously visualized left adnexal cyst is not identified on this examination. Both ovaries are not visualized. There is no free air, free fluid or gross enlarged lymph nodes in the abdomen pelvis. Perirectal and pericecal fat are clear. A small fat-containing umbilical hernia is again seen. Normal size and enhancement of the abdominal aorta down through its bifurcation with atheromatous plaques present distally. Visualized osseous structures appear intact. IMPRESSION: See discussion above. CT evidence of an acute process is identified in the abdomen pelvis. Previously visualized left ovarian/adnexal small cyst is no longer seen No free air or free fluid in the abdomen pelvis. Atheromatous plaques in the distal abdominal aorta down through its bifurcation Small fat-containing umbilical hernia again seen 11/20/19 15:05 Medical Decision Making - Medical Decision Making The pt is a 44F w/ a history of DM, HTN, anemia, and asthma who presents for evaluation of 1 week of URI symptoms w/ decreased PO intake ED Course Labs sent CT A&P 11/20/19 12:49 Pt given D50 x1 for symptoms of hypoglycemia Lytes unremarkable Leukocytosis to 17 noted -UA overall unremarkable, pt currently on menses -CXR w/o acute pathology -CT A&P read pending No SOFIYA LFTs wnl 11/20/19 14:42 CT w/o acute pathology, umbilical hernia again noted 11/20/19 15:06 Pt feels improved at this time Repeat BGM improved Plan for D/C w/ PCP f/u Discharge instructions and return precautions given Patient in agreement and verbalized understanding Dispo: Home 11/20/19 15:19 Discharge - Discharge Information Problems reviewed: Yes Clinical Impression/Diagnosis: Viral syndrome, Hypoglycemia Condition: Stable - Admission No - Follow up/Referral Referrals: Alvin Ji MD [Primary Care Provider] - - Patient Discharge Instructions Patient Printed Discharge Instructions: DI for Hypoglycemia, DI for Viral Syndrome Additional Instructions: You were seen in the Emergency Department and your overall labs and imaging were unremarkable. Your symptoms are likely related to a virus and will likely self resolve within a week. Be sure to frequently wash your hands. A prescription for Zofran was sent to your pharmacy, take as directed for nausea /vomiting. Review the handout provided at discharge. Avoid close contact with young children, elderly, or weak immune system. Follow up with your primary care doctor within a week. - Post Discharge Activity Work/Back to School Note: Back to Work
--- NOTE | 2019-11-20 09:23 | PDOC ---
Attending Attestation - Resident Resident Name: Deo Richardson - ED Attending Attestation I have performed the following: I have examined & evaluated the patient, The case was reviewed & discussed with the resident, I agree w/resident's findings & plan - HPI HPI: 11/20/19 10:00 44 YOF with h/o HLD, DM2, GERD and asthma, anemia, fibromyalgia, presents for evaluation of 1 week of URI symptoms a/w diffuse weakness/malaise, decreased oral/fluid intake, dizziness. +decreased urination menses started today. Low BG today (60s-70s) today 11/20/19 10:00 - Physicial Exam PE: 11/20/19 09:59 Agree with the resident's HPI and PE as documented in the electronic medical record. malaised appearing, EOMI, PERRL, nl conjunctiva, anicteric; neck supple. lungs clear, +tachycardic, abdomen soft +diffusely tender. no rebound, guarding. Back nontender. JERONIMO x4, no focal neuro deficits. No peripheral edema. normal color for ethnicity, WWP. - Medical Decision Making 11/20/19 09:23 Vital Signs Temp Pulse Resp BP Pulse Ox 97.9 F 115 H 16 109/84 99 11/20/19 08:55 11/20/19 08:55 11/20/19 08:55 11/20/19 08:55 11/20/19 08:55 vitals notable for no fever, +tachycardia. likely from decreased hydration. normotensive, VS otherwise unremarkable. Differential diagnosis includes dehydration, viral syndrome, upper respiratory infection, pneumonia, anemia, electrolyte/metabolic derangements, hepatitis, pancreatitis, PUD, esophageal spasm, pyelonephritis, UTI, obstruction. 11/20/19 11:03 Labs remarkable for leukocytosis 17 K which is much higher than her previous baseline leukocytosis, electrolytes are within normal limits, lipase is normal LFTs are normal. Influenza is negative, UA preliminarily UA with some blood but due to current menses Patient given appropriate analgesia IV fluid hydration reassess. GI cocktail - maalox/pepcid CT a/p to eval for pyelo/intra abdominal pathology, given h/o hiatal hernia, obstruction 11/20/19 15:27 CT abdomen and pelvis negative for acute pathology, no longer seeing the left- sided ovarian cyst, no free fluid or free air, small fat-containing hernia in the umbilicus otherwise no acute process. no obstruction. Repeat fingerstick is normal, tolerating oral intake and food, Rx Zofran as needed for nausea and vomiting, adequate hydration, repeat VS normalizing, tachy downtrending after hydration/pain control. no systemic findings otherwise DC in stable condition with primary care follow-up. 11/20/19 15:28 Heart Score/ECG Review #1 ECG reviewed & interpreted by me at: 10:05 General ECG Interpretation: Sinus Rhythm, Normal Intervals 11/20/19 10:35 EKG sinus tachycardia 105 bpm, no interval abnormalities, narrow QRS, ST and T wave segments and morphology normal. Nonspecific T wave abnormalities
[2019-11-20] MEDS ORDERED: DEXTROSE 5%-WATER 500 ML PVC-FREE INFUS.BAG IV ONE (09:56)
[2019-11-20 10:16] LABS: BASO % 0.9 % (0-2.0); EOS % 0.6 % (0-4.5); HEMATOCRIT 35.5 % (32.4-45.2); HEMOGLOBIN 11.4 GM/dL (10.7-15.3); LYMPH % 19.5 % (8-40); MCH 27.5 pg (25.7-33.7); MEAN PLT VOLUME 7.1 fl (7.5-11.1); MONO % 3.2 % (3.8-10.2); NEUT % 75.8 % (42.8-82.8); PLATELET COUNT 564 K/MM3 (134-434); RBC 4.12 M/mm3 (3.60-5.2); RDW 23.6 % (11.6-15.6)
[2019-11-20 10:43] LABS: BILIRUBIN,TOTAL 0.2 mg/dL (0.2-1); BLOOD UREA NITROGEN 5.5 mg/dL (7-18); CALCIUM 9.2 mg/dL (8.5-10.1); CREATININE 0.8 mg/dL (0.55-1.3); POTASSIUM 4.4 mmol/L (3.5-5.1)
[2019-11-20] MEDS ORDERED: ACETAMINOPHEN 1000 MG/100 ML VIAL (NON FORMULARY) IVPB ONE (10:43)
[2019-11-20] MEDS ORDERED: morphine CARPU-JECT 4 MG/1 ML DISP.SYRIN IVPUSH ONE (10:43)
[2019-11-20] MEDS ORDERED: MORPHINE SULFATE 2 MG/ML VIAL ONE (10:53)
[2019-11-20] MEDS ORDERED: ACETAMINOPHEN INJECTION 100 ML IVPB ONE (10:55)
[2019-11-20 11:12] LABS: EPI CELLS 5.3 /HPF (0-5/HPF); HYALINE CASTS 0 /lpf (0-8); URINE APPEARANCE CLOUDY; URINE BACTERIA 91.2 /hpf (NEGATIVE); URINE BILIRUBIN NEGATIVE (NEGATIVE); URINE COLOR ORANGE; URINE GLUCOSE (UA) NEGATIVE (NEGATIVE); URINE KETONE NEGATIVE (NEGATIVE); URINE LEUK ESTERASE TRACE (NEGATIVE); URINE NITRITE NEGATIVE (NEGATIVE); URINE PROTEIN TRACE (NEGATIVE); URINE RBC 192 /hpf (0-4); URINE UROBILINOGEN 0.2 mg/dL (0.2-1.0); URINE WBC 5 /hpf (0-5)
[2019-11-20] MEDS ORDERED: MAG HYDROX/AL HYDROX/SIMETH -MYLANTA- ORAL SUSPENSION PO ONE (12:48)
[2019-11-20] MEDS ORDERED: FAMOTIDINE 20 MG/50 ML IVPB 20 MG/50 ML MG IVPB ONE ×2 (12:48→13:38)
[2019-11-20] MEDS ORDERED: DEXTROSE 50%-WATER - 25 GM/50 ML VIAL IVPUSH ONE (13:08)
[2019-11-20] MEDS ORDERED: DEXTROSE 50%-WATER 25 GM/50 ML DISP.SYRIN ONE ×2 (13:09→13:38)
[2019-11-20 13:19] LABS: ANISOCYTOSIS 2+; MACROCYTOSIS 2+; PLATELET ESTIMATE INCREASED
[2019-11-20] MEDS ORDERED: MAG HYDROX/AL HYDROX/SIMETH 30 ML UNIT-DOSE CUP ONE (13:38)
--- NOTE | 2019-11-20 15:09 | EKG ---
Test Reason : Blood Pressure : / mmHG Vent. Rate : 105 BPM Atrial Rate : 105 BPM P-R Int : 144 ms QRS Dur : 068 ms QT Int : 356 ms P-R-T Axes : 055 036 034 degrees QTc Int : 470 ms SINUS TACHYCARDIA LOW VOLTAGE QRS BORDERLINE ECG WHEN COMPARED WITH ECG OF 09-JAN-2019 10:54, NONSPECIFIC T WAVE ABNORMALITY NO LONGER EVIDENT IN ANTERIOR LEADS Confirmed by BOGDAN PACKER MD ([id number]) on 11/20/2019 3:09:30 PM Referred By: Confirmed By:BOGDAN PACKER MD
[2019-11-20 15:47] VITALS: BP 116/79; PULSE 100; TEMP 97.8
== END 2019-11-20 16:00 | disposition home or self-care (01) ==
LOC: JER 08:45
PROC: 3E033GC Introduction of Other Therapeutic Substance into Peripheral Vein, Percutaneous Approach (ICD-10-PCS; principal; 2019-11-20)
PROC: 3E0337Z Introduction of Electrolytic and Water Balance Substance into Peripheral Vein, Percutaneous Approach (ICD-10-PCS; 2019-11-20)
PROC: 3E033NZ Introduction of Analgesics, Hypnotics, Sedatives into Peripheral Vein, Percutaneous Approach (ICD-10-PCS; 2019-11-20)
PROC: 3E033NZ Introduction of Analgesics, Hypnotics, Sedatives into Peripheral Vein, Percutaneous Approach (ICD-10-PCS; 2019-11-20)
DX: B34.9 Viral infection, unspecified (principal); E11.649 Type 2 diabetes mellitus with hypoglycemia without coma; K21.9 Gastro-esophageal reflux disease without esophagitis; J45.909 Unspecified asthma, uncomplicated; D64.9 Anemia, unspecified; Z88.1 Allergy status to other antibiotic agents; Z79.4 Long term (current) use of insulin; Z88.0 Allergy status to penicillin; Z88.8 Allergy status to other drugs, medicaments and biological substances; Z91.013 Allergy to seafood
CPT/HCPCS: 36415; 71045-TC-FY; 74177-TC; 80053; 81003; 82962; 83690; 84703; 85025; 87086; 87804; 93005; 93010; 99283-25; J0131; Q9967

== ENCOUNTER 2020-06-28 19:32 | Emergency (ER) | payer OTHER ==
[2020-06-28 19:47] VITALS: BP 136/76; PULSE 110; BMI 24.0
--- NOTE | 2020-06-28 21:11 | PDOC ---
History of Present Illness - General Chief Complaint: Pain Stated Complaint: ABD PAIN/SOB Time Seen by Provider: 06/28/20 20:56 History Source: Patient - History of Present Illness Initial Comments: 06/28/20 21:11 The pt is a 44F w/ a history of DM, HTN, anemia, and asthma complaining of lower abdominal pain for the last 3 to 4 weeks. Patient reports that she was seen by PCP , had labs and ultrasound done which she does not know the results of. Patient reports that the pain is similar to previous colitis exacerbation. Denies fever/chills reports nausea. Denies vomiting, diarrhea, constipation. Denies urinary symptoms. Blood sugar at home in the 360s denies shortness of breath, chest pain or chest tightness. 06/28/20 21:56 06/28/20 21:57 Past History - Medical History Allergies/Adverse Reactions: Allergies Allergy/AdvReac Type Severity Reaction Status Date / Time metformin Allergy Verified 06/28/20 19:42 Penicillins Allergy Verified 06/28/20 19:42 vancomycin Allergy Verified 06/28/20 19:42 seafood Allergy Uncoded 06/28/20 19:42 Home Medications: Ambulatory Orders Atorvastatin Ca [Lipitor] 40 mg PO HS 10/21/18 Ferrous Sulfate 325 mg PO DAILY 10/21/18 Hydroxyzine HCl 50 mg PO DAILY 10/21/18 Insulin Glargine,Hum.rec.anlog [Basaglar Kwikpen U-100] 100 unit SQ DAILY 10/21/18 Linagliptin [Tradjenta] 5 mg PO DAILY 10/21/18 Ondansetron HCl [Zofran] 4 mg PO TID PRN 10/21/18 Pantoprazole Sodium 40 mg PO DAILY 10/21/18 Liraglutide [Victoza -] 0.6 mg SQ DAILY@0700 pen.injctr 10/25/18 Sennosides [Senna -] 2 tab PO HS #60 tablet 10/25/18 Gabapentin [Neurontin -] 300 mg PO Q8H 11/15/18 Nortriptyline HCl [Pamelor -] 25 mg PO HS 11/15/18 Budesonide/Formeterol Fumarate [SYMBICORT 160/4.5mcg -] 2 inh PO BID 01/08/19 Folic Acid 1 mg PO DAILY 01/08/19 Melatonin 10 mg PO HS 01/08/19 hydrOXYzine HCL [Atarax -] 25 mg PO TID 01/08/19 Ondansetron [Zofran *Odt*] 4 mg SL TID #21 od.tablet 11/20/19 Anemia: Yes Asthma: Yes CVA: No COPD: No CHF: No Diabetes: Yes (type 2) GI Disorders: Yes (gerd) Hypercholesterolemia: Yes Liver Disease: Yes (Liver abscess w/ drainage 2018) Other medical history: neuropathy - Reproductive History Is Patient Now?: No - Immunization History Immunization Up to Date: Yes - Psycho-Social/Smoking History Smoking History: Current every day smoker Have you smoked in the past 12 months: Yes Number of Cigarettes Smoked Daily: 5 Information on smoking cessation initiated: No 'Breaking Loose' booklet given: 10/22/18 - Substance Abuse Hx (Audit-C & DAST Scrn) How often the patient has a drink containing alcohol: Never Score: In Men: 4 or > Positive; In Women: 3 or > Positive: 0 Screen Result (Pos requires Nsg. Audit-10AR): Negative *Physical Exam - Vital Signs Last Vital Signs Temp Pulse Resp BP Pulse Ox 110 H 18 136/76 100 06/28/20 19:40 06/28/20 19:40 06/28/20 19:40 06/28/20 19:40 - Physical Exam General Appearance: Yes: Appropriately Dressed Respiratory/Chest: positive: Lungs Clear, Normal Breath Sounds Cardiovascular: positive: Regular Rhythm, Regular Rate Gastrointestinal/Abdominal: positive: Normal Bowel Sounds, Tender (lower abdominal pain), Soft Musculoskeletal: negative: CVA Tenderness Integumentary: positive: Normal Color, Dry, Warm Neurologic: positive: Fully Oriented, Alert Medical Decision Making - Medical Decision Making 06/29/20 00:11 Unable to get blood. Patient refused IV access for blood draw. Patient reports that she would like to go home. Note: The patient insists on leaving the emergency dept and is signing out against medical advice. The patient understands the risks and complications that may result from the refusal of medical care and admission which includes and permanent disability. The patient has the mental capacity of understanding the risks of refusing care and is capable of making an informed decision. The patient was instructed to return to the emergency department should [] change [] mind regarding medical care or should [] condition worsen. The patient signed the Against Medical Advice form. Discharge - Discharge Information Problems reviewed: Yes Clinical Impression/Diagnosis: Hyperglycemia Abdominal pain Qualifiers: Abdominal location: lower abdomen, unspecified Qualified Code(s): R10.30 - Lower abdominal pain, unspecified Disposition: AGAINST MEDICAL ADVICE - Follow up/Referral Referrals: Alvin Ji MD [Primary Care Provider] - - Patient Discharge Instructions - Post Discharge Activity
[2020-06-28] MEDS ORDERED: SODIUM CHLORIDE 1,000 ML IV STA (21:46)
[2020-06-28] MEDS ORDERED: morphine CARPU-JECT 2 MG/1 ML DISP.SYRIN IVPUSH ONE (21:59)
[2020-06-28] MEDS ORDERED: ONDANSETRON 4 MG/2 ML VIAL IVPUSH ONE (22:00)
[2020-06-28] MEDS ORDERED: MORPHINE SULFATE 2 MG/ML VIAL ONE (22:15)
--- NOTE | 2020-06-29 10:37 | EKG ---
Test Reason : Blood Pressure : / mmHG Vent. Rate : 106 BPM Atrial Rate : 106 BPM P-R Int : 154 ms QRS Dur : 072 ms QT Int : 354 ms P-R-T Axes : 049 039 030 degrees QTc Int : 470 ms SINUS TACHYCARDIA POSSIBLE LEFT ATRIAL ENLARGEMENT BORDERLINE ECG WHEN COMPARED WITH ECG OF 20-NOV-2019 10:08, NO SIGNIFICANT CHANGE WAS FOUND Confirmed by Aidan Montemayor MD ([id number]) on 06/29/2020 10:36:50 AM Referred By: Confirmed By:Aidan Montemayor MD
== END 2020-06-29 02:00 | disposition left against medical advice (07) ==
LOC: JER 19:32
PROC: 3E033NZ Introduction of Analgesics, Hypnotics, Sedatives into Peripheral Vein, Percutaneous Approach (ICD-10-PCS; principal; 2020-06-28)
PROC: 3E033GC Introduction of Other Therapeutic Substance into Peripheral Vein, Percutaneous Approach (ICD-10-PCS; 2020-06-28)
PROC: 3E0337Z Introduction of Electrolytic and Water Balance Substance into Peripheral Vein, Percutaneous Approach (ICD-10-PCS; 2020-06-28)
DX: R73.9 Hyperglycemia, unspecified (principal); R10.30 Lower abdominal pain, unspecified
CPT/HCPCS: 93005; 93010; 99285-25

== ENCOUNTER 2021-04-15 10:34 | Emergency (ER) | payer OTHER ==
[2021-04-15 10:59] VITALS: BP 106/69; TEMP 98; BMI 21.4
[2021-04-15] MEDS ORDERED: ACETAMINOPHEN 325 MG TABLET (FP) PO ONE (12:00)
[2021-04-15] MEDS ORDERED: ACETAMINOPHEN 500 MG TABLET (FP) ONE (12:05)
[2021-04-15] MEDS ORDERED: oxyCODONE HCL 5 MG TABLET PO ONE (13:24)
[2021-04-15] MEDS ORDERED: oxyCODONE HCL 5 MG TABLET ONE (13:31)
[2021-04-15 13:55] VITALS: PULSE 92
== END 2021-04-15 14:00 | disposition home or self-care (01) ==
LOC: JERFT 10:34
DX: M25.562 Pain in left knee (principal); M25.572 Pain in left ankle and joints of left foot
CPT/HCPCS: 73562-TC-LT-FY; 73590-TC-LT-FY; 73610-TC-LT-FY; 73630-TC-LT; 99285-25

== ENCOUNTER 2021-04-25 17:56 | Emergency (ER) | payer OTHER ==
[2021-04-25 18:07] VITALS: BP 112/72; PULSE 104; TEMP 98.2; BMI 22.4
[2021-04-25] MEDS ORDERED: SODIUM CHLORIDE 0.9% 500 ML INFUS.BAG IV ONE (19:53)
[2021-04-25 20:31] LABS: VENOUS BASE EXCESS -1.8 mmol/L (-2-2); VENOUS O2 SATURATION 25.7 % (70-80); VENOUS PCO2 39.3 mmHg (38-52); VENOUS PH 7.385 (7.310-7.410)
[2021-04-25 20:41] LABS: BASO % 0.2 % (0-2.0); EOS % 2.2 % (0-4.5); HEMATOCRIT 35.5 % (32.4-45.2); HEMOGLOBIN 10.7 GM/dL (10.7-15.3); LYMPH % 29.1 % (8-40); MCH 22.7 pg (25.7-33.7); MCHC 30.2 g/dl (32.0-36.0); MEAN CELL VOLUME 75.2 fl (80-96); MEAN PLT VOLUME 7.8 fl (7.5-11.1); MONO % 3.5 % (3.8-10.2); PLATELET COUNT 459 10^3/uL (134-434); RBC 4.72 M/mm3 (3.60-5.2); RDW 24.6 % (11.6-15.6); WHITE BLOOD COUNT 12.9 K/mm3 (4.0-10.0)
[2021-04-25 21:02] LABS: ALBUMIN 3.7 g/dl (3.4-5.0); BLOOD UREA NITROGEN 4.1 mg/dL (7-18); CALCIUM 9.2 mg/dL (8.5-10.1)
[2021-04-25 21:05] LABS: CREATININE 0.8 mg/dL (0.55-1.3)
[2021-04-25 21:08] LABS: BILIRUBIN,TOTAL 0.3 mg/dL (0.2-1); TOT PROT 8.1 g/dl (6.4-8.2)
[2021-04-26 00:02] LABS: ANISOCYTOSIS 2+; MACROCYTOSIS 0
== END 2021-04-26 01:59 | disposition home or self-care (01) ==
LOC: JER 17:56
DX: R73.9 Hyperglycemia, unspecified (principal)
CPT/HCPCS: 36415; 80053; 82010; 82803; 82962; 84703; 85025; 99291; 99292

== ENCOUNTER 2021-10-06 11:08 | Emergency (ER) | payer OTHER ==
[2021-10-06 11:48] VITALS: BMI 23.8
[2021-10-06 12:11] LABS: HEMATOCRIT 33.6 % (32.4-45.2); HEMOGLOBIN 10.2 GM/dL (10.7-15.3); MCH 22.8 pg (25.7-33.7); MCHC 30.4 g/dl (32.0-36.0); MEAN CELL VOLUME 74.9 fl (80-96); MEAN PLT VOLUME 8.2 fl (7.5-11.1); PLATELET COUNT 425 10^3/uL (134-434); RBC 4.48 M/mm3 (3.60-5.2); WHITE BLOOD COUNT 16.4 K/mm3 (4.0-10.0)
[2021-10-06 12:17] LABS: INR 1.04 (0.83-1.09); PROTHROMBIN TIME (PATIENT) 11.7 SEC (9.7-13.0)
[2021-10-06 12:20] LABS: ACTIVATED PTT 30.4 SECONDS (25.2-36.5)
[2021-10-06 12:21] LABS: CHLORIDE 104 mmol/L (98-107); SODIUM 136 mmol/L (136-145)
[2021-10-06 12:24] LABS: ALBUMIN 3.4 g/dl (3.4-5.0); BLOOD UREA NITROGEN 5.9 mg/dL (7-18)
[2021-10-06 12:25] LABS: ANION GAP 7 MMOL/L (8-16); CO2 24 mmol/L (21-32); GLUCOSE,RANDOM 241 mg/dL (74-106)
[2021-10-06 12:26] LABS: SGPT/ALT 22 U/L (13-61)
[2021-10-06 12:28] LABS: CHOLESTEROL 87 mg/dL (50-200); CREATININE 0.9 mg/dL (0.55-1.3); SGOT/AST 19 U/L (15-37); TRIGLYCERIDES 134 mg/dL (0-150)
[2021-10-06 12:29] LABS: BILIRUBIN,TOTAL 0.3 mg/dL (0.2-1); LDL CHOLESTEROL (ONLY SJRH) 43 mg/dL (5-100); TOT PROT 7.8 g/dl (6.4-8.2)
[2021-10-06 12:30] LABS: ALK PHOS 155 U/L (45-117); HDL CHOLESTEROL 28 mg/dL (40-60)
[2021-10-06 12:37] LABS: ANISOCYTOSIS 2+; TARGET CELLS 1+
[2021-10-06 12:57] LABS: VENOUS BASE EXCESS -3.9 mmol/L (-2-2); VENOUS PCO2 38.3 mmHg (38-52); VENOUS PH 7.36 (7.310-7.410)
[2021-10-06 13:18] LABS: CALCIUM 9.3 mg/dL (8.5-10.1)
[2021-10-06 13:19] LABS: BLOOD UREA NITROGEN 5.7 mg/dL (7-18)
[2021-10-06 13:22] LABS: CREATININE 0.9 mg/dL (0.55-1.3)
[2021-10-06] MEDS ORDERED: KETOROLAC TROMETHAMINE 30 MG/1 ML VIAL IVPUSH ONE (13:43)
[2021-10-06] MEDS ORDERED: SODIUM CHLORIDE 1,000 ML IV SCH (13:45)
[2021-10-06] MEDS ORDERED: KETOROLAC TROMETHAMINE 30 MG/1 ML VIAL ONE (13:56)
[2021-10-06 15:10] VITALS: BP 100/67; PULSE 78; TEMP 98.5
== END 2021-10-06 16:02 | disposition home or self-care (01) ==
LOC: JER 11:08
PROC: 3E033GC Introduction of Other Therapeutic Substance into Peripheral Vein, Percutaneous Approach (ICD-10-PCS; principal; 2021-10-06)
DX: M54.2 Cervicalgia (principal); M79.601 Pain in right arm; M25.561 Pain in right knee; W19.XXXA Unspecified fall, initial encounter
CPT/HCPCS: 36415; 70450-TC; 71046-TC-FY; 72125-TC; 72170-TC-FY; 73030-TC-RT-FY; 73070-TC-RT-FY; 80048; 80053; 80061; 80307; 82010; 82550; 82803; 82962; 83036; 84484; 84703; 85025; 85610; 85730; 93005; 93010; 99285-25

== ENCOUNTER 2022-06-05 10:53 | Emergency (ER) | payer OTHER ==
[2022-06-05 11:15] VITALS: BP 96/65; PULSE 108; RESP 17; TEMP 98; BMI 25.0
[2022-06-05] MEDS ORDERED: ACETAMINOPHEN 500 MG TABLET (FP) PO ONE (13:44)
[2022-06-05] MEDS ORDERED: GABAPENTIN 300 MG CAPSULE PO ONE (13:44)
[2022-06-05] MEDS ORDERED: ACETAMINOPHEN 500 MG TABLET (FP) ONE (13:50)
[2022-06-05] MEDS ORDERED: GABAPENTIN 300 MG CAPSULE ONE (13:52)
== END 2022-06-05 16:43 | disposition left against medical advice (07) ==
LOC: JER 10:53 → JERFT 10:53
DX: M54.89 Other dorsalgia (principal); W19.XXXA Unspecified fall, initial encounter

== ENCOUNTER 2022-06-06 12:42 | Inpatient (IN) | payer OTHER ==
[2022-06-06 12:51] VITALS: TEMP 98.4; BMI 25.9
[2022-06-06] MEDS ORDERED: ACETAMINOPHEN 325 MG TABLET (FP) PO PRN (13:14)
[2022-06-06] MEDS ORDERED: ONDANSETRON *ODT* 4 MG TABLET SL PRN (13:14)
[2022-06-06] MEDS ORDERED: GABAPENTIN 300 MG CAPSULE PO SCH (14:00)
[2022-06-06] MEDS ORDERED: FUROSEMIDE 40 MG/4 ML INJECTABLE VIAL IVPUSH SCH (14:00)
[2022-06-06] MEDS ORDERED: ACETAMINOPHEN 325 MG TABLET (FP) ONE (14:11)
[2022-06-06] MEDS ORDERED: FUROSEMIDE 40 MG/4 ML INJECTABLE VIAL ONE (14:11)
[2022-06-06] MEDS ORDERED: GABAPENTIN 300 MG CAPSULE ONE (14:11)
[2022-06-06 14:55] LABS: HEMATOCRIT 31.7 % (32.4-45.2); HEMOGLOBIN 9.3 GM/dL (10.7-15.3); MCHC 29.3 g/dl (32.0-36.0); MEAN CELL VOLUME 67.4 fl (80-96); MEAN PLT VOLUME 8.7 fl (7.5-11.1); PLATELET COUNT 231 10^3/uL (134-434); RDW 25.6 % (11.6-15.6); WHITE BLOOD COUNT 14.8 K/mm3 (4.0-10.0)
[2022-06-06 14:58] LABS: MCH 19.8 pg (25.7-33.7)
[2022-06-06 15:02] LABS: INR 0.87 (0.83-1.09)
[2022-06-06 15:05] LABS: ACTIVATED PTT 30.6 SECONDS (25.2-36.5)
[2022-06-06 15:18] LABS: URINE APPEARANCE CLEAR; URINE BILIRUBIN NEGATIVE (NEGATIVE); URINE COLOR YELLOW; URINE GLUCOSE (UA) 3+ (NEGATIVE); URINE KETONE NEGATIVE (NEGATIVE); URINE LEUK ESTERASE NEGATIVE (NEGATIVE); URINE NITRITE NEGATIVE (NEGATIVE); URINE PROTEIN NEGATIVE (NEGATIVE); URINE UROBILINOGEN 0.2 mg/dL (0.2-1.0)
[2022-06-06] MEDS ORDERED: morphine CARPU-JECT 4 MG/1 ML DISP.SYRIN IVPUSH ONE (15:21)
[2022-06-06] MEDS ORDERED: morphine SULFATE 4 MG/ML VIAL ONE (15:27)
[2022-06-06 15:33] LABS: ALBUMIN 3.3 g/dl (3.4-5.0); BLOOD UREA NITROGEN 7.9 mg/dL (7-18); CALCIUM 8.9 mg/dL (8.5-10.1)
[2022-06-06 15:36] LABS: N-TERMINAL BNP 26.7 pg/ml (5-125)
[2022-06-06 15:37] LABS: BILIRUBIN,TOTAL 0.2 mg/dL (0.2-1); TOT PROT 7.3 g/dl (6.4-8.2)
[2022-06-06] MEDS ORDERED: INSULIN SLIDING SCALE (NOVOLOG) 1 VIAL SQ SCH (16:30)
[2022-06-06 19:57] VITALS: BP 98/63; PULSE 98; RESP 18
[2022-06-06] MEDS ORDERED: ATORVASTATIN CA 20 MG TABLET (FP) PO SCH (22:00)
[2022-06-06] MEDS ORDERED: INSULIN (LEVEMIR) 100 UNITS/ML UNITS SQ SCH (22:00)
[2022-06-06] MEDS ORDERED: NORTRIPTYLINE HCL 25 MG CAPSULE PO SCH (22:00)
[2022-06-07] MEDS ORDERED: IRON SUCROSE INJECTION 200 MG in SODIUM CHLORIDE 90 ML IVPB ONE (09:00)
[2022-06-07] MEDS ORDERED: PANTOPRAZOLE 40 MG TABLET PO SCH (10:00)
== END 2022-06-06 21:05 | disposition left against medical advice (07) | DRG 347 ==
LOC: JER 12:42 → JERBED 13:47
PROVIDERS: ADMIT Family Medicine; ATTEND Family Medicine
DX: M54.9 Dorsalgia, unspecified (principal); R60.9 Edema, unspecified; I10 Essential (primary) hypertension; E78.5 Hyperlipidemia, unspecified; M06.9 Rheumatoid arthritis, unspecified; D64.9 Anemia, unspecified; M54.30 Sciatica, unspecified side; M79.7 Fibromyalgia; K76.89 Other specified diseases of liver; K21.9 Gastro-esophageal reflux disease without esophagitis; E11.9 Type 2 diabetes mellitus without complications; J45.909 Unspecified asthma, uncomplicated; R10.32 Left lower quadrant pain
CPT/HCPCS: 36415; 71045-TC-FY; 71260-TC; 74177-TC; 76604; 80053; 80061; 81003; 82962; 83036; 83540; 83550; 83880; 84443; 84484; 84703; 85027; 85610; 85730; 87086; 87186; 93005; 93010; 93308; 99283-25; 99285-25; C9803-CS; Q9967; U0003; U0005

== ENCOUNTER 2022-06-19 14:31 | Observation (INO) | payer OTHER ==
[2022-06-19 14:51] VITALS: BMI 27.4
[2022-06-19] MEDS ORDERED: ACETAMINOPHEN 1000 MG/100 ML BAG IVPB ONE (15:14)
[2022-06-19] MEDS ORDERED: ACETAMINOPHEN INJECTION 100 ML IVPB ONE (16:20)
[2022-06-19 18:01] LABS: BASO % 0.6 % (0-2.0); HEMATOCRIT 28.8 % (32.4-45.2); HEMOGLOBIN 8.7 GM/dL (10.7-15.3); LYMPH % 23.9 % (8-40); MCH 20.8 pg (25.7-33.7); MCHC 30.1 g/dl (32.0-36.0); MEAN CELL VOLUME 68.9 fl (80-96); MEAN PLT VOLUME 8.2 fl (7.5-11.1); MONO % 4.2 % (3.8-10.2); NEUT % 70.3 % (42.8-82.8); PLATELET COUNT 635 10^3/uL (134-434); RBC 4.17 M/mm3 (3.60-5.2); RDW 27.1 % (11.6-15.6); WHITE BLOOD COUNT 18.6 K/mm3 (4.0-10.0)
[2022-06-19 18:08] LABS: INR 0.97 (0.83-1.09); PROTHROMBIN TIME (PATIENT) 11.1 SEC (9.7-13.0)
[2022-06-19 18:10] LABS: ACTIVATED PTT 30.3 SECONDS (25.2-36.5)
[2022-06-19 18:23] VITALS: TEMP 98.7
[2022-06-19 18:23] LABS: CALCIUM 8.9 mg/dL (8.5-10.1)
[2022-06-19 18:24] LABS: ALBUMIN 3.2 g/dl (3.4-5.0); BLOOD UREA NITROGEN 10.4 mg/dL (7-18)
[2022-06-19 18:27] LABS: CREATININE 0.9 mg/dL (0.55-1.3)
[2022-06-19 18:28] LABS: TOT PROT 7.4 g/dl (6.4-8.2)
[2022-06-19 18:29] LABS: BILIRUBIN,TOTAL 0.3 mg/dL (0.2-1)
[2022-06-19 18:32] LABS: N-TERMINAL BNP 21.2 pg/ml (5-125)
[2022-06-19 18:58] LABS: ANISOCYTOSIS 3+; MACROCYTOSIS 0; OVALOCYTE 1+; TARGET CELLS 1+
[2022-06-19 19:26] VITALS: BP 114/65; PULSE 97; RESP 18
[2022-06-19] MEDS ORDERED: ACETAMINOPHEN 1000 MG/100 ML BAG IVPB PRN (20:18)
[2022-06-19] MEDS ORDERED: INSULIN SLIDING SCALE (NOVOLOG) 1 VIAL SQ SCH (22:00)
== END 2022-06-19 22:13 | disposition left against medical advice (07) ==
LOC: JER 14:31 → JERBED 20:03 → INTOOBSV 20:03
PROVIDERS: ADMIT Hospitalist; ATTEND Internal Medicine
PROC: 3E033NZ Introduction of Analgesics, Hypnotics, Sedatives into Peripheral Vein, Percutaneous Approach (ICD-10-PCS; principal; 2022-06-19)
DX: R00.2 Palpitations (principal); D64.9 Anemia, unspecified; Z86.711 Personal history of pulmonary embolism; E11.9 Type 2 diabetes mellitus without complications; I10 Essential (primary) hypertension; E78.5 Hyperlipidemia, unspecified; R00.0 Tachycardia, unspecified; J45.909 Unspecified asthma, uncomplicated; G89.29 Other chronic pain; M54.50 Low back pain, unspecified; K21.9 Gastro-esophageal reflux disease without esophagitis; N17.9 Acute kidney failure, unspecified; M79.7 Fibromyalgia; Z91.013 Allergy to seafood; Z88.0 Allergy status to penicillin; R60.1 Generalized edema; Z88.8 Allergy status to other drugs, medicaments and biological substances; F17.210 Nicotine dependence, cigarettes, uncomplicated
CPT/HCPCS: 36415; 71045-TC-FY; 80053; 82962; 83036; 83605; 83690; 83880; 84443; 84484; 84703; 85025; 85610; 85730; 86850; 86900; 86901; 93005; 93010; 96374; 99285-25; C9803-CS; G0378; U0003; U0005

== ENCOUNTER 2022-08-13 11:10 | Emergency (ER) | payer OTHER ==
[2022-08-13 11:17] VITALS: BP 108/66; PULSE 109; RESP 18; TEMP 98.1; BMI 26.1
[2022-08-13] MEDS ORDERED: IBUPROFEN 600 MG TABLET (FP) PO ONE ×2 (12:33→12:36)
[2022-08-13] MEDS ORDERED: ACETAMINOPHEN 325 MG TABLET (FP) PO ONE (12:33)
[2022-08-13] MEDS ORDERED: ACETAMINOPHEN 325 MG TABLET (FP) ONE (12:36)
== END 2022-08-13 13:55 | disposition home or self-care (01) ==
LOC: JERFT 11:10
DX: M79.641 Pain in right hand (principal)
CPT/HCPCS: 73110-TC-RT-FY; 73130-TC-RT-FY; 99283-25

== ENCOUNTER 2024-03-12 10:30 | Inpatient (IN) | payer OTHER ==
[2024-03-12 10:53] VITALS: TEMP 98.7; BMI 21.6
[2024-03-12] MEDS ORDERED: methylPREDNISolone NA SUCC 125 MG/2 ML VIAL ONE ×2 (11:27→12:23)
[2024-03-12] MEDS ORDERED: ACETAMINOPHEN INJECTION 100 ML IVPB ONE (11:27)
[2024-03-12] MEDS: ACETAMINOPHEN 1000 MG/100 ML BAG IVPB ONE (12:14)
[2024-03-12] MEDS: methylPREDNISolone NA SUCC 125 MG/2 ML VIAL IVPUSH ONE (12:27)
[2024-03-12 12:43] LABS: INR 1.07 (0.83-1.09); PROTHROMBIN TIME (PATIENT) 12.1 SEC (9.7-13.0)
[2024-03-12 12:52] LABS: BASO % 0.4 % (0-2.0); EOS % 0.6 % (0-4.5); HEMATOCRIT 25.6 % (32.4-45.2); HEMOGLOBIN 7.2 GM/dL (10.7-15.3); MCHC 28.3 g/dl (32.0-36.0); MEAN CELL VOLUME 65.1 fl (80-96); MONO % 2.7 % (3.8-10.2); NEUT % 84.3 % (42.8-82.8); PLATELET COUNT 442 10^3/uL (134-434); RBC 3.93 M/mm3 (3.60-5.2); RDW 24.2 % (11.6-15.6); WHITE BLOOD COUNT 13.6 K/mm3 (4.0-10.0)
[2024-03-12 12:54] LABS: MCH 18.4 pg (25.7-33.7)
[2024-03-12 12:59] LABS: POTASSIUM 4.3 mmol/L (3.5-5.1)
[2024-03-12 13:06] LABS: CALCIUM 8.5 mg/dL (8.5-10.1)
[2024-03-12 13:07] LABS: ALBUMIN 3.5 g/dl (3.4-5.0); BLOOD UREA NITROGEN 8.2 mg/dL (7-18)
[2024-03-12 13:12] LABS: BILIRUBIN,TOTAL 0.5 mg/dL (0.2-1); TOT PROT 7.2 g/dl (6.4-8.2)
[2024-03-12 13:15] LABS: N-TERMINAL BNP 23.6 pg/ml (5-125)
[2024-03-12] MEDS: morphine CARPU-JECT 2 MG/1 ML DISP.SYRIN IVPUSH ONE (13:16)
[2024-03-12 15:24] VITALS: BP 122/58; PULSE 95; RESP 20
[2024-03-12 15:58] LABS: ANISOCYTOSIS 2+; MACROCYTOSIS 1+; OVALOCYTE 1+
[2024-03-12] MEDS ORDERED: ATORVASTATIN CA 40 MG TABLET (FP) PO SCH (22:00)
[2024-03-13] MEDS ORDERED: PANTOPRAZOLE 40 MG TABLET PO SCH (10:00)
== END 2024-03-12 16:08 | disposition left against medical advice (07) | DRG 139 ==
LOC: JER 10:30 → JERBED 14:41
PROVIDERS: ADMIT Internal Medicine; ATTEND Internal Medicine
DX: J18.9 Pneumonia, unspecified organism (principal); E11.9 Type 2 diabetes mellitus without complications; D64.9 Anemia, unspecified; E78.5 Hyperlipidemia, unspecified; J45.909 Unspecified asthma, uncomplicated; R06.02 Shortness of breath
CPT/HCPCS: 0241U-QW; 36415; 71045-TC-FY; 71275-TC; 80053; 83880; 84484; 84703; 85025; 85610; 85730; 87040; 87086; 87186; 87899; 93005; 93010; 99285-25; J0131

== ENCOUNTER 2024-03-14 12:39 | Inpatient (IN) | payer OTHER ==
[2024-03-14] MEDS ORDERED: DEXAMETHASONE SOD PHOSPHATE 10 MG/1 ML VIAL ONE (13:27)
[2024-03-14] MEDS ORDERED: ACETAMINOPHEN INJECTION 100 ML IVPB ONE (13:27)
[2024-03-14] MEDS ORDERED: ALBUTEROL SO4 2.5/IPRATROPIUM 0.5 INH SOL 3 ML VIAL.NEB. NEB ONE ×3 (13:59→16:16)
[2024-03-14] MEDS: ALBUTEROL SO4 2.5/IPRATROPIUM 0.5 INH SOL 3 ML VIAL.NEB. NEB SCH ×2 (14:10→16:47)
[2024-03-14] MEDS: DEXAMETHASONE SOD PHOSPHATE 10 MG/1 ML VIAL IVPUSH ONE (14:10)
[2024-03-14] MEDS: ACETAMINOPHEN 1000 MG/100 ML BAG IVPB ONE (14:31)
[2024-03-14 14:43] LABS: VENOUS O2 SATURATION 42.5 % (70-80); VENOUS PCO2 40.4 mmHg (38-52); VENOUS PH 7.342 (7.310-7.410)
[2024-03-14 14:45] LABS: BASO % 0.7 % (0-2.0); EOS % 0.2 % (0-4.5); HEMATOCRIT 27.9 % (32.4-45.2); HEMOGLOBIN 7.9 GM/dL (10.7-15.3); LYMPH % 30.3 % (8-40); MCHC 28.1 g/dl (32.0-36.0); MEAN CELL VOLUME 65.8 fl (80-96); MEAN PLT VOLUME 8.1 fl (7.5-11.1); MONO % 3.2 % (3.8-10.2); NEUT % 65.6 % (42.8-82.8); PLATELET COUNT 500 10^3/uL (134-434); RBC 4.24 M/mm3 (3.60-5.2); RDW 24.8 % (11.6-15.6); WHITE BLOOD COUNT 14.5 K/mm3 (4.0-10.0)
[2024-03-14 14:50] LABS: MCH 18.5 pg (25.7-33.7)
[2024-03-14 14:52] LABS: INR 1.14 (0.83-1.09); PROTHROMBIN TIME (PATIENT) 12.8 SEC (9.7-13.0)
[2024-03-14 14:55] LABS: ACTIVATED PTT 23.5 SECONDS (25.2-36.5)
[2024-03-14 14:58] LABS: POTASSIUM 4.5 mmol/L (3.5-5.1)
[2024-03-14 15:00] LABS: ALBUMIN 3.6 g/dl (3.4-5.0); BLOOD UREA NITROGEN 13.5 mg/dL (7-18); CALCIUM 8.4 mg/dL (8.5-10.1)
[2024-03-14 15:05] LABS: BILIRUBIN,TOTAL 0.4 mg/dL (0.2-1); TOT PROT 7.7 g/dl (6.4-8.2)
[2024-03-14 15:08] LABS: N-TERMINAL BNP 48.5 pg/ml (5-125)
[2024-03-14] MEDS ORDERED: ONDANSETRON *ODT* 4 MG TABLET SL PRN (15:37)
[2024-03-14] MEDS ORDERED: hydrOXYzine PAMOATE 25 MG CAPSULE (FP) PO PRN (15:37)
[2024-03-14] MEDS ORDERED: AZITHROMYCIN IVPB 500 MG/250 ML BAG IVPB ONE (16:16)
[2024-03-14] MEDS ORDERED: GABAPENTIN 300 MG CAPSULE ONE (16:16)
[2024-03-14 16:17] LABS: HEMATOCRIT 24.1 % (32.4-45.2); MCHC 28.4 g/dl (32.0-36.0); MEAN CELL VOLUME 65.4 fl (80-96); MEAN PLT VOLUME 8.1 fl (7.5-11.1); PLATELET COUNT 451 10^3/uL (134-434); RBC 3.69 M/mm3 (3.60-5.2); RDW 25.5 % (11.6-15.6); WHITE BLOOD COUNT 11.3 K/mm3 (4.0-10.0)
[2024-03-14 16:29] LABS: MCH 18.5 pg (25.7-33.7)
[2024-03-14 16:30] LABS: HEMOGLOBIN 6.8 GM/dL (10.7-15.3)
[2024-03-14] MEDS: AZITHROMYCIN IVPB 500 MG in DEXTROSE 5%-WATER - 250 ML IVPB SCH (16:40)
[2024-03-14] MEDS: GABAPENTIN 300 MG CAPSULE PO SCH (16:46)
[2024-03-14] MEDS ORDERED: KETOROLAC TROMETHAMINE 15 MG/ML VIAL ONE (17:10)
[2024-03-14] MEDS: KETOROLAC TROMETHAMINE 15 MG/ML VIAL IVPUSH ONE (17:44)
[2024-03-14] MEDS ORDERED: FERROUS SO4 325 MG TABLET (FP) ONE (18:05)
[2024-03-14] MEDS ORDERED: ASCORBIC ACID 500 MG TABLET (FP) ONE (18:05)
[2024-03-14] MEDS: ASCORBIC ACID 500 MG TABLET (FP) PO SCH (18:09)
[2024-03-14] MEDS: FERROUS SO4 325 MG TABLET (FP) PO SCH (18:09)
[2024-03-14 18:20] LABS: IRON SERUM 23 ug/dL (50-175); TOTAL IRON BINDING CAPACITY 351 ug/dL (250-450)
[2024-03-14] MEDS ORDERED: FUROSEMIDE 40 MG/4 ML INJECTABLE VIAL IVPUSH ONE (18:40)
[2024-03-14] MEDS: HEPARIN NA (PORCINE) 5,000 UNITS/ML 1ML VIAL SQ SCH (22:23)
[2024-03-14] MEDS: ATORVASTATIN CA 40 MG TABLET (FP) PO SCH (22:24)
[2024-03-14] MEDS: SENNOSIDES 8.6MG TABLET (FP) PO SCH (22:24)
[2024-03-14] MEDS: MELATONIN 5 MG TABLETS PO SCH (22:40)
[2024-03-14] MEDS: NORTRIPTYLINE HCL 25 MG CAPSULE PO SCH (22:40)
[2024-03-14] MEDS: BUDESONIDE/FORMETEROL FUMARATE 160/4.5 mcg INHALER IH SCH (22:41)
[2024-03-15 01:26] VITALS: BMI 24.5
[2024-03-15 07:33] VITALS: BP 112/69; PULSE 98; RESP 17; TEMP 98
[2024-03-15] MEDS: FUROSEMIDE 40 MG/4 ML INJECTABLE VIAL IVPUSH ONE (08:47)
[2024-03-15 09:52] LABS: CHLORIDE 107 mmol/L (98-107); SODIUM 134 mmol/L (136-145)
[2024-03-15 09:53] LABS: ALBUMIN 3.7 g/dl (3.4-5.0); CO2 21 mmol/L (21-32); GLUCOSE,RANDOM 152 mg/dL (74-106); MAGNESIUM 2.5 mg/dL (1.8-2.4)
[2024-03-15 09:54] LABS: BLOOD UREA NITROGEN 11.4 mg/dL (7-18)
[2024-03-15 09:55] LABS: CHOLESTEROL 141 mg/dL (50-200); SGOT/AST 60 U/L (15-37)
[2024-03-15 09:56] LABS: SGPT/ALT 25 U/L (13-61)
[2024-03-15 09:57] LABS: BILIRUBIN,TOTAL 0.9 mg/dL (0.2-1); LDL CHOLESTEROL (ONLY SJRH) 94 mg/dL (5-100); TOT PROT 8.4 g/dl (6.4-8.2)
[2024-03-15 09:58] LABS: ALK PHOS 139 U/L (45-117)
[2024-03-15] MEDS ORDERED: FOLIC ACID 1 MG TABLET (FP) PO SCH (10:00)
[2024-03-15] MEDS ORDERED: PANTOPRAZOLE 40 MG TABLET PO SCH (10:00)
[2024-03-15 10:01] LABS: HDL CHOLESTEROL 31 mg/dL (40-60)
[2024-03-15 10:05] LABS: ANION GAP 6 mmol/L (4-13); POTASSIUM 6.5 mmol/L (3.5-5.1)
[2024-03-15 11:19] LABS: BASO % 0.2 % (0-2.0); EOS % 0.1 % (0-4.5); HEMATOCRIT 37.5 % (32.4-45.2); HEMOGLOBIN 11.5 GM/dL (10.7-15.3); MCH 21.3 pg (25.7-33.7); MCHC 30.5 g/dl (32.0-36.0); MEAN CELL VOLUME 69.6 fl (80-96); MEAN PLT VOLUME 8.1 fl (7.5-11.1); MONO % 3.6 % (3.8-10.2); NEUT % 77.1 % (42.8-82.8); PLATELET COUNT 472 10^3/uL (134-434); RBC 5.39 M/mm3 (3.60-5.2); RDW 24.8 % (11.6-15.6); WHITE BLOOD COUNT 13.8 K/mm3 (4.0-10.0)
== END 2024-03-15 10:43 | disposition left against medical advice (07) | DRG 253 ==
LOC: JER 12:39 → JERBED 15:21 → J5S 15:54 → J4S 18:26
PROVIDERS: ADMIT Internal Medicine; ATTEND Internal Medicine
PROC: 30233N1 Transfusion of Nonautologous Red Blood Cells into Peripheral Vein, Percutaneous Approach (ICD-10-PCS; principal; 2024-03-14)
DX: K92.2 Gastrointestinal hemorrhage, unspecified (principal); J18.9 Pneumonia, unspecified organism; I69.351 Hemiplegia and hemiparesis following cerebral infarction affecting right dominant side; D50.9 Iron deficiency anemia, unspecified; E78.5 Hyperlipidemia, unspecified; F17.210 Nicotine dependence, cigarettes, uncomplicated; J45.909 Unspecified asthma, uncomplicated; K21.9 Gastro-esophageal reflux disease without esophagitis; M79.7 Fibromyalgia; R06.02 Shortness of breath; E11.9 Type 2 diabetes mellitus without complications
CPT/HCPCS: 36415; 36430; 71045-TC-FY; 80053; 80061; 82728; 82803; 82962; 83010; 83036; 83540; 83550; 83735; 83880; 84443; 84484; 84703; 85025; 85027; 85610; 85730; 86850; 86900; 86901; 86922; 87040; 93005; 93010; 94640; 99285-25; J0131; J1100; P9038; P9058

== ENCOUNTER 2024-03-29 12:40 | Day surgery (SDC) | payer OTHER ==
[2024-03-29] MEDS: IRON SUCROSE COMPLEX 200 MG in SODIUM CHLORIDE 100 ML IVPB SCH (14:13)
[2024-03-29 14:47] VITALS: BP 100/60; PULSE 80; RESP 18; TEMP 98.3
== END 2024-03-29 14:30 | disposition home or self-care (01) ==
LOC: FINFUSION 12:40 → FM/S 12:42 → FINFUSION 14:30
PROVIDERS: ATTEND Family Medicine
PROC: 3E033GC Introduction of Other Therapeutic Substance into Peripheral Vein, Percutaneous Approach (ICD-10-PCS; principal; 2024-03-29)
DX: D50.9 Iron deficiency anemia, unspecified (principal)
CPT/HCPCS: 96365

== ENCOUNTER 2024-04-05 12:39 | Day surgery (SDC) | payer OTHER ==
[2024-04-05] MEDS: IRON SUCROSE COMPLEX 200 MG in SODIUM CHLORIDE 100 ML IVPB SCH (13:12)
[2024-04-05 14:00] VITALS: BP 109/57; PULSE 98; RESP 18; TEMP 98.1
== END 2024-04-05 14:25 | disposition home or self-care (01) ==
LOC: FINFUSION 12:39 → FM/S 12:39 → FINFUSION 14:25
PROVIDERS: ATTEND Family Medicine
PROC: 3E033GC Introduction of Other Therapeutic Substance into Peripheral Vein, Percutaneous Approach (ICD-10-PCS; principal; 2024-04-05)
DX: D50.9 Iron deficiency anemia, unspecified (principal)
CPT/HCPCS: 96365

== ENCOUNTER 2024-04-12 13:39 | Day surgery (SDC) | payer OTHER ==
[2024-04-12] MEDS: IRON SUCROSE INJECTION 200 MG in SODIUM CHLORIDE 100 ML IVPB ONE (15:03)
[2024-04-12 15:52] VITALS: BP 101/65; PULSE 93; RESP 15; TEMP 98.2
== END 2024-04-12 15:41 | disposition home or self-care (01) ==
LOC: FINFUSION 13:39 → FM/S 13:43 → FINFUSION 15:41
PROVIDERS: ATTEND Family Medicine
PROC: 3E033GC Introduction of Other Therapeutic Substance into Peripheral Vein, Percutaneous Approach (ICD-10-PCS; principal; 2024-04-12)
DX: D50.9 Iron deficiency anemia, unspecified (principal)
CPT/HCPCS: 96365; J1756

== ENCOUNTER → 2024-04-28 | Day surgery (SDC) | payer OTHER | END | disposition home or self-care (01) | LOC: JRADIR 09:11 | PROVIDERS: ATTEND Family Medicine | PROC: 02HV33Z Insertion of Infusion Device into Superior Vena Cava, Percutaneous Approach (ICD-10-PCS; principal; 2024-04-28) | PROC: B548ZZA Ultrasonography of Superior Vena Cava, Guidance (ICD-10-PCS; 2024-04-28) | DX: D50.9 Iron deficiency anemia, unspecified (principal) | CPT/HCPCS: 36569; 84703 ==

== ENCOUNTER 2024-05-03 11:01 | Day surgery (SDC) | payer OTHER ==
[2024-05-03] MEDS: IRON SUCROSE INJECTION 200 MG in SODIUM CHLORIDE 100 ML IVPB ONE (11:31)
[2024-05-03 11:40] VITALS: BP 118/78; TEMP 98.2
[2024-05-03 12:22] VITALS: PULSE 102; RESP 17
== END 2024-05-03 13:00 | disposition home or self-care (01) ==
LOC: FINFUSION 11:01 → FM/S 11:02 → FINFUSION 13:00
PROVIDERS: ATTEND Family Medicine
PROC: 3E033GC Introduction of Other Therapeutic Substance into Peripheral Vein, Percutaneous Approach (ICD-10-PCS; principal; 2024-05-03)
DX: D50.9 Iron deficiency anemia, unspecified (principal)
CPT/HCPCS: 96365; J1756

== ENCOUNTER 2024-05-09 09:04 | Day surgery (SDC) | payer OTHER | END 2024-05-09 10:00 | disposition home or self-care (01) | LOC: FINFUSION 09:04 → FM/S 09:05 → FINFUSION 10:00 | PROVIDERS: ATTEND Family Medicine | PROC: 02PYX3Z Removal of Infusion Device from Great Vessel, External Approach (ICD-10-PCS; principal; 2024-05-09) | DX: Z45.2 Encounter for adjustment and management of vascular access device (principal) | CPT/HCPCS: 36589 ==

== ENCOUNTER 2025-02-26 06:59 | Day surgery (SDC) | payer OTHER ==
[2025-02-25 13:15] VITALS: BMI 23.3
[2025-02-26] MEDS ORDERED: BUPIVACAINE HCL/PF 0.75% 10 ML VIAL ONE (07:38)
[2025-02-26] MEDS ORDERED: ACETAMINOPHEN 500 MG TABLET (FP) PO PRN (09:02)
[2025-02-26 14:58] VITALS: RESP 20
[2025-02-26] MEDS: BUPIVACAINE HCL/PF 0.75% 10 ML VIAL NR ONE ×2 (15:16→15:23)
[2025-02-26] MEDS: LIDOCAINE HCL 1% PRESERVATIVE FREE - 30ML VIAL IJ ONE (15:18)
[2025-02-26 16:57] VITALS: BP 130/72; PULSE 98; TEMP 97.5
== END 2025-02-26 15:41 | disposition home or self-care (01) ==
LOC: JASU-SURG 06:59
PROVIDERS: ATTEND Pain Medicine Pain Medicine
PROC: 3E0T33Z Introduction of Anti-inflammatory into Peripheral Nerves and Plexi, Percutaneous Approach (ICD-10-PCS; 2025-02-26)
PROC: 3E0T3BZ Introduction of Anesthetic Agent into Peripheral Nerves and Plexi, Percutaneous Approach (ICD-10-PCS; principal; 2025-02-26 16:45)
DX: M47.816 Spondylosis without myelopathy or radiculopathy, lumbar region (principal)
CPT/HCPCS: 76000-TC-FY; 81025

== ENCOUNTER 2025-03-26 05:16 | Day surgery (SDC) | payer OTHER ==
[2025-03-24 12:51] VITALS: BMI 26.6
[2025-03-26] MEDS ORDERED: ACETAMINOPHEN 500 MG TABLET (FP) PO PRN (08:52)
[2025-03-26 13:29] VITALS: RESP 18
[2025-03-26] MEDS ORDERED: LIDOCAINE HCL/PF 1% SDV 5ML VIAL ONE ×2 (14:46→14:53)
[2025-03-26 15:59] VITALS: BP 127/81; PULSE 85; TEMP 97.5
== END 2025-03-26 15:35 | disposition home or self-care (01) ==
LOC: JASU-SURG 05:16
PROVIDERS: ATTEND Pain Medicine Pain Medicine
PROC: 3E0R3BZ Introduction of Anesthetic Agent into Spinal Canal, Percutaneous Approach (ICD-10-PCS; 2025-03-26)
PROC: 3E0R33Z Introduction of Anti-inflammatory into Spinal Canal, Percutaneous Approach (ICD-10-PCS; principal; 2025-03-26 14:58)
DX: M54.16 Radiculopathy, lumbar region (principal); M48.061 Spinal stenosis, lumbar region without neurogenic claudication
CPT/HCPCS: 76000-TC-FY; 81025

== ENCOUNTER 2025-04-08 06:40 | Inpatient (IN) | payer OTHER ==
[2025-04-03 15:50] VITALS: BMI 26.4
[2025-04-08] MEDS ORDERED: GABAPENTIN 300 MG CAPSULE ONE (07:52)
[2025-04-08] MEDS: GABAPENTIN 300 MG CAPSULE PO ONE (08:05)
[2025-04-08] MEDS ORDERED: oxyCODONE HCL 5 MG TABLET PO PRN (10:59)
[2025-04-08] MEDS ORDERED: ONDANSETRON 4 MG/2 ML VIAL IVPUSH PRN ×2 (10:59→14:53)
[2025-04-08] MEDS ORDERED: MIDAZOLAM HCL 2 MG/2 ML SINGLE DOSE VIAL ONE (11:41)
[2025-04-08] MEDS ORDERED: HYDROmorphone HCl 2 MG/ML VIAL ONE (11:59)
[2025-04-08] MEDS: ceFAZolin SODIUM 1 GM VIAL IVPB ONE ×2 (12:03)
[2025-04-08] MEDS ORDERED: ONDANSETRON 4 MG/2 ML VIAL ONE (12:10)
[2025-04-08] MEDS ORDERED: ROCURONIUM BROMIDE 50 MG/5 ML SYRINGE ONE (12:46)
[2025-04-08] MEDS ORDERED: SUGAMMADEX SODIUM 200 MG/2 ML VIAL ONE ×2 (12:50→13:25)
[2025-04-08] MEDS ORDERED: SUCCINYLCHOLINE CHLORIDE 200 MG/10 ML SYRINGE ONE (13:42)
[2025-04-08] MEDS: BUPIVACAINE 0.25% /EPI 1:200,000 10 ML VIAL NR ONE ×3 (14:01→14:25)
[2025-04-08] MEDS ORDERED: SIMETHICONE 80 MG TAB.CHEW (FP) PO PRN (14:53)
[2025-04-08] MEDS ORDERED: BISACODYL 5 MG TABLET.DR (FP) PO PRN (14:53)
[2025-04-08] MEDS ORDERED: DOCUSATE SODIUM 100 MG CAPSULE (FP) PO PRN (14:53)
[2025-04-08] MEDS: LACTATED RINGERS SOLUTION 1,000 ML IV SCH (14:58)
[2025-04-08] MEDS ORDERED: PATIENT'S OWN MEDICATION (NON-FORMULARY) (Alprazolam [Xanax] 0.5 MG Tablet) PO PRN (15:03)
[2025-04-08] MEDS ORDERED: PATIENT'S OWN MEDICATION (NON-FORMULARY) (Insulin Lispro [Admelog] 100 UNIT/ML Vial) SQ SCH (15:15)
[2025-04-08] MEDS ORDERED: HYDROmorphone *PCA* 10MG/50ML DISP.SYRIN ONE (15:57)
[2025-04-08] MEDS: HYDROmorphone *PCA* 10MG/50ML DISP.SYRIN PCA SCH (16:05)
[2025-04-08 17:20] VITALS: RESP 18
[2025-04-08] MEDS: INSULIN ASPART SLIDING SCALE (NOVOLOG) 1 VIAL SQ SCH (17:37)
[2025-04-08] MEDS: CEFAZOLIN 1 GM/D5W 1 GM/50 ML BAG IVPB SCH (19:30)
[2025-04-08] MEDS: ONDANSETRON 4 MG/2 ML VIAL IVPUSH PRN (21:25)
[2025-04-08] MEDS: IBUPROFEN 800 MG/8 ML IJ IVPB SCH (21:26)
[2025-04-08] MEDS: ACETAMINOPHEN 1000 MG/100 ML BAG IVPB SCH (21:28)
[2025-04-08] MEDS: ATORVASTATIN CA 40 MG TABLET (FP) PO SCH (21:44)
[2025-04-08] MEDS: NORTRIPTYLINE HCL 25 MG CAPSULE PO SCH (22:26)
[2025-04-09 08:17] LABS: HEMATOCRIT 27.1 % (34.1-44.9); HEMOGLOBIN 8.1 g/dL (11.2-15.7); MCHC 29.9 g/dl (32.2-35.5); MEAN CELL VOLUME 89.1 fl (79.4-94.8); MEAN PLT VOLUME 10.2 fl (9.4-12.3); PLATELET COUNT 300 x10^3/uL (182-369); RDW 17.5 % (12.2-17.1)
[2025-04-09] MEDS ORDERED: ALPRAZolam 0.25 MG TABLET PO PRN (08:20)
[2025-04-09] MEDS: FOLIC ACID 1 MG TABLET (FP) PO SCH (10:39)
[2025-04-09] MEDS: ENOXAPARIN NA (PORCINE) 40 MG/0.4 ML DISP.SYRIN SQ SCH (10:39)
[2025-04-09] MEDS: PANTOPRAZOLE 40 MG TABLET PO SCH (10:39)
[2025-04-09] MEDS ORDERED: IBUPROFEN 600 MG TABLET (FP) PO PRN (11:00)
[2025-04-09] MEDS: PREGABALIN 25 MG CAPSULE PO SCH (13:56)
[2025-04-09 14:28] VITALS: BP 107/68; PULSE 100
[2025-04-09 14:29] VITALS: TEMP 98.4
[2025-04-09] MEDS ORDERED: ACETAMINOPHEN 325 MG TABLET (FP) PO PRN (15:00)
== END 2025-04-09 14:40 | disposition home health service (06) | DRG 519 ==
LOC: JASU-SURG 06:40 → J2C 12:45 → J8W 17:09
PROVIDERS: ADMIT Specialist; ATTEND Family Medicine
PROC: 0DNU0ZZ Release Omentum, Open Approach (ICD-10-PCS; 2025-04-08)
PROC: 0DBU0ZZ Excision of Omentum, Open Approach (ICD-10-PCS; 2025-04-08)
PROC: 0DNW0ZZ Release Peritoneum, Open Approach (ICD-10-PCS; 2025-04-08)
PROC: 0UT90ZZ Resection of Uterus, Open Approach (ICD-10-PCS; principal; 2025-04-08 10:00)
PROC: 0UT70ZZ Resection of Bilateral Fallopian Tubes, Open Approach (ICD-10-PCS; 2025-04-08 10:00)
DX: D25.1 Intramural leiomyoma of uterus (principal); R10.2 Pelvic and perineal pain; E11.9 Type 2 diabetes mellitus without complications; D64.9 Anemia, unspecified; N92.0 Excessive and frequent menstruation with regular cycle; N73.6 Female pelvic peritoneal adhesions (postinfective)
CPT/HCPCS: 36415; 81025; 82962; 85027; 86850; 86900; 86901; 88305-TC; 88307-TC; 94760; 97116-GP; 97161-GP